=== PATIENT | male | born 1955 | race Caucasian/White ===

== ENCOUNTER 2017-04-17 19:56 | Inpatient (IN) | payer MEDICARE, OTHER ==
--- NOTE | 2017-04-17 20:31 | ED Physician Chart ---
ED Chief Complaint/HPI - Patient Information Date Seen:: 04/17/17 Time Seen:: 20:27 Chief Complaint:: geripsych eval History of Present Illness:: pt sent from [place] for geripsych eval. has had diifficult to manage behavior lately. pt denies pain or fever or recent illness. has hx of psychotic break a few times but denies physical ailments[facility]pt [facility] dr almaraz and dr perry Allergies:: Allergies Allergy/AdvReac Type Severity Reaction Status Date / Time lidocaine Allergy Verified 04/17/17 20:05 Penicillins [PCN] Allergy Verified 04/17/17 20:05 procaine [From Novocain] Allergy Verified 04/17/17 20:05 Vitals:: Vital Signs - 8 hr 04/17/17 20:00 Temp 97.5 F HR 100 RR 18 BP 156/92 O2 Sat % 97 Historian:: Patient ED Review of Systems - Review of Systems General/Constitutional: No fever, No chills, No weight loss, No weakness, No diaphoresis, No edema, No loss of appetite Skin: No skin lesions, No rash, No bruising Head: No headache, No light-headedness Eyes: No loss of vision, No pain, No diplopia ENT: No earache, No nasal drainage, No sore throat, No tinnitus Neck: No neck pain, No swelling, No thyromegaly, No stiffness, No mass noted Cardio Vascular: No chest pain, No palpitations, No PND, No orthopnea, No edema Pulmonary: No SOB, No cough, No sputum, No wheezing GI: No nausea, No vomiting, No diarrhea, No pain, No melena, No hematochezia, No constipation, No hematemesis G/U: No dysuria, No frequency, No hematuria Musculoskeletal: No bone or joint pain, No back pain, No muscle pain Endocrine: No polyuria, No polydipsia Psychiatric: Prior psych history, No depression, No anxiety, No suicidal ideation, Other (difficult behavior) Hematopoietic: No bruising, No lymphadenopathy Allergic/Immuno: No urticaria, No angioedema Neurological: No syncope, No focal symptoms, No weakness, No paresthesia, No headache, No seizure, No dizziness, No confusion, No vertigo ED Past Medical History - Past Medical History Past Medical History: HTN, PUD/GERD, ESRD Psychiatricy History: Schizophrenia Family Medical History - Family Member Mother History Unknown: Yes ED Physical Exam - Physical Examination General/Constitutional: Awake, Well-developed, well-nourished, Alert, No distress, GCS 15, Non-toxic appearing, Ambulatory Other Gen/Cons comments:: currently calm/cooperative Head: Atraumatic Eyes: Lids, conjuctiva normal, PERRL, EOMI Skin: Nl inspection, No rash, No skin lesions, No ecchymosis, Well hydrated, No lymphadenopathy ENMT: External ears, nose nl, Nasal exam nl, Lips, teeth, gums nl Neck: Nontender, Full ROM w/o pain, No JVD, No nuchal rigidity, No bruit, No mass, No stridor Respiratory: Nl effort/Exclusion, Clear to Auscultation, No Wheeze/Rhonchi/Rales Cardio Vascular: RRR, No murmur, gallop, rubs, NL S1 S2 GI: No tenderness/rebounding/guarding, No organomegaly, No hernia, Normal BS's, Nondistended, No mass/bruits, No McBurney tenderness : No CVA tenderness Extremities: No tenderness or effusion, Full ROM, normal strength in all extremities, No edema, Normal digits & nails Neuro/Psych: Alert/oriented, DTR's symmetric, Normal sensory exam, Normal motor strength, Judgement/insight normal, Mood normal, Normal gait, No focal deficits Misc: normal gait, Normal back, No paraspinal tenderness ED Labs/Radiology/EKG Results - Lab Results Results: Laboratory Tests 04/17/17 04/17/17 20:28 20:28 WBC 8.4 RBC 3.92 L Hgb 11.6 L Hct 34.2 L MCV 87.1 MCH 29.6 MCHC Differential 34.0 RDW 11.4 L Plt Count 298 MPV 7.2 Neutrophils % 79.3 Lymphocytes % 12.0 L Monocytes % 7.1 Eosinophils % 1.3 Basophils % 0.3 Sodium 134 L Potassium 3.8 Chloride 104 Carbon Dioxide 21.7 Anion Gap 12.1 BUN 56 H Creatinine 4.7 H* Est GFR ( Amer) 16.3 Est GFR (Non-Af Amer) 13.4 BUN/Creatinine Ratio 11.9 Glucose 144 H Calcium 9.1 Total Bilirubin 0.3 AST 11 L ALT 9 Alkaline Phosphatase 64 Total Protein 6.4 Albumin 3.8 L Globulin 2.6 Albumin/Globulin Ratio 1.5 - Radiology Results Results: cxr- nad - EKG Interpretations EKG Time:: 20:35 Rate & Rhythm: nsr 78 [place]: 29 Intervals: pr156 Comments:: ok ED Septic Shock - . Is Septic Shock (SBP<90, OR Lactate>4 mmol\L) present?: No - <6hrs of presentation: Vital Signs: Vital Signs - 8 hr 04/17/17 20:00 Temp 97.5 F HR 100 RR 18 BP 156/92 O2 Sat % 97 ED Reassessment (Disposition) - Reassessment Reassessment:: pt quiet and cooperative through ed stay. Reassessment Condition:: Unchanged - Diagnosis Diagnosis:: 1 aggressive / difficult to manage behavior 2 medically clear for geripsych admission - Patient Disposition Admitted to:: [facility] Condition at Disposition:: Unchanged
[2017-04-17 20:39] LABS: % BASOPHILS 0.3 % (0.0-2.0); % EOSINOPHILS 1.3 % (0.0-5.0); % MONOCYTES 7.1 % (2.0-10.0); % NEUTROPHILS 79.3 % (40.0-80.0); HEMATOCRIT 34.2 % (39.0-49.0); HEMOGLOBIN 11.6 gm/dL (13.2-17.3); MEAN CELL VOLUME 87.1 fl (80-99); MEAN CORPUSCULAR HEMOGLOBIN 29.6 pg (26.0-30.0); MEAN PLATELET VOLUME 7.2 fl; NEUTROPHILE ABSOLUTE 6.7 Th/cmm (1.8-8.0); PLATELET COUNT 298 Th/cmm (150-400); RED BLOOD COUNT 3.92 Mil/cmm (4.30-5.70); RED CELL DISTRIBUTION WIDTH 11.4 % (11.5-20.0); WHITE BLOOD COUNT 8.4 Th/cmm (4.8-10.8)
[2017-04-17 21:08] LABS: POTASSIUM SERUM 3.8 mEq/L (3.5-5.1)
[2017-04-17 21:09] LABS: ANION GAP 12.1 (7.0-16.0); CARBON DIOXIDE 21.7 mEq/L (21.0-31.0)
[2017-04-17 21:10] LABS: BUN/CREATININE RATIO 11.9; CREATININE - SERUM 4.7 mg/dL (0.7-1.3)
[2017-04-17 21:11] LABS: ALB/GLOB RATIO 1.5 (1.0-1.8); BILIRUBIN,TOTAL 0.3 mg/dL (0.3-1.0); CALCIUM SERUM 9.1 mg/dL (8.6-10.3)
[2017-04-17 22:40] VITALS: BP 130/76
[2017-04-17] MEDS ORDERED: Magnesium Hydroxide (MOM) 30 mL UDC PO PRN (22:40)
--- NOTE | 2017-04-18 08:29 | Diagnostic Imaging Report ---
CHEST X-RAY: AP view INDICATION: Pneumonia COMPARISON: None FINDINGS: Mild chronic lung changes are seen with slight increased left basal density. There is no focal consolidation or pleural effusions The heart is normal in size. Degenerative changes of the spine are noted. There is a 8 mm chronic density probably a bone island within the right proximal humerus. IMPRESSION: Mild chronic lung changes are slight increased left basal density probably due to subsegmental atelectasis versus scarring. Underlying focal infiltrate be considered less likely. Clinical correlation is recommended. No focal consolidation identified.
[2017-04-18 08:58] LABS: URINE BILIRUBIN NEGATIVE (NEGATIVE); URINE BLOOD SMALL (NEGATIVE); URINE GLUCOSE (UA) NEGATIVE (NEGATIVE); URINE KETONE NEGATIVE (NEGATIVE); URINE PROTEIN 100 mg/dL (NEGATIVE); URINE UROBILINOGEN 0.2 E.U./dL (0.2 - 1.0)
[2017-04-18 08:59] LABS: URINE COLOR YELLOW
[2017-04-18 09:00] LABS: URINE BACTERIA NONE SEEN /hpf (NONE SEEN); URINE EPITHELIAL CELLS OCCASIONAL /lpf (FEW); URINE RBC 0-2 /hpf (0-5); URINE WBC 0-2 /hpf (0-5)
[2017-04-18] MEDS ORDERED: Non-Formulary Item 1 EA (Cranberry Conc/C/Bacill Coag [Cranberry Tablet] 1 EACH) PO SCH (09:00)
[2017-04-18] MEDS: Multivitamin w/ Minerals Tab PO SCH ×2 (10:29→11:01)
[2017-04-18] MEDS: Lactobacillus Rhamnosus 10 Billion CFU Capsule PO SCH ×2 (10:29→11:01)
[2017-04-18] MEDS: Ferrous Sulfate 325 MG TAB PO SCH (10:29)
--- NOTE | 2017-04-18 10:35 | Internal Medicine Prog Note ---
Internal Medicine Subjective - Subjective Service Date: 04/18/17 ([id number] [facility] dictated ) Internal Medicine Objective - Results Result Diagrams: 04/17/17 20:04/17/17 20: Recent Labs: Laboratory Last Values WBC 8.4 Th/cmm (4.8-10.8) 04/17/17 20: RBC 3.92 Mil/cmm (4.30-5.70) L 04/17/17 20: Hgb 11.6 gm/dL (13.2-17.3) L 04/17/17 20: Hct 34.2 % (39.0-49.0) L 04/17/17: MCV 87.1 fl (80-99) 04/17/17: MCH 29.6 pg (26.0-30.0) 04/17/17: MCHC Differential 34.0 pg (28.0-36.0) 04/17/17: RDW 11.4 % (11.5-20.0) L 04/17/17: Plt Count 298 Th/cmm (150-400) 04/17/17 20: MPV 7.2 fl 04/17/17 20: Neutrophils % 79.3 % (40.0-80.0) 04/17/17: Lymphocytes % 12.0 % (20.0-50.0) L 04/17/17: Monocytes % 7.1 % (2.0-10.0) 04/17/17: Eosinophils % 1.3 % (0.0-5.0) 04/17/17: Basophils % 0.3 % (0.0-2.0) 04/17/17 20: Sodium 134 mEq/L (136-145) L 04/17/17 20: Potassium 3.8 mEq/L (3.5-5.1) 04/17/17: Chloride 104 mEq/L (98-107) 04/17/17 20: Carbon Dioxide 21.7 mEq/L (21.0-31.0) 04/17/17 20: Anion Gap 12.1 (7.0-16.0) 04/17/17 20: BUN 56 mg/dL (7-25) H 04/17/17 20:28 Creatinine 4.7 mg/dL (0.7-1.3) H* 04/17/17 20:28 Est GFR ( Amer) 16.3 ml/min (>90) 04/17/17 20:28 Est GFR (Non-Af Amer) 13.4 ml/min 04/17/17 20:28 BUN/Creatinine Ratio 11.9 04/17/17 20:28 Glucose 144 mg/dL (70-105) H 04/17/17 20:28 Calcium 9.1 mg/dL (8.6-10.3) 04/17/17 20: Total Bilirubin 0.3 mg/dL (0.3-1.0) 04/17/17 20: AST 11 U/L (13-39) L 04/17/17 20:28 ALT 9 U/L (7-52) 04/17/17 20: Alkaline Phosphatase 64 U/L (34-104) 04/17/17 20: Total Protein 6.4 gm/dL (6.0-8.3) 04/17/17 20: Albumin 3.8 gm/dL (4.2-5.5) L 04/17/17 20: Globulin 2.6 gm/dL 04/17/17 20: Albumin/Globulin Ratio 1.5 (1.0-1.8) 04/17/17 20: TSH 0.80 uIU/ml (0.34-5.60) 04/17/17 20:28 Urine Source RANDOM 04/17/17 20:05 Urine Color YELLOW 04/17/17 20:05 Urine Clarity HAZY (CLEAR) 04/17/17 20:05 Urine pH 6.0 (4.6 - 8.0) 04/17/17 20:05 Ur Specific [place] <= 1.005 (1.005-1.030) 04/17/17 20:05 Urine Protein 100 mg/dL (NEGATIVE) H 04/17/17 20:05 Urine Glucose (UA) NEGATIVE mg/dL (NEGATIVE) 04/17/17 20:05 Urine Ketones NEGATIVE mg/dL (NEGATIVE) 04/17/17 20:05 Urine Blood SMALL (NEGATIVE) H 04/17/17 20:05 Urine Nitrate NEGATIVE (NEGATIVE) 04/17/17 20:05 Urine Bilirubin NEGATIVE (NEGATIVE) 04/17/17 20:05 Urine Urobilinogen 0.2 E.U./dL (0.2 - 1.0) 04/17/17 20:05 Ur Leukocyte Esterase NEGATIVE (NEGATIVE) 04/17/17 20:05 Urine RBC 0-2 /hpf (0-5) H 04/17/17 20:05 Urine WBC 0-2 /hpf (0-5) 04/17/17 20:05 Ur Epithelial Cells OCCASIONAL /lpf (FEW) 04/17/17 20:05 Urine Bacteria NONE SEEN /hpf (NONE SEEN) 04/17/17 20:05 - Physical Exam Vitals and I&O: Vital Signs Temp 97.9 F 04/18/17 06:50 Pulse 80 04/18/17 10:28 Resp 19 04/18/17 06:50 BP 161/67 04/18/17 10:28 Pulse Ox 97 04/18/17 06:50 Intake & Output 04/17/17 04/18/17 04/18/17 18:59 06:59 18:59 Weight (lbs) 160 lb Other: # Voids 3 # Bowel Movements 0 Active Medications: Current Medications Acetaminophen (Tylenol) 650 mg PO Q4HR PRN PRN Reason: Pain or Fever >101 Stop: 06/16/17 22:39 Amlodipine Besylate (Norvasc) 10 mg PO DAILY COUNTS INCLUDE 234 BEDS AT THE [facility] Stop: 06/17/17 08:59 Last Admin: 04/18/17 10:28 Dose: 10 mg Divalproex Sodium (Depakote Sprinkle) 125 mg PO Q12HR COUNTS INCLUDE 234 BEDS AT THE [facility] PRN Reason: Protocol Stop: 06/17/17 20:59 Docusate Sodium (Colace) 100 mg PO BID COUNTS INCLUDE 234 BEDS AT THE [facility] Stop: 06/17/17 08:59 Last Admin: 04/18/17 10:29 Dose: 100 mg Ferrous Sulfate (Iron) 325 mg PO DAILY COUNTS INCLUDE 234 BEDS AT THE [facility] Stop: 06/17/17 08:59 Last Admin: 04/18/17 10:29 Dose: 325 mg Finasteride (Proscar) 5 mg PO DAILY COUNTS INCLUDE 234 BEDS AT THE [facility] PRN Reason: Protocol Stop: 06/17/17 08:59 Last Admin: 04/18/17 10:26 Dose: 5 mg Haloperidol (Haldol) 2 mg PO BID COUNTS INCLUDE 234 BEDS AT THE [facility] PRN Reason: Protocol Stop: 06/17/17 16:59 Lactobacillus Rhamnosus (Culturelle) 1 each PO DAILY [facility] Stop: 06/17/17 08:59 Last Admin: 04/18/17 10:29 Dose: 1 each Lorazepam (Ativan) 1 mg PO Q6H PRN; Protocol PRN Reason: Anxiety/Agitation Stop: 06/16/17 22:25 Magnesium Hydroxide (Milk Of Magnesia) 30 ml PO DAILY PRN PRN Reason: Constipation Stop: 06/16/17 22:39 Miscellaneous (Cranberry Conc/C/Bacill Coag [Cranberry Tablet]) 1 each PO DAILY [facility] Stop: 06/17/17 08:59 Tamsulosin HCl (Flomax) 0.4 mg PO DAILY [facility] Stop: 06/17/17 08:59 Last Admin: 04/18/17 10:29 Dose: 0.4 mg Zolpidem Tartrate (Ambien) 5 mg PO HS PRN PRN Reason: Insomnia Stop: 06/16/17 22:25 Internal Medicine Assmt/Plan - Assessment Assessment: HTN CKD ANEMIA PSYCHOSIS PARANOID SCHIZOPHRENIA GERD BPH
--- NOTE | 2017-04-18 11:12 | History & Physical ---
ADMIT DATE: 04/18/2017 CHIEF COMPLAINT: Aggressive behavior. HISTORY OF PRESENT ILLNESS: This is a 61-year-old male who is a resident of [facility] who was brought here to [facility] for aggressive behavior towards staff. PAST MEDICAL HISTORY: Spondylosis, CKD, hypertension, GERD, BPH, anemia, paranoid schizophrenia. PSYCHIATRIC HISTORY: Schizophrenia. SOCIAL HISTORY: The [facility] is a [facility] resident, requiring 24-hour nursing care. PAST SURGICAL HISTORY: Unknown. FAMILY HISTORY: Noncontributory. REVIEW OF SYSTEMS: GENERAL: Denies fevers, chills. CARDIOVASCULAR: Denies chest pain. RESPIRATORY: Denies shortness of breath. GASTROINTESTINAL: Denies nausea, vomiting, abdominal pain. GENITOURINARY: Denies dysuria. All other systems are reviewed by me and are negative. PHYSICAL EXAMINATION: GENERAL: The patient is well developed, well nourished, no acute distress. VITAL SIGNS: Temperature 97.9, heart rate 80, blood pressure 161/67, respirations 19, O2 97%. HEAD: Normocephalic, atraumatic. NECK: Supple. No mass. LUNGS: Clear bilaterally. HEART: rhythm. ABDOMEN: Soft, nontender. LABORATORY DATA: WBC 8.4, H and H 11.6 and 34.2, platelet of 298. Sodium 134, potassium 3.8, chloride 104, BUN 56, creatinine 4.7. DIAGNOSTICS: The patient had a chest x-ray done and the impression is no focal consolidation. ASSESSMENT: 1. Psychosis. 2. Schizophrenia. 3. Hypertension. 4. Gastroesophageal reflux disease. 5. Benign prostatic hypertrophy. 6. Anemia. 7. Paranoid schizophrenia. 8. Chronic kidney disease. PLAN: We will encourage the patient for IV fluids. We will monitor the patient's BUN and creatinine for tomorrow morning. The patient to continue same medications from the jail. We will continue to monitor this patient. JOB# [id number]
--- NOTE | 2017-04-19 01:33 | Psychosocial Evaluation ---
DATE OF SERVICE: 04/17/2017 IDENTIFYING DATA: The patient is a 61-year-old male admitted here on a voluntary basis in view of his acute agitation. CHIEF COMPLAINT: "I should not be here. I am already better that I should be out." HISTORY OF PRESENT ILLNESS: This is the first psychiatric hospitalization to the [facility] for this patient who is reported to have been out of control. The patient is reported to have been on Risperdal up to 12 mg as per the information obtained by the family; that has not worked. The patient is reported to have been on Haldol. He has been tried on Haldol, it has caused drooling. The patient also was on Zyprexa 2.5 mg to 10 mg and nothing has worked. The patient has stage 4 kidney disease, and the patient is reported to have been conserved. Patient, at the time of the evaluation, has been very irritable, angry and has been testing the limit, stating that he should not be in here, he should be out. The patient's daughter Kaley was the one that has given the information. We have been looking for the [employer] papers at this time. PAST PSYCHIATRIC HISTORY: Please refer the above. The patient is being followed up by Dr. Dorsey on outpatient basis. MEDICAL HISTORY AND PHYSICAL EXAMINATION: Requested to be done by Dr. Sanchez. SUBSTANCE ABUSE HISTORY: None. PHYSICAL OR SEXUAL ABUSE HISTORY: None. Details about the prior psychiatric treatments are not available at this time. SOCIAL HISTORY: The patient is a resident of the nursing home facility. MENTAL STATUS EXAMINATION: The patient is a 61 year old, looking his stated age, superficially cooperative. Eye contact is fair. Mood is irritable. Affect is constricted. Insight and judgment at this time are noted to be very much impaired. Impulse control is poor. Coping skills are also noted to be poor. The patient is testing the limits. The patient is stating that there is no reason for him to be in here and he needs to be discharged. The patient has no insight into his illness. Since the patient has been reported to have been doing okay with the haloperidol and Zyprexa combination, we will try to start on a low dose of these medications and see how the patient responds and if the patient is willing, we will go with the Haldol Decanoate. [facility]# [id number]
[2017-04-19] MEDS: Ferrous Sulfate 325 MG TAB PO SCH (08:36)
[2017-04-19] MEDS: Lactobacillus Rhamnosus 10 Billion CFU Capsule PO SCH (08:37)
[2017-04-19] MEDS: Multivitamin w/ Minerals Tab PO SCH (08:37)
--- NOTE | 2017-04-19 11:30 | Internal Medicine Prog Note ---
Internal Medicine Subjective - Subjective Service Date: 04/19/17 Patient is:: awake, verbal Per staff patient has:: no adverse event Internal Medicine Objective - Results Result Diagrams: 04/17/17 20:04/17/17 20: Recent Labs: Laboratory Last Values WBC 8.4 Th/cmm (4.8-10.8) 04/17/17 20: RBC 3.92 Mil/cmm (4.30-5.70) L 04/17/17 20: Hgb 11.6 gm/dL (13.2-17.3) L 04/17/17 20: Hct 34.2 % (39.0-49.0) L 04/17/17 20: MCV 87.1 fl (80-99) 04/17/17 20: MCH 29.6 pg (26.0-30.0) 04/17/17 20: MCHC Differential 34.0 pg (28.0-36.0) 04/17/17: RDW 11.4 % (11.5-20.0) L 04/17/17 20: Plt Count 298 Th/cmm (150-400) 04/17/17 20: MPV 7.2 fl 04/17/17 20: Neutrophils % 79.3 % (40.0-80.0) 04/17/17: Lymphocytes % 12.0 % (20.0-50.0) L 04/17/17: Monocytes % 7.1 % (2.0-10.0) 04/17/17: Eosinophils % 1.3 % (0.0-5.0) 04/17/17 20: Basophils % 0.3 % (0.0-2.0) 04/17/17 20: Sodium 134 mEq/L (136-145) L 04/17/17 20: Potassium 3.8 mEq/L (3.5-5.1) 04/17/17 20: Chloride 104 mEq/L (98-107) 04/17/17 20: Carbon Dioxide 21.7 mEq/L (21.0-31.0) 04/17/17 20: Anion Gap 12.1 (7.0-16.0) 04/17/17 20:28 BUN 56 mg/dL (7-25) H 04/17/17 20:28 Creatinine 4.7 mg/dL (0.7-1.3) H* 04/17/17 20:28 Est GFR ( Amer) 16.3 ml/min (>90) 04/17/17 20: Est GFR (Non-Af Amer) 13.4 ml/min 04/17/17 20: BUN/Creatinine Ratio 11.9 04/17/17 20: Glucose 144 mg/dL (70-105) H 04/17/17 20:28 Calcium 9.1 mg/dL (8.6-10.3) 04/17/17 20: Total Bilirubin 0.3 mg/dL (0.3-1.0) 04/17/17 20: AST 11 U/L (13-39) L 04/17/17 20: ALT 9 U/L (7-52) 04/17/17 20: Alkaline Phosphatase 64 U/L (34-104) 04/17/17 20:28 Total Protein 6.4 gm/dL (6.0-8.3) 04/17/17 20: Albumin 3.8 gm/dL (4.2-5.5) L 04/17/17 20: Globulin 2.6 gm/dL 04/17/17 20: Albumin/Globulin Ratio 1.5 (1.0-1.8) 04/17/17 20: TSH 0.80 uIU/ml (0.34-5.60) 04/17/17 20:28 Urine Source RANDOM 04/17/17 20:05 Urine Color YELLOW 04/17/17 20:05 Urine Clarity HAZY (CLEAR) 04/17/17 20:05 Urine pH 6.0 (4.6 - 8.0) 04/17/17 20:05 Ur Specific [place] <= 1.005 (1.005-1.030) 04/17/17 20:05 Urine Protein 100 mg/dL (NEGATIVE) H 04/17/17 20:05 Urine Glucose (UA) NEGATIVE mg/dL (NEGATIVE) 04/17/17 20:05 Urine Ketones NEGATIVE mg/dL (NEGATIVE) 04/17/17 20:05 Urine Blood SMALL (NEGATIVE) H 04/17/17 20:05 Urine Nitrate NEGATIVE (NEGATIVE) 04/17/17 20:05 Urine Bilirubin NEGATIVE (NEGATIVE) 04/17/17 20:05 Urine Urobilinogen 0.2 E.U./dL (0.2 - 1.0) 04/17/17 20:05 Ur Leukocyte Esterase NEGATIVE (NEGATIVE) 04/17/17 20:05 Urine RBC 0-2 /hpf (0-5) H 04/17/17 20:05 Urine WBC 0-2 /hpf (0-5) 04/17/17 20:05 Ur Epithelial Cells OCCASIONAL /lpf (FEW) 04/17/17 20:05 Urine Bacteria NONE SEEN /hpf (NONE SEEN) 04/17/17 20:05 - Physical Exam Vitals and I&O: Vital Signs Temp 97.9 F 04/18/17 06:50 Pulse 80 04/18/17 06:50 Resp 19 04/18/17 06:50 BP 161/67 04/18/17 06:50 Pulse Ox 97 04/18/17 06:50 Intake & Output 04/18/17 04/19/17 04/19/17 18:59 06:59 18:59 Intake Total 2400 120 Balance 2400 120 Intake: Oral 2400 120 Other: # Voids 4 3 # Bowel Movements 0 Active Medications: Current Medications Acetaminophen (Tylenol) 650 mg PO Q4HR PRN PRN Reason: Pain or Fever >101 Stop: 06/16/17 22:39 Amlodipine Besylate (Norvasc) 10 mg PO DAILY [facility] Stop: 06/17/17 08:59 Last Admin: 04/19/17 08:36 Dose: Not Given Divalproex Sodium (Depakote Sprinkle) 125 mg PO Q12HR [facility] PRN Reason: Protocol Stop: 06/17/17 20:59 Docusate Sodium (Colace) 100 mg PO BID [facility] Stop: 06/17/17 08:59 Last Admin: 04/19/17 08:36 Dose: Not Given Ferrous Sulfate (Iron) 325 mg PO DAILY [facility] Stop: 06/17/17 08:59 Last Admin: 04/19/17 08:36 Dose: Not Given Finasteride (Proscar) 5 mg PO DAILY [facility] PRN Reason: Protocol Stop: 06/17/17 08:59 Last Admin: 04/19/17 08:36 Dose: Not Given Haloperidol (Haldol) 2 mg PO BID [facility] PRN Reason: Protocol Stop: 06/17/17 16:59 Lactobacillus Rhamnosus (Culturelle) 1 each PO DAILY [facility] Stop: 06/17/17 08:59 Last Admin: 04/19/17 08:37 Dose: Not Given Lorazepam (Ativan) 1 mg PO Q6H PRN; Protocol PRN Reason: Anxiety/Agitation Stop: 06/16/17 22:25 Magnesium Hydroxide (Milk Of Magnesia) 30 ml PO DAILY PRN PRN Reason: Constipation Stop: 06/16/17 22:39 Tamsulosin HCl (Flomax) 0.4 mg PO DAILY [facility] Stop: 06/17/17 08:59 Last Admin: 04/19/17 08:37 Dose: Not Given Zolpidem Tartrate (Ambien) 5 mg PO HS PRN PRN Reason: Insomnia Stop: 06/16/17 22:25 General: alert HEENT: NC/AT, PERRLA Neck: Supple Lungs: CTAB Cardiovascular: RRR, Normal S1, Normal S2, without murmur Abdomen: soft, non-tender, non-distended Extremities: excoriation Neurological: no change Internal Medicine Assmt/Plan - Assessment Assessment: HTN CKD ANEMIA PSYCHOSIS PARANOID SCHIZOPHRENIA GERD BPH - Plan Plan: monitor bp continue current medications fall precautions psych f/u
--- NOTE | 2017-04-20 02:32 | Progress Notes ---
DATE: 04/19/2017 SUBJECTIVE: Staff was spoken to. The patient is interviewed. Mood is noted to be irritable. Affect is constricted. The patient is not making any sense. The patient has been very aggressive and verbally abusive towards the staff members. Insight and judgment are very much impaired. Impulse control is noted to be poor. The patient is very paranoid. The patient has been placed on the Haldol and has not been willing to comply. The patient is reported to have responded well to Haldol Decanoate possibly once we get the [id number] papers, we will be going in the direction. ASSESSMENT: The patient's behavior is likely danger to self and others and patient is grossly psychotic. PLAN: To continue the patient with supportive therapy. I encouraged the patient to verbalize the concerns rather than to act out. JOB# [id number]
[2017-04-20] MEDS: Lactobacillus Rhamnosus 10 Billion CFU Capsule PO SCH (08:02)
[2017-04-20] MEDS: Multivitamin w/ Minerals Tab PO SCH (08:02)
[2017-04-20] MEDS: Ferrous Sulfate 325 MG TAB PO SCH (08:02)
--- NOTE | 2017-04-20 12:00 | Internal Medicine Prog Note ---
Internal Medicine Subjective - Subjective Service Date: 04/20/17 Patient is:: awake, verbal Per staff patient has:: no adverse event Internal Medicine Objective - Results Result Diagrams: 04/17/17 20:04/17/17 20: Recent Labs: Laboratory Last Values WBC 8.4 Th/cmm (4.8-10.8) 04/17/17 20: RBC 3.92 Mil/cmm (4.30-5.70) L 04/17/17 20: Hgb 11.6 gm/dL (13.2-17.3) L 04/17/17 20: Hct 34.2 % (39.0-49.0) L 04/17/17 20: MCV 87.1 fl (80-99) 04/17/17 20: MCH 29.6 pg (26.0-30.0) 04/17/17 20: MCHC Differential 34.0 pg (28.0-36.0) 04/17/17: RDW 11.4 % (11.5-20.0) L 04/17/17 20: Plt Count 298 Th/cmm (150-400) 04/17/17 20: MPV 7.2 fl 04/17/17 20: Neutrophils % 79.3 % (40.0-80.0) 04/17/17: Lymphocytes % 12.0 % (20.0-50.0) L 04/17/17: Monocytes % 7.1 % (2.0-10.0) 04/17/17: Eosinophils % 1.3 % (0.0-5.0) 04/17/17 20: Basophils % 0.3 % (0.0-2.0) 04/17/17 20: Sodium 134 mEq/L (136-145) L 04/17/17 20: Potassium 3.8 mEq/L (3.5-5.1) 04/17/17 20: Chloride 104 mEq/L (98-107) 04/17/17 20: Carbon Dioxide 21.7 mEq/L (21.0-31.0) 04/17/17 20: Anion Gap 12.1 (7.0-16.0) 04/17/17 20:28 BUN 56 mg/dL (7-25) H 04/17/17 20:28 Creatinine 4.7 mg/dL (0.7-1.3) H* 04/17/17 20:28 Est GFR ( Amer) 16.3 ml/min (>90) 04/17/17 20: Est GFR (Non-Af Amer) 13.4 ml/min 04/17/17 20: BUN/Creatinine Ratio 11.9 04/17/17 20: Glucose 144 mg/dL (70-105) H 04/17/17 20:28 Calcium 9.1 mg/dL (8.6-10.3) 04/17/17 20: Total Bilirubin 0.3 mg/dL (0.3-1.0) 04/17/17 20: AST 11 U/L (13-39) L 04/17/17 20: ALT 9 U/L (7-52) 04/17/17 20: Alkaline Phosphatase 64 U/L (34-104) 04/17/17 20:28 Total Protein 6.4 gm/dL (6.0-8.3) 04/17/17 20: Albumin 3.8 gm/dL (4.2-5.5) L 04/17/17 20: Globulin 2.6 gm/dL 04/17/17 20: Albumin/Globulin Ratio 1.5 (1.0-1.8) 04/17/17 20: TSH 0.80 uIU/ml (0.34-5.60) 04/17/17 20:28 Urine Source RANDOM 04/17/17 20:05 Urine Color YELLOW 04/17/17 20:05 Urine Clarity HAZY (CLEAR) 04/17/17 20:05 Urine pH 6.0 (4.6 - 8.0) 04/17/17 20:05 Ur Specific [place] <= 1.005 (1.005-1.030) 04/17/17 20:05 Urine Protein 100 mg/dL (NEGATIVE) H 04/17/17 20:05 Urine Glucose (UA) NEGATIVE mg/dL (NEGATIVE) 04/17/17 20:05 Urine Ketones NEGATIVE mg/dL (NEGATIVE) 04/17/17 20:05 Urine Blood SMALL (NEGATIVE) H 04/17/17 20:05 Urine Nitrate NEGATIVE (NEGATIVE) 04/17/17 20:05 Urine Bilirubin NEGATIVE (NEGATIVE) 04/17/17 20:05 Urine Urobilinogen 0.2 E.U./dL (0.2 - 1.0) 04/17/17 20:05 Ur Leukocyte Esterase NEGATIVE (NEGATIVE) 04/17/17 20:05 Urine RBC 0-2 /hpf (0-5) H 04/17/17 20:05 Urine WBC 0-2 /hpf (0-5) 04/17/17 20:05 Ur Epithelial Cells OCCASIONAL /lpf (FEW) 04/17/17 20:05 Urine Bacteria NONE SEEN /hpf (NONE SEEN) 04/17/17 20:05 RPR NONREACTIVE (NONREACTIVE) 04/17/17 20:28 - Physical Exam Vitals and I&O: Vital Signs Temp 97.9 F 04/18/17 06:50 Pulse 80 04/18/17 06:50 Resp 19 04/18/17 06:50 BP 161/67 04/18/17 06:50 Pulse Ox 97 04/18/17 06:50 Intake & Output 04/19/17 04/20/17 04/20/17 18:59 06:59 18:59 Intake Total 2400 120 Balance 2400 120 Intake: Oral 2400 120 Other: # Voids 4 3 # Bowel Movements 1 Active Medications: Current Medications Acetaminophen (Tylenol) 650 mg PO Q4HR PRN PRN Reason: Pain or Fever >101 Stop: 06/16/17 22:39 Amlodipine Besylate (Norvasc) 10 mg PO DAILY [facility] Stop: 06/17/17 08:59 Last Admin: 04/20/17 08:02 Dose: Not Given Divalproex Sodium (Depakote Sprinkle) 125 mg PO Q12HR [facility] PRN Reason: Protocol Stop: 06/17/17 20:59 Last Admin: 04/20/17 08:02 Dose: Not Given Docusate Sodium (Colace) 100 mg PO BID [facility] Stop: 06/17/17 08:59 Last Admin: 04/20/17 08:02 Dose: Not Given Ferrous Sulfate (Iron) 325 mg PO DAILY [facility] Stop: 06/17/17 08:59 Last Admin: 04/20/17 08:02 Dose: Not Given Finasteride (Proscar) 5 mg PO DAILY [facility] PRN Reason: Protocol Stop: 06/17/17 08:59 Last Admin: 04/20/17 08:02 Dose: Not Given Haloperidol (Haldol) 2 mg PO BID [facility] PRN Reason: Protocol Stop: 06/17/17 16:59 Last Admin: 04/20/17 08:01 Dose: Not Given Lactobacillus Rhamnosus (Culturelle) 1 each PO DAILY [facility] Stop: 06/17/17 08:59 Last Admin: 04/20/17 08:02 Dose: Not Given Lorazepam (Ativan) 1 mg PO Q6H PRN; Protocol PRN Reason: Anxiety/Agitation Stop: 06/16/17 22:25 Magnesium Hydroxide (Milk Of Magnesia) 30 ml PO DAILY PRN PRN Reason: Constipation Stop: 06/16/17 22:39 Tamsulosin HCl (Flomax) 0.4 mg PO DAILY [facility] Stop: 06/17/17 08:59 Last Admin: 04/20/17 08:02 Dose: Not Given Zolpidem Tartrate (Ambien) 5 mg PO HS PRN PRN Reason: Insomnia Stop: 06/16/17 22:25 General: alert HEENT: NC/AT, PERRLA Neck: Supple Lungs: CTAB Cardiovascular: RRR, Normal S1, Normal S2, without murmur Abdomen: soft, non-tender, non-distended Extremities: excoriation Neurological: no change Internal Medicine Assmt/Plan - Assessment Assessment: HTN CKD ANEMIA PSYCHOSIS PARANOID SCHIZOPHRENIA GERD BPH - Plan Plan: monitor bp continue current medications fall precautions psych f/u
--- NOTE | 2017-04-21 01:45 | Progress Notes ---
DATE: 04/20/2017 PSYCHIATRIC PROGRESS NOTE Staff was spoken to. The patient is interviewed. Mood is noted to be irritable. Affect is constricted. The patient's insight and judgment are noted to be very much impaired. The patient is screaming and yelling and is stating that there is no reason for him to be on the medication. The patient's coping skills are noted to be very poor. The patient is very paranoid and has been testing the limits on the unit. ASSESSMENT: The patient is still grossly psychotic. PLAN: To continue the patient with supportive therapy. I encouraged the patient to verbalize the concerns rather than to act out. JOB# [id number]
--- NOTE | 2017-04-21 15:14 | Internal Medicine Prog Note ---
Internal Medicine Subjective - Subjective Service Date: 04/21/17 Patient is:: awake, verbal Per staff patient has:: no adverse event Internal Medicine Objective - Results Result Diagrams: 04/17/17 20:04/17/17 20: Recent Labs: Laboratory Last Values WBC 8.4 Th/cmm (4.8-10.8) 04/17/17 20: RBC 3.92 Mil/cmm (4.30-5.70) L 04/17/17 20: Hgb 11.6 gm/dL (13.2-17.3) L 04/17/17 20: Hct 34.2 % (39.0-49.0) L 04/17/17 20: MCV 87.1 fl (80-99) 04/17/17 20: MCH 29.6 pg (26.0-30.0) 04/17/17 20: MCHC Differential 34.0 pg (28.0-36.0) 04/17/17: RDW 11.4 % (11.5-20.0) L 04/17/17 20: Plt Count 298 Th/cmm (150-400) 04/17/17 20: MPV 7.2 fl 04/17/17 20: Neutrophils % 79.3 % (40.0-80.0) 04/17/17 20: Lymphocytes % 12.0 % (20.0-50.0) L 04/17/17 20: Monocytes % 7.1 % (2.0-10.0) 04/17/17: Eosinophils % 1.3 % (0.0-5.0) 04/17/17 20: Basophils % 0.3 % (0.0-2.0) 04/17/17 20: Sodium 134 mEq/L (136-145) L 04/17/17 20: Potassium 3.8 mEq/L (3.5-5.1) 04/17/17 20: Chloride 104 mEq/L (98-107) 04/17/17 20: Carbon Dioxide 21.7 mEq/L (21.0-31.0) 04/17/17 20: Anion Gap 12.1 (7.0-16.0) 04/17/17 20:28 BUN 56 mg/dL (7-25) H 04/17/17 20:28 Creatinine 4.7 mg/dL (0.7-1.3) H* 04/17/17 20:28 Est GFR ( Amer) 16.3 ml/min (>90) 04/17/17 20: Est GFR (Non-Af Amer) 13.4 ml/min 04/17/17 20: BUN/Creatinine Ratio 11.9 04/17/17 20: Glucose 144 mg/dL (70-105) H 04/17/17 20:28 Calcium 9.1 mg/dL (8.6-10.3) 04/17/17 20: Total Bilirubin 0.3 mg/dL (0.3-1.0) 04/17/17 20: AST 11 U/L (13-39) L 04/17/17 20: ALT 9 U/L (7-52) 04/17/17 20: Alkaline Phosphatase 64 U/L (34-104) 04/17/17 20:28 Total Protein 6.4 gm/dL (6.0-8.3) 04/17/17 20: Albumin 3.8 gm/dL (4.2-5.5) L 04/17/17 20: Globulin 2.6 gm/dL 04/17/17 20: Albumin/Globulin Ratio 1.5 (1.0-1.8) 04/17/17 20: TSH 0.80 uIU/ml (0.34-5.60) 04/17/17 20:28 Urine Source RANDOM 04/17/17 20:05 Urine Color YELLOW 04/17/17 20:05 Urine Clarity HAZY (CLEAR) 04/17/17 20:05 Urine pH 6.0 (4.6 - 8.0) 04/17/17 20:05 Ur Specific [place] <= 1.005 (1.005-1.030) 04/17/17 20:05 Urine Protein 100 mg/dL (NEGATIVE) H 04/17/17 20:05 Urine Glucose (UA) NEGATIVE mg/dL (NEGATIVE) 04/17/17 20:05 Urine Ketones NEGATIVE mg/dL (NEGATIVE) 04/17/17 20:05 Urine Blood SMALL (NEGATIVE) H 04/17/17 20:05 Urine Nitrate NEGATIVE (NEGATIVE) 04/17/17 20:05 Urine Bilirubin NEGATIVE (NEGATIVE) 04/17/17 20:05 Urine Urobilinogen 0.2 E.U./dL (0.2 - 1.0) 04/17/17 20:05 Ur Leukocyte Esterase NEGATIVE (NEGATIVE) 04/17/17 20:05 Urine RBC 0-2 /hpf (0-5) H 04/17/17 20:05 Urine WBC 0-2 /hpf (0-5) 04/17/17 20:05 Ur Epithelial Cells OCCASIONAL /lpf (FEW) 04/17/17 20:05 Urine Bacteria NONE SEEN /hpf (NONE SEEN) 04/17/17 20:05 RPR NONREACTIVE (NONREACTIVE) 04/17/17 20:28 - Physical Exam Vitals and I&O: Vital Signs Temp 97.9 F 04/18/17 06:50 Pulse 80 04/18/17 06:50 Resp 19 04/18/17 06:50 BP 161/67 04/18/17 06:50 Pulse Ox 97 04/18/17 06:50 Intake & Output 04/20/17 04/21/17 04/21/17 18:59 06:59 18:59 Intake Total 1200 120 Balance 1200 120 Intake: Oral 1200 120 Other: # Voids 4 3 # Bowel Movements 1 Active Medications: Current Medications Acetaminophen (Tylenol) 650 mg PO Q4HR PRN PRN Reason: Pain or Fever >101 Stop: 06/16/17 22:39 Amlodipine Besylate (Norvasc) 10 mg PO DAILY [facility] Stop: 06/17/17 08:59 Last Admin: 04/20/17 08:02 Dose: Not Given Divalproex Sodium (Depakote Sprinkle) 125 mg PO Q12HR [facility] PRN Reason: Protocol Stop: 06/17/17 20:59 Last Admin: 04/20/17 21:39 Dose: Not Given Docusate Sodium (Colace) 100 mg PO BID [facility] Stop: 06/17/17 08:59 Last Admin: 04/20/17 18:14 Dose: Not Given Ferrous Sulfate (Iron) 325 mg PO DAILY [facility] Stop: 06/17/17 08:59 Last Admin: 04/20/17 08:02 Dose: Not Given Finasteride (Proscar) 5 mg PO DAILY [facility] PRN Reason: Protocol Stop: 06/17/17 08:59 Last Admin: 04/20/17 08:02 Dose: Not Given Haloperidol (Haldol) 2 mg PO BID [facility] PRN Reason: Protocol Stop: 06/17/17 16:59 Last Admin: 04/20/17 17:12 Dose: Not Given Lactobacillus Rhamnosus (Culturelle) 1 each PO DAILY [facility] Stop: 06/17/17 08:59 Last Admin: 04/20/17 08:02 Dose: Not Given Lorazepam (Ativan) 1 mg PO Q6H PRN; Protocol PRN Reason: Anxiety/Agitation Stop: 06/16/17 22:25 Magnesium Hydroxide (Milk Of Magnesia) 30 ml PO DAILY PRN PRN Reason: Constipation Stop: 06/16/17 22:39 Tamsulosin HCl (Flomax) 0.4 mg PO DAILY [facility] Stop: 06/17/17 08:59 Last Admin: 04/20/17 08:02 Dose: Not Given Zolpidem Tartrate (Ambien) 5 mg PO HS PRN PRN Reason: Insomnia Stop: 06/16/17 22:25 General: alert HEENT: NC/AT, PERRLA Neck: Supple Lungs: CTAB Cardiovascular: RRR, Normal S1, Normal S2, without murmur Abdomen: soft, non-tender, non-distended Extremities: excoriation Neurological: no change Internal Medicine Assmt/Plan - Assessment Assessment: HTN CKD ANEMIA PSYCHOSIS PARANOID SCHIZOPHRENIA GERD BPH - Plan Plan: monitor bp continue current medications fall precautions psych f/u
[2017-04-21] MEDS: Lactobacillus Rhamnosus 10 Billion CFU Capsule PO SCH (17:38)
[2017-04-21] MEDS: Ferrous Sulfate 325 MG TAB PO SCH (17:38)
[2017-04-21] MEDS: Multivitamin w/ Minerals Tab PO SCH (17:38)
[2017-04-22] MEDS: Ferrous Sulfate 325 MG TAB PO SCH (08:19)
[2017-04-22] MEDS: Multivitamin w/ Minerals Tab PO SCH (08:19)
[2017-04-22] MEDS: Lactobacillus Rhamnosus 10 Billion CFU Capsule PO SCH (08:19)
--- NOTE | 2017-04-22 15:01 | Internal Medicine Prog Note ---
Internal Medicine Subjective - Subjective Service Date: 04/22/17 Patient is:: awake, verbal Per staff patient has:: no adverse event Internal Medicine Objective - Results Result Diagrams: 04/17/17 20:04/17/17 20: Recent Labs: Laboratory Last Values WBC 8.4 Th/cmm (4.8-10.8) 04/17/17 20: RBC 3.92 Mil/cmm (4.30-5.70) L 04/17/17 20: Hgb 11.6 gm/dL (13.2-17.3) L 04/17/17 20: Hct 34.2 % (39.0-49.0) L 04/17/17 20: MCV 87.1 fl (80-99) 04/17/17 20: MCH 29.6 pg (26.0-30.0) 04/17/17 20: MCHC Differential 34.0 pg (28.0-36.0) 04/17/17: RDW 11.4 % (11.5-20.0) L 04/17/17 20: Plt Count 298 Th/cmm (150-400) 04/17/17 20: MPV 7.2 fl 04/17/17 20: Neutrophils % 79.3 % (40.0-80.0) 04/17/17: Lymphocytes % 12.0 % (20.0-50.0) L 04/17/17: Monocytes % 7.1 % (2.0-10.0) 04/17/17: Eosinophils % 1.3 % (0.0-5.0) 04/17/17 20: Basophils % 0.3 % (0.0-2.0) 04/17/17 20: Sodium 134 mEq/L (136-145) L 04/17/17 20: Potassium 3.8 mEq/L (3.5-5.1) 04/17/17 20: Chloride 104 mEq/L (98-107) 04/17/17 20: Carbon Dioxide 21.7 mEq/L (21.0-31.0) 04/17/17 20: Anion Gap 12.1 (7.0-16.0) 04/17/17 20:28 BUN 56 mg/dL (7-25) H 04/17/17 20:28 Creatinine 4.7 mg/dL (0.7-1.3) H* 04/17/17 20:28 Est GFR ( Amer) 16.3 ml/min (>90) 04/17/17 20: Est GFR (Non-Af Amer) 13.4 ml/min 04/17/17 20: BUN/Creatinine Ratio 11.9 04/17/17 20: Glucose 144 mg/dL (70-105) H 04/17/17 20:28 Calcium 9.1 mg/dL (8.6-10.3) 04/17/17 20: Total Bilirubin 0.3 mg/dL (0.3-1.0) 04/17/17 20: AST 11 U/L (13-39) L 04/17/17 20: ALT 9 U/L (7-52) 04/17/17 20: Alkaline Phosphatase 64 U/L (34-104) 04/17/17 20:28 Total Protein 6.4 gm/dL (6.0-8.3) 04/17/17 20: Albumin 3.8 gm/dL (4.2-5.5) L 04/17/17 20: Globulin 2.6 gm/dL 04/17/17 20: Albumin/Globulin Ratio 1.5 (1.0-1.8) 04/17/17 20: TSH 0.80 uIU/ml (0.34-5.60) 04/17/17 20:28 Urine Source RANDOM 04/17/17 20:05 Urine Color YELLOW 04/17/17 20:05 Urine Clarity HAZY (CLEAR) 04/17/17 20:05 Urine pH 6.0 (4.6 - 8.0) 04/17/17 20:05 Ur Specific [place] <= 1.005 (1.005-1.030) 04/17/17 20:05 Urine Protein 100 mg/dL (NEGATIVE) H 04/17/17 20:05 Urine Glucose (UA) NEGATIVE mg/dL (NEGATIVE) 04/17/17 20:05 Urine Ketones NEGATIVE mg/dL (NEGATIVE) 04/17/17 20:05 Urine Blood SMALL (NEGATIVE) H 04/17/17 20:05 Urine Nitrate NEGATIVE (NEGATIVE) 04/17/17 20:05 Urine Bilirubin NEGATIVE (NEGATIVE) 04/17/17 20:05 Urine Urobilinogen 0.2 E.U./dL (0.2 - 1.0) 04/17/17 20:05 Ur Leukocyte Esterase NEGATIVE (NEGATIVE) 04/17/17 20:05 Urine RBC 0-2 /hpf (0-5) H 04/17/17 20:05 Urine WBC 0-2 /hpf (0-5) 04/17/17 20:05 Ur Epithelial Cells OCCASIONAL /lpf (FEW) 04/17/17 20:05 Urine Bacteria NONE SEEN /hpf (NONE SEEN) 04/17/17 20:05 RPR NONREACTIVE (NONREACTIVE) 04/17/17 20:28 - Physical Exam Vitals and I&O: Vital Signs Temp 97.9 F 04/18/17 06:50 Pulse 80 04/18/17 06:50 Resp 19 04/18/17 06:50 BP 161/67 04/18/17 06:50 Pulse Ox 97 04/18/17 06:50 Intake & Output 04/21/17 04/22/17 04/22/17 18:59 06:59 18:59 Intake Total 900 480 Balance 900 480 Intake: Oral 900 480 Other: # Voids 3 1 # Bowel Movements 0 Active Medications: Current Medications Acetaminophen (Tylenol) 650 mg PO Q4HR PRN PRN Reason: Pain or Fever >101 Stop: 06/16/17 22:39 Amlodipine Besylate (Norvasc) 10 mg PO DAILY [facility] Stop: 06/17/17 08:59 Last Admin: 04/22/17 08:18 Dose: Not Given Divalproex Sodium (Depakote Sprinkle) 125 mg PO Q12HR [facility] PRN Reason: Protocol Stop: 06/17/17 20:59 Last Admin: 04/22/17 08:18 Dose: Not Given Docusate Sodium (Colace) 100 mg PO BID [facility] Stop: 06/17/17 08:59 Last Admin: 04/22/17 08:18 Dose: Not Given Ferrous Sulfate (Iron) 325 mg PO DAILY [facility] Stop: 06/17/17 08:59 Last Admin: 04/22/17 08:19 Dose: Not Given Finasteride (Proscar) 5 mg PO DAILY [facility] PRN Reason: Protocol Stop: 06/17/17 08:59 Last Admin: 04/22/17 08:19 Dose: Not Given Haloperidol (Haldol) 2 mg PO BID [facility] PRN Reason: Protocol Stop: 06/17/17 16:59 Last Admin: 04/22/17 08:18 Dose: Not Given Lactobacillus Rhamnosus (Culturelle) 1 each PO DAILY [facility] Stop: 06/17/17 08:59 Last Admin: 04/22/17 08:19 Dose: Not Given Lorazepam (Ativan) 1 mg PO Q6H PRN; Protocol PRN Reason: Anxiety/Agitation Stop: 06/16/17 22:25 Magnesium Hydroxide (Milk Of Magnesia) 30 ml PO DAILY PRN PRN Reason: Constipation Stop: 06/16/17 22:39 Tamsulosin HCl (Flomax) 0.4 mg PO DAILY [facility] Stop: 06/17/17 08:59 Last Admin: 04/22/17 08:19 Dose: Not Given Zolpidem Tartrate (Ambien) 5 mg PO HS PRN PRN Reason: Insomnia Stop: 06/16/17 22:25 General: alert HEENT: NC/AT, PERRLA Neck: Supple Lungs: CTAB Cardiovascular: RRR, Normal S1, Normal S2, without murmur Abdomen: soft, non-tender, non-distended Extremities: excoriation Neurological: no change Internal Medicine Assmt/Plan - Assessment Assessment: HTN CKD ANEMIA PSYCHOSIS PARANOID SCHIZOPHRENIA GERD BPH - Plan Plan: monitor bp continue current medications fall precautions psych f/u
--- NOTE | 2017-04-22 21:24 | Progress Notes ---
DATE: 04/21/2017 SUBJECTIVE: Staff was spoken to. The patient is interviewed. Mood is noted to be irritable. Affect is constricted. Continues to be very paranoid and aggressive. The patient has no insight. The patient is reported to have been on the conservatorship, but we have been waiting for the paperwork, so far no paperwork is obtained, possibly the patient is going to be released and the patient is going to be medicated against his will for his psychotic symptoms. JOB# [id number]
[2017-04-23] MEDS: Lactobacillus Rhamnosus 10 Billion CFU Capsule PO SCH (08:09)
[2017-04-23] MEDS: Ferrous Sulfate 325 MG TAB PO SCH (08:09)
[2017-04-23] MEDS: Multivitamin w/ Minerals Tab PO SCH (08:09)
--- NOTE | 2017-04-23 10:38 | Progress Notes ---
DATE: 04/22/2017 SUBJECTIVE: Staff was spoken to. The patient is interviewed. Mood is noted to be irritable. Affect is constricted. The patient is isolative and withdrawn. The patient has so far been compliant with medication, but has been reluctant to comply with the treatment. The patient is stating that she does not need any medication. The patient has been answering the questions with questions. ASSESSMENT: The patient is still psychotic. PLAN: To continue the patient with supportive therapy and to assist with the case assistant with regards getting the conservatorship papers so that we can medicate this patient. So far, the patient's daughter has not been able to provide these conservatorship papers. JOB# [id number]
--- NOTE | 2017-04-23 13:46 | Internal Medicine Prog Note ---
Internal Medicine Subjective - Subjective Service Date: 04/23/17 Patient is:: awake, verbal Per staff patient has:: no adverse event Internal Medicine Objective - Results Result Diagrams: 04/17/17 20:04/17/17 20: Recent Labs: Laboratory Last Values WBC 8.4 Th/cmm (4.8-10.8) 04/17/17 20: RBC 3.92 Mil/cmm (4.30-5.70) L 04/17/17 20: Hgb 11.6 gm/dL (13.2-17.3) L 04/17/17 20: Hct 34.2 % (39.0-49.0) L 04/17/17 20: MCV 87.1 fl (80-99) 04/17/17 20: MCH 29.6 pg (26.0-30.0) 04/17/17 20: MCHC Differential 34.0 pg (28.0-36.0) 04/17/17: RDW 11.4 % (11.5-20.0) L 04/17/17 20: Plt Count 298 Th/cmm (150-400) 04/17/17 20: MPV 7.2 fl 04/17/17 20: Neutrophils % 79.3 % (40.0-80.0) 04/17/17: Lymphocytes % 12.0 % (20.0-50.0) L 04/17/17: Monocytes % 7.1 % (2.0-10.0) 04/17/17: Eosinophils % 1.3 % (0.0-5.0) 04/17/17 20: Basophils % 0.3 % (0.0-2.0) 04/17/17 20: Sodium 134 mEq/L (136-145) L 04/17/17 20: Potassium 3.8 mEq/L (3.5-5.1) 04/17/17 20: Chloride 104 mEq/L (98-107) 04/17/17 20: Carbon Dioxide 21.7 mEq/L (21.0-31.0) 04/17/17 20: Anion Gap 12.1 (7.0-16.0) 04/17/17 20:28 BUN 56 mg/dL (7-25) H 04/17/17 20:28 Creatinine 4.7 mg/dL (0.7-1.3) H* 04/17/17 20:28 Est GFR ( Amer) 16.3 ml/min (>90) 04/17/17 20: Est GFR (Non-Af Amer) 13.4 ml/min 04/17/17 20: BUN/Creatinine Ratio 11.9 04/17/17 20: Glucose 144 mg/dL (70-105) H 04/17/17 20:28 Calcium 9.1 mg/dL (8.6-10.3) 04/17/17 20: Total Bilirubin 0.3 mg/dL (0.3-1.0) 04/17/17 20: AST 11 U/L (13-39) L 04/17/17 20: ALT 9 U/L (7-52) 04/17/17 20: Alkaline Phosphatase 64 U/L (34-104) 04/17/17 20:28 Total Protein 6.4 gm/dL (6.0-8.3) 04/17/17 20: Albumin 3.8 gm/dL (4.2-5.5) L 04/17/17 20: Globulin 2.6 gm/dL 04/17/17 20: Albumin/Globulin Ratio 1.5 (1.0-1.8) 04/17/17 20: TSH 0.80 uIU/ml (0.34-5.60) 04/17/17 20:28 Urine Source RANDOM 04/17/17 20:05 Urine Color YELLOW 04/17/17 20:05 Urine Clarity HAZY (CLEAR) 04/17/17 20:05 Urine pH 6.0 (4.6 - 8.0) 04/17/17 20:05 Ur Specific [place] <= 1.005 (1.005-1.030) 04/17/17 20:05 Urine Protein 100 mg/dL (NEGATIVE) H 04/17/17 20:05 Urine Glucose (UA) NEGATIVE mg/dL (NEGATIVE) 04/17/17 20:05 Urine Ketones NEGATIVE mg/dL (NEGATIVE) 04/17/17 20:05 Urine Blood SMALL (NEGATIVE) H 04/17/17 20:05 Urine Nitrate NEGATIVE (NEGATIVE) 04/17/17 20:05 Urine Bilirubin NEGATIVE (NEGATIVE) 04/17/17 20:05 Urine Urobilinogen 0.2 E.U./dL (0.2 - 1.0) 04/17/17 20:05 Ur Leukocyte Esterase NEGATIVE (NEGATIVE) 04/17/17 20:05 Urine RBC 0-2 /hpf (0-5) H 04/17/17 20:05 Urine WBC 0-2 /hpf (0-5) 04/17/17 20:05 Ur Epithelial Cells OCCASIONAL /lpf (FEW) 04/17/17 20:05 Urine Bacteria NONE SEEN /hpf (NONE SEEN) 04/17/17 20:05 RPR NONREACTIVE (NONREACTIVE) 04/17/17 20:28 - Physical Exam Vitals and I&O: Vital Signs Temp 97.9 F 04/18/17 06:50 Pulse 80 04/18/17 06:50 Resp 19 04/18/17 06:50 BP 161/67 04/18/17 06:50 Pulse Ox 97 04/18/17 06:50 Intake & Output 04/22/17 04/23/17 04/23/17 18:59 06:59 18:59 Intake Total 1000 360 Balance 1000 360 Intake: Oral 1000 360 Other: # Voids 4 1 # Bowel Movements 1 0 Active Medications: Current Medications Acetaminophen (Tylenol) 650 mg PO Q4HR PRN PRN Reason: Pain or Fever >101 Stop: 06/16/17 22:39 Amlodipine Besylate (Norvasc) 10 mg PO DAILY [facility] Stop: 06/17/17 08:59 Last Admin: 04/23/17 08:09 Dose: Not Given Divalproex Sodium (Depakote Sprinkle) 125 mg PO Q12HR [facility] PRN Reason: Protocol Stop: 06/17/17 20:59 Last Admin: 04/23/17 08:09 Dose: Not Given Docusate Sodium (Colace) 100 mg PO BID [facility] Stop: 06/17/17 08:59 Last Admin: 04/23/17 08:09 Dose: Not Given Ferrous Sulfate (Iron) 325 mg PO DAILY [facility] Stop: 06/17/17 08:59 Last Admin: 04/23/17 08:09 Dose: Not Given Finasteride (Proscar) 5 mg PO DAILY [facility] PRN Reason: Protocol Stop: 06/17/17 08:59 Last Admin: 04/23/17 08:09 Dose: Not Given Haloperidol (Haldol) 2 mg PO BID [facility] PRN Reason: Protocol Stop: 06/17/17 16:59 Last Admin: 04/23/17 08:09 Dose: Not Given Lactobacillus Rhamnosus (Culturelle) 1 each PO DAILY [facility] Stop: 06/17/17 08:59 Last Admin: 04/23/17 08:09 Dose: Not Given Lorazepam (Ativan) 1 mg PO Q6H PRN; Protocol PRN Reason: Anxiety/Agitation Stop: 06/16/17 22:25 Magnesium Hydroxide (Milk Of Magnesia) 30 ml PO DAILY PRN PRN Reason: Constipation Stop: 06/16/17 22:39 Tamsulosin HCl (Flomax) 0.4 mg PO DAILY [facility] Stop: 06/17/17 08:59 Last Admin: 04/23/17 08:09 Dose: Not Given Zolpidem Tartrate (Ambien) 5 mg PO HS PRN PRN Reason: Insomnia Stop: 06/16/17 22:25 General: alert HEENT: NC/AT, PERRLA Neck: Supple Lungs: CTAB Cardiovascular: RRR, Normal S1, Normal S2, without murmur Abdomen: soft, non-tender, non-distended Extremities: excoriation Neurological: no change Internal Medicine Assmt/Plan - Assessment Assessment: HTN CKD ANEMIA PSYCHOSIS PARANOID SCHIZOPHRENIA GERD BPH - Plan Plan: monitor bp continue current medications fall precautions psych f/u
--- NOTE | 2017-04-24 06:14 | Progress Notes ---
DATE: 04/23/2017 SUBJECTIVE: Staff was spoken to. The patient is interviewed. Mood is noted to be anxious. Affect is appropriate. He is not suicidal or homicidal. Insight and judgment at this time are noted to be improving. Impulse control seems to be a little bit problem. The patient has been consistently denying the need to take any medications. We have been trying to get in touch with the family and the facility to get a conservatorship papers, but so far we have not been able to get the medications so that we can medicate him, ____ in case if it is needed. JOB# [id number]
[2017-04-24] MEDS: Multivitamin w/ Minerals Tab PO SCH (08:03)
[2017-04-24] MEDS: Ferrous Sulfate 325 MG TAB PO SCH (08:03)
[2017-04-24] MEDS: Lactobacillus Rhamnosus 10 Billion CFU Capsule PO SCH (08:03)
--- NOTE | 2017-04-24 11:59 | Internal Medicine Prog Note ---
Internal Medicine Subjective - Subjective Service Date: 04/24/17 (patient has been non compliant taking medications. ) Patient is:: awake, verbal Per staff patient has:: noncompliant, refusing care, other (medications) Internal Medicine Objective - Results Result Diagrams: 04/17/17 20:28 04/17/17 20: Recent Labs: Laboratory Last Values WBC 8.4 Th/cmm (4.8-10.8) 04/17/17 20: RBC 3.92 Mil/cmm (4.30-5.70) L 04/17/17 20: Hgb 11.6 gm/dL (13.2-17.3) L 04/17/17 20: Hct 34.2 % (39.0-49.0) L 04/17/17: MCV 87.1 fl (80-99) 04/17/17 20: MCH 29.6 pg (26.0-30.0) 04/17/17: MCHC Differential 34.0 pg (28.0-36.0) 04/17/17 20: RDW 11.4 % (11.5-20.0) L 04/17/17 20: Plt Count 298 Th/cmm (150-400) 04/17/17 20: MPV 7.2 fl 04/17/17 20: Neutrophils % 79.3 % (40.0-80.0) 04/17/17 20: Lymphocytes % 12.0 % (20.0-50.0) L 04/17/17: Monocytes % 7.1 % (2.0-10.0) 04/17/17 20: Eosinophils % 1.3 % (0.0-5.0) 04/17/17 20: Basophils % 0.3 % (0.0-2.0) 04/17/17 20: Sodium 134 mEq/L (136-145) L 04/17/17 20: Potassium 3.8 mEq/L (3.5-5.1) 04/17/17 20: Chloride 104 mEq/L (98-107) 04/17/17 20: Carbon Dioxide 21.7 mEq/L (21.0-31.0) 04/17/17 20: Anion Gap 12.1 (7.0-16.0) 04/17/17 20:28 BUN 56 mg/dL (7-25) H 04/17/17 20: Creatinine 4.7 mg/dL (0.7-1.3) H* 04/17/17 20:28 Est GFR ( Amer) 16.3 ml/min (>90) 04/17/17 20: Est GFR (Non-Af Amer) 13.4 ml/min 04/17/17 20: BUN/Creatinine Ratio 11.9 04/17/17 20: Glucose 144 mg/dL (70-105) H 04/17/17 20: Calcium 9.1 mg/dL (8.6-10.3) 04/17/17: Total Bilirubin 0.3 mg/dL (0.3-1.0) 04/17/17 20: AST 11 U/L (13-39) L 04/17/17 20: ALT 9 U/L (7-52) 04/17/17 20: Alkaline Phosphatase 64 U/L (34-104) 04/17/17 20:28 Total Protein 6.4 gm/dL (6.0-8.3) 04/17/17 20: Albumin 3.8 gm/dL (4.2-5.5) L 04/17/17: Globulin 2.6 gm/dL 04/17/17 20: Albumin/Globulin Ratio 1.5 (1.0-1.8) 04/17/17: TSH 0.80 uIU/ml (0.34-5.60) 04/17/17 20: Urine Source RANDOM 04/17/17 20:05 Urine Color YELLOW 04/17/17 20:05 Urine Clarity HAZY (CLEAR) 04/17/17 20: Urine pH 6.0 (4.6 - 8.0) 04/17/17 20: Ur Specific [place] <= 1.005 (1.005-1.030) 04/17/17 20:05 Urine Protein 100 mg/dL (NEGATIVE) H 04/17/17 20:05 Urine Glucose (UA) NEGATIVE mg/dL (NEGATIVE) 04/17/17 20: Urine Ketones NEGATIVE mg/dL (NEGATIVE) 04/17/17 20:05 Urine Blood SMALL (NEGATIVE) H 04/17/17 20:05 Urine Nitrate NEGATIVE (NEGATIVE) 04/17/17 20:05 Urine Bilirubin NEGATIVE (NEGATIVE) 04/17/17 20:05 Urine Urobilinogen 0.2 E.U./dL (0.2 - 1.0) 04/17/17 20:05 Ur Leukocyte Esterase NEGATIVE (NEGATIVE) 04/17/17 20:05 Urine RBC 0-2 /hpf (0-5) H 04/17/17 20:05 Urine WBC 0-2 /hpf (0-5) 04/17/17 20:05 Ur Epithelial Cells OCCASIONAL /lpf (FEW) 04/17/17 20:05 Urine Bacteria NONE SEEN /hpf (NONE SEEN) 04/17/17 20:05 RPR NONREACTIVE (NONREACTIVE) 04/17/17 20:28 - Physical Exam Vitals and I&O: Vital Signs Temp 0 F 04/24/17 06:33 Pulse 80 04/18/17 06:50 Resp 18 04/23/17 20:00 BP 161/67 04/18/17 06:50 Pulse Ox 97 04/18/17 06:50 Intake & Output 04/23/17 04/24/17 04/24/17 18:59 06:59 18:59 Intake Total 2400 240 Balance 2400 240 Weight (lbs) 160 lb Intake: Oral 2400 240 Other: # Voids 4 4 # Bowel Movements 0 0 Active Medications: Current Medications Acetaminophen (Tylenol) 650 mg PO Q4HR PRN PRN Reason: Pain or Fever >101 Stop: 06/16/17 22:39 Amlodipine Besylate (Norvasc) 10 mg PO DAILY [facility] Stop: 06/17/17 08:59 Last Admin: 04/24/17 08:03 Dose: Not Given Divalproex Sodium (Depakote Sprinkle) 125 mg PO Q12HR [facility] PRN Reason: Protocol Stop: 06/17/17 20:59 Last Admin: 04/24/17 08:03 Dose: Not Given Docusate Sodium (Colace) 100 mg PO BID [facility] Stop: 06/17/17 08:59 Last Admin: 04/24/17 08:03 Dose: Not Given Ferrous Sulfate (Iron) 325 mg PO DAILY [facility] Stop: 06/17/17 08:59 Last Admin: 04/24/17 08:03 Dose: Not Given Finasteride (Proscar) 5 mg PO DAILY [facility] PRN Reason: Protocol Stop: 06/17/17 08:59 Last Admin: 04/24/17 08:03 Dose: Not Given Haloperidol (Haldol) 2 mg PO BID [facility] PRN Reason: Protocol Stop: 06/17/17 16:59 Last Admin: 04/24/17 08:03 Dose: Not Given Lactobacillus Rhamnosus (Culturelle) 1 each PO DAILY [facility] Stop: 06/17/17 08:59 Last Admin: 04/24/17 08:03 Dose: Not Given Lorazepam (Ativan) 1 mg PO Q6H PRN; Protocol PRN Reason: Anxiety/Agitation Stop: 06/16/17 22:25 Magnesium Hydroxide (Milk Of Magnesia) 30 ml PO DAILY PRN PRN Reason: Constipation Stop: 06/16/17 22:39 Tamsulosin HCl (Flomax) 0.4 mg PO DAILY [facility] Stop: 06/17/17 08:59 Last Admin: 04/24/17 08:04 Dose: Not Given Zolpidem Tartrate (Ambien) 5 mg PO HS PRN PRN Reason: Insomnia Stop: 06/16/17 22:25 General: alert HEENT: NC/AT, PERRLA Neck: Supple Lungs: CTAB Cardiovascular: RRR, Normal S1, Normal S2, without murmur Abdomen: soft, non-tender, non-distended Extremities: excoriation Neurological: no change Internal Medicine Assmt/Plan - Assessment Assessment: HTN CKD ANEMIA PSYCHOSIS PARANOID SCHIZOPHRENIA GERD BPH - Plan Plan: renal us encourage fluids repeat cbc/cmp in am monitor bp continue current medications fall precautions psych f/u
--- NOTE | 2017-04-25 05:50 | Progress Notes ---
DATE: 04/24/2017 PSYCHIATRIC PROGRESS NOTE Staff was spoken to. The patient is interviewed. Mood is noted to be irritable. Affect is constricted. Continues to be very paranoid. The patient has been having difficult time to cope with the stress. No side effects to the medications are noted. The patient has been having difficult time to cope with the stress. The patient has been isolative and withdrawn. The patient is not able to contact for safety. The patient's family is very much worried that the patient has been neglecting even his medical needs because of his acute psychosis. ASSESSMENT: The patient is still impulsive. PLAN: To continue the patient with the supportive therapy. I encouraged the patient to verbalize the concerns rather than to act out. [facility]# [id number]
[2017-04-25] MEDS ORDERED: Haloperidol Lactate 5 mg/mL 1mL Vial IM PRN (07:43)
[2017-04-25] MEDS: Ferrous Sulfate 325 MG TAB PO SCH (09:31)
[2017-04-25] MEDS: Multivitamin w/ Minerals Tab PO SCH (09:31)
[2017-04-25] MEDS: Lactobacillus Rhamnosus 10 Billion CFU Capsule PO SCH (09:31)
--- NOTE | 2017-04-25 13:09 | Internal Medicine Prog Note ---
Internal Medicine Subjective - Subjective Service Date: 04/25/17 Patient is:: awake, verbal Per staff patient has:: noncompliant, refusing care, other (medications) Internal Medicine Objective - Results Result Diagrams: 04/17/17 20:04/17/17 20: Recent Labs: Laboratory Last Values WBC 8.4 Th/cmm (4.8-10.8) 04/17/17 20: RBC 3.92 Mil/cmm (4.30-5.70) L 04/17/17: Hgb 11.6 gm/dL (13.2-17.3) L 04/17/17: Hct 34.2 % (39.0-49.0) L 04/17/17: MCV 87.1 fl (80-99) 04/17/17: MCH 29.6 pg (26.0-30.0) 04/17/17: MCHC Differential 34.0 pg (28.0-36.0) 04/17/17: RDW 11.4 % (11.5-20.0) L 04/17/17: Plt Count 298 Th/cmm (150-400) 04/17/17 20: MPV 7.2 fl 04/17/17: Neutrophils % 79.3 % (40.0-80.0) 04/17/17: Lymphocytes % 12.0 % (20.0-50.0) L 04/17/17: Monocytes % 7.1 % (2.0-10.0) 04/17/17: Eosinophils % 1.3 % (0.0-5.0) 04/17/17: Basophils % 0.3 % (0.0-2.0) 04/17/17 20: Sodium 134 mEq/L (136-145) L 04/17/17: Potassium 3.8 mEq/L (3.5-5.1) 04/17/17 20: Chloride 104 mEq/L (98-107) 04/17/17 20: Carbon Dioxide 21.7 mEq/L (21.0-31.0) 04/17/17: Anion Gap 12.1 (7.0-16.0) 04/17/17 20:28 BUN 56 mg/dL (7-25) H 04/17/17 20:28 Creatinine 4.7 mg/dL (0.7-1.3) H* 04/17/17 20:28 Est GFR ( Amer) 16.3 ml/min (>90) 04/17/17 20: Est GFR (Non-Af Amer) 13.4 ml/min 04/17/17 20: BUN/Creatinine Ratio 11.9 04/17/17 20: Glucose 144 mg/dL (70-105) H 04/17/17 20:28 Calcium 9.1 mg/dL (8.6-10.3) 04/17/17 20: Total Bilirubin 0.3 mg/dL (0.3-1.0) 04/17/17 20:28 AST 11 U/L (13-39) L 04/17/17 20: ALT 9 U/L (7-52) 04/17/17 20: Alkaline Phosphatase 64 U/L (34-104) 04/17/17 20:28 Total Protein 6.4 gm/dL (6.0-8.3) 04/17/17 20: Albumin 3.8 gm/dL (4.2-5.5) L 04/17/17 20: Globulin 2.6 gm/dL 04/17/17 20: Albumin/Globulin Ratio 1.5 (1.0-1.8) 04/17/17 20: TSH 0.80 uIU/ml (0.34-5.60) 04/17/17 20: Urine Source RANDOM 04/17/17 20:05 Urine Color YELLOW 04/17/17 20:05 Urine Clarity HAZY (CLEAR) 04/17/17 20:05 Urine pH 6.0 (4.6 - 8.0) 04/17/17 20:05 Ur Specific [place] <= 1.005 (1.005-1.030) 04/17/17 20:05 Urine Protein 100 mg/dL (NEGATIVE) H 04/17/17 20:05 Urine Glucose (UA) NEGATIVE mg/dL (NEGATIVE) 04/17/17 20:05 Urine Ketones NEGATIVE mg/dL (NEGATIVE) 04/17/17 20:05 Urine Blood SMALL (NEGATIVE) H 04/17/17 20:05 Urine Nitrate NEGATIVE (NEGATIVE) 04/17/17 20:05 Urine Bilirubin NEGATIVE (NEGATIVE) 04/17/17 20:05 Urine Urobilinogen 0.2 E.U./dL (0.2 - 1.0) 04/17/17 20:05 Ur Leukocyte Esterase NEGATIVE (NEGATIVE) 04/17/17 20:05 Urine RBC 0-2 /hpf (0-5) H 04/17/17 20:05 Urine WBC 0-2 /hpf (0-5) 04/17/17 20:05 Ur Epithelial Cells OCCASIONAL /lpf (FEW) 04/17/17 20:05 Urine Bacteria NONE SEEN /hpf (NONE SEEN) 04/17/17 20:05 RPR NONREACTIVE (NONREACTIVE) 04/17/17 20:28 - Physical Exam Vitals and I&O: Vital Signs Temp 0 F 04/24/17 19:44 Pulse 80 04/18/17 06:50 Resp 18 04/23/17 20:00 BP 161/67 04/18/17 06:50 Pulse Ox 97 04/18/17 06:50 Intake & Output 04/24/17 04/25/17 04/25/17 18:59 06:59 18:59 Intake Total 1010 Balance 1010 Weight (lbs) 164 lb 14.4 oz 164 lb 14.4 oz Intake: Oral 1010 Other: # Voids 3 # Bowel Movements 0 Active Medications: Current Medications Acetaminophen (Tylenol) 650 mg PO Q4HR PRN PRN Reason: Pain or Fever >101 Stop: 06/16/17 22:39 Amlodipine Besylate (Norvasc) 10 mg PO DAILY [facility] Stop: 06/17/17 08:59 Last Admin: 04/25/17 09:30 Dose: Not Given Divalproex Sodium (Depakote Sprinkle) 125 mg PO Q12HR [facility] PRN Reason: Protocol Stop: 06/17/17 20:59 Last Admin: 04/25/17 09:30 Dose: Not Given Docusate Sodium (Colace) 100 mg PO BID [facility] Stop: 06/17/17 08:59 Last Admin: 04/25/17 09:31 Dose: Not Given Ferrous Sulfate (Iron) 325 mg PO DAILY [facility] Stop: 06/17/17 08:59 Last Admin: 04/25/17 09:31 Dose: Not Given Finasteride (Proscar) 5 mg PO DAILY [facility] PRN Reason: Protocol Stop: 06/17/17 08:59 Last Admin: 04/25/17 09:31 Dose: Not Given Haloperidol (Haldol) 2 mg PO BID [facility] PRN Reason: Protocol Stop: 06/17/17 16:59 Last Admin: 04/25/17 09:31 Dose: Not Given Haloperidol Lactate (Haldol) 2 mg IM BID PRN PRN Reason: Agitation of pt refused po Stop: 06/24/17 07:42 Lactobacillus Rhamnosus (Culturelle) 1 each PO DAILY [facility] Stop: 06/17/17 08:59 Last Admin: 04/25/17 09:31 Dose: Not Given Lorazepam (Ativan) 1 mg PO Q6H PRN; Protocol PRN Reason: Anxiety/Agitation Stop: 06/16/17 22:25 Magnesium Hydroxide (Milk Of Magnesia) 30 ml PO DAILY PRN PRN Reason: Constipation Stop: 06/16/17 22:39 Tamsulosin HCl (Flomax) 0.4 mg PO DAILY [facility] Stop: 06/17/17 08:59 Last Admin: 04/25/17 09:31 Dose: Not Given Zolpidem Tartrate (Ambien) 5 mg PO HS PRN PRN Reason: Insomnia Stop: 06/16/17 22:25 General: alert HEENT: NC/AT, PERRLA Neck: Supple Lungs: CTAB Cardiovascular: RRR, Normal S1, Normal S2, without murmur Abdomen: soft, non-tender, non-distended Extremities: excoriation Neurological: no change Internal Medicine Assmt/Plan - Assessment Assessment: HTN CKD ANEMIA PSYCHOSIS PARANOID SCHIZOPHRENIA GERD BPH - Plan Plan: renal us encourage fluids repeat cbc/cmp in am monitor bp continue current medications fall precautions psych f/u Nutritional Asmnt/Malnutr-PDOC - Dietary Evaluation Malnutrition Findings (Please click <Entered> for more info): Nutritional Asmnt/Malnutrition Start: 04/24/17 16: 21 Text: Status: Complete Freq: Document 04/24/17 16:22 GSUN (Rec: 04/24/17 16:32 GSUN [id number]) Nutritional Asmnt/Malnutrition Patient General Information Nutritional Screening Diagnosis Diagnosis Reason for visit: psychosis Pertinent Medical Hx/Surgical Hx Spondylosis, CKD, HTN, GERD, BPH, anemia, paranoid schizophrenia Subjective Information 61 year old male from SNF. Pt was pleasant, however appeared suspicious and delusional during visit, unable to provide meaningful responses/ irrelevant. Pt stated good appetite, denied nutritional concerns at this time. Teeth intact. Avg PO intake 75-100% of meals since adm, meeting nturitional needs. No muscle fat wasting noted. Current Diet Order/ Nutrition Support Regular Pertinent Medications Colace, Iron, Haldol, Culturelle, MOM Pertinent Labs 04/17: BUN 56H, creatinine 4.7H , glucose 144H Nutritional Hx/Data Height 5 ft 9 in Height (Calculated Centimeters) 175.3 Current Weight (lbs) 164 lb 14.4 oz Weight (Calculated Kilograms) 74.8 Weight (Calculated Grams) 82232.4 [place] Body Weight 160 Recent Weight Change No Weight Status Approriate GI Symptoms Food Allergies No Skin Integrity/Comment: Jameson 17. Skin intact. Current %PO Good (75-100%) Estimated Nutritional Goals BEE in Kcals: Using Current wt Calories/Kcals/Kg CBW 164.9lb/75kg Kcals Calculated 1875-2250kcal (25-30kcal/kg) Protein: Using Current wt Protein Calculated 60g (0.8g/kg, CKD) Fluid: ml Per MD Nutritional Problem 1. Problem Problem Impaired nutrient utilization related to Etiology CKD aeb Signs/Symptoms: BUN 56H, creatinine 4.7H Intervention/Recommendation Comments 1. Recommend low sodium diet to aid in renal function (BUN 56H, neurology hospitalist 4.7H, potassium WNL, calcium WNL). Avg PO intake is adequate. 2. Monitor renal labs, obtain phosphorus lab. Expected Outcomes/Goals Expected Outcomes/Goals 1. PO intake continue to meet at least 75% of estimated nutritional needs.
--- NOTE | 2017-04-26 06:21 | Progress Notes ---
DATE: 04/25/2017 SUBJECTIVE: Staff was spoken to. The patient is interviewed. Mood is noted to be irritable. Affect is constricted. Insight and judgment at this time are noted to be still impaired. Impulse control seems to be poor. Coping skills are also noted to be poor. The patient has been having difficult time to cope with the stress. The patient is still impulsive and has not been able to contract for safety. The patient has been mentioned that he is on a conservatorship and is going to be given the shot, if he refuses to take the medications by mouth. He was able to take the medication orally on the haloperidol. The patient's coping skills are noted to be still poor. The patient is still responding to internal stimuli. PLAN: To continue the patient with the current medications and after 3-4 doses of the haloperidol, possibly patient is going to be given the Haldol Decanoate. JOB# [id number]
[2017-04-26] MEDS: Ferrous Sulfate 325 MG TAB PO SCH (10:18)
[2017-04-26] MEDS: Lactobacillus Rhamnosus 10 Billion CFU Capsule PO SCH (10:18)
[2017-04-26] MEDS: Multivitamin w/ Minerals Tab PO SCH (10:18)
--- NOTE | 2017-04-26 14:35 | Internal Medicine Prog Note ---
Internal Medicine Subjective - Subjective Service Date: 04/26/17 Patient is:: awake, verbal Per staff patient has:: noncompliant, refusing care, other (medications) Internal Medicine Objective - Results Result Diagrams: 04/17/17 20:04/17/17 20: Recent Labs: Laboratory Last Values WBC 8.4 Th/cmm (4.8-10.8) 04/17/17 20: RBC 3.92 Mil/cmm (4.30-5.70) L 04/17/17 20: Hgb 11.6 gm/dL (13.2-17.3) L 04/17/17 20: Hct 34.2 % (39.0-49.0) L 04/17/17: MCV 87.1 fl (80-99) 04/17/17: MCH 29.6 pg (26.0-30.0) 04/17/17: MCHC Differential 34.0 pg (28.0-36.0) 04/17/17: RDW 11.4 % (11.5-20.0) L 04/17/17 20: Plt Count 298 Th/cmm (150-400) 04/17/17 20: MPV 7.2 fl 04/17/17: Neutrophils % 79.3 % (40.0-80.0) 04/17/17: Lymphocytes % 12.0 % (20.0-50.0) L 04/17/17: Monocytes % 7.1 % (2.0-10.0) 04/17/17: Eosinophils % 1.3 % (0.0-5.0) 04/17/17: Basophils % 0.3 % (0.0-2.0) 04/17/17 20: Sodium 134 mEq/L (136-145) L 04/17/17 20: Potassium 3.8 mEq/L (3.5-5.1) 04/17/17 20: Chloride 104 mEq/L (98-107) 04/17/17 20: Carbon Dioxide 21.7 mEq/L (21.0-31.0) 04/17/17: Anion Gap 12.1 (7.0-16.0) 04/17/17 20:28 BUN 56 mg/dL (7-25) H 04/17/17 20:28 Creatinine 4.7 mg/dL (0.7-1.3) H* 04/17/17 20:28 Est GFR ( Amer) 16.3 ml/min (>90) 04/17/17 20: Est GFR (Non-Af Amer) 13.4 ml/min 04/17/17 20: BUN/Creatinine Ratio 11.9 04/17/17 20: Glucose 144 mg/dL (70-105) H 04/17/17 20:28 Calcium 9.1 mg/dL (8.6-10.3) 04/17/17 20: Total Bilirubin 0.3 mg/dL (0.3-1.0) 04/17/17 20:28 AST 11 U/L (13-39) L 04/17/17 20: ALT 9 U/L (7-52) 04/17/17 20: Alkaline Phosphatase 64 U/L (34-104) 04/17/17 20:28 Total Protein 6.4 gm/dL (6.0-8.3) 04/17/17 20: Albumin 3.8 gm/dL (4.2-5.5) L 04/17/17 20: Globulin 2.6 gm/dL 04/17/17 20: Albumin/Globulin Ratio 1.5 (1.0-1.8) 04/17/17 20: TSH 0.80 uIU/ml (0.34-5.60) 04/17/17 20: Urine Source RANDOM 04/17/17 20:05 Urine Color YELLOW 04/17/17 20:05 Urine Clarity HAZY (CLEAR) 04/17/17 20:05 Urine pH 6.0 (4.6 - 8.0) 04/17/17 20:05 Ur Specific [place] <= 1.005 (1.005-1.030) 04/17/17 20:05 Urine Protein 100 mg/dL (NEGATIVE) H 04/17/17 20:05 Urine Glucose (UA) NEGATIVE mg/dL (NEGATIVE) 04/17/17 20:05 Urine Ketones NEGATIVE mg/dL (NEGATIVE) 04/17/17 20:05 Urine Blood SMALL (NEGATIVE) H 04/17/17 20:05 Urine Nitrate NEGATIVE (NEGATIVE) 04/17/17 20:05 Urine Bilirubin NEGATIVE (NEGATIVE) 04/17/17 20:05 Urine Urobilinogen 0.2 E.U./dL (0.2 - 1.0) 04/17/17 20:05 Ur Leukocyte Esterase NEGATIVE (NEGATIVE) 04/17/17 20:05 Urine RBC 0-2 /hpf (0-5) H 04/17/17 20:05 Urine WBC 0-2 /hpf (0-5) 04/17/17 20:05 Ur Epithelial Cells OCCASIONAL /lpf (FEW) 04/17/17 20:05 Urine Bacteria NONE SEEN /hpf (NONE SEEN) 04/17/17 20:05 RPR NONREACTIVE (NONREACTIVE) 04/17/17 20:28 - Physical Exam Vitals and I&O: Vital Signs Temp 0 F 04/24/17 19:44 Pulse 80 04/18/17 06:50 Resp 18 04/23/17 20:00 BP 161/67 04/18/17 06:50 Pulse Ox 97 04/18/17 06:50 Intake & Output 04/25/17 04/26/17 04/26/17 18:59 06:59 18:59 Intake Total 1200 120 Output Total 1 Balance 1199 120 Intake: Oral 1200 120 Output: Stool 1 Other: # Voids 3 Active Medications: Current Medications Acetaminophen (Tylenol) 650 mg PO Q4HR PRN PRN Reason: Pain or Fever >101 Stop: 06/16/17 22:39 Amlodipine Besylate (Norvasc) 10 mg PO DAILY [facility] Stop: 06/17/17 08:59 Last Admin: 04/26/17 10:18 Dose: Not Given Divalproex Sodium (Depakote Sprinkle) 125 mg PO Q12HR [facility] PRN Reason: Protocol Stop: 06/17/17 20:59 Last Admin: 04/26/17 10:18 Dose: Not Given Docusate Sodium (Colace) 100 mg PO BID [facility] Stop: 06/17/17 08:59 Last Admin: 04/26/17 10:18 Dose: Not Given Ferrous Sulfate (Iron) 325 mg PO DAILY [facility] Stop: 06/17/17 08:59 Last Admin: 04/26/17 10:18 Dose: Not Given Finasteride (Proscar) 5 mg PO DAILY [facility] PRN Reason: Protocol Stop: 06/17/17 08:59 Last Admin: 04/26/17 10:18 Dose: Not Given Haloperidol (Haldol) 5 mg PO BID [facility] PRN Reason: Protocol Stop: 06/25/17 09:59 Last Admin: 04/26/17 10:17 Dose: 5 mg Haloperidol Lactate (Haldol) 2 mg IM BID PRN PRN Reason: Agitation of pt refused po Stop: 06/24/17 07:42 Last Admin: 04/25/17 13:00 Dose: 2 mg Lactobacillus Rhamnosus (Culturelle) 1 each PO DAILY [facility] Stop: 06/17/17 08:59 Last Admin: 04/26/17 10:18 Dose: Not Given Lorazepam (Ativan) 1 mg PO Q6H PRN; Protocol PRN Reason: Anxiety/Agitation Stop: 06/16/17 22:25 Magnesium Hydroxide (Milk Of Magnesia) 30 ml PO DAILY PRN PRN Reason: Constipation Stop: 06/16/17 22:39 Tamsulosin HCl (Flomax) 0.4 mg PO DAILY [facility] Stop: 06/17/17 08:59 Last Admin: 04/26/17 10:17 Dose: 0.4 mg Zolpidem Tartrate (Ambien) 5 mg PO HS PRN PRN Reason: Insomnia Stop: 06/16/17 22:25 General: alert HEENT: NC/AT, PERRLA Neck: Supple Lungs: CTAB Cardiovascular: RRR, Normal S1, Normal S2, without murmur Abdomen: soft, non-tender, non-distended Extremities: excoriation Neurological: no change Internal Medicine Assmt/Plan - Assessment Assessment: HTN CKD ANEMIA PSYCHOSIS PARANOID SCHIZOPHRENIA GERD BPH NONCOMPLIANT - Plan Plan: r encourage fluids monitor bp continue current medications fall precautions psych f/u Nutritional Asmnt/Malnutr-PDOC - Dietary Evaluation Malnutrition Findings (Please click <Entered> for more info): Nutritional Asmnt/Malnutrition Start: 04/24/17 16: 21 Text: Status: Complete Freq: Document 04/24/17 16:22 GSUN (Rec: 04/24/17 16:32 GSUN [id number]) Nutritional Asmnt/Malnutrition Patient General Information Nutritional Screening Diagnosis Diagnosis Reason for visit: psychosis Pertinent Medical Hx/Surgical Hx Spondylosis, CKD, HTN, GERD, BPH, anemia, paranoid schizophrenia Subjective Information 61 year old male from SNF. Pt was pleasant, however appeared suspicious and delusional during visit, unable to provide meaningful responses/ irrelevant. Pt stated good appetite, denied nutritional concerns at this time. Teeth intact. Avg PO intake 75-100% of meals since adm, meeting nturitional needs. No muscle fat wasting noted. Current Diet Order/ Nutrition Support Regular Pertinent Medications Colace, Iron, Haldol, Culturelle, MOM Pertinent Labs 04/17: BUN 56H, creatinine 4.7H , glucose 144H Nutritional Hx/Data Height 5 ft 9 in Height (Calculated Centimeters) 175.3 Current Weight (lbs) 164 lb 14.4 oz Weight (Calculated Kilograms) 74.8 Weight (Calculated Grams) 45815.4 [place] Body Weight 160 Recent Weight Change No Weight Status Approriate GI Symptoms Food Allergies No Skin Integrity/Comment: Jameson 17. Skin intact. Current %PO Good (75-100%) Estimated Nutritional Goals BEE in Kcals: Using Current wt Calories/Kcals/Kg CBW 164.9lb/75kg Kcals Calculated 1875-2250kcal (25-30kcal/kg) Protein: Using Current wt Protein Calculated 60g (0.8g/kg, CKD) Fluid: ml Per MD Nutritional Problem 1. Problem Problem Impaired nutrient utilization related to Etiology CKD aeb Signs/Symptoms: BUN 56H, creatinine 4.7H Intervention/Recommendation Comments 1. Recommend low sodium diet to aid in renal function (BUN 56H, real estate processor 4.7H, potassium WNL, calcium WNL). Avg PO intake is adequate. 2. Monitor renal labs, obtain phosphorus lab. Expected Outcomes/Goals Expected Outcomes/Goals 1. PO intake continue to meet at least 75% of estimated nutritional needs.
--- NOTE | 2017-04-26 23:21 | Progress Notes ---
DATE: 04/26/2017 SUBJECTIVE: Staff was spoken to. The patient is interviewed. Mood is noted to be irritable. Affect is constricted. Insight and judgment are noted to be still impaired. Coping skills are noted to be very poor. The patient has been reluctant to take the medication, but the patient has been stating that he is going to be taking the medication IM. The patient is complying with the medications. ASSESSMENT: The patient is still psychotic. PLAN: To continue the patient with the current medications and proceed with the Haldol Decanoate when the patient is able to tolerate a few doses of the Haldol by mouth. The patient is not ready to be discharged to a lower level of care because of his psychosis. [facility]# [id number]
[2017-04-27] MEDS: Multivitamin w/ Minerals Tab PO SCH (09:14)
[2017-04-27] MEDS: Lactobacillus Rhamnosus 10 Billion CFU Capsule PO SCH (09:14)
[2017-04-27] MEDS: Ferrous Sulfate 325 MG TAB PO SCH (09:14)
--- NOTE | 2017-04-27 13:11 | Internal Medicine Prog Note ---
Internal Medicine Subjective - Subjective Service Date: 04/27/17 Patient is:: awake, verbal Per staff patient has:: noncompliant, refusing care, other (medications) Internal Medicine Objective - Results Result Diagrams: 04/17/17 20:04/17/17 20: Recent Labs: Laboratory Last Values WBC 8.4 Th/cmm (4.8-10.8) 04/17/17 20: RBC 3.92 Mil/cmm (4.30-5.70) L 04/17/17 20: Hgb 11.6 gm/dL (13.2-17.3) L 04/17/17 20: Hct 34.2 % (39.0-49.0) L 04/17/17: MCV 87.1 fl (80-99) 04/17/17: MCH 29.6 pg (26.0-30.0) 04/17/17: MCHC Differential 34.0 pg (28.0-36.0) 04/17/17: RDW 11.4 % (11.5-20.0) L 04/17/17 20: Plt Count 298 Th/cmm (150-400) 04/17/17 20: MPV 7.2 fl 04/17/17: Neutrophils % 79.3 % (40.0-80.0) 04/17/17: Lymphocytes % 12.0 % (20.0-50.0) L 04/17/17: Monocytes % 7.1 % (2.0-10.0) 04/17/17: Eosinophils % 1.3 % (0.0-5.0) 04/17/17: Basophils % 0.3 % (0.0-2.0) 04/17/17 20: Sodium 134 mEq/L (136-145) L 04/17/17 20: Potassium 3.8 mEq/L (3.5-5.1) 04/17/17 20: Chloride 104 mEq/L (98-107) 04/17/17 20: Carbon Dioxide 21.7 mEq/L (21.0-31.0) 04/17/17: Anion Gap 12.1 (7.0-16.0) 04/17/17 20:28 BUN 56 mg/dL (7-25) H 04/17/17 20:28 Creatinine 4.7 mg/dL (0.7-1.3) H* 04/17/17 20:28 Est GFR ( Amer) 16.3 ml/min (>90) 04/17/17 20: Est GFR (Non-Af Amer) 13.4 ml/min 04/17/17 20: BUN/Creatinine Ratio 11.9 04/17/17 20: Glucose 144 mg/dL (70-105) H 04/17/17 20:28 Calcium 9.1 mg/dL (8.6-10.3) 04/17/17 20: Total Bilirubin 0.3 mg/dL (0.3-1.0) 04/17/17 20:28 AST 11 U/L (13-39) L 04/17/17 20: ALT 9 U/L (7-52) 04/17/17 20: Alkaline Phosphatase 64 U/L (34-104) 04/17/17 20:28 Total Protein 6.4 gm/dL (6.0-8.3) 04/17/17 20: Albumin 3.8 gm/dL (4.2-5.5) L 04/17/17 20: Globulin 2.6 gm/dL 04/17/17 20: Albumin/Globulin Ratio 1.5 (1.0-1.8) 04/17/17 20: TSH 0.80 uIU/ml (0.34-5.60) 04/17/17 20: Urine Source RANDOM 04/17/17 20:05 Urine Color YELLOW 04/17/17 20:05 Urine Clarity HAZY (CLEAR) 04/17/17 20:05 Urine pH 6.0 (4.6 - 8.0) 04/17/17 20:05 Ur Specific [place] <= 1.005 (1.005-1.030) 04/17/17 20:05 Urine Protein 100 mg/dL (NEGATIVE) H 04/17/17 20:05 Urine Glucose (UA) NEGATIVE mg/dL (NEGATIVE) 04/17/17 20:05 Urine Ketones NEGATIVE mg/dL (NEGATIVE) 04/17/17 20:05 Urine Blood SMALL (NEGATIVE) H 04/17/17 20:05 Urine Nitrate NEGATIVE (NEGATIVE) 04/17/17 20:05 Urine Bilirubin NEGATIVE (NEGATIVE) 04/17/17 20:05 Urine Urobilinogen 0.2 E.U./dL (0.2 - 1.0) 04/17/17 20:05 Ur Leukocyte Esterase NEGATIVE (NEGATIVE) 04/17/17 20:05 Urine RBC 0-2 /hpf (0-5) H 04/17/17 20:05 Urine WBC 0-2 /hpf (0-5) 04/17/17 20:05 Ur Epithelial Cells OCCASIONAL /lpf (FEW) 04/17/17 20:05 Urine Bacteria NONE SEEN /hpf (NONE SEEN) 04/17/17 20:05 RPR NONREACTIVE (NONREACTIVE) 04/17/17 20:28 - Physical Exam Vitals and I&O: Vital Signs Temp 0 F 04/24/17 19:44 Pulse 80 04/18/17 06:50 Resp 18 04/23/17 20:00 BP 161/67 04/18/17 06:50 Pulse Ox 97 04/18/17 06:50 Intake & Output 04/26/17 04/27/17 04/27/17 18:59 06:59 18:59 Intake Total 1200 120 Balance 1200 120 Intake: Oral 1200 120 Other: # Voids 3 # Bowel Movements 1 Active Medications: Current Medications Acetaminophen (Tylenol) 650 mg PO Q4HR PRN PRN Reason: Pain or Fever >101 Stop: 06/16/17 22:39 Amlodipine Besylate (Norvasc) 10 mg PO DAILY [facility] Stop: 06/17/17 08:59 Last Admin: 04/27/17 09:14 Dose: Not Given Divalproex Sodium (Depakote Sprinkle) 125 mg PO Q12HR [facility] PRN Reason: Protocol Stop: 06/17/17 20:59 Last Admin: 04/27/17 09:14 Dose: Not Given Docusate Sodium (Colace) 100 mg PO BID [facility] Stop: 06/17/17 08:59 Last Admin: 04/27/17 09:14 Dose: Not Given Ferrous Sulfate (Iron) 325 mg PO DAILY [facility] Stop: 06/17/17 08:59 Last Admin: 04/27/17 09:14 Dose: Not Given Finasteride (Proscar) 5 mg PO DAILY [facility] PRN Reason: Protocol Stop: 06/17/17 08:59 Last Admin: 04/27/17 09:14 Dose: Not Given Haloperidol (Haldol) 5 mg PO BID [facility] PRN Reason: Protocol Stop: 06/25/17 09:59 Last Admin: 04/27/17 09:13 Dose: 5 mg Haloperidol Lactate (Haldol) 2 mg IM BID PRN PRN Reason: Agitation of pt refused po Stop: 06/24/17 07:42 Last Admin: 04/25/17 13:00 Dose: 2 mg Lactobacillus Rhamnosus (Culturelle) 1 each PO DAILY [facility] Stop: 06/17/17 08:59 Last Admin: 04/27/17 09:14 Dose: Not Given Lorazepam (Ativan) 1 mg PO Q6H PRN; Protocol PRN Reason: Anxiety/Agitation Stop: 06/16/17 22:25 Magnesium Hydroxide (Milk Of Magnesia) 30 ml PO DAILY PRN PRN Reason: Constipation Stop: 06/16/17 22:39 Tamsulosin HCl (Flomax) 0.4 mg PO DAILY [facility] Stop: 06/17/17 08:59 Last Admin: 04/27/17 09:15 Dose: Not Given Zolpidem Tartrate (Ambien) 5 mg PO HS PRN PRN Reason: Insomnia Stop: 06/16/17 22:25 General: alert HEENT: NC/AT, PERRLA Neck: Supple Lungs: CTAB Cardiovascular: RRR, Normal S1, Normal S2, without murmur Abdomen: soft, non-tender, non-distended Extremities: excoriation Neurological: no change Internal Medicine Assmt/Plan - Assessment Assessment: HTN CKD ANEMIA PSYCHOSIS PARANOID SCHIZOPHRENIA GERD BPH NONCOMPLIANT - Plan Plan: r encourage fluids monitor bp continue current medications fall precautions psych f/u Nutritional Asmnt/Malnutr-PDOC - Dietary Evaluation Malnutrition Findings (Please click <Entered> for more info): Nutritional Asmnt/Malnutrition Start: 04/24/17 16: 21 Text: Status: Complete Freq: Document 04/24/17 16:22 GSUN (Rec: 04/24/17 16:32 GSUN [id number]) Nutritional Asmnt/Malnutrition Patient General Information Nutritional Screening Diagnosis Diagnosis Reason for visit: psychosis Pertinent Medical Hx/Surgical Hx Spondylosis, CKD, HTN, GERD, BPH, anemia, paranoid schizophrenia Subjective Information 61 year old male from SNF. Pt was pleasant, however appeared suspicious and delusional during visit, unable to provide meaningful responses/ irrelevant. Pt stated good appetite, denied nutritional concerns at this time. Teeth intact. Avg PO intake 75-100% of meals since adm, meeting nturitional needs. No muscle fat wasting noted. Current Diet Order/ Nutrition Support Regular Pertinent Medications Colace, Iron, Haldol, Culturelle, MOM Pertinent Labs 04/17: BUN 56H, creatinine 4.7H , glucose 144H Nutritional Hx/Data Height 5 ft 9 in Height (Calculated Centimeters) 175.3 Current Weight (lbs) 164 lb 14.4 oz Weight (Calculated Kilograms) 74.8 Weight (Calculated Grams) 70092.4 [place] Body Weight 160 Recent Weight Change No Weight Status Approriate GI Symptoms Food Allergies No Skin Integrity/Comment: Jameson Salazar. Skin intact. Current %PO Good (75-100%) Estimated Nutritional Goals BEE in Kcals: Using Current wt Calories/Kcals/Kg CBW 164.9lb/75kg Kcals Calculated 1875-2250kcal (25-30kcal/kg) Protein: Using Current wt Protein Calculated 60g (0.8g/kg, CKD) Fluid: ml Per MD Nutritional Problem 1. Problem Problem Impaired nutrient utilization related to Etiology CKD aeb Signs/Symptoms: BUN 56H, creatinine 4.7H Intervention/Recommendation Comments 1. Recommend low sodium diet to aid in renal function (BUN 56H, sports centre manager 4.7H, potassium WNL, calcium WNL). Avg PO intake is adequate. 2. Monitor renal labs, obtain phosphorus lab. Expected Outcomes/Goals Expected Outcomes/Goals 1. PO intake continue to meet at least 75% of estimated nutritional needs.
--- NOTE | 2017-04-28 06:28 | Progress Notes ---
DATE: 04/27/2017 SUBJECTIVE: Staff was spoken to. The patient is interviewed. Mood is noted to be irritable. Affect is constricted. Continues to be very paranoid and is responding to internal stimuli. The patient has been on Haldol and has been able to tolerate the medications. The patient is compliant with the Haldol when he is stating that he might be given an IM, but the patient is refusing to take his medical medications. ASSESSMENT: The patient is still psychotic. PLAN: To continue the patient with supportive therapy. Encouraged the patient to verbalize the concerns rather than to act out. JOB# [id number]
[2017-04-28] MEDS: Multivitamin w/ Minerals Tab PO SCH (08:27)
[2017-04-28] MEDS: Lactobacillus Rhamnosus 10 Billion CFU Capsule PO SCH (08:27)
[2017-04-28] MEDS: Ferrous Sulfate 325 MG TAB PO SCH (08:27)
--- NOTE | 2017-04-28 13:51 | Internal Medicine Prog Note ---
Internal Medicine Subjective - Subjective Patient seen and examined:: with staff, chart reviewed Patient is:: awake, verbal Per staff patient has:: noncompliant, refusing care, other (medications) Internal Medicine Objective - Results Result Diagrams: 04/17/17 20:04/17/17 20: Recent Labs: Laboratory Last Values WBC 8.4 Th/cmm (4.8-10.8) 04/17/17 20: RBC 3.92 Mil/cmm (4.30-5.70) L 04/17/17 20: Hgb 11.6 gm/dL (13.2-17.3) L 04/17/17 20: Hct 34.2 % (39.0-49.0) L 04/17/17: MCV 87.1 fl (80-99) 04/17/17 20: MCH 29.6 pg (26.0-30.0) 04/17/17: MCHC Differential 34.0 pg (28.0-36.0) 04/17/17: RDW 11.4 % (11.5-20.0) L 04/17/17 20: Plt Count 298 Th/cmm (150-400) 04/17/17 20: MPV 7.2 fl 04/17/17 20: Neutrophils % 79.3 % (40.0-80.0) 04/17/17 20: Lymphocytes % 12.0 % (20.0-50.0) L 04/17/17 20: Monocytes % 7.1 % (2.0-10.0) 04/17/17: Eosinophils % 1.3 % (0.0-5.0) 04/17/17: Basophils % 0.3 % (0.0-2.0) 04/17/17 20: Sodium 134 mEq/L (136-145) L 04/17/17 20: Potassium 3.8 mEq/L (3.5-5.1) 04/17/17 20: Chloride 104 mEq/L (98-107) 04/17/17 20: Carbon Dioxide 21.7 mEq/L (21.0-31.0) 04/17/17 20: Anion Gap 12.1 (7.0-16.0) 04/17/17 20:28 BUN 56 mg/dL (7-25) H 04/17/17 20:28 Creatinine 4.7 mg/dL (0.7-1.3) H* 04/17/17 20:28 Est GFR ( Amer) 16.3 ml/min (>90) 04/17/17 20: Est GFR (Non-Af Amer) 13.4 ml/min 04/17/17 20: BUN/Creatinine Ratio 11.9 04/17/17 20: Glucose 144 mg/dL (70-105) H 04/17/17 20:28 Calcium 9.1 mg/dL (8.6-10.3) 04/17/17 20: Total Bilirubin 0.3 mg/dL (0.3-1.0) 04/17/17 20: AST 11 U/L (13-39) L 04/17/17 20: ALT 9 U/L (7-52) 04/17/17 20: Alkaline Phosphatase 64 U/L (34-104) 04/17/17 20:28 Total Protein 6.4 gm/dL (6.0-8.3) 04/17/17 20: Albumin 3.8 gm/dL (4.2-5.5) L 04/17/17 20: Globulin 2.6 gm/dL 04/17/17 20: Albumin/Globulin Ratio 1.5 (1.0-1.8) 04/17/17 20: TSH 0.80 uIU/ml (0.34-5.60) 04/17/17 20: Urine Source RANDOM 04/17/17 20:05 Urine Color YELLOW 04/17/17 20:05 Urine Clarity HAZY (CLEAR) 04/17/17 20:05 Urine pH 6.0 (4.6 - 8.0) 04/17/17 20:05 Ur Specific [place] <= 1.005 (1.005-1.030) 04/17/17 20:05 Urine Protein 100 mg/dL (NEGATIVE) H 04/17/17 20:05 Urine Glucose (UA) NEGATIVE mg/dL (NEGATIVE) 04/17/17 20:05 Urine Ketones NEGATIVE mg/dL (NEGATIVE) 04/17/17 20:05 Urine Blood SMALL (NEGATIVE) H 04/17/17 20:05 Urine Nitrate NEGATIVE (NEGATIVE) 04/17/17 20:05 Urine Bilirubin NEGATIVE (NEGATIVE) 04/17/17 20:05 Urine Urobilinogen 0.2 E.U./dL (0.2 - 1.0) 04/17/17 20:05 Ur Leukocyte Esterase NEGATIVE (NEGATIVE) 04/17/17 20:05 Urine RBC 0-2 /hpf (0-5) H 04/17/17 20:05 Urine WBC 0-2 /hpf (0-5) 04/17/17 20:05 Ur Epithelial Cells OCCASIONAL /lpf (FEW) 04/17/17 20:05 Urine Bacteria NONE SEEN /hpf (NONE SEEN) 04/17/17 20:05 RPR NONREACTIVE (NONREACTIVE) 04/17/17 20:28 - Physical Exam Vitals and I&O: Vital Signs Temp 0 F 04/24/17 19:44 Pulse 80 04/18/17 06:50 Resp 18 04/27/17 20:00 BP 161/67 04/18/17 06:50 Pulse Ox 97 04/18/17 06:50 Intake & Output 04/27/17 04/28/17 04/28/17 18:59 06:59 18:59 Intake Total 1200 360 Output Total 3 Balance 1197 360 Intake: Oral 1200 360 Output: Urine 3 Other: # Voids 3 Active Medications: Current Medications Acetaminophen (Tylenol) 650 mg PO Q4HR PRN PRN Reason: Pain or Fever >101 Stop: 06/16/17 22:39 Amlodipine Besylate (Norvasc) 10 mg PO DAILY [facility] Stop: 06/17/17 08:59 Last Admin: 04/28/17 08:27 Dose: Not Given Divalproex Sodium (Depakote Sprinkle) 125 mg PO Q12HR [facility] PRN Reason: Protocol Stop: 06/17/17 20:59 Last Admin: 04/28/17 08:27 Dose: Not Given Docusate Sodium (Colace) 100 mg PO BID [facility] Stop: 06/17/17 08:59 Last Admin: 04/28/17 08:27 Dose: Not Given Ferrous Sulfate (Iron) 325 mg PO DAILY [facility] Stop: 06/17/17 08:59 Last Admin: 04/28/17 08:27 Dose: Not Given Finasteride (Proscar) 5 mg PO DAILY [facility] PRN Reason: Protocol Stop: 06/17/17 08:59 Last Admin: 04/28/17 08:27 Dose: Not Given Haloperidol (Haldol) 5 mg PO BID [facility] PRN Reason: Protocol Stop: 06/25/17 09:59 Last Admin: 04/28/17 09:24 Dose: 5 mg Haloperidol Decanoate (Haldol Dec) 50 mg IM QMONTH [facility] PRN Reason: Protocol Stop: 06/27/17 10:29 Haloperidol Lactate (Haldol) 2 mg IM BID PRN PRN Reason: Agitation of pt refused po Stop: 06/24/17 07:42 Last Admin: 04/25/17 13:00 Dose: 2 mg Lactobacillus Rhamnosus (Culturelle) 1 each PO DAILY [facility] Stop: 06/17/17 08:59 Last Admin: 04/28/17 08:27 Dose: Not Given Lorazepam (Ativan) 1 mg PO Q6H PRN; Protocol PRN Reason: Anxiety/Agitation Stop: 06/16/17 22:25 Magnesium Hydroxide (Milk Of Magnesia) 30 ml PO DAILY PRN PRN Reason: Constipation Stop: 06/16/17 22:39 Tamsulosin HCl (Flomax) 0.4 mg PO DAILY [facility] Stop: 06/17/17 08:59 Last Admin: 04/28/17 08:28 Dose: Not Given Zolpidem Tartrate (Ambien) 5 mg PO HS PRN PRN Reason: Insomnia Stop: 06/16/17 22:25 General: alert HEENT: NC/AT, PERRLA Neck: Supple Lungs: CTAB Cardiovascular: RRR, Normal S1, Normal S2, without murmur Abdomen: soft, non-tender, non-distended Extremities: excoriation Neurological: no change Internal Medicine Assmt/Plan - Assessment Assessment: HTN CKD ANEMIA PSYCHOSIS PARANOID SCHIZOPHRENIA GERD BPH NONCOMPLIANT - Plan Plan: cont on bp meds monitor reanl function but pt refused last lab attempt renal us also refused cpm dw rn Nutritional Asmnt/Malnutr-PDOC - Dietary Evaluation Malnutrition Findings (Please click <Entered> for more info): Nutritional Asmnt/Malnutrition Start: 04/24/17 16: 21 Text: Status: Complete Freq: Document 04/24/17 16:22 GSUN (Rec: 04/24/17 16:32 JUSTEN [id number]) Nutritional Asmnt/Malnutrition Patient General Information Nutritional Screening Diagnosis Diagnosis Reason for visit: psychosis Pertinent Medical Hx/Surgical Hx Spondylosis, CKD, HTN, GERD, BPH, anemia, paranoid schizophrenia Subjective Information 61 year old male from SNF. Pt was pleasant, however appeared suspicious and delusional during visit, unable to provide meaningful responses/ irrelevant. Pt stated good appetite, denied nutritional concerns at this time. Teeth intact. Avg PO intake 75-100% of meals since adm, meeting nturitional needs. No muscle fat wasting noted. Current Diet Order/ Nutrition Support Regular Pertinent Medications Colace, Iron, Haldol, Culturelle, MOM Pertinent Labs 04/17: BUN 56H, creatinine 4.7H , glucose 144H Nutritional Hx/Data Height 1.75 m Height (Calculated Centimeters) 175.3 Current Weight (lbs) 74.797 kg Weight (Calculated Kilograms) 74.8 Weight (Calculated Grams) 99253.4 [place] Body Weight 160 Recent Weight Change No Weight Status Approriate GI Symptoms Food Allergies No Skin Integrity/Comment: Jameson 17. Skin intact. Current %PO Good (75-100%) Estimated Nutritional Goals BEE in Kcals: Using Current wt Calories/Kcals/Kg CBW 164.9lb/75kg Kcals Calculated 1875-2250kcal (25-30kcal/kg) Protein: Using Current wt Protein Calculated 60g (0.8g/kg, CKD) Fluid: ml Per MD Nutritional Problem 1. Problem Problem Impaired nutrient utilization related to Etiology CKD aeb Signs/Symptoms: BUN 56H, creatinine 4.7H Intervention/Recommendation Comments 1. Recommend low sodium diet to aid in renal function (BUN 56H, nuclear plant technical advisor 4.7H, potassium WNL, calcium WNL). Avg PO intake is adequate. 2. Monitor renal labs, obtain phosphorus lab. Expected Outcomes/Goals Expected Outcomes/Goals 1. PO intake continue to meet at least 75% of estimated nutritional needs.
--- NOTE | 2017-04-28 23:57 | Progress Notes ---
DATE: 04/28/2017 PSYCHIATRIC PROGRESS NOTE Staff was spoken to. The patient is interviewed. Mood is noted to be irritable. Affect is constricted. The patient is still very angry and upset for being in here. The patient has been given Haldol p.r.n. orally and the patient has been able to tolerate the medications. No side effects to the medications are noted. In view of the patient's noncompliance with the medications and refusal to take the medications, it is decided to go with Haldol Decanoate 50 mg for this patient and the patient is going to be closely monitored. The patient is going to be encouraged to comply with the treatment rather than to act out. [facility]# [id number]
[2017-04-29] MEDS: Ferrous Sulfate 325 MG TAB PO SCH (08:58)
[2017-04-29] MEDS: Multivitamin w/ Minerals Tab PO SCH (08:59)
[2017-04-29] MEDS: Lactobacillus Rhamnosus 10 Billion CFU Capsule PO SCH (08:59)
--- NOTE | 2017-04-29 12:57 | Internal Medicine Prog Note ---
Internal Medicine Subjective - Subjective Patient seen and examined:: with staff, chart reviewed Patient is:: awake, verbal Per staff patient has:: noncompliant, refusing care, other (medications) Internal Medicine Objective - Results Result Diagrams: 04/17/17 20:04/17/17 20: Recent Labs: Laboratory Last Values WBC 8.4 Th/cmm (4.8-10.8) 04/17/17 20: RBC 3.92 Mil/cmm (4.30-5.70) L 04/17/17 20: Hgb 11.6 gm/dL (13.2-17.3) L 04/17/17 20: Hct 34.2 % (39.0-49.0) L 04/17/17: MCV 87.1 fl (80-99) 04/17/17 20: MCH 29.6 pg (26.0-30.0) 04/17/17: MCHC Differential 34.0 pg (28.0-36.0) 04/17/17: RDW 11.4 % (11.5-20.0) L 04/17/17 20: Plt Count 298 Th/cmm (150-400) 04/17/17 20: MPV 7.2 fl 04/17/17 20: Neutrophils % 79.3 % (40.0-80.0) 04/17/17 20: Lymphocytes % 12.0 % (20.0-50.0) L 04/17/17 20: Monocytes % 7.1 % (2.0-10.0) 04/17/17: Eosinophils % 1.3 % (0.0-5.0) 04/17/17: Basophils % 0.3 % (0.0-2.0) 04/17/17 20: Sodium 134 mEq/L (136-145) L 04/17/17 20: Potassium 3.8 mEq/L (3.5-5.1) 04/17/17 20: Chloride 104 mEq/L (98-107) 04/17/17 20: Carbon Dioxide 21.7 mEq/L (21.0-31.0) 04/17/17 20: Anion Gap 12.1 (7.0-16.0) 04/17/17 20:28 BUN 56 mg/dL (7-25) H 04/17/17 20:28 Creatinine 4.7 mg/dL (0.7-1.3) H* 04/17/17 20:28 Est GFR ( Amer) 16.3 ml/min (>90) 04/17/17 20: Est GFR (Non-Af Amer) 13.4 ml/min 04/17/17 20: BUN/Creatinine Ratio 11.9 04/17/17 20: Glucose 144 mg/dL (70-105) H 04/17/17 20:28 Calcium 9.1 mg/dL (8.6-10.3) 04/17/17 20: Total Bilirubin 0.3 mg/dL (0.3-1.0) 04/17/17 20: AST 11 U/L (13-39) L 04/17/17 20: ALT 9 U/L (7-52) 04/17/17 20: Alkaline Phosphatase 64 U/L (34-104) 04/17/17 20:28 Total Protein 6.4 gm/dL (6.0-8.3) 04/17/17 20: Albumin 3.8 gm/dL (4.2-5.5) L 04/17/17 20: Globulin 2.6 gm/dL 04/17/17 20: Albumin/Globulin Ratio 1.5 (1.0-1.8) 04/17/17 20: TSH 0.80 uIU/ml (0.34-5.60) 04/17/17 20: Urine Source RANDOM 04/17/17 20:05 Urine Color YELLOW 04/17/17 20:05 Urine Clarity HAZY (CLEAR) 04/17/17 20:05 Urine pH 6.0 (4.6 - 8.0) 04/17/17 20:05 Ur Specific [place] <= 1.005 (1.005-1.030) 04/17/17 20:05 Urine Protein 100 mg/dL (NEGATIVE) H 04/17/17 20:05 Urine Glucose (UA) NEGATIVE mg/dL (NEGATIVE) 04/17/17 20:05 Urine Ketones NEGATIVE mg/dL (NEGATIVE) 04/17/17 20:05 Urine Blood SMALL (NEGATIVE) H 04/17/17 20:05 Urine Nitrate NEGATIVE (NEGATIVE) 04/17/17 20:05 Urine Bilirubin NEGATIVE (NEGATIVE) 04/17/17 20:05 Urine Urobilinogen 0.2 E.U./dL (0.2 - 1.0) 04/17/17 20:05 Ur Leukocyte Esterase NEGATIVE (NEGATIVE) 04/17/17 20:05 Urine RBC 0-2 /hpf (0-5) H 04/17/17 20:05 Urine WBC 0-2 /hpf (0-5) 04/17/17 20:05 Ur Epithelial Cells OCCASIONAL /lpf (FEW) 04/17/17 20:05 Urine Bacteria NONE SEEN /hpf (NONE SEEN) 04/17/17 20:05 RPR NONREACTIVE (NONREACTIVE) 04/17/17 20:28 - Physical Exam Vitals and I&O: Vital Signs Temp 0 F 04/29/17 06:53 Pulse 80 04/18/17 06:50 Resp 18 04/27/17 20:00 BP 161/67 04/18/17 06:50 Pulse Ox 97 04/18/17 06:50 Intake & Output 04/28/17 04/29/17 04/29/17 18:59 06:59 18:59 Intake Total 2200 Balance 2200 Weight (lbs) 74.797 kg Intake: Oral 2200 Other: # Voids 5 4 # Bowel Movements 0 0 Active Medications: Current Medications Acetaminophen (Tylenol) 650 mg PO Q4HR PRN PRN Reason: Pain or Fever >101 Stop: 06/16/17 22:39 Amlodipine Besylate (Norvasc) 10 mg PO DAILY [facility] Stop: 06/17/17 08:59 Last Admin: 04/29/17 08:57 Dose: Not Given Divalproex Sodium (Depakote Sprinkle) 125 mg PO Q12HR [facility] PRN Reason: Protocol Stop: 06/17/17 20:59 Last Admin: 04/29/17 08:58 Dose: Not Given Docusate Sodium (Colace) 100 mg PO BID [facility] Stop: 06/17/17 08:59 Last Admin: 04/29/17 08:58 Dose: Not Given Ferrous Sulfate (Iron) 325 mg PO DAILY [facility] Stop: 06/17/17 08:59 Last Admin: 04/29/17 08:58 Dose: Not Given Finasteride (Proscar) 5 mg PO DAILY [facility] PRN Reason: Protocol Stop: 06/17/17 08:59 Last Admin: 04/29/17 08:58 Dose: Not Given Haloperidol (Haldol) 5 mg PO BID [facility] PRN Reason: Protocol Stop: 06/25/17 09:59 Last Admin: 04/29/17 08:58 Dose: 5 mg Haloperidol Decanoate (Haldol Dec) 50 mg IM QMONTH [facility] PRN Reason: Protocol Stop: 06/27/17 10:29 Haloperidol Lactate (Haldol) 2 mg IM BID PRN PRN Reason: Agitation of pt refused po Stop: 06/24/17 07:42 Last Admin: 04/25/17 13:00 Dose: 2 mg Lactobacillus Rhamnosus (Culturelle) 1 each PO DAILY [facility] Stop: 06/17/17 08:59 Last Admin: 04/29/17 08:59 Dose: Not Given Lorazepam (Ativan) 1 mg PO Q6H PRN; Protocol PRN Reason: Anxiety/Agitation Stop: 06/16/17 22:25 Magnesium Hydroxide (Milk Of Magnesia) 30 ml PO DAILY PRN PRN Reason: Constipation Stop: 06/16/17 22:39 Tamsulosin HCl (Flomax) 0.4 mg PO DAILY [facility] Stop: 06/17/17 08:59 Last Admin: 04/29/17 08:59 Dose: Not Given Zolpidem Tartrate (Ambien) 5 mg PO HS PRN PRN Reason: Insomnia Stop: 06/16/17 22:25 General: alert HEENT: NC/AT, PERRLA Neck: Supple Lungs: CTAB Cardiovascular: RRR, Normal S1, Normal S2, without murmur Abdomen: soft, non-tender, non-distended Extremities: excoriation Neurological: no change Internal Medicine Assmt/Plan - Assessment Assessment: HTN CKD ANEMIA PSYCHOSIS PARANOID SCHIZOPHRENIA GERD BPH NONCOMPLIANT - Plan Plan: cont on bp meds monitor reanl function but pt refused last lab attempt renal us also refused cpm dw rn Nutritional Asmnt/Malnutr-PDOC - Dietary Evaluation Malnutrition Findings (Please click <Entered> for more info): Nutritional Asmnt/Malnutrition Start: 04/24/17 16: 21 Text: Status: Complete Freq: Document 04/24/17 16:22 GSUN (Rec: 04/24/17 16:32 GSUN [id number]) Nutritional Asmnt/Malnutrition Patient General Information Nutritional Screening Diagnosis Diagnosis Reason for visit: psychosis Pertinent Medical Hx/Surgical Hx Spondylosis, CKD, HTN, GERD, BPH, anemia, paranoid schizophrenia Subjective Information 61 year old male from [facility]. Pt was pleasant, however appeared suspicious and delusional during visit, unable to provide meaningful responses/ irrelevant. Pt stated good appetite, denied nutritional concerns at this time. Teeth intact. Avg PO intake 75-100% of meals since adm, meeting nturitional needs. No muscle fat wasting noted. Current Diet Order/ Nutrition Support Regular Pertinent Medications Colace, Iron, Haldol, Culturelle, MOM Pertinent Labs 04/17: BUN 56H, creatinine 4.7H , glucose 144H Nutritional Hx/Data Height 1.75 m Height (Calculated Centimeters) 175.3 Current Weight (lbs) 74.797 kg Weight (Calculated Kilograms) 74.8 Weight (Calculated Grams) 20283.4 [place] Body Weight 160 Recent Weight Change No Weight Status Approriate GI Symptoms Food Allergies No Skin Integrity/Comment: Jameson Salazar. Skin intact. Current %PO Good (75-100%) Estimated Nutritional Goals BEE in Kcals: Using Current wt Calories/Kcals/Kg CBW 164.9lb/75kg Kcals Calculated 1875-2250kcal (25-30kcal/kg) Protein: Using Current wt Protein Calculated 60g (0.8g/kg, CKD) Fluid: ml Per MD Nutritional Problem 1. Problem Problem Impaired nutrient utilization related to Etiology CKD aeb Signs/Symptoms: BUN 56H, creatinine 4.7H Intervention/Recommendation Comments 1. Recommend low sodium diet to aid in renal function (BUN 56H, career consultant 4.7H, potassium WNL, calcium WNL). Avg PO intake is adequate. 2. Monitor renal labs, obtain phosphorus lab. Expected Outcomes/Goals Expected Outcomes/Goals 1. PO intake continue to meet at least 75% of estimated nutritional needs.
--- NOTE | 2017-04-30 02:03 | Progress Notes ---
DATE: 04/29/2017 SUBJECTIVE: Staff was spoken to. The patient is interviewed. Mood is noted to be irritable. Affect is constricted. Insight and judgment are noted to be impaired. Coping skills are noted to be poor still. The patient has been testing the limits. Paranoid delusions are noted. The patient has been able to tolerate the Haldol and hence Haldol Decanoate has been given. No side effects to the medications are noted at this time. ASSESSMENT: The patient is still psychotic. PLAN: To continue the patient with the current medications. I encouraged the patient to verbalize the concerns rather than to act out. JOB# [id number]
[2017-04-30] MEDS: Ferrous Sulfate 325 MG TAB PO SCH (08:56)
[2017-04-30] MEDS: Lactobacillus Rhamnosus 10 Billion CFU Capsule PO SCH (08:56)
[2017-04-30] MEDS: Multivitamin w/ Minerals Tab PO SCH (09:04)
--- NOTE | 2017-04-30 13:03 | Internal Medicine Prog Note ---
Internal Medicine Subjective - Subjective Patient seen and examined:: with staff, chart reviewed Patient is:: awake, verbal Per staff patient has:: noncompliant, refusing care, other (medications) Internal Medicine Objective - Results Result Diagrams: 04/17/17 20:04/17/17 20: Recent Labs: Laboratory Last Values WBC 8.4 Th/cmm (4.8-10.8) 04/17/17 20: RBC 3.92 Mil/cmm (4.30-5.70) L 04/17/17 20: Hgb 11.6 gm/dL (13.2-17.3) L 04/17/17 20: Hct 34.2 % (39.0-49.0) L 04/17/17: MCV 87.1 fl (80-99) 04/17/17 20: MCH 29.6 pg (26.0-30.0) 04/17/17: MCHC Differential 34.0 pg (28.0-36.0) 04/17/17: RDW 11.4 % (11.5-20.0) L 04/17/17 20: Plt Count 298 Th/cmm (150-400) 04/17/17 20: MPV 7.2 fl 04/17/17 20: Neutrophils % 79.3 % (40.0-80.0) 04/17/17 20: Lymphocytes % 12.0 % (20.0-50.0) L 04/17/17 20: Monocytes % 7.1 % (2.0-10.0) 04/17/17: Eosinophils % 1.3 % (0.0-5.0) 04/17/17: Basophils % 0.3 % (0.0-2.0) 04/17/17 20: Sodium 134 mEq/L (136-145) L 04/17/17 20: Potassium 3.8 mEq/L (3.5-5.1) 04/17/17 20: Chloride 104 mEq/L (98-107) 04/17/17 20: Carbon Dioxide 21.7 mEq/L (21.0-31.0) 04/17/17 20: Anion Gap 12.1 (7.0-16.0) 04/17/17 20:28 BUN 56 mg/dL (7-25) H 04/17/17 20:28 Creatinine 4.7 mg/dL (0.7-1.3) H* 04/17/17 20:28 Est GFR ( Amer) 16.3 ml/min (>90) 04/17/17 20: Est GFR (Non-Af Amer) 13.4 ml/min 04/17/17 20: BUN/Creatinine Ratio 11.9 04/17/17 20: Glucose 144 mg/dL (70-105) H 04/17/17 20:28 Calcium 9.1 mg/dL (8.6-10.3) 04/17/17 20: Total Bilirubin 0.3 mg/dL (0.3-1.0) 04/17/17 20: AST 11 U/L (13-39) L 04/17/17 20: ALT 9 U/L (7-52) 04/17/17 20: Alkaline Phosphatase 64 U/L (34-104) 04/17/17 20:28 Total Protein 6.4 gm/dL (6.0-8.3) 04/17/17 20: Albumin 3.8 gm/dL (4.2-5.5) L 04/17/17 20: Globulin 2.6 gm/dL 04/17/17 20: Albumin/Globulin Ratio 1.5 (1.0-1.8) 04/17/17 20: TSH 0.80 uIU/ml (0.34-5.60) 04/17/17 20: Urine Source RANDOM 04/17/17 20:05 Urine Color YELLOW 04/17/17 20:05 Urine Clarity HAZY (CLEAR) 04/17/17 20:05 Urine pH 6.0 (4.6 - 8.0) 04/17/17 20:05 Ur Specific [place] <= 1.005 (1.005-1.030) 04/17/17 20:05 Urine Protein 100 mg/dL (NEGATIVE) H 04/17/17 20:05 Urine Glucose (UA) NEGATIVE mg/dL (NEGATIVE) 04/17/17 20:05 Urine Ketones NEGATIVE mg/dL (NEGATIVE) 04/17/17 20:05 Urine Blood SMALL (NEGATIVE) H 04/17/17 20:05 Urine Nitrate NEGATIVE (NEGATIVE) 04/17/17 20:05 Urine Bilirubin NEGATIVE (NEGATIVE) 04/17/17 20:05 Urine Urobilinogen 0.2 E.U./dL (0.2 - 1.0) 04/17/17 20:05 Ur Leukocyte Esterase NEGATIVE (NEGATIVE) 04/17/17 20:05 Urine RBC 0-2 /hpf (0-5) H 04/17/17 20:05 Urine WBC 0-2 /hpf (0-5) 04/17/17 20:05 Ur Epithelial Cells OCCASIONAL /lpf (FEW) 04/17/17 20:05 Urine Bacteria NONE SEEN /hpf (NONE SEEN) 04/17/17 20:05 RPR NONREACTIVE (NONREACTIVE) 04/17/17 20:28 - Physical Exam Vitals and I&O: Vital Signs Temp 0 F 04/30/17 06:44 Pulse 101 04/30/17 09:54 Resp 18 04/27/17 20:00 BP 157/99 04/30/17 09:54 Pulse Ox 97 04/18/17 06:50 Intake & Output 04/29/17 04/30/17 04/30/17 18:59 06:59 18:59 Intake Total 2400 180 Balance 2400 180 Weight (lbs) 74.797 kg Intake: Oral 2400 180 Other: # Voids 4 4 # Bowel Movements 1 0 Active Medications: Current Medications Acetaminophen (Tylenol) 650 mg PO Q4HR PRN PRN Reason: Pain or Fever >101 Stop: 06/16/17 22:39 Amlodipine Besylate (Norvasc) 10 mg PO DAILY [facility] Stop: 06/17/17 08:59 Last Admin: 04/30/17 08:54 Dose: 10 mg Divalproex Sodium (Depakote Sprinkle) 125 mg PO Q12HR [facility] PRN Reason: Protocol Stop: 06/17/17 20:59 Last Admin: 04/30/17 09:38 Dose: 125 mg Docusate Sodium (Colace) 100 mg PO BID [facility] Stop: 06/17/17 08:59 Last Admin: 04/30/17 09:04 Dose: Not Given Ferrous Sulfate (Iron) 325 mg PO DAILY [facility] Stop: 06/17/17 08:59 Last Admin: 04/30/17 08:56 Dose: 325 mg Finasteride (Proscar) 5 mg PO DAILY [facility] PRN Reason: Protocol Stop: 06/17/17 08:59 Last Admin: 04/30/17 08:56 Dose: 5 mg Haloperidol (Haldol) 5 mg PO BID [facility] PRN Reason: Protocol Stop: 06/25/17 09:59 Last Admin: 04/30/17 08:56 Dose: 5 mg Haloperidol Decanoate (Haldol Dec) 50 mg IM QMONTH [facility] PRN Reason: Protocol Stop: 06/28/17 20:59 Last Admin: 04/29/17 21:29 Dose: Not Given Haloperidol Lactate (Haldol) 2 mg IM BID PRN PRN Reason: Agitation of pt refused po Stop: 06/24/17 07:42 Last Admin: 04/25/17 13:00 Dose: 2 mg Lactobacillus Rhamnosus (Culturelle) 1 each PO DAILY [facility] Stop: 06/17/17 08:59 Last Admin: 04/30/17 08:56 Dose: 1 each Lorazepam (Ativan) 1 mg PO Q6H PRN; Protocol PRN Reason: Anxiety/Agitation Stop: 06/16/17 22:25 Magnesium Hydroxide (Milk Of Magnesia) 30 ml PO DAILY PRN PRN Reason: Constipation Stop: 06/16/17 22:39 Tamsulosin HCl (Flomax) 0.4 mg PO DAILY [facility] Stop: 06/17/17 08:59 Last Admin: 04/30/17 08:56 Dose: 0.4 mg Zolpidem Tartrate (Ambien) 5 mg PO HS PRN PRN Reason: Insomnia Stop: 06/16/17 22:25 General: alert HEENT: NC/AT, PERRLA Neck: Supple Lungs: CTAB Cardiovascular: RRR, Normal S1, Normal S2, without murmur Abdomen: soft, non-tender, non-distended Extremities: excoriation Neurological: no change Internal Medicine Assmt/Plan - Assessment Assessment: HTN CKD ANEMIA PSYCHOSIS PARANOID SCHIZOPHRENIA GERD BPH NONCOMPLIANT - Plan Plan: cont on bp meds monitor reanl function but pt refused last lab attempt renal us also refused cpm dw rn Nutritional Asmnt/Malnutr-PDOC - Dietary Evaluation Malnutrition Findings (Please click <Entered> for more info): Nutritional Asmnt/Malnutrition Start: 04/24/17 16: 21 Text: Status: Complete Freq: Document 04/24/17 16:22 [email or web address] (Rec: 04/24/17 16:32 [email or web address] [id number]) Nutritional Asmnt/Malnutrition Patient General Information Nutritional Screening Diagnosis Diagnosis Reason for visit: psychosis Pertinent Medical Hx/Surgical Hx Spondylosis, CKD, HTN, GERD, BPH, anemia, paranoid schizophrenia Subjective Information 61 year old male from SNF. Pt was pleasant, however appeared suspicious and delusional during visit, unable to provide meaningful responses/ irrelevant. Pt stated good appetite, denied nutritional concerns at this time. Teeth intact. Avg PO intake 75-100% of meals since adm, meeting nturitional needs. No muscle fat wasting noted. Current Diet Order/ Nutrition Support Regular Pertinent Medications Colace, Iron, Haldol, Culturelle, MOM Pertinent Labs 04/17: BUN 56H, creatinine 4.7H , glucose 144H Nutritional Hx/Data Height 1.75 m Height (Calculated Centimeters) 175.3 Current Weight (lbs) 74.797 kg Weight (Calculated Kilograms) 74.8 Weight (Calculated Grams) 85828.4 [place] Body Weight 160 Recent Weight Change No Weight Status Approriate GI Symptoms Food Allergies No Skin Integrity/Comment: Jameson 17. Skin intact. Current %PO Good (75-100%) Estimated Nutritional Goals BEE in Kcals: Using Current wt Calories/Kcals/Kg CBW 164.9lb/75kg Kcals Calculated 1875-2250kcal (25-30kcal/kg) Protein: Using Current wt Protein Calculated 60g (0.8g/kg, CKD) Fluid: ml Per MD Nutritional Problem 1. Problem Problem Impaired nutrient utilization related to Etiology CKD aeb Signs/Symptoms: BUN 56H, creatinine 4.7H Intervention/Recommendation Comments 1. Recommend low sodium diet to aid in renal function (BUN 56H, assistant professor of psychology 4.7H, potassium WNL, calcium WNL). Avg PO intake is adequate. 2. Monitor renal labs, obtain phosphorus lab. Expected Outcomes/Goals Expected Outcomes/Goals 1. PO intake continue to meet at least 75% of estimated nutritional needs.
--- NOTE | 2017-04-30 21:54 | Progress Notes ---
DATE: 04/30/2017 SUBJECTIVE: Staff was spoken to. The patient is interviewed. Mood is noted to be irritable. Affect is constricted. Insight and judgment are noted to be still limited. Impulse control seems to be limited. The patient has been given 50 mg of Haldol Decanoate and patient has still been testing the limits. No side effects to the medications are noted at this time. ASSESSMENT: The patient is still very psychotic. PLAN: To continue the patient with the supportive therapy. I encouraged the patient to verbalize the concerns rather than to act out. JOB# [id number]
[2017-05-01] MEDS: Ferrous Sulfate 325 MG TAB PO SCH (08:34)
[2017-05-01] MEDS: Lactobacillus Rhamnosus 10 Billion CFU Capsule PO SCH (08:35)
[2017-05-01] MEDS: Multivitamin w/ Minerals Tab PO SCH (08:35)
--- NOTE | 2017-05-01 13:05 | Internal Medicine Prog Note ---
Internal Medicine Subjective - Subjective Service Date: 05/01/17 Patient is:: awake, verbal Per staff patient has:: noncompliant, refusing care, other (medications) Internal Medicine Objective - Results Result Diagrams: 04/17/17 20:04/17/17 20: Recent Labs: Laboratory Last Values WBC 8.4 Th/cmm (4.8-10.8) 04/17/17 20: RBC 3.92 Mil/cmm (4.30-5.70) L 04/17/17 20: Hgb 11.6 gm/dL (13.2-17.3) L 04/17/17 20: Hct 34.2 % (39.0-49.0) L 04/17/17: MCV 87.1 fl (80-99) 04/17/17: MCH 29.6 pg (26.0-30.0) 04/17/17: MCHC Differential 34.0 pg (28.0-36.0) 04/17/17: RDW 11.4 % (11.5-20.0) L 04/17/17 20: Plt Count 298 Th/cmm (150-400) 04/17/17 20: MPV 7.2 fl 04/17/17: Neutrophils % 79.3 % (40.0-80.0) 04/17/17: Lymphocytes % 12.0 % (20.0-50.0) L 04/17/17: Monocytes % 7.1 % (2.0-10.0) 04/17/17: Eosinophils % 1.3 % (0.0-5.0) 04/17/17: Basophils % 0.3 % (0.0-2.0) 04/17/17 20: Sodium 134 mEq/L (136-145) L 04/17/17 20: Potassium 3.8 mEq/L (3.5-5.1) 04/17/17 20: Chloride 104 mEq/L (98-107) 04/17/17 20: Carbon Dioxide 21.7 mEq/L (21.0-31.0) 04/17/17: Anion Gap 12.1 (7.0-16.0) 04/17/17 20:28 BUN 56 mg/dL (7-25) H 04/17/17 20:28 Creatinine 4.7 mg/dL (0.7-1.3) H* 04/17/17 20:28 Est GFR ( Amer) 16.3 ml/min (>90) 04/17/17 20: Est GFR (Non-Af Amer) 13.4 ml/min 04/17/17 20: BUN/Creatinine Ratio 11.9 04/17/17 20: Glucose 144 mg/dL (70-105) H 04/17/17 20:28 Calcium 9.1 mg/dL (8.6-10.3) 04/17/17 20: Total Bilirubin 0.3 mg/dL (0.3-1.0) 04/17/17 20:28 AST 11 U/L (13-39) L 04/17/17 20: ALT 9 U/L (7-52) 04/17/17 20: Alkaline Phosphatase 64 U/L (34-104) 04/17/17 20:28 Total Protein 6.4 gm/dL (6.0-8.3) 04/17/17 20: Albumin 3.8 gm/dL (4.2-5.5) L 04/17/17 20: Globulin 2.6 gm/dL 04/17/17 20: Albumin/Globulin Ratio 1.5 (1.0-1.8) 04/17/17 20: TSH 0.80 uIU/ml (0.34-5.60) 04/17/17 20: Urine Source RANDOM 04/17/17 20:05 Urine Color YELLOW 04/17/17 20:05 Urine Clarity HAZY (CLEAR) 04/17/17 20:05 Urine pH 6.0 (4.6 - 8.0) 04/17/17 20:05 Ur Specific [place] <= 1.005 (1.005-1.030) 04/17/17 20:05 Urine Protein 100 mg/dL (NEGATIVE) H 04/17/17 20:05 Urine Glucose (UA) NEGATIVE mg/dL (NEGATIVE) 04/17/17 20:05 Urine Ketones NEGATIVE mg/dL (NEGATIVE) 04/17/17 20:05 Urine Blood SMALL (NEGATIVE) H 04/17/17 20:05 Urine Nitrate NEGATIVE (NEGATIVE) 04/17/17 20:05 Urine Bilirubin NEGATIVE (NEGATIVE) 04/17/17 20:05 Urine Urobilinogen 0.2 E.U./dL (0.2 - 1.0) 04/17/17 20:05 Ur Leukocyte Esterase NEGATIVE (NEGATIVE) 04/17/17 20:05 Urine RBC 0-2 /hpf (0-5) H 04/17/17 20:05 Urine WBC 0-2 /hpf (0-5) 04/17/17 20:05 Ur Epithelial Cells OCCASIONAL /lpf (FEW) 04/17/17 20:05 Urine Bacteria NONE SEEN /hpf (NONE SEEN) 04/17/17 20:05 RPR NONREACTIVE (NONREACTIVE) 04/17/17 20:28 - Physical Exam Vitals and I&O: Vital Signs Temp 97.5 F 04/30/17 20:42 Pulse 93 05/01/17 08:39 Resp 19 04/30/17 20:42 BP 152/95 05/01/17 08:39 Pulse Ox 94 04/30/17 20:42 Intake & Output 04/30/17 05/01/17 05/01/17 18:59 06:59 18:59 Intake Total 950 420 Balance 950 420 Intake: Oral 950 420 Other: # Voids 3 2 # Bowel Movements 1 0 Active Medications: Current Medications Acetaminophen (Tylenol) 650 mg PO Q4HR PRN PRN Reason: Pain or Fever >101 Stop: 06/16/17 22:39 Amlodipine Besylate (Norvasc) 10 mg PO DAILY [facility] Stop: 06/17/17 08:59 Last Admin: 05/01/17 08:39 Dose: 10 mg Divalproex Sodium (Depakote Sprinkle) 125 mg PO Q12HR [facility] PRN Reason: Protocol Stop: 06/17/17 20:59 Last Admin: 05/01/17 08:33 Dose: 125 mg Docusate Sodium (Colace) 100 mg PO BID [facility] Stop: 06/17/17 08:59 Last Admin: 05/01/17 09:00 Dose: 100 mg Ferrous Sulfate (Iron) 325 mg PO DAILY [facility] Stop: 06/17/17 08:59 Last Admin: 05/01/17 08:34 Dose: 325 mg Finasteride (Proscar) 5 mg PO DAILY [facility] PRN Reason: Protocol Stop: 06/17/17 08:59 Last Admin: 05/01/17 08:34 Dose: 5 mg Haloperidol (Haldol) 5 mg PO BID [facility] PRN Reason: Protocol Stop: 06/25/17 09:59 Last Admin: 05/01/17 08:35 Dose: 5 mg Haloperidol Decanoate (Haldol Dec) 50 mg IM QMONTH [facility] PRN Reason: Protocol Stop: 06/28/17 20:59 Last Admin: 04/29/17 21:29 Dose: Not Given Haloperidol Lactate (Haldol) 2 mg IM BID PRN PRN Reason: Agitation of pt refused po Stop: 06/24/17 07:42 Last Admin: 04/25/17 13:00 Dose: 2 mg Lactobacillus Rhamnosus (Culturelle) 1 each PO DAILY [facility] Stop: 06/17/17 08:59 Last Admin: 05/01/17 08:35 Dose: 1 each Lorazepam (Ativan) 1 mg PO Q6H PRN; Protocol PRN Reason: Anxiety/Agitation Stop: 06/16/17 22:25 Magnesium Hydroxide (Milk Of Magnesia) 30 ml PO DAILY PRN PRN Reason: Constipation Stop: 06/16/17 22:39 Tamsulosin HCl (Flomax) 0.4 mg PO DAILY [facility] Stop: 06/17/17 08:59 Last Admin: 05/01/17 08:35 Dose: 0.4 mg Zolpidem Tartrate (Ambien) 5 mg PO HS PRN PRN Reason: Insomnia Stop: 06/16/17 22:25 General: alert HEENT: NC/AT, PERRLA Neck: Supple Lungs: CTAB Cardiovascular: RRR, Normal S1, Normal S2, without murmur Abdomen: soft, non-tender, non-distended Extremities: excoriation Neurological: no change Internal Medicine Assmt/Plan - Assessment Assessment: HTN CKD ANEMIA PSYCHOSIS PARANOID SCHIZOPHRENIA GERD BPH NONCOMPLIANT - Plan Plan: r encourage fluids monitor bp continue current medications fall precautions psych f/u Nutritional Asmnt/Malnutr-PDOC - Dietary Evaluation Malnutrition Findings (Please click <Entered> for more info): Nutritional Asmnt/Malnutrition Start: 04/24/17 16: 21 Text: Status: Complete Freq: Document 04/24/17 16:22 GSUN (Rec: 04/24/17 16:32 NANCY [id number]) Nutritional Asmnt/Malnutrition Patient General Information Nutritional Screening Diagnosis Diagnosis Reason for visit: psychosis Pertinent Medical Hx/Surgical Hx Spondylosis, CKD, HTN, GERD, BPH, anemia, paranoid schizophrenia Subjective Information 61 year old male from SNF. Pt was pleasant, however appeared suspicious and delusional during visit, unable to provide meaningful responses/ irrelevant. Pt stated good appetite, denied nutritional concerns at this time. Teeth intact. Avg PO intake 75-100% of meals since adm, meeting nturitional needs. No muscle fat wasting noted. Current Diet Order/ Nutrition Support Regular Pertinent Medications Colace, Iron, Haldol, Culturelle, MOM Pertinent Labs 04/17: BUN 56H, creatinine 4.7H , glucose 144H Nutritional Hx/Data Height 5 ft 9 in Height (Calculated Centimeters) 175.3 Current Weight (lbs) 164 lb 14.4 oz Weight (Calculated Kilograms) 74.8 Weight (Calculated Grams) 65067.4 [place] Body Weight 160 Recent Weight Change No Weight Status Approriate GI Symptoms Food Allergies No Skin Integrity/Comment: Jameson Salazar. Skin intact. Current %PO Good (75-100%) Estimated Nutritional Goals BEE in Kcals: Using Current wt Calories/Kcals/Kg CBW 164.9lb/75kg Kcals Calculated 1875-2250kcal (25-30kcal/kg) Protein: Using Current wt Protein Calculated 60g (0.8g/kg, CKD) Fluid: ml Per MD Nutritional Problem 1. Problem Problem Impaired nutrient utilization related to Etiology CKD aeb Signs/Symptoms: BUN 56H, creatinine 4.7H Intervention/Recommendation Comments 1. Recommend low sodium diet to aid in renal function (BUN 56H, community sports coordinator 4.7H, potassium WNL, calcium WNL). Avg PO intake is adequate. 2. Monitor renal labs, obtain phosphorus lab. Expected Outcomes/Goals Expected Outcomes/Goals 1. PO intake continue to meet at least 75% of estimated nutritional needs.
--- NOTE | 2017-05-02 04:19 | Progress Notes ---
DATE: 05/01/2017 PSYCHIATRIC PROGRESS NOTE SUBJECTIVE: Staff was spoken to. The patient is interviewed. Mood is noted to be anxious. The patient has been compliant with the medications. No need for the injections. The patient also has been given the Haldol Decanoate. The patient has paranoia, but denies any command hallucinations. No side effects to the medications are noted at this time. ASSESSMENT: The patient is still psychotic. PLAN: To continue the patient with the current medications. I encouraged the patient to verbalize the concerns rather than to act out. JOB# [id number]
[2017-05-02] MEDS: Ferrous Sulfate 325 MG TAB PO SCH (08:57)
[2017-05-02] MEDS: Lactobacillus Rhamnosus 10 Billion CFU Capsule PO SCH (08:58)
[2017-05-02] MEDS: Multivitamin w/ Minerals Tab PO SCH (08:58)
--- NOTE | 2017-05-02 13:50 | Internal Medicine Prog Note ---
Internal Medicine Subjective - Subjective Service Date: 05/02/17 Patient is:: awake, verbal Per staff patient has:: noncompliant, refusing care, other (medications) Internal Medicine Objective - Results Result Diagrams: 04/17/17 20:04/17/17 20: Recent Labs: Laboratory Last Values WBC 8.4 Th/cmm (4.8-10.8) 04/17/17 20: RBC 3.92 Mil/cmm (4.30-5.70) L 04/17/17 20: Hgb 11.6 gm/dL (13.2-17.3) L 04/17/17 20: Hct 34.2 % (39.0-49.0) L 04/17/17: MCV 87.1 fl (80-99) 04/17/17: MCH 29.6 pg (26.0-30.0) 04/17/17: MCHC Differential 34.0 pg (28.0-36.0) 04/17/17: RDW 11.4 % (11.5-20.0) L 04/17/17 20: Plt Count 298 Th/cmm (150-400) 04/17/17 20: MPV 7.2 fl 04/17/17: Neutrophils % 79.3 % (40.0-80.0) 04/17/17: Lymphocytes % 12.0 % (20.0-50.0) L 04/17/17: Monocytes % 7.1 % (2.0-10.0) 04/17/17: Eosinophils % 1.3 % (0.0-5.0) 04/17/17: Basophils % 0.3 % (0.0-2.0) 04/17/17 20: Sodium 134 mEq/L (136-145) L 04/17/17 20: Potassium 3.8 mEq/L (3.5-5.1) 04/17/17 20: Chloride 104 mEq/L (98-107) 04/17/17 20: Carbon Dioxide 21.7 mEq/L (21.0-31.0) 04/17/17: Anion Gap 12.1 (7.0-16.0) 04/17/17 20:28 BUN 56 mg/dL (7-25) H 04/17/17 20:28 Creatinine 4.7 mg/dL (0.7-1.3) H* 04/17/17 20:28 Est GFR ( Amer) 16.3 ml/min (>90) 04/17/17 20: Est GFR (Non-Af Amer) 13.4 ml/min 04/17/17 20: BUN/Creatinine Ratio 11.9 04/17/17 20: Glucose 144 mg/dL (70-105) H 04/17/17 20:28 Calcium 9.1 mg/dL (8.6-10.3) 04/17/17 20: Total Bilirubin 0.3 mg/dL (0.3-1.0) 04/17/17 20:28 AST 11 U/L (13-39) L 04/17/17 20: ALT 9 U/L (7-52) 04/17/17 20: Alkaline Phosphatase 64 U/L (34-104) 04/17/17 20:28 Total Protein 6.4 gm/dL (6.0-8.3) 04/17/17 20: Albumin 3.8 gm/dL (4.2-5.5) L 04/17/17 20: Globulin 2.6 gm/dL 04/17/17 20: Albumin/Globulin Ratio 1.5 (1.0-1.8) 04/17/17 20: TSH 0.80 uIU/ml (0.34-5.60) 04/17/17 20: Urine Source RANDOM 04/17/17 20:05 Urine Color YELLOW 04/17/17 20:05 Urine Clarity HAZY (CLEAR) 04/17/17 20:05 Urine pH 6.0 (4.6 - 8.0) 04/17/17 20:05 Ur Specific [place] <= 1.005 (1.005-1.030) 04/17/17 20:05 Urine Protein 100 mg/dL (NEGATIVE) H 04/17/17 20:05 Urine Glucose (UA) NEGATIVE mg/dL (NEGATIVE) 04/17/17 20:05 Urine Ketones NEGATIVE mg/dL (NEGATIVE) 04/17/17 20:05 Urine Blood SMALL (NEGATIVE) H 04/17/17 20:05 Urine Nitrate NEGATIVE (NEGATIVE) 04/17/17 20:05 Urine Bilirubin NEGATIVE (NEGATIVE) 04/17/17 20:05 Urine Urobilinogen 0.2 E.U./dL (0.2 - 1.0) 04/17/17 20:05 Ur Leukocyte Esterase NEGATIVE (NEGATIVE) 04/17/17 20:05 Urine RBC 0-2 /hpf (0-5) H 04/17/17 20:05 Urine WBC 0-2 /hpf (0-5) 04/17/17 20:05 Ur Epithelial Cells OCCASIONAL /lpf (FEW) 04/17/17 20:05 Urine Bacteria NONE SEEN /hpf (NONE SEEN) 04/17/17 20:05 RPR NONREACTIVE (NONREACTIVE) 04/17/17 20:28 - Physical Exam Vitals and I&O: Vital Signs Temp 0 F 05/02/17 06:51 Pulse 96 05/02/17 08:58 Resp 19 04/30/17 20:42 BP 147/100 05/02/17 08:58 Pulse Ox 94 04/30/17 20:42 Intake & Output 05/01/17 05/02/17 05/02/17 18:59 06:59 18:59 Intake Total 1000 240 Balance 1000 240 Weight (lbs) 164 lb 14.4 oz Intake: Oral 1000 240 Other: # Voids 4 3 # Bowel Movements 1 0 Active Medications: Current Medications Acetaminophen (Tylenol) 650 mg PO Q4HR PRN PRN Reason: Pain or Fever >101 Stop: 06/16/17 22:39 Amlodipine Besylate (Norvasc) 10 mg PO DAILY [facility] Stop: 06/17/17 08:59 Last Admin: 05/02/17 08:58 Dose: 10 mg Divalproex Sodium (Depakote Sprinkle) 125 mg PO Q12HR [facility] PRN Reason: Protocol Stop: 06/17/17 20:59 Last Admin: 05/02/17 09:26 Dose: Not Given Docusate Sodium (Colace) 100 mg PO BID [facility] Stop: 06/17/17 08:59 Last Admin: 05/02/17 08:58 Dose: 100 mg Ferrous Sulfate (Iron) 325 mg PO DAILY [facility] Stop: 06/17/17 08:59 Last Admin: 05/02/17 08:57 Dose: Not Given Finasteride (Proscar) 5 mg PO DAILY [facility] PRN Reason: Protocol Stop: 06/17/17 08:59 Last Admin: 05/02/17 08:58 Dose: 5 mg Haloperidol (Haldol) 5 mg PO BID [facility] PRN Reason: Protocol Stop: 06/25/17 09:59 Last Admin: 05/02/17 08:58 Dose: 5 mg Haloperidol Decanoate (Haldol Dec) 50 mg IM QMONTH [facility] PRN Reason: Protocol Stop: 06/28/17 20:59 Last Admin: 04/29/17 21:29 Dose: Not Given Haloperidol Lactate (Haldol) 2 mg IM BID PRN PRN Reason: Agitation of pt refused po Stop: 06/24/17 07:42 Last Admin: 04/25/17 13:00 Dose: 2 mg Lactobacillus Rhamnosus (Culturelle) 1 each PO DAILY [facility] Stop: 06/17/17 08:59 Last Admin: 05/02/17 08:58 Dose: 1 each Lorazepam (Ativan) 1 mg PO Q6H PRN; Protocol PRN Reason: Anxiety/Agitation Stop: 06/16/17 22:25 Magnesium Hydroxide (Milk Of Magnesia) 30 ml PO DAILY PRN PRN Reason: Constipation Stop: 06/16/17 22:39 Tamsulosin HCl (Flomax) 0.4 mg PO DAILY [facility] Stop: 06/17/17 08:59 Last Admin: 05/02/17 08:58 Dose: 0.4 mg Zolpidem Tartrate (Ambien) 5 mg PO HS PRN PRN Reason: Insomnia Stop: 06/16/17 22:25 General: alert HEENT: NC/AT, PERRLA Neck: Supple Lungs: CTAB Cardiovascular: RRR, Normal S1, Normal S2, without murmur Abdomen: soft, non-tender, non-distended Extremities: excoriation Neurological: no change Internal Medicine Assmt/Plan - Assessment Assessment: HTN CKD ANEMIA PSYCHOSIS PARANOID SCHIZOPHRENIA GERD BPH NONCOMPLIANT - Plan Plan: r encourage fluids monitor bp continue current medications fall precautions psych f/u Nutritional Asmnt/Malnutr-PDOC - Dietary Evaluation Malnutrition Findings (Please click <Entered> for more info): Nutritional Asmnt/Malnutrition Start: 04/24/17 16: 21 Text: Status: Complete Freq: Document 04/24/17 16:22 GSUN (Rec: 04/24/17 16:32 GSUN [id number]) Nutritional Asmnt/Malnutrition Patient General Information Nutritional Screening Diagnosis Diagnosis Reason for visit: psychosis Pertinent Medical Hx/Surgical Hx Spondylosis, CKD, HTN, GERD, BPH, anemia, paranoid schizophrenia Subjective Information 61 year old male from [facility]. Pt was pleasant, however appeared suspicious and delusional during visit, unable to provide meaningful responses/ irrelevant. Pt stated good appetite, denied nutritional concerns at this time. Teeth intact. Avg PO intake 75-100% of meals since adm, meeting nturitional needs. No muscle fat wasting noted. Current Diet Order/ Nutrition Support Regular Pertinent Medications Colace, Iron, Haldol, Culturelle, MOM Pertinent Labs 04/17: BUN 56H, creatinine 4.7H , glucose 144H Nutritional Hx/Data Height 5 ft 9 in Height (Calculated Centimeters) 175.3 Current Weight (lbs) 164 lb 14.4 oz Weight (Calculated Kilograms) 74.8 Weight (Calculated Grams) 13193.4 Ruso Body Weight 160 Recent Weight Change No Weight Status Approriate GI Symptoms Food Allergies No Skin Integrity/Comment: Jameson 17. Skin intact. Current %PO Good (75-100%) Estimated Nutritional Goals BEE in Kcals: Using Current wt Calories/Kcals/Kg CBW 164.9lb/75kg Kcals Calculated 1875-2250kcal (25-30kcal/kg) Protein: Using Current wt Protein Calculated 60g (0.8g/kg, CKD) Fluid: ml Per MD Nutritional Problem 1. Problem Problem Impaired nutrient utilization related to Etiology CKD aeb Signs/Symptoms: BUN 56H, creatinine 4.7H Intervention/Recommendation Comments 1. Recommend low sodium diet to aid in renal function (BUN 56H, spare parts clerk 4.7H, potassium WNL, calcium WNL). Avg PO intake is adequate. 2. Monitor renal labs, obtain phosphorus lab. Expected Outcomes/Goals Expected Outcomes/Goals 1. PO intake continue to meet at least 75% of estimated nutritional needs.
--- NOTE | 2017-05-03 04:06 | Progress Notes ---
DATE: 05/02/2017 PSYCHIATRIC PROGRESS NOTE SUBJECTIVE: Staff was spoken to. The patient is interviewed. Mood is noted to be anxious. Affect is constricted. The patient's insight and judgment at this time are noted to be still impaired. Impulse control seems to be improving; however, the patient is not willing to be compliant with the medications. The patient has been given a dose of Haldol Decanoate. No side effects to the medications are noted at this time. ASSESSMENT: The patient is still having difficult time to accept the medications, but has been able to continue with the supportive therapy, and if placement is available, possibly the patient is going to be discharged to ____. JOB# [id number]
== END 2017-05-02 16:40 | disposition home or self-care (01) | DRG 885 ==
LOC: ER 19:56 → GERO 21:30
DX: F29 Unspecified psychosis not due to a substance or known physiological condition (principal); I12.0 Hypertensive chronic kidney disease with stage 5 chronic kidney disease or end stage renal disease; N18.6 End stage renal disease; F20.0 Paranoid schizophrenia; K21.9 Gastro-esophageal reflux disease without esophagitis; N40.0 Benign prostatic hyperplasia without lower urinary tract symptoms; D64.9 Anemia, unspecified; Z88.0 Allergy status to penicillin; Z88.4 Allergy status to anesthetic agent; Z87.11 Personal history of peptic ulcer disease; Z91.19 Patient's noncompliance with other medical treatment and regimen
CPT/HCPCS: 36415-UA; 71010-TC; 80053-TC; 81001-TC; 81003-TC; 84443-TC; 85025-TC; 86592-TC; 93005; J1630; J1631; Z7610

== ENCOUNTER 2017-05-17 19:24 | Inpatient (IN) | payer MEDICARE, MEDICAID ==
--- NOTE | 2017-05-17 19:47 | ED Physician Chart ---
ED Chief Complaint/HPI - Patient Information Date Seen:: 05/17/17 Time Seen:: 19:45 Chief Complaint:: abnormal labs History of Present Illness:: Patient had laboratory tests drawn yesterday which returned with an elevated BUN. Patient's mentions he has urinary incontinence especially at night. Allergies:: Allergies Allergy/AdvReac Type Severity Reaction Status Date / Time lidocaine Allergy Verified 05/17/17 19:39 Penicillins [PCN] Allergy Verified 05/17/17 19:39 procaine [From Novocain] Allergy Verified 05/17/17 19:39 Vitals:: Vital Signs - 8 hr 05/17/17 19:30 Temp 97.9 F HR 87 RR 20 BP 156/97 O2 Sat % 95 Historian:: Patient, EMS Review:: Nurse's Note Reviewed ED Review of Systems - Review of Systems General/Constitutional: No fever, No chills Skin: Skin lesions Head: No headache Eyes: No loss of vision ENT: No earache Neck: No neck pain Cardio Vascular: No chest pain, No palpitations Pulmonary: No SOB GI: No nausea, No vomiting, No diarrhea G/U: No dysuria, Other (urinary incontinence) Musculoskeletal: No bone or joint pain Endocrine: No polyuria, No polydipsia Hematopoietic: No bruising Allergic/Immuno: No urticaria Neurological: No syncope ED Past Medical History - Past Medical History Past Medical History: Other (history of urinary tract infection; leukopenia; spondylosis; chronic renal disease) Family History: None Social History: Non Smoker, No Alcohol Surgical History: other (patient cannot remember his previous surgeries) Psychiatricy History: Other (previously diagnosed as having schizophrenia which the patient denies.) Medication: Reviewed Family Medical History - Family Member Mother History Unknown: Yes Ethnicity: Unknown Living Status: Unknown Hx Family Cancer: (unknown) Hx Family Coronary Artery Disease: No Hx Family Congestive Heart Failure: No Hx Family Hypertension: Yes Hx Family Stroke: No (unknown) Hx Family Diabetes: No Hx Family Seizures: No Hx Family Dementia: No Hx Family AIDS: (unknown) Hx Family HIV: No Hx Family COPD: No Hx Family Hepatitis: No Hx Family Psychiatric Problems: (unknown) Hx Family Tuberculosis: No ED Physical Exam - Physical Examination General/Constitutional: Well-developed, well-nourished, Alert, No distress Head: Atraumatic Eyes: Lids, conjuctiva normal, PERRL Other Skin comments:: 3 cm left forehead sebaceous cyst ENMT: External ears, nose nl, Nasal exam nl, Lips, teeth, gums nl, Oropharynx nl , Tonsils nl Neck: No nuchal rigidity Respiratory: Nl effort/Exclusion Other Respiratory comments:: Mildly harsh breath sounds; otherwise chest is clear Cardio Vascular: RRR, No murmur, gallop, rubs, NL S1 S2 GI: No tenderness/rebounding/guarding, No organomegaly, No hernia, Normal BS's, Nondistended, No mass/bruits : No CVA tenderness Extremities: No tenderness or effusion, Normal digits & nails Neuro/Psych: Alert/oriented, No focal deficits Misc: Normal back ED Labs/Radiology/EKG Results - EKG Interpretations Rate & Rhythm: NSR with a rate of 78 [place]: normal Intervals: normal ED Septic Shock - <6hrs of presentation: Vital Signs: Vital Signs - 8 hr 05/17/17 19:30 Temp 97.9 F HR 87 RR 20 BP 156/97 O2 Sat % 95 ED Reassessment (Disposition) - Reassessment Reassessment Condition:: Unchanged - Diagnosis Diagnosis:: renal insufficiency; anemia - Patient Disposition Admitted to:: Med/Surg Spoke to:: Ankit Sanchez Admitting Medical Physician:: Ankit Sanchez Condition at Disposition:: Stable
[2017-05-17 19:55] LABS: % BASOPHILS 0.5 % (0.0-2.0); % EOSINOPHILS 4.3 % (0.0-5.0); % LYMPHOCYTES 20.5 % (20.0-50.0); % MONOCYTES 6.4 % (2.0-10.0); % NEUTROPHILS 68.3 % (40.0-80.0); HEMATOCRIT 33.7 % (41.0-60); HEMOGLOBIN 11.9 gm/dL (12-16); MEAN CELL VOLUME 86.5 fl (80-99); MEAN CORPUSCULAR HEMOGLOBIN 30.5 pg (26.0-30.0); MEAN CORPUSCULAR HGB CONC 35.3 pg (28.0-36.0); NEUTROPHILE ABSOLUTE 5.8 Th/cmm (1.8-8.0); PLATELET COUNT 312 Th/cmm (150-400); RED CELL DISTRIBUTION WIDTH 11.6 % (11.5-20.0); WHITE BLOOD COUNT 8.6 Th/cmm (4.8-10.8)
[2017-05-17 20:00] LABS: URINE BILIRUBIN NEGATIVE (NEGATIVE); URINE BLOOD SMALL (NEGATIVE); URINE GLUCOSE (UA) NEGATIVE (NEGATIVE); URINE KETONE NEGATIVE (NEGATIVE); URINE PROTEIN 30 mg/dL (NEGATIVE); URINE UROBILINOGEN 0.2 E.U./dL (0.2 - 1.0)
[2017-05-17 20:06] LABS: URINE COLOR STRAW
[2017-05-17 20:07] LABS: URINE BACTERIA NONE SEEN /hpf (NONE SEEN); URINE EPITHELIAL CELLS RARE /lpf (FEW); URINE RBC 0-2 /hpf (0-5); URINE WBC 0-2 /hpf (0-5)
[2017-05-17 20:11] LABS: ALB/GLOB RATIO 1.4 (1.0-1.8); ANION GAP 14.9 (7.0-16.0); BILIRUBIN,TOTAL 0.3 mg/dL (0.3-1.0); BUN/CREATININE RATIO 12.8; CALCIUM SERUM 8.8 mg/dL (8.6-10.3); CARBON DIOXIDE 20.8 mEq/L (21.0-31.0); POTASSIUM SERUM 3.7 mEq/L (3.5-5.1)
[2017-05-17 20:28] LABS: CREATININE - SERUM 4.7 mg/dL (0.7-1.3)
[2017-05-17] MEDS ORDERED: Magnesium Hydroxide (MOM) 30 mL UDC PO PRN (21:14)
[2017-05-17] MEDS ORDERED: Albuterol Nebulizer 2.5mg/3mL HHN PRN (21:17)
[2017-05-17] MEDS: D5-0.9%NS 1,000 ML IV SCH (23:01)
[2017-05-17 23:18] VITALS: BP 139/88
[2017-05-18 05:25] LABS: % BASOPHILS 0.6 % (0.0-2.0); % EOSINOPHILS 5.8 % (0.0-5.0); % LYMPHOCYTES 22.9 % (20.0-50.0); % MONOCYTES 8.8 % (2.0-10.0); % NEUTROPHILS 61.9 % (40.0-80.0); HEMATOCRIT 33.3 % (41.0-60); HEMOGLOBIN 11.5 gm/dL (12-16); MEAN CELL VOLUME 87.8 fl (80-99); MEAN CORPUSCULAR HEMOGLOBIN 30.3 pg (26.0-30.0); MEAN CORPUSCULAR HGB CONC 34.5 pg (28.0-36.0); MEAN PLATELET VOLUME 7.4 fl; NEUTROPHILE ABSOLUTE 3.4 Th/cmm (1.8-8.0); PLATELET COUNT 279 Th/cmm (150-400); RED BLOOD COUNT 3.79 Mil/cmm (4.30-5.70); RED CELL DISTRIBUTION WIDTH 11.8 % (11.5-20.0)
[2017-05-18 05:31] LABS: WHITE BLOOD COUNT 5.5 Th/cmm (4.8-10.8)
[2017-05-18 05:56] LABS: ANION GAP 12.3 (7.0-16.0); BUN/CREATININE RATIO 12.1; CALCIUM SERUM 8.6 mg/dL (8.6-10.3); CARBON DIOXIDE 22.7 mEq/L (21.0-31.0)
[2017-05-18 06:20] LABS: CREATININE - SERUM 4.7 mg/dL (0.7-1.3)
[2017-05-18 06:30] LABS: TSH 1.35 uIU/ml (0.34-5.60)
[2017-05-18] MEDS: Multivitamin w/ Minerals Tab PO SCH (09:30)
[2017-05-18] MEDS: Ferrous Sulfate 325 MG TAB PO SCH ×2 (09:30→09:38)
[2017-05-18] MEDS ORDERED: VTE Chemical Prophylaxis Screen/Admission MC PRN (10:30)
--- NOTE | 2017-05-18 13:29 | Internal Medicine Prog Note ---
Internal Medicine Subjective - Subjective Service Date: 05/18/17 ([facility] dictated [id number]) Internal Medicine Objective - Results Result Diagrams: 05/18/17 05:02 05/18/17 05:02 Recent Labs: Laboratory Last Values WBC 5.5 Th/cmm (4.8-10.8) D 05/18/17 05:02 RBC 3.79 Mil/cmm (4.30-5.70) L 05/18/17 05:02 Hgb 11.5 gm/dL (12-16) L 05/18/17 05:02 Hct 33.3 % (41.0-60) L 05/18/17 05:02 MCV 87.8 fl (80-99) 05/18/17 05:02 MCH 30.3 pg (26.0-30.0) H 05/18/17 05:02 MCHC Differential 34.5 pg (28.0-36.0) 05/18/17 05:02 RDW 11.8 % (11.5-20.0) 05/18/17 05:02 Plt Count 279 Th/cmm (150-400) 05/18/17 05:02 MPV 7.4 fl 05/18/17 05:02 Neutrophils % 61.9 % (40.0-80.0) 05/18/17 05:02 Lymphocytes % 22.9 % (20.0-50.0) 05/18/17 05:02 Monocytes % 8.8 % (2.0-10.0) 05/18/17 05:02 Eosinophils % 5.8 % (0.0-5.0) H 05/18/17 05:02 Basophils % 0.6 % (0.0-2.0) 05/18/17 05:02 Sodium 140 mEq/L (136-145) 05/18/17 05:02 Potassium 4.0 mEq/L (3.5-5.1) 05/18/17 05:02 Chloride 109 mEq/L (98-107) H 05/18/17 05:02 Carbon Dioxide 22.7 mEq/L (21.0-31.0) 05/18/17 05:02 Anion Gap 12.3 (7.0-16.0) 05/18/17 05:02 BUN 57 mg/dL (7-25) H 05/18/17 05:02 Creatinine 4.7 mg/dL (0.7-1.3) H* 05/18/17 05:02 Est GFR ( Amer) 16.3 ml/min (>90) 05/18/17 05:02 Est GFR (Non-Af Amer) 13.4 ml/min 05/18/17 05:02 BUN/Creatinine Ratio 12.1 05/18/17 05:02 Glucose 106 mg/dL (70-105) H 05/18/17 05:02 Hemoglobin A1c % 5.6 % (4.0-6.0) 05/18/17 05:02 Calcium 8.6 mg/dL (8.6-10.3) 05/18/17 05:02 Total Bilirubin 0.3 mg/dL (0.3-1.0) 05/17/17 19:48 AST 11 U/L (13-39) L 05/17/17 19:48 ALT 7 U/L (7-52) 05/17/17 19:48 Alkaline Phosphatase 71 U/L (34-104) 05/17/17 19:48 Ammonia 40 umol/L (16-53) 05/18/17 05:02 Total Protein 6.8 gm/dL (6.0-8.3) 05/17/17 19:48 Albumin 4.0 gm/dL (4.2-5.5) L 05/17/17 19:48 Globulin 2.8 gm/dL 05/17/17 19:48 Albumin/Globulin Ratio 1.4 (1.0-1.8) 05/17/17 19:48 TSH 1.35 uIU/ml (0.34-5.60) 05/18/17 05:02 Urine Source RANDOM 05/17/17 19:30 Urine Color STRAW 05/17/17 19:30 Urine Clarity CLEAR (CLEAR) 05/17/17 19:30 Urine pH 6.0 (4.6 - 8.0) 05/17/17 19:30 Ur Specific [place] <= 1.005 (1.005-1.030) 05/17/17 19:30 Urine Protein 30 mg/dL (NEGATIVE) H 05/17/17 19:30 Urine Glucose (UA) NEGATIVE mg/dL (NEGATIVE) 05/17/17 19:30 Urine Ketones NEGATIVE mg/dL (NEGATIVE) 05/17/17 19:30 Urine Blood SMALL (NEGATIVE) H 05/17/17 19:30 Urine Nitrate NEGATIVE (NEGATIVE) 05/17/17 19:30 Urine Bilirubin NEGATIVE (NEGATIVE) 05/17/17 19:30 Urine Urobilinogen 0.2 E.U./dL (0.2 - 1.0) 05/17/17 19:30 Ur Leukocyte Esterase NEGATIVE (NEGATIVE) 05/17/17 19:30 Urine RBC 0-2 /hpf (0-5) H 05/17/17 19:30 Urine WBC 0-2 /hpf (0-5) 05/17/17 19:30 Ur Epithelial Cells RARE /lpf (FEW) 05/17/17 19:30 Urine Bacteria NONE SEEN /hpf (NONE SEEN) 05/17/17 19:30 - Physical Exam Vitals and I&O: Vital Signs Temp 98.1 F 05/18/17 12:00 Pulse 72 05/18/17 12:00 Resp 16 05/18/17 12:00 BP 169/96 05/18/17 12:00 Pulse Ox 99 05/18/17 12:00 Intake & Output 05/17/17 05/18/17 05/18/17 18:59 06:59 18:59 Weight (lbs) 151 lb 12.8 oz Active Medications: Current Medications Acetaminophen (Tylenol) 650 mg PO Q4H PRN PRN Reason: Pain Or Fever above 101 Stop: 07/16/17 21:16 Albuterol Sulfate (Albuterol 2.5mg/3ml Neb Ud) 2.5 mg HHN Q2HRT PRN PRN Reason: Shortness of Breath or Wheeze Stop: 07/16/17 21:16 Amlodipine Besylate (Norvasc) 10 mg PO DAILY [facility] Stop: 07/17/17 08:59 Last Admin: 05/18/17 09:38 Dose: Not Given Divalproex Sodium (Depakote Sprinkle) 125 mg PO Q12HR [facility] PRN Reason: Protocol Stop: 07/17/17 08:59 Last Admin: 05/18/17 09:32 Dose: Not Given Docusate Sodium (Colace) 100 mg PO BID [facility] Stop: 07/17/17 08:59 Last Admin: 05/18/17 09:30 Dose: 100 mg Ferrous Sulfate (Iron) 325 mg PO DAILY [facility] Stop: 07/17/17 08:59 Last Admin: 05/18/17 09:38 Dose: Not Given Finasteride (Proscar) 5 mg PO DAILY [facility] PRN Reason: Protocol Stop: 07/17/17 08:59 Last Admin: 05/18/17 09:29 Dose: 5 mg Haloperidol (Haldol) 5 mg PO BID [facility] PRN Reason: Protocol Stop: 07/17/17 08:59 Haloperidol Decanoate (Haldol Dec) 50 mg IM QMONTH [facility] PRN Reason: Protocol Stop: 07/16/17 21:14 Heparin Sodium (Porcine) (Heparin) 5,000 units SUBQ Q12HR [facility] Stop: 07/17/17 20:59 Dextrose/Sodium Chloride (D5-0.9%Ns) 1,000 mls @ 100 mls/hr IV .Q10H [facility] Stop: 07/16/17 21:29 Last Admin: 05/17/17 23:01 Dose: 100 mls/hr Magnesium Hydroxide (Milk Of Magnesia) 30 ml PO DAILY PRN PRN Reason: Constipation Stop: 07/16/17 21:13 Miscellaneous (Vte Chemical Prophylaxis Screen/ Admission) 1 ea [facility] PRN PRN PRN Reason: PROTOCOL Stop: 07/17/17 10:29 Ondansetron HCl (Zofran) 4 mg IV Q8H PRN PRN Reason: Nausea / Vomiting Stop: 07/16/17 21:16 Tamsulosin HCl (Flomax) 0.4 mg PO DAILY [facility] Stop: 07/17/17 08:59 Last Admin: 05/18/17 09:38 Dose: Not Given Internal Medicine Assmt/Plan - Assessment Assessment: SEVERE DEHYDRATION ACUTE RENAL FAILURE HYPONATREMIA
[2017-05-18] MEDS: D5-0.9%NS 1,000 ML IV SCH (16:32)
--- NOTE | 2017-05-18 19:11 | History & Physical ---
ADMIT DATE: 05/18/[address] Ankit Sanchez. CHIEF COMPLAINT: Abnormal labs. HISTORY OF PRESENT ILLNESS: This is a 61-year-old male who is a resident of [facility] who is brought here to [facility] due to elevated BUN. The patient also has been having episodes of urinary incontinence during the nighttime per the patient. The patient denies any fevers, any chills. Upon examination, the patient is awake, alert, refuses to have renal ultrasound done, explained to the patient the importance of having renal ultrasound. The patient still refused. PAST MEDICAL HISTORY: UTI, leukopenia, spondylolysis, and chronic renal disease. SOCIAL HISTORY: The patient is a snf resident, requiring 24-hour nursing care. SURGICAL HISTORY: Unknown. MEDICATIONS: Please see medication reconciliation sheet. REVIEW OF SYSTEMS: GENERAL: Denies any fevers or any chills. CARDIOVASCULAR: Denies chest pain. RESPIRATORY: Denies any shortness of breath. GASTROINTESTINAL: Denies nausea, vomiting, or abdominal pain. GENITOURINARY: Complains of bed wetting during at night. MUSCULOSKELETAL: Denies any bone or joint pain. All other systems are reviewed by me and are negative. PHYSICAL EXAMINATION: GENERAL: The patient is well developed, well nourished, no acute distress. VITAL SIGNS: Temperature 98.1, heart rate 72, blood pressure 169/86, respirations 16, and O2 of 99%. HEENT: Head is normocephalic and atraumatic. NECK: Supple. No mass. LUNGS: Clear bilaterally. HEART: Regular rate and rhythm. ABDOMEN: Soft and nontender. LABORATORY DATA: WBC 5.5, H and H 11.5 and , and platelet of 279,000. Sodium 140, potassium 4.0, chloride 109, BUN 57, and creatinine 4.7. ASSESSMENT: 1. Severe dehydration and acute renal failure. 2. . PLAN: The patient to be admitted to the med/surg unit. I will do 24-hour urine creatinine clearance. I will have renal consult. Keep the patient on renal diet. IV fluids for hydration. We will continue to monitor this patient. JOB# [id number]
[2017-05-19 02:35] LABS: HEIGHT 70.8 inches; SURFACE AREA 2.06
[2017-05-19] MEDS: D5-0.9%NS 1,000 ML IV SCH ×3 (02:51→20:47)
[2017-05-19 05:44] LABS: % BASOPHILS 0.7 % (0.0-2.0); % EOSINOPHILS 4.6 % (0.0-5.0); % LYMPHOCYTES 25.6 % (20.0-50.0); % MONOCYTES 7.7 % (2.0-10.0); % NEUTROPHILS 61.4 % (40.0-80.0); HEMOGLOBIN 11.4 gm/dL (12-16); MEAN CELL VOLUME 87.1 fl (80-99); MEAN CORPUSCULAR HEMOGLOBIN 30.2 pg (26.0-30.0); MEAN CORPUSCULAR HGB CONC 34.6 pg (28.0-36.0); MEAN PLATELET VOLUME 7.4 fl; NEUTROPHILE ABSOLUTE 4.1 Th/cmm (1.8-8.0); PLATELET COUNT 287 Th/cmm (150-400); RED BLOOD COUNT 3.79 Mil/cmm (4.30-5.70); RED CELL DISTRIBUTION WIDTH 12.1 % (11.5-20.0); WHITE BLOOD COUNT 6.6 Th/cmm (4.8-10.8)
[2017-05-19 06:09] LABS: ANION GAP 10.6 (7.0-16.0); BUN/CREATININE RATIO 10.7; CALCIUM SERUM 8.5 mg/dL (8.6-10.3); CARBON DIOXIDE 23.6 mEq/L (21.0-31.0); POTASSIUM SERUM 4.2 mEq/L (3.5-5.1)
[2017-05-19 06:17] LABS: CREATININE - SERUM 4.4 mg/dL (0.7-1.3)
[2017-05-19] MEDS: Ferrous Sulfate 325 MG TAB PO SCH (08:51)
[2017-05-19] MEDS: Multivitamin w/ Minerals Tab PO SCH (09:00)
--- NOTE | 2017-05-19 12:17 | Internal Medicine Prog Note ---
Internal Medicine Subjective - Subjective Service Date: 05/19/17 Patient seen and examined:: with staff Patient is:: awake, agitated, confused Per staff patient has:: agitated, tolerating meds Internal Medicine Objective - Results Result Diagrams: 05/19/17 05:16 05/19/17 05:16 Recent Labs: Laboratory Last Values WBC 6.6 Th/cmm (4.8-10.8) 05/19/17 05:16 RBC 3.79 Mil/cmm (4.30-5.70) L 05/19/17 05:16 Hgb 11.4 gm/dL (12-16) L 05/19/17 05:16 Hct 33.0 % (41.0-60) L 05/19/17 05:16 MCV 87.1 fl (80-99) 05/19/17 05:16 MCH 30.2 pg (26.0-30.0) H 05/19/17 05:16 MCHC Differential 34.6 pg (28.0-36.0) 05/19/17 05:16 RDW 12.1 % (11.5-20.0) 05/19/17 05:16 Plt Count 287 Th/cmm (150-400) 05/19/17 05:16 MPV 7.4 fl 05/19/17 05:16 Neutrophils % 61.4 % (40.0-80.0) 05/19/17 05:16 Lymphocytes % 25.6 % (20.0-50.0) 05/19/17 05:16 Monocytes % 7.7 % (2.0-10.0) 05/19/17 05:16 Eosinophils % 4.6 % (0.0-5.0) 05/19/17 05:16 Basophils % 0.7 % (0.0-2.0) 05/19/17 05:16 Sodium 141 mEq/L (136-145) 05/19/17 05:16 Potassium 4.2 mEq/L (3.5-5.1) 05/19/17 05:16 Chloride 111 mEq/L (98-107) H 05/19/17 05:16 Carbon Dioxide 23.6 mEq/L (21.0-31.0) 05/19/17 05:16 Anion Gap 10.6 (7.0-16.0) 05/19/17 05:16 BUN 47 mg/dL (7-25) H 05/19/17 05:16 Creatinine 4.4 mg/dL (0.7-1.3) H* 05/19/17 05:16 Est GFR ( Amer) 17.6 ml/min (>90) 05/19/17 05:16 Est GFR (Non-Af Amer) 14.5 ml/min 05/19/17 05:16 BUN/Creatinine Ratio 10.7 05/19/17 05:16 Glucose 107 mg/dL (70-105) H 05/19/17 05:16 Hemoglobin A1c % 5.6 % (4.0-6.0) 05/18/17 05:02 Calcium 8.5 mg/dL (8.6-10.3) L 05/19/17 05:16 Total Bilirubin 0.3 mg/dL (0.3-1.0) 05/17/17 19:48 AST 11 U/L (13-39) L 05/17/17 19:48 ALT 7 U/L (7-52) 05/17/17 19:48 Alkaline Phosphatase 71 U/L (34-104) 05/17/17 19:48 Ammonia 40 umol/L (16-53) 05/18/17 05:02 Total Protein 6.8 gm/dL (6.0-8.3) 05/17/17 19:48 Albumin 4.0 gm/dL (4.2-5.5) L 05/17/17 19:48 Globulin 2.8 gm/dL 05/17/17 19:48 Albumin/Globulin Ratio 1.4 (1.0-1.8) 05/17/17 19:48 Prostate Specific Ag 5.5 ng/mL (0.0-4.0) H 05/18/17 05:02 Vitamin B12 760 pg/mL (211-946) 05/18/17 05:02 Folic Acid 16.0 ng/mL (>3.0) 05/18/17 05:02 TSH 1.35 uIU/ml (0.34-5.60) 05/18/17 05:02 Urine Source RANDOM 05/17/17 19:30 Urine Color STRAW 05/17/17 19:30 Urine Clarity CLEAR (CLEAR) 05/17/17 19:30 Urine pH 6.0 (4.6 - 8.0) 05/17/17 19:30 Ur Specific [place] <= 1.005 (1.005-1.030) 05/17/17 19:30 Urine Protein 30 mg/dL (NEGATIVE) H 05/17/17 19:30 Urine Glucose (UA) NEGATIVE mg/dL (NEGATIVE) 05/17/17 19:30 Urine Ketones NEGATIVE mg/dL (NEGATIVE) 05/17/17 19:30 Urine Blood SMALL (NEGATIVE) H 05/17/17 19:30 Urine Nitrate NEGATIVE (NEGATIVE) 05/17/17 19:30 Urine Bilirubin NEGATIVE (NEGATIVE) 05/17/17 19:30 Urine Urobilinogen 0.2 E.U./dL (0.2 - 1.0) 05/17/17 19:30 Ur Leukocyte Esterase NEGATIVE (NEGATIVE) 05/17/17 19:30 Urine RBC 0-2 /hpf (0-5) H 05/17/17 19:30 Urine WBC 0-2 /hpf (0-5) 05/17/17 19:30 Ur Epithelial Cells RARE /lpf (FEW) 05/17/17 19:30 Urine Bacteria NONE SEEN /hpf (NONE SEEN) 05/17/17 19:30 U Random Total Protein 69.0 mg/dL 05/17/17 23:00 Urine Collection Time 24 hours 05/17/17 23:00 Urine Total Volume 4000 ml 05/17/17 23:00 Urine Creatinine 40.0 mg/dL 05/17/17 23:00 Ur Creatinine 24 Hour 1600 mg/24hr (14-26) H 05/17/17 23:00 Creat Clearance 24 Hr 20 ml/min (97.00-137.00) L 05/17/17 23:00 U Tot Protein 24h, Calc 2760.0 mg/24 hr (0-165) H 05/17/17 23:00 Body Surface Area 2.06 05/17/17 23:00 - Physical Exam Vitals and I&O: Vital Signs Temp 98.2 F 05/19/17 08:00 Pulse 64 05/19/17 08:00 Resp 18 05/19/17 08:00 BP 150/91 05/19/17 08:00 Pulse Ox 96 05/19/17 08:00 Intake & Output 05/18/17 05/19/17 05/19/17 18:59 06:59 18:59 Intake Total 1000 1000 Balance 1000 1000 Weight (lbs) 161 lb Intake: Intake, IV Amount 1000 1000 D5-0.9%Ns 1,000 ml @ 100 1000 1000 mls/hr IV .Q10H [facility] Rx#: [id number] Other: # Voids 3 Active Medications: Current Medications Acetaminophen (Tylenol) 650 mg PO Q4H PRN PRN Reason: Pain Or Fever above 101 Stop: 07/16/17 21:16 Albuterol Sulfate (Albuterol 2.5mg/3ml Neb Ud) 2.5 mg HHN Q2HRT PRN PRN Reason: Shortness of Breath or Wheeze Stop: 07/16/17 21:16 Amlodipine Besylate (Norvasc) 10 mg PO DAILY [facility] Stop: 07/17/17 08:59 Last Admin: 05/19/17 09:01 Dose: Not Given Divalproex Sodium (Depakote Sprinkle) 125 mg PO Q12HR [facility] PRN Reason: Protocol Stop: 07/17/17 08:59 Last Admin: 05/19/17 08:50 Dose: Not Given Docusate Sodium (Colace) 100 mg PO BID [facility] Stop: 07/17/17 08:59 Last Admin: 05/19/17 08:55 Dose: Not Given Ferrous Sulfate (Iron) 325 mg PO DAILY [facility] Stop: 07/17/17 08:59 Last Admin: 05/19/17 08:51 Dose: Not Given Finasteride (Proscar) 5 mg PO DAILY [facility] PRN Reason: Protocol Stop: 07/17/17 08:59 Last Admin: 05/19/17 08:52 Dose: Not Given Haloperidol (Haldol) 5 mg PO BID [facility] PRN Reason: Protocol Stop: 07/17/17 20:44 Last Admin: 05/19/17 08:53 Dose: Not Given Haloperidol Decanoate (Haldol Dec) 50 mg IM QMONTH [facility] Stop: 07/28/17 08:59 Heparin Sodium (Porcine) (Heparin) 5,000 units SUBQ Q12HR [facility] Stop: 07/17/17 20:59 Last Admin: 05/19/17 08:54 Dose: Not Given Dextrose/Sodium Chloride (D5-0.9%Ns) 1,000 mls @ 100 mls/hr IV .Q10H [facility] Stop: 07/16/17 21:29 Last Admin: 05/19/17 02:51 Dose: 100 mls/hr Magnesium Hydroxide (Milk Of Magnesia) 30 ml PO DAILY PRN PRN Reason: Constipation Stop: 07/16/17 21:13 Miscellaneous (Vte Chemical Prophylaxis Screen/ Admission) 1 ea [facility] PRN PRN PRN Reason: PROTOCOL Stop: 07/17/17 10:29 Ondansetron HCl (Zofran) 4 mg IV Q8H PRN PRN Reason: Nausea / Vomiting Stop: 07/16/17 21:16 Tamsulosin HCl (Flomax) 0.4 mg PO DAILY [facility] Stop: 07/17/17 08:59 Last Admin: 05/19/17 08:54 Dose: Not Given General: weak, alert HEENT: NC/AT, PERRLA Neck: Supple Lungs: CTAB Cardiovascular: RRR, without murmur Abdomen: soft, non-tender, non-distended, positive bowel sound Extremities: excoriation Neurological: alert Internal Medicine Assmt/Plan - Assessment Assessment: SEVERE DEHYDRATION ACUTE RENAL FAILURE HYPONATREMIA - Plan Plan: ivf for hydration nephro f/u am labs monitor bun/crea continue current plan of care Nutritional Asmnt/Malnutr-PDOC - Dietary Evaluation Malnutrition Findings (Please click <Entered> for more info): Nutritional Asmnt/Malnutrition Start: 05/19/17 11: 21 Text: Status: Complete Freq: Document 05/19/17 11:21 RUBEN (Rec: 05/19/17 11:27 RUBEN MIRZA- [email or web address]) Nutritional Asmnt/Malnutrition Patient General Information Nutritional Screening High Risk Screening Diagnosis severe dehydration, acute renal failure Pertinent Medical Hx/Surgical Hx UTI, spondyloysis, chronic renal disease Subjective Information PT sitting up in bed stating that he goes off and on renal diets. Pt was able to recall high K foods, high phosphorus foods and provided by with hand out on both. Current Diet Order/ Nutrition Support Renal diet Patient / S.O Can Pertinent Medications colace, Fe, heparin, MOM, zofran Pertinent Labs 05/19: Na 141, K 4.2, Cl 111, CO2 23.6, BUN 47, Cr 4.4, Ca 8 .5, glucose 107 Nutritional Hx/Data Height 5 ft 9 in Height (Calculated Centimeters) 175.3 Current Weight (lbs) 161 lb Weight (Calculated Kilograms) 73.0 Weight (Calculated Grams) 82142.4 Recent Weight Change No Weight Status Approriate GI Symptoms GI Symptoms None Food Allergies No Cultural/Ethnic/P[employer]al Belief Pt denies Usual diet at home Pt states on and off renal diet Skin Integrity/Comment: sharon score 21; intact Current %PO Good (75-100%) Estimated Nutritional Goals BEE in Kcals: Using Current wt Calories/Kcals/Kg 30-35kcals/kg Kcals Calculated 2190-2555kcals/day Protein: Using Current wt Protein g/kg/kg or as renal labs permit Protein Calculated 79g/day Fluid: ml 2190-2555ml/day (1ml/kcal) Nutritional Problem 1. Problem Problem Altered nutrition related lab values related to Etiology renal dysfunction as evidenced by Signs/Symptoms: BUN 47, Cr 4.4, Ca 8.5. Intervention/Recommendation Comments Recommend continuing Renal Diet Expected Outcomes/Goals Expected Outcomes/Goals PO intake >75% of meals
--- NOTE | 2017-05-19 16:14 | Consultation ---
DATE OF CONSULTATION: 05/19/2017 REQUESTING PHYSICIAN: Dr. Sanchez. REASON FOR CONSULTATION: History of psychosis. HISTORY OF PRESENT ILLNESS: This patient is a 61-year-old male resident of a correction facility, admitted here for urinary tract infection and elevated BUN and urinary incontinence. The patient is currently on the medical unit and the psychiatric consultation is called to address the issue of the psychosis and agitated behavior: The patient is known to me from the previous hospitalization, the patient was admitted to the [facility] in April of this year and patient has been diagnosed to have schizophrenia and has been on several different medications. The patient has been provided 12 mg of Risperdal that has not worked and the patient is reported to have been on Haldol. The patient had been tried on Haldol that caused drooling. The patient was also on Zyprexa. The patient has stage 4 kidney disease and patient at the time of the evaluation has been on Haldol Decanoate and Haldol on a p.r.n. basis. The patient is interviewed. Staff was spoken to. The patient at this time is denying any auditory hallucinations. No delusions are noted. The patient is cooperative. PAST PSYCHIATRIC HISTORY: Please refer to the above. SOCIAL HISTORY: The patient is a resident of the correction facility. SEXUAL ABUSE HISTORY: None. LEGAL PROBLEMS: None at this time. STRENGTHS AND ASSETS: The patient is motivated. MENTAL EXAMINATION: The patient is a 61-year-old, looking his stated age, superficially cooperative. Eye contact is fair. Mood is noted to be anxious and irritable. The patient has paranoid delusions. The patient is mumbling to self, coping skills are noted to be fair at this time. The patient has paranoid delusions, but denies any command hallucinations. The patient has been on Haldol on Zyprexa combination. He has been doing, but still has been responding to internal stimuli. DIAGNOSES AT THE TIME OF EVALUATION: Schizophrenia, chronic paranoid type. PLAN: To continue the patient with supportive therapy. I encouraged the patient to verbalize the concerns. The patient is going to be continued to be closely monitored and patient is also on the valproic acid 125 mg twice a day, Haldol 5 mg twice a day and patient would be continued on the medications. Thank you, Dr. Sanchez for allowing me to participate in the care of the patient. JOB# [id number]
[2017-05-20 05:45] LABS: % BASOPHILS 0.6 % (0.0-2.0); % EOSINOPHILS 5.4 % (0.0-5.0); % LYMPHOCYTES 25.3 % (20.0-50.0); % MONOCYTES 8.6 % (2.0-10.0); % NEUTROPHILS 60.1 % (40.0-80.0); HEMOGLOBIN 11.2 gm/dL (12-16); MEAN CELL VOLUME 88.2 fl (80-99); MEAN CORPUSCULAR HEMOGLOBIN 29.9 pg (26.0-30.0); MEAN PLATELET VOLUME 7.1 fl; NEUTROPHILE ABSOLUTE 4.1 Th/cmm (1.8-8.0); PLATELET COUNT 264 Th/cmm (150-400); RED BLOOD COUNT 3.74 Mil/cmm (4.30-5.70); WHITE BLOOD COUNT 6.8 Th/cmm (4.8-10.8)
[2017-05-20 06:07] LABS: ANION GAP 9.4 (7.0-16.0); BUN/CREATININE RATIO 10.7; CALCIUM SERUM 8.5 mg/dL (8.6-10.3); CARBON DIOXIDE 21.8 mEq/L (21.0-31.0); POTASSIUM SERUM 4.2 mEq/L (3.5-5.1)
[2017-05-20 06:14] LABS: CREATININE - SERUM 4.2 mg/dL (0.7-1.3)
[2017-05-20] MEDS: Multivitamin w/ Minerals Tab PO SCH (08:20)
[2017-05-20] MEDS: Ferrous Sulfate 325 MG TAB PO SCH (08:20)
--- NOTE | 2017-05-20 14:27 | Internal Medicine Prog Note ---
Internal Medicine Subjective - Subjective Service Date: 05/20/17 Patient is:: awake, agitated, confused Per staff patient has:: agitated, tolerating meds Internal Medicine Objective - Results Result Diagrams: 05/20/17 05:37 05/20/17 05:37 Recent Labs: Laboratory Last Values WBC 6.8 Th/cmm (4.8-10.8) 05/20/17 05:37 RBC 3.74 Mil/cmm (4.30-5.70) L 05/20/17 05:37 Hgb 11.2 gm/dL (12-16) L 05/20/17 05:37 Hct 33.0 % (41.0-60) L 05/20/17 05:37 MCV 88.2 fl (80-99) 05/20/17 05:37 MCH 29.9 pg (26.0-30.0) 05/20/17 05:37 MCHC Differential 34.0 pg (28.0-36.0) 05/20/17 05:37 RDW 12.0 % (11.5-20.0) 05/20/17 05:37 Plt Count 264 Th/cmm (150-400) 05/20/17 05:37 MPV 7.1 fl 05/20/17 05:37 Neutrophils % 60.1 % (40.0-80.0) 05/20/17 05:37 Lymphocytes % 25.3 % (20.0-50.0) 05/20/17 05:37 Monocytes % 8.6 % (2.0-10.0) 05/20/17 05:37 Eosinophils % 5.4 % (0.0-5.0) H 05/20/17 05:37 Basophils % 0.6 % (0.0-2.0) 05/20/17 05:37 Sodium 137 mEq/L (136-145) 05/20/17 05:37 Potassium 4.2 mEq/L (3.5-5.1) 05/20/17 05:37 Chloride 110 mEq/L (98-107) H 05/20/17 05:37 Carbon Dioxide 21.8 mEq/L (21.0-31.0) 05/20/17 05:37 Anion Gap 9.4 (7.0-16.0) 05/20/17 05:37 BUN 45 mg/dL (7-25) H 05/20/17 05:37 Creatinine 4.2 mg/dL (0.7-1.3) H* 05/20/17 05:37 Est GFR ( Amer) 18.5 ml/min (>90) 05/20/17 05:37 Est GFR (Non-Af Amer) 15.3 ml/min 05/20/17 05:37 BUN/Creatinine Ratio 10.7 05/20/17 05:37 Glucose 104 mg/dL (70-105) 05/20/17 05:37 Hemoglobin A1c % 5.6 % (4.0-6.0) 05/18/17 05:02 Calcium 8.5 mg/dL (8.6-10.3) L 05/20/17 05:37 Total Bilirubin 0.3 mg/dL (0.3-1.0) 05/17/17 19:48 AST 11 U/L (13-39) L 05/17/17 19:48 ALT 7 U/L (7-52) 05/17/17 19:48 Alkaline Phosphatase 71 U/L (34-104) 05/17/17 19:48 Ammonia 40 umol/L (16-53) 05/18/17 05:02 Total Protein 6.8 gm/dL (6.0-8.3) 05/17/17 19:48 Albumin 4.0 gm/dL (4.2-5.5) L 05/17/17 19:48 Globulin 2.8 gm/dL 05/17/17 19:48 Albumin/Globulin Ratio 1.4 (1.0-1.8) 05/17/17 19:48 Prostate Specific Ag 5.5 ng/mL (0.0-4.0) H 05/18/17 05:02 Vitamin B12 760 pg/mL (211-946) 05/18/17 05:02 Folic Acid 16.0 ng/mL (>3.0) 05/18/17 05:02 TSH 1.35 uIU/ml (0.34-5.60) 05/18/17 05:02 Urine Source RANDOM 05/17/17 19:30 Urine Color STRAW 05/17/17 19:30 Urine Clarity CLEAR (CLEAR) 05/17/17 19:30 Urine pH 6.0 (4.6 - 8.0) 05/17/17 19:30 Ur Specific [place] <= 1.005 (1.005-1.030) 05/17/17 19:30 Urine Protein 30 mg/dL (NEGATIVE) H 05/17/17 19:30 Urine Glucose (UA) NEGATIVE mg/dL (NEGATIVE) 05/17/17 19:30 Urine Ketones NEGATIVE mg/dL (NEGATIVE) 05/17/17 19:30 Urine Blood SMALL (NEGATIVE) H 05/17/17 19:30 Urine Nitrate NEGATIVE (NEGATIVE) 05/17/17 19:30 Urine Bilirubin NEGATIVE (NEGATIVE) 05/17/17 19:30 Urine Urobilinogen 0.2 E.U./dL (0.2 - 1.0) 05/17/17 19:30 Ur Leukocyte Esterase NEGATIVE (NEGATIVE) 05/17/17 19:30 Urine RBC 0-2 /hpf (0-5) H 05/17/17 19:30 Urine WBC 0-2 /hpf (0-5) 05/17/17 19:30 Ur Epithelial Cells RARE /lpf (FEW) 05/17/17 19:30 Urine Bacteria NONE SEEN /hpf (NONE SEEN) 05/17/17 19:30 U Random Total Protein 69.0 mg/dL 05/17/17 23:00 Urine Collection Time 24 hours 05/17/17 23:00 Urine Total Volume 4000 ml 05/17/17 23:00 Urine Creatinine 40.0 mg/dL 05/17/17 23:00 Ur Creatinine 24 Hour 1600 mg/24hr (14-26) H 05/17/17 23:00 Creat Clearance 24 Hr 20 ml/min (97.00-137.00) L 05/17/17 23:00 U Tot Protein 24h, Calc 2760.0 mg/24 hr (0-165) H 05/17/17 23:00 Body Surface Area 2.06 05/17/17 23:00 - Physical Exam Vitals and I&O: Vital Signs Temp 98.1 F 05/20/17 11:57 Pulse 63 05/20/17 11:57 Resp 19 05/20/17 11:57 BP 141/82 05/20/17 11:57 Pulse Ox 98 05/20/17 11:57 Intake & Output 05/19/17 05/20/17 05/20/17 18:59 06:59 18:59 Intake Total 1800 578.333 Balance 1800 578.333 Weight (lbs) 161 lb 164 lb 6.4 oz Intake: Intake, IV Amount 1000 578.333 D5-0.9%Ns 1,000 ml @ 100 1000 578.333 mls/hr IV .Q10H [facility] Rx#: [id number] Oral 800 Other: # Voids 4 2 Active Medications: Current Medications Acetaminophen (Tylenol) 650 mg PO Q4H PRN PRN Reason: Pain Or Fever above 101 Stop: 07/16/17 21:16 Albuterol Sulfate (Albuterol 2.5mg/3ml Neb Ud) 2.5 mg HHN Q2HRT PRN PRN Reason: Shortness of Breath or Wheeze Stop: 07/16/17 21:16 Amlodipine Besylate (Norvasc) 10 mg PO DAILY [facility] Stop: 07/17/17 08:59 Last Admin: 05/20/17 08:20 Dose: Not Given Divalproex Sodium (Depakote Sprinkle) 125 mg PO Q12HR [facility] PRN Reason: Protocol Stop: 07/17/17 08:59 Last Admin: 05/20/17 08:20 Dose: Not Given Docusate Sodium (Colace) 100 mg PO BID [facility] Stop: 07/17/17 08:59 Last Admin: 05/20/17 08:20 Dose: Not Given Ferrous Sulfate (Iron) 325 mg PO DAILY [facility] Stop: 07/17/17 08:59 Last Admin: 05/20/17 08:20 Dose: Not Given Finasteride (Proscar) 5 mg PO DAILY [facility] PRN Reason: Protocol Stop: 07/17/17 08:59 Last Admin: 05/20/17 08:20 Dose: Not Given Haloperidol (Haldol) 5 mg PO BID [facility] PRN Reason: Protocol Stop: 07/17/17 20:44 Last Admin: 05/20/17 08:20 Dose: Not Given Haloperidol Decanoate (Haldol Dec) 50 mg IM QMONTH [facility] Stop: 07/28/17 08:59 Heparin Sodium (Porcine) (Heparin) 5,000 units SUBQ Q12HR [facility] Stop: 07/17/17 20:59 Last Admin: 05/20/17 08:20 Dose: Not Given Dextrose/Sodium Chloride (D5-0.9%Ns) 1,000 mls @ 100 mls/hr IV .Q10H [facility] Stop: 07/16/17 21:29 Last Admin: 05/19/17 20:47 Dose: 100 mls/hr Magnesium Hydroxide (Milk Of Magnesia) 30 ml PO DAILY PRN PRN Reason: Constipation Stop: 07/16/17 21:13 Miscellaneous (Vte Chemical Prophylaxis Screen/ Admission) 1 ea [facility] PRN PRN PRN Reason: PROTOCOL Stop: 07/17/17 10:29 Ondansetron HCl (Zofran) 4 mg IV Q8H PRN PRN Reason: Nausea / Vomiting Stop: 07/16/17 21:16 Tamsulosin HCl (Flomax) 0.4 mg PO DAILY [facility] Stop: 07/17/17 08:59 Last Admin: 05/20/17 08:20 Dose: Not Given General: weak, alert HEENT: NC/AT, PERRLA Neck: Supple Lungs: CTAB Cardiovascular: RRR, without murmur Abdomen: soft, non-tender, non-distended, positive bowel sound Extremities: excoriation Neurological: alert Internal Medicine Assmt/Plan - Assessment Assessment: SEVERE DEHYDRATION ACUTE RENAL FAILURE HYPONATREMIA - Plan Plan: ivf for hydration nephro f/u am labs monitor bun/crea continue current plan of care Nutritional Asmnt/Malnutr-PDOC - Dietary Evaluation Malnutrition Findings (Please click <Entered> for more info): Nutritional Asmnt/Malnutrition Start: 05/19/17 11: 21 Text: Status: Complete Freq: Document 05/19/17 11:21 RUBEN (Rec: 05/19/17 11:27 RUBEN MIRZA- [email or web address]) Nutritional Asmnt/Malnutrition Patient General Information Nutritional Screening High Risk Screening Diagnosis severe dehydration, acute renal failure Pertinent Medical Hx/Surgical Hx UTI, spondyloysis, chronic renal disease Subjective Information PT sitting up in bed stating that he goes off and on renal diets. Pt was able to recall high K foods, high phosphorus foods and provided by with hand out on both. Current Diet Order/ Nutrition Support Renal diet Patient / S.O Can Pertinent Medications colace, Fe, heparin, MOM, zofran Pertinent Labs 05/19: Na 141, K 4.2, Cl 111, CO2 23.6, BUN 47, Cr 4.4, Ca 8 .5, glucose 107 Nutritional Hx/Data Height 5 ft 9 in Height (Calculated Centimeters) 175.3 Current Weight (lbs) 161 lb Weight (Calculated Kilograms) 73.0 Weight (Calculated Grams) 18124.4 Recent Weight Change No Weight Status Approriate GI Symptoms GI Symptoms None Food Allergies No Cultural/Ethnic/Gnosticism Belief Pt denies Usual diet at home Pt states on and off renal diet Skin Integrity/Comment: sharon score 21; intact Current %PO Good (75-100%) Estimated Nutritional Goals BEE in Kcals: Using Current wt Calories/Kcals/Kg 30-35kcals/kg Kcals Calculated 2190-2555kcals/day Protein: Using Current wt Protein g/kg/kg or as renal labs permit Protein Calculated 79g/day Fluid: ml 2190-2555ml/day (1ml/kcal) Nutritional Problem 1. Problem Problem Altered nutrition related lab values related to Etiology renal dysfunction as evidenced by Signs/Symptoms: BUN 47, Cr 4.4, Ca 8.5. Intervention/Recommendation Comments Recommend continuing Renal Diet Expected Outcomes/Goals Expected Outcomes/Goals PO intake >75% of meals
[2017-05-20] MEDS: D5-0.9%NS 1,000 ML IV SCH (16:38)
[2017-05-21] MEDS: D5-0.9%NS 1,000 ML IV SCH ×2 (04:39→18:27)
[2017-05-21 06:19] LABS: % BASOPHILS 0.6 % (0.0-2.0); % EOSINOPHILS 6.1 % (0.0-5.0); % LYMPHOCYTES 27.5 % (20.0-50.0); % MONOCYTES 8.5 % (2.0-10.0); % NEUTROPHILS 57.3 % (40.0-80.0); HEMATOCRIT 34.7 % (41.0-60); HEMOGLOBIN 11.7 gm/dL (12-16); MEAN CELL VOLUME 89.1 fl (80-99); MEAN CORPUSCULAR HEMOGLOBIN 30.1 pg (26.0-30.0); MEAN CORPUSCULAR HGB CONC 33.8 pg (28.0-36.0); MEAN PLATELET VOLUME 7.8 fl; NEUTROPHILE ABSOLUTE 4.4 Th/cmm (1.8-8.0); PLATELET COUNT 294 Th/cmm (150-400); WHITE BLOOD COUNT 7.6 Th/cmm (4.8-10.8)
[2017-05-21 06:44] LABS: ANION GAP 11.7 (7.0-16.0); BUN/CREATININE RATIO 10.5; CALCIUM SERUM 8.7 mg/dL (8.6-10.3); CARBON DIOXIDE 23.5 mEq/L (21.0-31.0); CREATININE - SERUM 4.2 mg/dL (0.7-1.3); POTASSIUM SERUM 4.2 mEq/L (3.5-5.1)
[2017-05-21] MEDS: Ferrous Sulfate 325 MG TAB PO SCH (10:38)
[2017-05-21] MEDS: Multivitamin w/ Minerals Tab PO SCH (10:39)
--- NOTE | 2017-05-21 13:44 | Internal Medicine Prog Note ---
Internal Medicine Subjective - Subjective Service Date: 05/21/17 (left a message for patient's public guardian Jackson for update. ) Patient is:: awake, agitated, confused Per staff patient has:: agitated, tolerating meds Internal Medicine Objective - Results Result Diagrams: 05/21/17 05:15 05/21/17 05:15 Recent Labs: Laboratory Last Values WBC 7.6 Th/cmm (4.8-10.8) 05/21/17 05:15 RBC 3.90 Mil/cmm (4.30-5.70) L 05/21/17 05:15 Hgb 11.7 gm/dL (12-16) L 05/21/17 05:15 Hct 34.7 % (41.0-60) L 05/21/17 05:15 MCV 89.1 fl (80-99) 05/21/17 05:15 MCH 30.1 pg (26.0-30.0) H 05/21/17 05:15 MCHC Differential 33.8 pg (28.0-36.0) 05/21/17 05:15 RDW 12.0 % (11.5-20.0) 05/21/17 05:15 Plt Count 294 Th/cmm (150-400) 05/21/17 05:15 MPV 7.8 fl 05/21/17 05:15 Neutrophils % 57.3 % (40.0-80.0) 05/21/17 05:15 Lymphocytes % 27.5 % (20.0-50.0) 05/21/17 05:15 Monocytes % 8.5 % (2.0-10.0) 05/21/17 05:15 Eosinophils % 6.1 % (0.0-5.0) H 05/21/17 05:15 Basophils % 0.6 % (0.0-2.0) 05/21/17 05:15 Sodium 138 mEq/L (136-145) 05/21/17 05:15 Potassium 4.2 mEq/L (3.5-5.1) 05/21/17 05:15 Chloride 107 mEq/L (98-107) 05/21/17 05:15 Carbon Dioxide 23.5 mEq/L (21.0-31.0) 05/21/17 05:15 Anion Gap 11.7 (7.0-16.0) 05/21/17 05:15 BUN 44 mg/dL (7-25) H 05/21/17 05:15 Creatinine 4.2 mg/dL (0.7-1.3) H* 05/21/17 05:15 Est GFR ( Amer) 18.5 ml/min (>90) 05/21/17 05:15 Est GFR (Non-Af Amer) 15.3 ml/min 05/21/17 05:15 BUN/Creatinine Ratio 10.5 05/21/17 05:15 Glucose 101 mg/dL (70-105) 05/21/17 05:15 Hemoglobin A1c % 5.6 % (4.0-6.0) 05/18/17 05:02 Calcium 8.7 mg/dL (8.6-10.3) 05/21/17 05:15 Total Bilirubin 0.3 mg/dL (0.3-1.0) 05/17/17 19:48 AST 11 U/L (13-39) L 05/17/17 19:48 ALT 7 U/L (7-52) 05/17/17 19:48 Alkaline Phosphatase 71 U/L (34-104) 05/17/17 19:48 Ammonia 40 umol/L (16-53) 05/18/17 05:02 Total Protein 6.8 gm/dL (6.0-8.3) 05/17/17 19:48 Albumin 4.0 gm/dL (4.2-5.5) L 05/17/17 19:48 Globulin 2.8 gm/dL 05/17/17 19:48 Albumin/Globulin Ratio 1.4 (1.0-1.8) 05/17/17 19:48 Prostate Specific Ag 5.5 ng/mL (0.0-4.0) H 05/18/17 05:02 Vitamin B12 760 pg/mL (211-946) 05/18/17 05:02 Folic Acid 16.0 ng/mL (>3.0) 05/18/17 05:02 TSH 1.35 uIU/ml (0.34-5.60) 05/18/17 05:02 Urine Source RANDOM 05/17/17 19:30 Urine Color STRAW 05/17/17 19:30 Urine Clarity CLEAR (CLEAR) 05/17/17 19:30 Urine pH 6.0 (4.6 - 8.0) 05/17/17 19:30 Ur Specific [place] <= 1.005 (1.005-1.030) 05/17/17 19:30 Urine Protein 30 mg/dL (NEGATIVE) H 05/17/17 19:30 Urine Glucose (UA) NEGATIVE mg/dL (NEGATIVE) 05/17/17 19:30 Urine Ketones NEGATIVE mg/dL (NEGATIVE) 05/17/17 19:30 Urine Blood SMALL (NEGATIVE) H 05/17/17 19:30 Urine Nitrate NEGATIVE (NEGATIVE) 05/17/17 19:30 Urine Bilirubin NEGATIVE (NEGATIVE) 05/17/17 19:30 Urine Urobilinogen 0.2 E.U./dL (0.2 - 1.0) 05/17/17 19:30 Ur Leukocyte Esterase NEGATIVE (NEGATIVE) 05/17/17 19:30 Urine RBC 0-2 /hpf (0-5) H 05/17/17 19:30 Urine WBC 0-2 /hpf (0-5) 05/17/17 19:30 Ur Epithelial Cells RARE /lpf (FEW) 05/17/17 19:30 Urine Bacteria NONE SEEN /hpf (NONE SEEN) 05/17/17 19:30 U Random Total Protein 69.0 mg/dL 05/17/17 23:00 Urine Collection Time 24 hours 05/17/17 23:00 Urine Total Volume 4000 ml 05/17/17 23:00 Urine Creatinine 40.0 mg/dL 05/17/17 23:00 Ur Creatinine 24 Hour 1600 mg/24hr (14-26) H 05/17/17 23:00 Creat Clearance 24 Hr 20 ml/min (97.00-137.00) L 05/17/17 23:00 U Tot Protein 24h, Calc 2760.0 mg/24 hr (0-165) H 05/17/17 23:00 Body Surface Area 2.06 05/17/17 23:00 - Physical Exam Vitals and I&O: Vital Signs Temp 98.8 F 05/21/17 12:00 Pulse 62 05/21/17 12:00 Resp 16 05/21/17 12:00 BP 144/95 05/21/17 12:00 Pulse Ox 96 05/21/17 12:00 Intake & Output 05/20/17 05/21/17 05/21/17 18:59 06:59 18:59 Intake Total 1000 1000 Balance 1000 1000 Weight (lbs) 164 lb 6.4 oz 195 lb 3 oz Intake: Intake, IV Amount 1000 D5-0.9%Ns 1,000 ml @ 100 1000 mls/hr IV .Q10H [facility] Rx#: [id number] Oral 1000 Other: # Voids 3 Stool Characteristics Soft Active Medications: Current Medications Acetaminophen (Tylenol) 650 mg PO Q4H PRN PRN Reason: Pain Or Fever above 101 Stop: 07/16/17 21:16 Albuterol Sulfate (Albuterol 2.5mg/3ml Neb Ud) 2.5 mg HHN Q2HRT PRN PRN Reason: Shortness of Breath or Wheeze Stop: 07/16/17 21:16 Amlodipine Besylate (Norvasc) 10 mg PO DAILY [facility] Stop: 07/17/17 08:59 Last Admin: 05/21/17 10:37 Dose: Not Given Divalproex Sodium (Depakote Sprinkle) 125 mg PO Q12HR [facility] PRN Reason: Protocol Stop: 07/17/17 08:59 Last Admin: 05/21/17 10:38 Dose: Not Given Docusate Sodium (Colace) 100 mg PO BID [facility] Stop: 07/17/17 08:59 Last Admin: 05/21/17 10:38 Dose: Not Given Ferrous Sulfate (Iron) 325 mg PO DAILY [facility] Stop: 07/17/17 08:59 Last Admin: 05/21/17 10:38 Dose: Not Given Finasteride (Proscar) 5 mg PO DAILY [facility] PRN Reason: Protocol Stop: 07/17/17 08:59 Last Admin: 05/21/17 10:38 Dose: Not Given Haloperidol (Haldol) 5 mg PO BID [facility] PRN Reason: Protocol Stop: 07/17/17 20:44 Last Admin: 05/21/17 10:38 Dose: Not Given Haloperidol Decanoate (Haldol Dec) 50 mg IM QMONTH [facility] Stop: 07/28/17 08:59 Heparin Sodium (Porcine) (Heparin) 5,000 units SUBQ Q12HR [facility] Stop: 07/17/17 20:59 Last Admin: 05/21/17 10:38 Dose: Not Given Dextrose/Sodium Chloride (D5-0.9%Ns) 1,000 mls @ 100 mls/hr IV .Q10H [facility] Stop: 07/16/17 21:29 Last Admin: 05/21/17 04:39 Dose: 100 mls/hr Magnesium Hydroxide (Milk Of Magnesia) 30 ml PO DAILY PRN PRN Reason: Constipation Stop: 07/16/17 21:13 Last Admin: 05/20/17 20:31 Dose: 30 ml Miscellaneous (Vte Chemical Prophylaxis Screen/ Admission) 1 ea [facility] PRN PRN PRN Reason: PROTOCOL Stop: 07/17/17 10:29 Miscellaneous (Clinical Monitoring) 1 ea MC DAILY PRN PRN Reason: RENAL Stop: 07/20/17 09:29 Ondansetron HCl (Zofran) 4 mg IV Q8H PRN PRN Reason: Nausea / Vomiting Stop: 07/16/17 21:16 Tamsulosin HCl (Flomax) 0.4 mg PO DAILY [facility] Stop: 07/17/17 08:59 Last Admin: 05/21/17 10:39 Dose: Not Given General: weak, alert HEENT: NC/AT, PERRLA Neck: Supple Lungs: CTAB Cardiovascular: RRR, without murmur Abdomen: soft, non-tender, non-distended, positive bowel sound Extremities: excoriation Neurological: alert Internal Medicine Assmt/Plan - Assessment Assessment: SEVERE DEHYDRATION ACUTE RENAL FAILURE HYPONATREMIA NONCOMPLIANT - Plan Plan: ivf for hydration am labs monitor bun/crea continue current plan of care Nutritional Asmnt/Malnutr-PDOC - Dietary Evaluation Malnutrition Findings (Please click <Entered> for more info): Nutritional Asmnt/Malnutrition Start: 05/19/17 11: 21 Text: Status: Complete Freq: Document 05/19/17 11:21 RUBEN (Rec: 05/19/17 11:27 RUBEN ALLEN [email or web address]) Nutritional Asmnt/Malnutrition Patient General Information Nutritional Screening High Risk Screening Diagnosis severe dehydration, acute renal failure Pertinent Medical Hx/Surgical Hx UTI, spondyloysis, chronic renal disease Subjective Information PT sitting up in bed stating that he goes off and on renal diets. Pt was able to recall high K foods, high phosphorus foods and provided by with hand out on both. Current Diet Order/ Nutrition Support Renal diet Patient / S.O Can Pertinent Medications colace, Fe, heparin, MOM, zofran Pertinent Labs 05/19: Na 141, K 4.2, Cl 111, CO2 23.6, BUN 47, Cr 4.4, Ca 8 .5, glucose 107 Nutritional Hx/Data Height 5 ft 9 in Height (Calculated Centimeters) 175.3 Current Weight (lbs) 161 lb Weight (Calculated Kilograms) 73.0 Weight (Calculated Grams) 80915.4 Recent Weight Change No Weight Status Approriate GI Symptoms GI Symptoms None Food Allergies No Cultural/Ethnic/Catholic Belief Pt denies Usual diet at home Pt states on and off renal diet Skin Integrity/Comment: sharon score 21; intact Current %PO Good (75-100%) Estimated Nutritional Goals BEE in Kcals: Using Current wt Calories/Kcals/Kg 30-35kcals/kg Kcals Calculated 2190-2555kcals/day Protein: Using Current wt Protein g/kg/kg or as renal labs permit Protein Calculated 79g/day Fluid: ml 2190-2555ml/day (1ml/kcal) Nutritional Problem 1. Problem Problem Altered nutrition related lab values related to Etiology renal dysfunction as evidenced by Signs/Symptoms: BUN 47, Cr 4.4, Ca 8.5. Intervention/Recommendation Comments Recommend continuing Renal Diet Expected Outcomes/Goals Expected Outcomes/Goals PO intake >75% of meals
[2017-05-22 05:21] LABS: % BASOPHILS 0.2 % (0.0-2.0); % EOSINOPHILS 5.1 % (0.0-5.0); % LYMPHOCYTES 27.8 % (20.0-50.0); % MONOCYTES 8.5 % (2.0-10.0); % NEUTROPHILS 58.4 % (40.0-80.0); HEMATOCRIT 34.7 % (41.0-60); MEAN CELL VOLUME 87.3 fl (80-99); MEAN CORPUSCULAR HEMOGLOBIN 30.2 pg (26.0-30.0); MEAN CORPUSCULAR HGB CONC 34.6 pg (28.0-36.0); MEAN PLATELET VOLUME 7.6 fl; NEUTROPHILE ABSOLUTE 4.9 Th/cmm (1.8-8.0); PLATELET COUNT 283 Th/cmm (150-400); RED BLOOD COUNT 3.97 Mil/cmm (4.30-5.70); RED CELL DISTRIBUTION WIDTH 11.8 % (11.5-20.0); WHITE BLOOD COUNT 8.3 Th/cmm (4.8-10.8)
[2017-05-22 05:37] LABS: ANION GAP 11.2 (7.0-16.0); CALCIUM SERUM 8.6 mg/dL (8.6-10.3); CARBON DIOXIDE 21.9 mEq/L (21.0-31.0); POTASSIUM SERUM 4.1 mEq/L (3.5-5.1)
[2017-05-22 05:41] LABS: CREATININE - SERUM 4.2 mg/dL (0.7-1.3)
[2017-05-22] MEDS: D5-0.9%NS 1,000 ML IV SCH ×2 (09:05→23:14)
[2017-05-22] MEDS: Multivitamin w/ Minerals Tab PO SCH (09:23)
[2017-05-22] MEDS: Ferrous Sulfate 325 MG TAB PO SCH (09:23)
--- NOTE | 2017-05-22 12:18 | Internal Medicine Prog Note ---
Internal Medicine Subjective - Subjective Service Date: 05/22/17 Patient is:: awake, agitated, confused Per staff patient has:: agitated, tolerating meds Internal Medicine Objective - Results Result Diagrams: 05/22/17 04:54 05/22/17 04:54 Recent Labs: Laboratory Last Values WBC 8.3 Th/cmm (4.8-10.8) 05/22/17 04:54 RBC 3.97 Mil/cmm (4.30-5.70) L 05/22/17 04:54 Hgb 12.0 gm/dL (12-16) 05/22/17 04:54 Hct 34.7 % (41.0-60) L 05/22/17 04:54 MCV 87.3 fl (80-99) 05/22/17 04:54 MCH 30.2 pg (26.0-30.0) H 05/22/17 04:54 MCHC Differential 34.6 pg (28.0-36.0) 05/22/17 04:54 RDW 11.8 % (11.5-20.0) 05/22/17 04:54 Plt Count 283 Th/cmm (150-400) 05/22/17 04:54 MPV 7.6 fl 05/22/17 04:54 Neutrophils % 58.4 % (40.0-80.0) 05/22/17 04:54 Lymphocytes % 27.8 % (20.0-50.0) 05/22/17 04:54 Monocytes % 8.5 % (2.0-10.0) 05/22/17 04:54 Eosinophils % 5.1 % (0.0-5.0) H 05/22/17 04:54 Basophils % 0.2 % (0.0-2.0) 05/22/17 04:54 Sodium 137 mEq/L (136-145) 05/22/17 04:54 Potassium 4.1 mEq/L (3.5-5.1) 05/22/17 04:54 Chloride 108 mEq/L (98-107) H 05/22/17 04:54 Carbon Dioxide 21.9 mEq/L (21.0-31.0) 05/22/17 04:54 Anion Gap 11.2 (7.0-16.0) 05/22/17 04:54 BUN 46 mg/dL (7-25) H 05/22/17 04:54 Creatinine 4.2 mg/dL (0.7-1.3) H* 05/22/17 04:54 Est GFR ( Amer) 18.5 ml/min (>90) 05/22/17 04:54 Est GFR (Non-Af Amer) 15.3 ml/min 05/22/17 04:54 BUN/Creatinine Ratio 11.0 05/22/17 04:54 Glucose 124 mg/dL (70-105) H 05/22/17 04:54 Hemoglobin A1c % 5.6 % (4.0-6.0) 05/18/17 05:02 Calcium 8.6 mg/dL (8.6-10.3) 05/22/17 04:54 Total Bilirubin 0.3 mg/dL (0.3-1.0) 05/17/17 19:48 AST 11 U/L (13-39) L 05/17/17 19:48 ALT 7 U/L (7-52) 05/17/17 19:48 Alkaline Phosphatase 71 U/L (34-104) 05/17/17 19:48 Ammonia 40 umol/L (16-53) 05/18/17 05:02 Total Protein 6.8 gm/dL (6.0-8.3) 05/17/17 19:48 Albumin 4.0 gm/dL (4.2-5.5) L 05/17/17 19:48 Globulin 2.8 gm/dL 05/17/17 19:48 Albumin/Globulin Ratio 1.4 (1.0-1.8) 05/17/17 19:48 Prostate Specific Ag 5.5 ng/mL (0.0-4.0) H 05/18/17 05:02 Vitamin B12 760 pg/mL (211-946) 05/18/17 05:02 Folic Acid 16.0 ng/mL (>3.0) 05/18/17 05:02 TSH 1.35 uIU/ml (0.34-5.60) 05/18/17 05:02 Urine Source RANDOM 05/17/17 19:30 Urine Color STRAW 05/17/17 19:30 Urine Clarity CLEAR (CLEAR) 05/17/17 19:30 Urine pH 6.0 (4.6 - 8.0) 05/17/17 19:30 Ur Specific Mcwilliams <= 1.005 (1.005-1.030) 05/17/17 19:30 Urine Protein 30 mg/dL (NEGATIVE) H 05/17/17 19:30 Urine Glucose (UA) NEGATIVE mg/dL (NEGATIVE) 05/17/17 19:30 Urine Ketones NEGATIVE mg/dL (NEGATIVE) 05/17/17 19:30 Urine Blood SMALL (NEGATIVE) H 05/17/17 19:30 Urine Nitrate NEGATIVE (NEGATIVE) 05/17/17 19:30 Urine Bilirubin NEGATIVE (NEGATIVE) 05/17/17 19:30 Urine Urobilinogen 0.2 E.U./dL (0.2 - 1.0) 05/17/17 19:30 Ur Leukocyte Esterase NEGATIVE (NEGATIVE) 05/17/17 19:30 Urine RBC 0-2 /hpf (0-5) H 05/17/17 19:30 Urine WBC 0-2 /hpf (0-5) 05/17/17 19:30 Ur Epithelial Cells RARE /lpf (FEW) 05/17/17 19:30 Urine Bacteria NONE SEEN /hpf (NONE SEEN) 05/17/17 19:30 U Random Total Protein 69.0 mg/dL 05/17/17 23:00 Urine Collection Time 24 hours 05/17/17 23:00 Urine Total Volume 4000 ml 05/17/17 23:00 Urine Creatinine 40.0 mg/dL 05/17/17 23:00 Ur Creatinine 24 Hour 1600 mg/24hr (14-26) H 05/17/17 23:00 Creat Clearance 24 Hr 20 ml/min (97.00-137.00) L 05/17/17 23:00 U Tot Protein 24h, Calc 2760.0 mg/24 hr (0-165) H 05/17/17 23:00 Body Surface Area 2.06 05/17/17 23:00 - Physical Exam Vitals and I&O: Vital Signs Temp 98.0 F 05/22/17 08:00 Pulse 58 05/22/17 09:22 Resp 19 05/22/17 08:00 BP 141/89 05/22/17 09:22 Pulse Ox 98 05/22/17 08:00 Intake & Output 05/21/17 05/22/17 05/22/17 18:59 06:59 18:59 Intake Total 1000 1000 Balance 1000 1000 Weight (lbs) 162 lb 9 oz Intake: Intake, IV Amount 1000 1000 D5-0.9%Ns 1,000 ml @ 100 1000 1000 mls/hr IV .Q10H [facility] Rx#: [id number] Other: # Voids 2 Stool Characteristics Soft Soft Active Medications: Current Medications Acetaminophen (Tylenol) 650 mg PO Q4H PRN PRN Reason: Pain Or Fever above 101 Stop: 07/16/17 21:16 Albuterol Sulfate (Albuterol 2.5mg/3ml Neb Ud) 2.5 mg HHN Q2HRT PRN PRN Reason: Shortness of Breath or Wheeze Stop: 07/16/17 21:16 Amlodipine Besylate (Norvasc) 10 mg PO DAILY [facility] Stop: 07/17/17 08:59 Last Admin: 05/22/17 09:22 Dose: Not Given Divalproex Sodium (Depakote Sprinkle) 125 mg PO Q12HR [facility] PRN Reason: Protocol Stop: 07/17/17 08:59 Last Admin: 05/22/17 09:23 Dose: Not Given Docusate Sodium (Colace) 100 mg PO BID [facility] Stop: 07/17/17 08:59 Last Admin: 05/22/17 09:23 Dose: Not Given Ferrous Sulfate (Iron) 325 mg PO DAILY [facility] Stop: 07/17/17 08:59 Last Admin: 05/22/17 09:23 Dose: Not Given Finasteride (Proscar) 5 mg PO DAILY [facility] PRN Reason: Protocol Stop: 07/17/17 08:59 Last Admin: 05/22/17 09:23 Dose: Not Given Haloperidol (Haldol) 5 mg PO BID [facility] PRN Reason: Protocol Stop: 07/17/17 20:44 Last Admin: 05/22/17 09:23 Dose: Not Given Haloperidol Decanoate (Haldol Dec) 50 mg IM QMONTH [facility] Stop: 07/28/17 08:59 Heparin Sodium (Porcine) (Heparin) 5,000 units SUBQ Q12HR [facility] Stop: 07/17/17 20:59 Last Admin: 05/22/17 09:23 Dose: Not Given Dextrose/Sodium Chloride (D5-0.9%Ns) 1,000 mls @ 100 mls/hr IV .Q10H [facility] Stop: 07/16/17 21:29 Last Admin: 05/22/17 09:05 Dose: 100 mls/hr Magnesium Hydroxide (Milk Of Magnesia) 30 ml PO DAILY PRN PRN Reason: Constipation Stop: 07/16/17 21:13 Last Admin: 05/20/17 20:31 Dose: 30 ml Miscellaneous (Vte Chemical Prophylaxis Screen/ Admission) 1 ea [facility] PRN PRN PRN Reason: PROTOCOL Stop: 07/17/17 10:29 Miscellaneous (Clinical Monitoring) 1 ea [facility] DAILY PRN PRN Reason: RENAL Stop: 07/20/17 09:29 Ondansetron HCl (Zofran) 4 mg IV Q8H PRN PRN Reason: Nausea / Vomiting Stop: 07/16/17 21:16 Tamsulosin HCl (Flomax) 0.4 mg PO DAILY [facility] Stop: 07/17/17 08:59 Last Admin: 05/22/17 09:23 Dose: Not Given General: weak, alert HEENT: NC/AT, PERRLA Neck: Supple Lungs: CTAB Cardiovascular: RRR, without murmur Abdomen: soft, non-tender, non-distended, positive bowel sound Extremities: excoriation Neurological: alert Internal Medicine Assmt/Plan - Assessment Assessment: SEVERE DEHYDRATION ACUTE RENAL FAILURE HYPONATREMIA NONCOMPLIANT - Plan Plan: ivf for hydration psych f/u , may need to go to [facility] am labs monitor bun/crea continue current plan of care Nutritional Asmnt/Malnutr-PDOC - Dietary Evaluation Malnutrition Findings (Please click <Entered> for more info): Nutritional Asmnt/Malnutrition Start: 05/19/17 11: 21 Text: Status: Complete Freq: Document 05/19/17 11:21 RUBEN (Rec: 05/19/17 11:27 RUBEN MIRZA- [email or web address]) Nutritional Asmnt/Malnutrition Patient General Information Nutritional Screening High Risk Screening Diagnosis severe dehydration, acute renal failure Pertinent Medical Hx/Surgical Hx UTI, spondyloysis, chronic renal disease Subjective Information PT sitting up in bed stating that he goes off and on renal diets. Pt was able to recall high K foods, high phosphorus foods and provided by with hand out on both. Current Diet Order/ Nutrition Support Renal diet Patient / S.O Can Pertinent Medications colace, Fe, heparin, MOM, zofran Pertinent Labs 05/19: Na 141, K 4.2, Cl 111, CO2 23.6, BUN 47, Cr 4.4, Ca 8 .5, glucose 107 Nutritional Hx/Data Height 5 ft 9 in Height (Calculated Centimeters) 175.3 Current Weight (lbs) 161 lb Weight (Calculated Kilograms) 73.0 Weight (Calculated Grams) 48868.4 Recent Weight Change No Weight Status Approriate GI Symptoms GI Symptoms None Food Allergies No Cultural/Ethnic/Mu-Ism Belief Pt denies Usual diet at home Pt states on and off renal diet Skin Integrity/Comment: sharon score 21; intact Current %PO Good (75-100%) Estimated Nutritional Goals BEE in Kcals: Using Current wt Calories/Kcals/Kg 30-35kcals/kg Kcals Calculated 2190-2555kcals/day Protein: Using Current wt Protein g/kg/kg or as renal labs permit Protein Calculated 79g/day Fluid: ml 2190-2555ml/day (1ml/kcal) Nutritional Problem 1. Problem Problem Altered nutrition related lab values related to Etiology renal dysfunction as evidenced by Signs/Symptoms: BUN 47, Cr 4.4, Ca 8.5. Intervention/Recommendation Comments Recommend continuing Renal Diet Expected Outcomes/Goals Expected Outcomes/Goals PO intake >75% of meals
[2017-05-23] MEDS: D5-0.9%NS 1,000 ML IV SCH (10:11)
[2017-05-23] MEDS: Multivitamin w/ Minerals Tab PO SCH (10:18)
[2017-05-23] MEDS: Ferrous Sulfate 325 MG TAB PO SCH (10:18)
--- NOTE | 2017-05-23 14:59 | Discharge Summary ---
DATE OF DISCHARGE: 05/23/2017 CHIEF COMPLAINT: Abnormal labs. FINAL DIAGNOSES: Acute on chronic renal failure, anemia, benign prostatic hypertrophy, schizoaffective disorder, hypertension, noncompliance. HISTORY: This is a 61-year-old male from a nursing facility, apparently with a worsening BUN and creatinine. The patient is not compliant with medications. The patient was incontinent. The patient was admitted for further management. PHYSICAL EXAMINATION: VITAL SIGNS: Blood pressure 147/93, respirations 19, pulse 62, temperature is 97.3. GENERAL: Elderly male who appears his stated age, appears stable. NECK: Supple. No mass. LUNGS: Equal breath sounds with few rhonchi. HEART: Regular rate and rhythm without appreciable murmurs. ABDOMEN: Soft, globular, positive bowel sounds. EXTREMITIES: Positive excoriations. LABORATORY DATA: WBC 8.3, hemoglobin 12, platelets 283. BUN 46, creatinine 4.2. The rest are within normal range. HOSPITAL COURSE: The patient was admitted to medical floor, continued on IV hydration. Renal ultrasound was ordered ____. The patient refused. The patient continues psychotropic medications. The patient was referred to Dr. Guerra for renal, but the patient refused to be seen and evaluated. Dr. Dorsey was following for psychiatry. The patient's ____ was called ____ messages were left, but he never responded. I also did talk to the patient's daughter Kaley Stanley and left a message with regard to the patient's overall condition. CONDITION ON DISCHARGE: Fair. OVERALL PROGNOSIS: Poor. DISCHARGE INSTRUCTIONS: The patient to continue current regimen, adjust allergies psychotropic medications. The patient was not able to get any medical care at this time. JOB# [id number]
[2017-05-23 18:09] LABS: % BASOPHILS 0.7 % (0.0-2.0); % EOSINOPHILS 5.4 % (0.0-5.0); % LYMPHOCYTES 25.9 % (20.0-50.0); % MONOCYTES 8.6 % (2.0-10.0); % NEUTROPHILS 59.4 % (40.0-80.0); HEMATOCRIT 33.5 % (41.0-60); HEMOGLOBIN 11.5 gm/dL (12-16); MEAN CELL VOLUME 87.9 fl (80-99); MEAN CORPUSCULAR HEMOGLOBIN 30.1 pg (26.0-30.0); MEAN CORPUSCULAR HGB CONC 34.2 pg (28.0-36.0); MEAN PLATELET VOLUME 7.6 fl; PLATELET COUNT 290 Th/cmm (150-400); RED BLOOD COUNT 3.81 Mil/cmm (4.30-5.70); RED CELL DISTRIBUTION WIDTH 11.8 % (11.5-20.0); WHITE BLOOD COUNT 8.5 Th/cmm (4.8-10.8)
[2017-05-23 18:24] LABS: ANION GAP 11.3 (7.0-16.0); BUN/CREATININE RATIO 10.2; CALCIUM SERUM 8.6 mg/dL (8.6-10.3); CARBON DIOXIDE 21.5 mEq/L (21.0-31.0); POTASSIUM SERUM 3.8 mEq/L (3.5-5.1)
[2017-05-23 18:47] LABS: CREATININE - SERUM 4.4 mg/dL (0.7-1.3)
== END 2017-05-23 18:54 | disposition home or self-care (01) | DRG 683 ==
LOC: ER 19:24 → MSI 21:15
PROVIDERS: ADMIT Internal Medicine; ATTEND Internal Medicine
DX: N17.9 Acute kidney failure, unspecified (principal); E87.1 Hypo-osmolality and hyponatremia; I12.9 Hypertensive chronic kidney disease with stage 1 through stage 4 chronic kidney disease, or unspecified chronic kidney disease; N39.0 Urinary tract infection, site not specified; E86.0 Dehydration; R32 Unspecified urinary incontinence; M47.9 Spondylosis, unspecified; D64.9 Anemia, unspecified; N18.4 Chronic kidney disease, stage 4 (severe); N40.0 Benign prostatic hyperplasia without lower urinary tract symptoms; F25.9 Schizoaffective disorder, unspecified; Z88.8 Allergy status to other drugs, medicaments and biological substances; Z88.0 Allergy status to penicillin; Z91.14 Patient's other noncompliance with medication regimen; Z82.49 Family history of ischemic heart disease and other diseases of the circulatory system
CPT/HCPCS: 36415-UA; 80048-TC; 80053-TC; 81001-TC; 81050-TC; 82140-TC; 82570-TC; 82575-TC; 82607-90; 82746-90; 83036-90; 84153-90; 84156-TC; 84443-TC; 85025-TC; 93005; 94760; J1631; J1644; J7042; Z7610

== ENCOUNTER 2017-09-19 18:09 | Inpatient (IN) | payer MEDICARE, MEDICAID, OTHER ==
--- NOTE | 2017-09-19 18:18 | ED Physician Chart ---
ED Chief Complaint/HPI - Patient Information Date Seen:: 09/19/17 Time Seen:: 18:05 Chief Complaint:: AMS History of Present Illness:: pt presents with AMS, ALOC with abnormal labs; no report of trauma, H/As, S/T, neck pain, C/P, SOB, Abd. Pain, A/N/V/D/C, fever, chills, or urinary s/s Allergies:: Allergies Allergy/AdvReac Type Severity Reaction Status Date / Time lidocaine Allergy Verified 05/17/17 19:39 Penicillins [PCN] Allergy Verified 05/17/17 19:39 procaine [From Novocain] Allergy Verified 05/17/17 19:39 Historian:: Patient, EMS Review:: Nurse's Note Reviewed, Old Chart Reviewed, EMS run form Reviewed ED Review of Systems - Review of Systems General/Constitutional: No fever, No chills, No weight loss, No weakness, No diaphoresis, No edema, No loss of appetite Skin: No skin lesions, No rash, No bruising Head: No headache, No light-headedness Eyes: No loss of vision, No pain, No diplopia ENT: No earache, No nasal drainage, No sore throat, No tinnitus Neck: No neck pain, No swelling, No thyromegaly, No stiffness, No mass noted Cardio Vascular: No chest pain, No palpitations, No PND, No orthopnea, No edema Pulmonary: No SOB, No cough, No sputum, No wheezing GI: No nausea, No vomiting, No diarrhea, No pain, No melena, No hematochezia, No constipation, No hematemesis G/U: No dysuria, No frequency, No hematuria, No nacturia Musculoskeletal: No bone or joint pain, No back pain, No muscle pain Endocrine: No polyuria, No polydipsia Psychiatric: Prior psych history, No depression, Anxiety, No suicidal ideation, No homicidal ideation, Auditory hallucination, No visual hallucination Hematopoietic: No bruising, No lymphadenopathy Allergic/Immuno: No urticaria, No angioedema Neurological: No syncope, No focal symptoms, No weakness, No paresthesia, No headache, No seizure, No dizziness, Confusion, No vertigo ED Past Medical History - Past Medical History Obtainable: Yes Past Medical History: HTN, Dyslipidemia, ESRD, Dementia Family History: Diabetes Melitus, HTN Social History: Non Smoker, No Alcohol, No Drug Use, Single, Care Facility Surgical History: None Psychiatricy History: Schizophrenia, Bipolar, Dementia Medication: Reviewed Family Medical History - Family Member Mother History Unknown: Yes Ethnicity: Unknown Living Status: Unknown Hx Family Cancer: (unknown) Hx Family Coronary Artery Disease: No Hx Family Congestive Heart Failure: No Hx Family Hypertension: Yes Hx Family Stroke: No (unknown) Hx Family Diabetes: No Hx Family Seizures: No Hx Family Dementia: No Hx Family AIDS: (unknown) Hx Family HIV: No Hx Family COPD: No Hx Family Hepatitis: No Hx Family Psychiatric Problems: (unknown) Hx Family Tuberculosis: No ED Physical Exam - Physical Examination General/Constitutional: Awake, Well-developed, well-nourished, Alert, No distress, GCS 15, Non-toxic appearing, Ambulatory Head: Atraumatic Eyes: Lids, conjuctiva normal, PERRL, EOMI Skin: Nl inspection, No rash, No skin lesions, No ecchymosis, Well hydrated, No lymphadenopathy ENMT: External ears, nose nl, TM canals nl, Nasal exam nl, Lips, teeth, gums nl , Oropharynx nl, Tonsils nl Neck: Nontender, Full ROM w/o pain, No JVD, No nuchal rigidity, No bruit, No mass, No stridor Respiratory: Nl effort/Exclusion, Clear to Auscultation, No Wheeze/Rhonchi/Rales Cardio Vascular: RRR, No murmur, gallop, rubs, NL S1 S2, Carotid/Femoral/Distal pulses equal bilaterally GI: No tenderness/rebounding/guarding, No organomegaly, No hernia, Normal BS's, Nondistended, No mass/bruits, No McBurney tenderness : No CVA tenderness Extremities: No tenderness or effusion, Full ROM, normal strength in all extremities, No edema, Normal digits & nails Neuro/Psych: Alert/oriented, DTR's symmetric, Normal sensory exam, Normal motor strength, Judgement/insight normal, Mood normal, Normal gait, No focal deficits Misc: Normal back, No paraspinal tenderness ED Labs/Radiology/EKG Results - Lab Results Comments:: BUN: 69; Cr: 5.8; H/H: +, Anemia; Na+: 135 - EKG Interpretations EKG Time:: 18:26 Rate & Rhythm: 98; NSR Comments:: non-specific st-t changes ED Septic Shock - . Is Septic Shock (SBP<90, OR Lactate>4 mmol\L) present?: No ED Reassessment (Disposition) - Reassessment Reassessment Condition:: Improved - Diagnosis Diagnosis:: Hyponatremia; Anemia; ESRD; Agitation - Aftercare/Follow up Instructions Aftercare/Follow-Up Instructions:: Counseled pt regarding lab results/diagnosis & need follow up, Counseled pt & family regarding lab results/diagnosis & need follow up - Patient Disposition Discharge/Transfer:: Acute Care w/in this hosp Accepting Physician:: Dr. Sanchez Time Called:: 1949 Time Responded:: 19:50 Admitted to:: Telemetry Spoke to:: Dr. Sanchez Admitting Medical Physician:: Dr. Sanchez Condition at Disposition:: Stable, Improved
[2017-09-19] MEDS ORDERED: Haloperidol Lactate 5 mg/mL 1mL Vial ONE (18:29)
[2017-09-19] MEDS ORDERED: Haloperidol Lactate 5 mg/mL 1mL Vial IM STA (18:31)
[2017-09-19 18:50] LABS: % BASOPHILS 0.8 % (0.0-2.0); % EOSINOPHILS 2.9 % (0.0-5.0); % LYMPHOCYTES 15.1 % (20.0-50.0); % MONOCYTES 7.4 % (2.0-10.0); % NEUTROPHILS 73.8 % (40.0-80.0); BASOPHILE ABSOLUTE 0.1 Th/cumm (0-0.2); EOSINOPHILE ABSOLUTE 0.3 Th/cmm (0.1-0.4); HEMOGLOBIN 10.8 gm/dL (12-16); LYMPHOCYTE ABSOLUTE 1.4 Th/cmm (1.5-3.0); MEAN CELL VOLUME 87.4 fl (80-99); MEAN CORPUSCULAR HEMOGLOBIN 29.5 pg (26.0-30.0); MEAN CORPUSCULAR HGB CONC 33.7 pg (28.0-36.0); MONOCYTE ABSOLUTE 0.7 Th/cmm (0.3-1.0); NEUTROPHILE ABSOLUTE 6.7 Th/cmm (1.8-8.0); RED BLOOD COUNT 3.67 Mil/cmm (4.30-5.70); RED CELL DISTRIBUTION WIDTH 12.6 % (11.5-20.0); WHITE BLOOD COUNT 9.2 Th/cmm (4.8-10.8)
[2017-09-19 19:01] LABS: PLATELET COUNT 406 Th/cmm (150-400)
[2017-09-19 19:03] LABS: INR 0.95 (0.5-1.4); PROTHROMBIN TIME (TEST) 9.9 SECONDS (9.5-11.5)
[2017-09-19 19:08] LABS: ALB/GLOB RATIO 1.1 (1.0-1.8); ALBUMIN 3.9 gm/dL (4.2-5.5); ANION GAP 16.9 (7.0-16.0); BILIRUBIN,TOTAL 0.2 mg/dL (0.3-1.0); CALCIUM SERUM 9.2 mg/dL (8.6-10.3); CARBON DIOXIDE 18.1 mEq/L (21.0-31.0); GFR AFRICAN-AMERICAN 12.8 ml/min (>90); GFR NON AFRICAN-AMERICAN 10.5 ml/min; TOTAL PROTEIN,SERUM 7.4 gm/dL (6.0-8.3)
[2017-09-19 19:13] LABS: CREATININE - SERUM 5.8 mg/dL (0.7-1.3)
[2017-09-19] MEDS ORDERED: Magnesium Hydroxide (MOM) 30 mL UDC PO PRN (20:01)
[2017-09-19] MEDS ORDERED: guaiFENesin 200 MG/10 ML UDC PO PRN (20:05)
[2017-09-19] MEDS: D5-0.45NS 1,000 ML IV SCH (23:04)
[2017-09-20 04:13] VITALS: BP 151/90
[2017-09-20 05:16] LABS: % BASOPHILS 0.9 % (0.0-2.0); % EOSINOPHILS 3.2 % (0.0-5.0); % LYMPHOCYTES 18.9 % (20.0-50.0); % MONOCYTES 8.1 % (2.0-10.0); % NEUTROPHILS 68.9 % (40.0-80.0); BASOPHILE ABSOLUTE 0.1 Th/cumm (0-0.2); EOSINOPHILE ABSOLUTE 0.2 Th/cmm (0.1-0.4); HEMOGLOBIN 10.1 gm/dL (12-16); LYMPHOCYTE ABSOLUTE 1.5 Th/cmm (1.5-3.0); MEAN CELL VOLUME 87.6 fl (80-99); MEAN CORPUSCULAR HEMOGLOBIN 29.4 pg (26.0-30.0); MEAN CORPUSCULAR HGB CONC 33.5 pg (28.0-36.0); MEAN PLATELET VOLUME 7.2 fl; MONOCYTE ABSOLUTE 0.6 Th/cmm (0.3-1.0); NEUTROPHILE ABSOLUTE 5.4 Th/cmm (1.8-8.0); PLATELET COUNT 360 Th/cmm (150-400); RED BLOOD COUNT 3.43 Mil/cmm (4.30-5.70); RED CELL DISTRIBUTION WIDTH 12.4 % (11.5-20.0); WHITE BLOOD COUNT 7.8 Th/cmm (4.8-10.8)
[2017-09-20 05:42] LABS: ANION GAP 14.4 (7.0-16.0); CALCIUM SERUM 9.1 mg/dL (8.6-10.3); CARBON DIOXIDE 18.4 mEq/L (21.0-31.0); GFR AFRICAN-AMERICAN 12.3 ml/min (>90); GFR NON AFRICAN-AMERICAN 10.1 ml/min; POTASSIUM SERUM 3.8 mEq/L (3.5-5.1)
[2017-09-20] MEDS: Albuterol Nebulizer 2.5mg/3mL HHN SCH ×4 (07:21→19:30)
[2017-09-20] MEDS: Ipratropium Neb 0.5 mg/2.5 mL UD IH SCH ×4 (07:21→19:30)
[2017-09-20] MEDS: Multivitamin w/ Minerals Tab PO SCH (08:19)
[2017-09-20] MEDS: Pantoprazole 40 mg EC Tab PO SCH ×2 (08:24→17:30)
[2017-09-20] MEDS: Ferrous Sulfate 325 MG TAB PO SCH (08:25)
--- NOTE | 2017-09-20 08:41 | Diagnostic Imaging Report ---
Renal ultrasound HISTORY: Renal failure. COMPARISON: None Technique: Sonography of the kidneys and urinary bladder was performed in multiple planes. FINDINGS: Exam is limited due to patient's medical condition. The right kidney measures 12.5 x 5.7 cm. Multiple right renal cysts are seen. There is probable superimposed moderate to severe hydronephrosis with renal cortical thinning. The left kidney measures 12.0 x 5 cm. Multiple left renal cysts are seen with probable superimposed moderate to severe left hydronephrosis. The urinary bladder is distended. Post void residual bladder volume were not able to be obtained. The debris is seen within the urinary bladder. IMPRESSION: Limited exam. Moderate to severe bilateral hydronephrosis is suspected with likely bilateral renal cortical thinning. Please correlate with patient's clinical history and old exams. Consider further clarification with CT examination. Superimposed renal cysts Distended urinary bladder containing debris. No patient refused to void. Clinical correlation recommended.
[2017-09-20] MEDS ORDERED: Non-Formulary Item 1 EA (Cranberry Fruit Concentrate [Cranberry] 450 MG) PO SCH (09:00)
[2017-09-20] MEDS ORDERED: [UNRECOGNIZED DRUG - OTHER] PO SCH (09:00)
[2017-09-20] MEDS ORDERED: LACTOBACILLUS ACIDOPHILUS PO SCH (09:00)
[2017-09-20] MEDS ORDERED: Influenza Vaccine 0.5 mL Syr IM ONE (10:00)
[2017-09-20] MEDS ORDERED: Pneumococcal Vaccine 0.5 mL Vial IM ONE (10:00)
[2017-09-20] MEDS: D5-0.45NS 1,000 ML IV SCH ×2 (12:15→22:18)
--- NOTE | 2017-09-20 12:33 | Internal Medicine Prog Note ---
Internal Medicine Subjective - Subjective Service Date: 09/20/17 ([facility] dictated [id number]) Internal Medicine Objective - Results Result Diagrams: 09/20/17 05:00 09/20/17 05:00 Recent Labs: Laboratory Last Values WBC 7.8 Th/cmm (4.8-10.8) 09/20/17 05:00 RBC 3.43 Mil/cmm (4.30-5.70) L 09/20/17 05:00 Hgb 10.1 gm/dL (12-16) L 09/20/17 05:00 Hct 30.0 % (41.0-60) L 09/20/17 05:00 MCV 87.6 fl (80-99) 09/20/17 05:00 MCH 29.4 pg (26.0-30.0) 09/20/17 05:00 MCHC Differential 33.5 pg (28.0-36.0) 09/20/17 05:00 RDW 12.4 % (11.5-20.0) 09/20/17 05:00 Plt Count 360 Th/cmm (150-400) 09/20/17 05:00 MPV 7.2 fl 09/20/17 05:00 Neutrophils % 68.9 % (40.0-80.0) 09/20/17 05:00 Lymphocytes % 18.9 % (20.0-50.0) L 09/20/17 05:00 Monocytes % 8.1 % (2.0-10.0) 09/20/17 05:00 Eosinophils % 3.2 % (0.0-5.0) 09/20/17 05:00 Basophils % 0.9 % (0.0-2.0) 09/20/17 05:00 PT 9.9 SECONDS (9.5-11.5) 09/19/17 18:40 INR 0.95 (0.5-1.4) 09/19/17 18:40 Sodium 138 mEq/L (136-145) 09/20/17 05:00 Potassium 3.8 mEq/L (3.5-5.1) 09/20/17 05:00 Chloride 109 mEq/L (98-107) H 09/20/17 05:00 Carbon Dioxide 18.4 mEq/L (21.0-31.0) L 09/20/17 05:00 Anion Gap 14.4 (7.0-16.0) 09/20/17 05:00 BUN 65 mg/dL (7-25) H 09/20/17 05:00 Creatinine 6.0 mg/dL (0.7-1.3) H* 09/20/17 05:00 Est GFR ( Amer) 12.3 ml/min (>90) 09/20/17 05:00 Est GFR (Non-Af Amer) 10.1 ml/min 09/20/17 05:00 BUN/Creatinine Ratio 10.8 09/20/17 05:00 Glucose 95 mg/dL (70-105) 09/20/17 05:00 Calcium 9.1 mg/dL (8.6-10.3) 09/20/17 05:00 Total Bilirubin 0.2 mg/dL (0.3-1.0) L 09/19/17 18:40 AST 10 U/L (13-39) L 09/19/17 18:40 ALT 6 U/L (7-52) L 09/19/17 18:40 Alkaline Phosphatase 68 U/L (34-104) 09/19/17 18:40 Ammonia 46 umol/L (16-53) 09/20/17 05:00 Creatine Kinase 93 U/L (30-223) 09/19/17 18:40 Troponin I 0.01 ng/mL (0.01-0.05) 09/19/17 18:40 B-Natriuretic Peptide 91.3 pg/mL (5.0-100.0) 09/19/17 18:40 Total Protein 7.4 gm/dL (6.0-8.3) 09/19/17 18:40 Albumin 3.9 gm/dL (4.2-5.5) L 09/19/17 18:40 Globulin 3.5 gm/dL 09/19/17 18:40 Albumin/Globulin Ratio 1.1 (1.0-1.8) 09/19/17 18:40 Triglycerides 94 mg/dL (<150) 09/19/17 18:40 Cholesterol 163 mg/dL (<200) 09/19/17 18:40 LDL Cholesterol Direct 101 mg/dL (75-193) 09/19/17 18:40 HDL Cholesterol 58 mg/dL (23-92) 09/19/17 18:40 TSH 1.56 uIU/ml (0.34-5.60) 09/20/17 05:00 - Physical Exam Vitals and I&O: Vital Signs Temp 96.1 F 09/20/17 08:00 Pulse 87 09/20/17 10:35 Resp 18 09/20/17 10:35 BP 180/110 09/20/17 09:57 Pulse Ox 97 09/20/17 10:35 Intake & Output 09/19/17 09/20/17 09/20/17 18:59 06:59 18:59 Intake Total 25 1200 Balance 25 1200 Weight (lbs) 166 lb 166 lb Intake: Intake, IV Amount 1000 D5-0.45NS 1,000 ml @ 80 1000 mls/hr IV .[id number] [facility] Rx #:[id number] Oral 25 200 Tube Feeding 0 Other: # Voids 3 2 # Bowel Movements 0 Stool Characteristics Soft Soft Active Medications: Current Medications Acetaminophen (Tylenol) 650 mg PO Q4H PRN PRN Reason: Pain Or Fever above 101 Stop: 11/18/17 20:04 Albuterol Sulfate (Albuterol 2.5mg/3ml Neb Ud) 2.5 mg HHN QIDRT [facility] Stop: 11/19/17 06:59 Last Admin: 09/20/17 10:34 Dose: Not Given Amlodipine Besylate (Norvasc) 10 mg PO DAILY [facility] Stop: 11/19/17 08:59 Last Admin: 09/20/17 08:19 Dose: 10 mg Divalproex Sodium (Depakote Sprinkle) 125 mg PO Q12HR [facility] PRN Reason: Protocol Stop: 11/18/17 20:59 Last Admin: 09/20/17 08:26 Dose: Not Given Docusate Sodium (Colace) 100 mg PO BID [facility] Stop: 11/19/17 08:59 Last Admin: 09/20/17 08:20 Dose: 100 mg Ferrous Sulfate (Iron) 325 mg PO DAILY [facility] Stop: 11/19/17 08:59 Last Admin: 09/20/17 08:25 Dose: Not Given Finasteride (Proscar) 5 mg PO DAILY [facility] PRN Reason: Protocol Stop: 11/19/17 08:59 Last Admin: 09/20/17 08:20 Dose: 5 mg Guaifenesin (Robitussin) 200 mg PO Q4HR PRN PRN Reason: Cough or Congestion Stop: 11/18/17 20:04 Haloperidol (Haldol) 5 mg PO BID [facility] PRN Reason: Protocol Stop: 11/19/17 08:59 Last Admin: 09/20/17 08:25 Dose: Not Given Haloperidol Decanoate (Haldol Dec) 50 mg IM QMONTH [facility] PRN Reason: Protocol Stop: 11/18/17 20:14 Hydralazine HCl (Apresoline) 10 mg PO TID [facility] Stop: 11/19/17 09:14 Last Admin: 09/20/17 09:57 Dose: Not Given Dextrose/Sodium Chloride (D5-0.45ns) 1,000 mls @ 80 mls/hr IV .[id number] [facility] Stop: 11/18/17 20:14 Last Admin: 09/20/17 12:15 Dose: 80 mls/hr Ipratropium Drummond (Atrovent Neb 0.5mg/2.5ml) 0.5 mg IH QIDRT [facility] Stop: 11/19/17 06:59 Last Admin: 09/20/17 10:34 Dose: Not Given Magnesium Hydroxide (Milk Of Magnesia) 30 ml PO DAILY PRN PRN Reason: Constipation Stop: 11/18/17 20:00 Ondansetron HCl (Zofran) 4 mg IV Q8H PRN PRN Reason: Nausea / Vomiting Stop: 11/18/17 20:04 Pantoprazole Sodium (Protonix) 40 mg PO BID [facility] Stop: 11/19/17 08:59 Last Admin: 09/20/17 08:24 Dose: Not Given Tamsulosin HCl (Flomax) 0.4 mg PO DAILY [facility] Stop: 11/19/17 08:59 Last Admin: 09/20/17 08:19 Dose: 0.4 mg
--- NOTE | 2017-09-20 14:56 | History & Physical ---
ADMIT DATE: 09/19/2017 CHIEF COMPLAINT: Elevated BUN and creatinine, low urine output. HISTORY OF PRESENT ILLNESS: This is a 61-year-old male who is a resident of [facility] who [facility]. The patient was reported to have a low urine output as well as an elevated BUN and creatinine. For this reason, the patient is now admitted to the telemetry unit for further evaluation. PAST MEDICAL HISTORY: Hypertension, dyslipidemia, ESRD, dementia. SOCIAL HISTORY: The [facility] is a [facility] resident, requiring 24-hour nursing care. SURGICAL HISTORY: None. MEDICATIONS: Please see medication reconciliation. REVIEW OF SYSTEMS: GENERAL: Denies any fevers and chills. CARDIOVASCULAR: Denies chest pain. RESPIRATORY: Denies shortness of breath. GASTROINTESTINAL: Denies nausea, vomiting, abdominal pain. GENITOURINARY: No dysuria. All other systems are reviewed and are negative. PHYSICAL EXAMINATION: GENERAL: The patient is well developed, well nourished, no acute distress. VITAL SIGNS: Temperature 96.1, heart rate 83, blood pressure of 186/62, respirations 19, O2 97%. HEENT: Head; normocephalic, atraumatic. NECK: Supple. No mass. LUNGS: Clear bilaterally. HEART: Regular rate and rhythm. ABDOMEN: Soft, nontender. DIAGNOSTICS DATA: The patient had a renal ultrasound and the impression is limited examination, moderate to severe bilateral hydronephrosis suspected, likely bilateral renal cortical thinning, superimposed renal cyst, distended urinary bladder containing debris. LABORATORY DATA: WBC 7.8, H and H 10.1 and 30.0, platelet of 360. Sodium 138, potassium 3.8, chloride 109, BUN 65, creatinine 6.0, albumin at 3.9. ASSESSMENT: Acute dehydration, chronic kidney disease, anemia, hyponatremia, mild protein calorie malnutrition, hypertension, dyslipidemia, dementia. PLAN: The patient to be admitted to the telemetry unit. We will have associate pastor see the patient. For now, we will keep the patient on aggressive IV fluids for hydration. We will monitor the patient's BUN and creatinine. We will continue to monitor this patient. JOB# [id number]
[2017-09-20 18:57] LABS: EOSINOPHIL SMEAR SOURCE URINE; EOSINOPHILS SMEAR COUNT NONE SEEN (NONE SEEN)
--- NOTE | 2017-09-20 21:23 | Consultation ---
DATE OF CONSULTATION: 09/20/2017 ATTENDING: Ankit Sanchez D.O. PLANT GUARD: Baldemar Hanson M.D. REASON FOR CONSULTATION: Worsening kidney function, electrolyte imbalance, and fluid management. HISTORY OF PRESENT ILLNESS: This is a 61-year-old male with past medical history of chronic kidney disease, who was brought in because of abnormal labs. A few hours prior to admission, the patient had labs drawn, which revealed a BUN/creatinine of 71/6.29. He was then brought to the Emergency Room. Repeat labs showed a BUN/creatinine of 69/5.8. Renal ultrasound showed severe bilateral hydronephrosis, renal cyst, and distended bladder. He had no episodes of nausea and vomiting as well as diarrhea. He was admitted for further evaluation and management. PAST MEDICAL HISTORY: 1. Chronic kidney disease. 2. Spondylolysis. 3. Essential hypertension. 4. Anemia of chronic disease. 5. BPH. 6. GERD. 7. Paranoid schizophrenia. CURRENT MEDICATIONS: He is currently on acetaminophen, albuterol, amlodipine, divalproex sprinkle, docusate sodium, ferrous sulfate, finasteride, Robitussin, Haldol, hydrochlorothiazide, magnesium hydroxide, ondansetron, pantoprazole, tamsulosin. ALLERGIES: Lidocaine, procaine, and penicillin. SOCIAL HISTORY: No history of alcohol or tobacco use. FAMILY HISTORY: Noncontributory to present illness. REVIEW OF SYSTEMS: CONSTITUTIONAL: The patient has some weakness. Appetite had diminished. He is noncompliant. No fever or chills. HEENT: No mention of headaches, no dizziness. CARDIORESPIRATORY: He has a history of hypertension. At this point, no chest pain, palpitations, diaphoresis, cough, no shortness of breath. GASTROINTESTINAL: No nausea and vomiting, abdominal pain or cramping, hematemesis, melena, hematochezia, no diarrhea. ENDOCRINE: No history of diabetes, thyroid abnormalities, no dyslipidemia. MUSCULOSKELETAL: Multiple joint arthralgias. GENITOURINARY: History of chronic kidney disease. HEMATOLOGIC: He has ___ chronic kidney disease. NEUROPSYCHIATRIC: He has history of paranoid schizophrenia. PHYSICAL EXAMINATION: GENERAL: The patient is awake, uncooperative, ambulating. VITAL SIGNS: His blood pressure 164/92, pulse is 90, he is afebrile. SKIN: Good turgor, warm, no rash, no jaundice appreciated. HEENT: Head: Normocephalic, atraumatic. Eyes: Extraocular muscles intact, but does not cooperate with the examination of his pupils, anicteric sclerae, pale conjunctivae. Nose: Midline nasal septum. Mouth: Moist mucosa, adequate dentition. NECK: Supple, no adenopathy, no thyromegaly and no bruits. Trachea palpated in the midline. CHEST AND CVS: S1, S2. No rub, murmur, or gallop appreciated. Point of maximal impulse. Fifth intercostal space, left midclavicular line. No abdominal or femoral bruits appreciated. LUNGS: Equal expansion. No use of accessory muscles. No supraclavicular retractions. Decreased breath sounds, clear to auscultation without any wheeze. ABDOMEN: Flat, soft, positive for bowel sounds. No bruits either diastolic or systolic. Bladder mildly distended on palpation, no tenderness. GENITOURINARY: Normal appearing male genitalia. RECTAL: Deferred. MUSCULOSKELETAL: No effusions present in his joints with adequate range of motion. EXTREMITIES: No evidence of edema, cyanosis, or clubbing with palpable femoral, popliteal, and dorsalis pedis pulses. NEUROLOGIC: The patient is arousable, responds to enquiries, but not so cooperative and so I was not able to pursue further my neuro exam. LABORATORY DATA: Did reveal white count 7.8, hemoglobin 10.1, hematocrit is 30, platelets is 360, polys ___. Sodium is 138, potassium 3.8, chloride 109, bicarbonate 18, BUN 65, creatinine is 6, calcium 9.1. BNP is 91.3, albumin 3.9. IMPRESSION: 1. Acute kidney injury on chronic kidney disease. MDRD GFR 10 mL per minute, stage 5. 2. Chronic kidney disease, it is likely secondary to hypertensive nephrosclerosis with longstanding history of hypertension. However, the patient also has benign prostatic hypertrophy and is on Proscar as well as tamsulosin suggestive of some kind of chronic obstructive uropathy. The possibility also of autosomal dominant polycystic kidney disease/acquired cystic disease is a consideration, but less likely based on ultrasound of multiple bilateral cysts. However, kidney size at this point is mainly due to hydronephrosis and would not expected larger kidney sizes if patient does have prolong cystic disease. 3. Acute kidney injury is more likely again due to acute obstructive uropathy. 4. Benign prostatic hypertrophy. 5. Bilateral hydronephrosis/distended bladder secondary to outlet obstruction. 6. Paranoid schizophrenia. 7. Spondylosis. 8. Essential hypertension. 9. Anemia of chronic kidney disease. 10. Gastroesophageal reflux disease. 11. Paranoid schizophrenia. PLAN: 1. The patient continued to refuse placement of a Woodall catheter because he stated that he goes to the bathroom and have adequate urine output. This was confirmed by the nurse, but I am not sure about accurate output. 2. I's and O's. 3. He continued to refuse some of his medications including his blood pressure medications, so we will put him on Catapres patch. 4. I would repeat a CT scan of the abdomen/pelvis to follow up hydronephrosis and distended bladder because the patient has stated that he has been going to the bathroom. 5. Electrolytes and PSA. 6. Psych consult. 7. We will eventually require Urology consult. Thank you, Dr. Sanchez, for this consult. I will follow the patient closely with you. JOB# [id number]
[2017-09-21 07:09] LABS: IRON LC 67 ug/dL (38-169); TIBC (LC) 232 ug/dL (250-450); UIBC 165 ug/dL (111-343)
[2017-09-21] MEDS: Ipratropium Neb 0.5 mg/2.5 mL UD IH SCH ×4 (07:25→18:42)
[2017-09-21] MEDS: Albuterol Nebulizer 2.5mg/3mL HHN SCH ×4 (07:25→18:42)
[2017-09-21] MEDS: Ferrous Sulfate 325 MG TAB PO SCH (09:17)
[2017-09-21] MEDS: Multivitamin w/ Minerals Tab PO SCH (09:18)
[2017-09-21] MEDS: Pantoprazole 40 mg EC Tab PO SCH ×2 (09:18→19:18)
[2017-09-21] MEDS: D5-0.45NS 1,000 ML IV SCH (11:19)
--- NOTE | 2017-09-21 11:51 | Internal Medicine Prog Note ---
Internal Medicine Subjective - Subjective Service Date: 09/21/17 Patient seen and examined:: with staff Patient is:: awake Per staff patient has:: no adverse event, refusing care, refusing labs Internal Medicine Objective - Results Result Diagrams: 09/20/17 05:00 09/20/17 05:00 Recent Labs: Laboratory Last Values WBC 7.8 Th/cmm (4.8-10.8) 09/20/17 05:00 RBC 3.43 Mil/cmm (4.30-5.70) L 09/20/17 05:00 Hgb 10.1 gm/dL (12-16) L 09/20/17 05:00 Hct 30.0 % (41.0-60) L 09/20/17 05:00 MCV 87.6 fl (80-99) 09/20/17 05:00 MCH 29.4 pg (26.0-30.0) 09/20/17 05:00 MCHC Differential 33.5 pg (28.0-36.0) 09/20/17 05:00 RDW 12.4 % (11.5-20.0) 09/20/17 05:00 Plt Count 360 Th/cmm (150-400) 09/20/17 05:00 MPV 7.2 fl 09/20/17 05:00 Neutrophils % 68.9 % (40.0-80.0) 09/20/17 05:00 Lymphocytes % 18.9 % (20.0-50.0) L 09/20/17 05:00 Monocytes % 8.1 % (2.0-10.0) 09/20/17 05:00 Eosinophils % 3.2 % (0.0-5.0) 09/20/17 05:00 Basophils % 0.9 % (0.0-2.0) 09/20/17 05:00 Eos Smear Source URINE 09/20/17 17:13 Eos Smear Total Cells NONE SEEN (NONE SEEN) 09/20/17 17:13 PT 9.9 SECONDS (9.5-11.5) 09/19/17 18:40 INR 0.95 (0.5-1.4) 09/19/17 18:40 Sodium 138 mEq/L (136-145) 09/20/17 05:00 Potassium 3.8 mEq/L (3.5-5.1) 09/20/17 05:00 Chloride 109 mEq/L (98-107) H 09/20/17 05:00 Carbon Dioxide 18.4 mEq/L (21.0-31.0) L 09/20/17 05:00 Anion Gap 14.4 (7.0-16.0) 09/20/17 05:00 BUN 65 mg/dL (7-25) H 09/20/17 05:00 Creatinine 6.0 mg/dL (0.7-1.3) H* 09/20/17 05:00 Est GFR ( Amer) 12.3 ml/min (>90) 09/20/17 05:00 Est GFR (Non-Af Amer) 10.1 ml/min 09/20/17 05:00 BUN/Creatinine Ratio 10.8 09/20/17 05:00 Glucose 95 mg/dL (70-105) 09/20/17 05:00 Calcium 9.1 mg/dL (8.6-10.3) 09/20/17 05:00 Iron 67 ug/dL (38-169) 09/20/17 05:00 TIBC 232 ug/dL (250-450) L 09/20/17 05:00 Iron Saturation 29 % (15-55) 09/20/17 05:00 Unsaturated IBC 165 ug/dL (111-343) 09/20/17 05:00 Total Bilirubin 0.2 mg/dL (0.3-1.0) L 09/19/17 18:40 AST 10 U/L (13-39) L 09/19/17 18:40 ALT 6 U/L (7-52) L 09/19/17 18:40 Alkaline Phosphatase 68 U/L (34-104) 09/19/17 18:40 Ammonia 46 umol/L (16-53) 09/20/17 05:00 Creatine Kinase 93 U/L (30-223) 09/19/17 18:40 Troponin I 0.01 ng/mL (0.01-0.05) 09/19/17 18:40 B-Natriuretic Peptide 91.3 pg/mL (5.0-100.0) 09/19/17 18:40 Total Protein 7.4 gm/dL (6.0-8.3) 09/19/17 18:40 Albumin 3.9 gm/dL (4.2-5.5) L 09/19/17 18:40 Globulin 3.5 gm/dL 09/19/17 18:40 Albumin/Globulin Ratio 1.1 (1.0-1.8) 09/19/17 18:40 Triglycerides 94 mg/dL (<150) 09/19/17 18:40 Cholesterol 163 mg/dL (<200) 09/19/17 18:40 LDL Cholesterol Direct 101 mg/dL (75-193) 09/19/17 18:40 HDL Cholesterol 58 mg/dL (23-92) 09/19/17 18:40 TSH 1.56 uIU/ml (0.34-5.60) 09/20/17 05:00 Ur Random Sodium 37 mmol/L 09/20/17 17:13 Urine Creatinine 32.0 mg/dl (39.0-259.0) L 09/20/17 17:13 - Physical Exam Vitals and I&O: Vital Signs Temp 98.1 F 09/21/17 04:00 Pulse 66 09/21/17 09:17 Resp 18 09/21/17 07:26 BP 135/74 09/21/17 09:17 Pulse Ox 97 09/21/17 07:26 Intake & Output 09/20/17 09/21/17 09/21/17 18:59 06:59 18:59 Intake Total 1800 1300 200 Output Total 1200 Balance 600 1300 200 Weight (lbs) 166 lb 167 lb 4.8 oz 167 lb 4.8 oz Intake: Intake, IV Amount 1000 1000 D5-0.45NS 1,000 ml @ 80 1000 1000 mls/hr IV .[id number] [facility] [place] Rx #:[id number] Oral 800 300 200 Output: Urine 1200 Other: # Voids 2 2 # Bowel Movements 1 0 Stool Characteristics Soft Active Medications: Current Medications Acetaminophen (Tylenol) 650 mg PO Q4H PRN PRN Reason: Pain Or Fever above 101 Stop: 11/18/17 20:04 Last Admin: 09/20/17 22:17 Dose: 650 mg Albuterol Sulfate (Albuterol 2.5mg/3ml Neb Ud) 2.5 mg HHN QIDRT [facility] Stop: 11/19/17 06:59 Last Admin: 09/21/17 07:25 Dose: Not Given Amlodipine Besylate (Norvasc) 10 mg PO DAILY [facility] Stop: 11/19/17 08:59 Last Admin: 09/21/17 09:16 Dose: Not Given Clonidine HCl (Pbujsrxk-Iza-0) 1 patch TD [facility] Stop: 11/24/17 14:21 Divalproex Sodium (Depakote Sprinkle) 125 mg PO Q12HR [facility] PRN Reason: Protocol Stop: 11/18/17 20:59 Last Admin: 09/21/17 09:16 Dose: Not Given Docusate Sodium (Colace) 100 mg PO BID [facility] Stop: 11/19/17 08:59 Last Admin: 09/21/17 09:17 Dose: Not Given Ferrous Sulfate (Iron) 325 mg PO DAILY [facility] Stop: 11/19/17 08:59 Last Admin: 09/21/17 09:17 Dose: Not Given Finasteride (Proscar) 5 mg PO DAILY [facility] PRN Reason: Protocol Stop: 11/19/17 08:59 Last Admin: 09/21/17 09:17 Dose: Not Given Guaifenesin (Robitussin) 200 mg PO Q4HR PRN PRN Reason: Cough or Congestion Stop: 11/18/17 20:04 Haloperidol (Haldol) 5 mg PO BID [facility] PRN Reason: Protocol Stop: 11/19/17 08:59 Last Admin: 09/21/17 09:17 Dose: Not Given Haloperidol Decanoate (Haldol Dec) 50 mg IM QMONTH [facility] PRN Reason: Protocol Stop: 11/18/17 20:14 Hydralazine HCl (Apresoline) 20 mg PO TID [facility] Stop: 11/19/17 15:23 Last Admin: 09/21/17 09:17 Dose: Not Given Dextrose/Sodium Chloride (D5-0.45ns) 1,000 mls @ 80 mls/hr IV .[id number] [facility] Stop: 11/18/17 20:14 Last Admin: 09/21/17 11:19 Dose: 80 mls/hr Ipratropium [place] (Atrovent Neb 0.5mg/2.5ml) 0.5 mg IH QIDRT [facility] [place] Stop: 11/19/17 06:59 Last Admin: 09/21/17 07:25 Dose: Not Given Isosorbide Dinitrate (Isordil) 10 mg PO TID [facility] Stop: 11/19/17 20:59 Last Admin: 09/21/17 09:17 Dose: Not Given Magnesium Hydroxide (Milk Of Magnesia) 30 ml PO DAILY PRN PRN Reason: Constipation Stop: 11/18/17 20:00 Ondansetron HCl (Zofran) 4 mg IV Q8H PRN PRN Reason: Nausea / Vomiting Stop: 11/18/17 20:04 Pantoprazole Sodium (Protonix) 40 mg PO BID [facility] Stop: 11/19/17 08:59 Last Admin: 09/21/17 09:18 Dose: Not Given Tamsulosin HCl (Flomax) 0.4 mg PO DAILY [facility] [place] Stop: 11/19/17 08:59 Last Admin: 09/21/17 09:18 Dose: Not Given General: alert HEENT: NC/AT, PERRLA Neck: Supple Lungs: CTAB Cardiovascular: RRR, Normal S1, Normal S2, without murmur Abdomen: soft, non-tender, non-distended, positive bowel sound Neurological: alert Internal Medicine Assmt/Plan - Assessment Assessment: acute dehydration chronic kidney disease anemia hyponatremia mild protein calorie malnutrition non-compliant htn dyslipidemia dementia - Plan Plan: monitor bun/crea once medically stable will transfer to [facility] for hydration nephro follow up continue current plan of care
--- NOTE | 2017-09-21 14:16 | General Progress Note ---
Subjective - Review of Systems Service Date: 09/21/17 Subjective: alert, ambulating, refusing meds, remains uncooperative Objective - Results Result Diagrams: 09/20/17 05:00 09/20/17 05:00 Recent Labs: Laboratory Last Values WBC 7.8 Th/cmm (4.8-10.8) 09/20/17 05:00 RBC 3.43 Mil/cmm (4.30-5.70) L 09/20/17 05:00 Hgb 10.1 gm/dL (12-16) L 09/20/17 05:00 Hct 30.0 % (41.0-60) L 09/20/17 05:00 MCV 87.6 fl (80-99) 09/20/17 05:00 MCH 29.4 pg (26.0-30.0) 09/20/17 05:00 MCHC Differential 33.5 pg (28.0-36.0) 09/20/17 05:00 RDW 12.4 % (11.5-20.0) 09/20/17 05:00 Plt Count 360 Th/cmm (150-400) 09/20/17 05:00 MPV 7.2 fl 09/20/17 05:00 Neutrophils % 68.9 % (40.0-80.0) 09/20/17 05:00 Lymphocytes % 18.9 % (20.0-50.0) L 09/20/17 05:00 Monocytes % 8.1 % (2.0-10.0) 09/20/17 05:00 Eosinophils % 3.2 % (0.0-5.0) 09/20/17 05:00 Basophils % 0.9 % (0.0-2.0) 09/20/17 05:00 Eos Smear Source URINE 09/20/17 17:13 Eos Smear Total Cells NONE SEEN (NONE SEEN) 09/20/17 17:13 PT 9.9 SECONDS (9.5-11.5) 09/19/17 18:40 INR 0.95 (0.5-1.4) 09/19/17 18:40 Sodium 138 mEq/L (136-145) 09/20/17 05:00 Potassium 3.8 mEq/L (3.5-5.1) 09/20/17 05:00 Chloride 109 mEq/L (98-107) H 09/20/17 05:00 Carbon Dioxide 18.4 mEq/L (21.0-31.0) L 09/20/17 05:00 Anion Gap 14.4 (7.0-16.0) 09/20/17 05:00 BUN 65 mg/dL (7-25) H 09/20/17 05:00 Creatinine 6.0 mg/dL (0.7-1.3) H* 09/20/17 05:00 Est GFR ( Amer) 12.3 ml/min (>90) 09/20/17 05:00 Est GFR (Non-Af Amer) 10.1 ml/min 09/20/17 05:00 BUN/Creatinine Ratio 10.8 09/20/17 05:00 Glucose 95 mg/dL (70-105) 09/20/17 05:00 Calcium 9.1 mg/dL (8.6-10.3) 09/20/17 05:00 Iron 67 ug/dL (38-169) 09/20/17 05:00 TIBC 232 ug/dL (250-450) L 09/20/17 05:00 Iron Saturation 29 % (15-55) 09/20/17 05:00 Unsaturated IBC 165 ug/dL (111-343) 09/20/17 05:00 Total Bilirubin 0.2 mg/dL (0.3-1.0) L 09/19/17 18:40 AST 10 U/L (13-39) L 09/19/17 18:40 ALT 6 U/L (7-52) L 09/19/17 18:40 Alkaline Phosphatase 68 U/L (34-104) 09/19/17 18:40 Ammonia 46 umol/L (16-53) 09/20/17 05:00 Creatine Kinase 93 U/L (30-223) 09/19/17 18:40 Troponin I 0.01 ng/mL (0.01-0.05) 09/19/17 18:40 B-Natriuretic Peptide 91.3 pg/mL (5.0-100.0) 09/19/17 18:40 Total Protein 7.4 gm/dL (6.0-8.3) 09/19/17 18:40 Albumin 3.9 gm/dL (4.2-5.5) L 09/19/17 18:40 Globulin 3.5 gm/dL 09/19/17 18:40 Albumin/Globulin Ratio 1.1 (1.0-1.8) 09/19/17 18:40 Triglycerides 94 mg/dL (<150) 09/19/17 18:40 Cholesterol 163 mg/dL (<200) 09/19/17 18:40 LDL Cholesterol Direct 101 mg/dL (75-193) 09/19/17 18:40 HDL Cholesterol 58 mg/dL (23-92) 09/19/17 18:40 TSH 1.56 uIU/ml (0.34-5.60) 09/20/17 05:00 Ur Random Sodium 37 mmol/L 09/20/17 17:13 Urine Creatinine 32.0 mg/dl (39.0-259.0) L 09/20/17 17:13 - Physical Exam Vitals and I&O: Vital Signs Temp 98.1 F 09/21/17 04:00 Pulse 86 09/21/17 14:02 Resp 18 09/21/17 12:35 BP 126/71 09/21/17 14:02 Pulse Ox 97 09/21/17 12:35 Intake & Output 09/20/17 09/21/17 09/21/17 18:59 06:59 18:59 Intake Total 1800 1300 200 Output Total 1200 Balance 600 1300 200 Weight (lbs) 75.296 kg 75.886 kg 75.886 kg Intake: Intake, IV Amount 1000 1000 D5-0.45NS 1,000 ml @ 80 1000 1000 mls/hr IV .[id number] [facility] Rx #:[id number] Oral 800 300 200 Output: Urine 1200 Other: # Voids 2 2 # Bowel Movements 1 0 Stool Characteristics Soft Active Medications: Current Medications Acetaminophen (Tylenol) 650 mg PO Q4H PRN PRN Reason: Pain Or Fever above 101 Stop: 11/18/17 20:04 Last Admin: 09/20/17 22:17 Dose: 650 mg Albuterol Sulfate (Albuterol 2.5mg/3ml Neb Ud) 2.5 mg HHN QIDRT [facility] Stop: 11/19/17 06:59 Last Admin: 09/21/17 12:35 Dose: Not Given Amlodipine Besylate (Norvasc) 10 mg PO DAILY [facility] Stop: 11/19/17 08:59 Last Admin: 09/21/17 09:16 Dose: Not Given Clonidine HCl (Wnpedevb-Oay-9) 1 patch TD Tu [facility] Stop: 11/24/17 14:21 Divalproex Sodium (Depakote Sprinkle) 125 mg PO Q12HR [facility] PRN Reason: Protocol Stop: 11/18/17 20:59 Last Admin: 09/21/17 09:16 Dose: Not Given Docusate Sodium (Colace) 100 mg PO BID [facility] Stop: 11/19/17 08:59 Last Admin: 09/21/17 09:17 Dose: Not Given Ferrous Sulfate (Iron) 325 mg PO DAILY [facility] Stop: 11/19/17 08:59 Last Admin: 09/21/17 09:17 Dose: Not Given Finasteride (Proscar) 5 mg PO DAILY [facility] PRN Reason: Protocol Stop: 11/19/17 08:59 Last Admin: 09/21/17 09:17 Dose: Not Given Guaifenesin (Robitussin) 200 mg PO Q4HR PRN PRN Reason: Cough or Congestion Stop: 11/18/17 20:04 Haloperidol Decanoate (Haldol Dec) 50 mg IM QMONTH [facility] PRN Reason: Protocol Stop: 11/18/17 20:14 Hydralazine HCl (Apresoline) 20 mg PO TID [facility] Stop: 11/19/17 15:23 Last Admin: 09/21/17 14:01 Dose: Not Given Dextrose/Sodium Chloride (D5-0.45ns) 1,000 mls @ 80 mls/hr IV .[id number] [facility] Stop: 11/18/17 20:14 Last Admin: 09/21/17 11:19 Dose: 80 mls/hr Ipratropium [place] (Atrovent Neb 0.5mg/2.5ml) 0.5 mg IH QIDRT [facility] Stop: 11/19/17 06:59 Last Admin: 09/21/17 12:35 Dose: Not Given Isosorbide Dinitrate (Isordil) 10 mg PO TID [facility] Stop: 11/19/17 20:59 Last Admin: 09/21/17 14:02 Dose: Not Given Magnesium Hydroxide (Milk Of Magnesia) 30 ml PO DAILY PRN PRN Reason: Constipation Stop: 11/18/17 20:00 Ondansetron HCl (Zofran) 4 mg IV Q8H PRN PRN Reason: Nausea / Vomiting Stop: 11/18/17 20:04 Pantoprazole Sodium (Protonix) 40 mg PO BID [facility] Stop: 11/19/17 08:59 Last Admin: 09/21/17 09:18 Dose: Not Given Risperidone (Risperdal) 1 mg PO BID [facility] PRN Reason: Protocol Stop: 11/20/17 16:59 Tamsulosin HCl (Flomax) 0.4 mg PO DAILY [facility] Stop: 11/19/17 08:59 Last Admin: 09/21/17 09:18 Dose: Not Given General: Alert, No acute distress HEENT: Atraumatic Neck: Supple, +2 carotid pulse wo bruit Cardiovascular: Regular rate, Normal S1, Normal S2 Lungs: Clear to auscultation Abdomen: Bowel sounds, Soft Extremities: no Edema Neurological: Sensation intact Skin: no Rash Psych/Mental Status: Other (psychotic) Assessment/Plan - Assessment Assessment: KARLEE on CKD BPH B/L Hydronephrosis/Disrended bladder Paranoid Schizo Ess Htn Anemia of CKD - Plan Plan: Lab - Result Diagrams 09/20/17 05:00 09/20/17 05:00 Current Medications Acetaminophen (Tylenol) 650 mg PO Q4H PRN PRN Reason: Pain Or Fever above 101 Stop: 11/18/17 20:04 Last Admin: 09/20/17 22:17 Dose: 650 mg Albuterol Sulfate (Albuterol 2.5mg/3ml Neb Ud) 2.5 mg HHN QIDRT [facility] Stop: 11/19/17 06:59 Last Admin: 09/21/17 12:35 Dose: Not Given Amlodipine Besylate (Norvasc) 10 mg PO DAILY [facility] Stop: 11/19/17 08:59 Last Admin: 09/21/17 09:16 Dose: Not Given Clonidine HCl (Bskdfcis-Wwc-0) 1 patch TD [facility] Stop: 11/24/17 14:21 Divalproex Sodium (Depakote Sprinkle) 125 mg PO Q12HR [facility] PRN Reason: Protocol Stop: 11/18/17 20:59 Last Admin: 09/21/17 09:16 Dose: Not Given Docusate Sodium (Colace) 100 mg PO BID [facility] Stop: 11/19/17 08:59 Last Admin: 09/21/17 09:17 Dose: Not Given Ferrous Sulfate (Iron) 325 mg PO DAILY [facility] Stop: 11/19/17 08:59 Last Admin: 09/21/17 09:17 Dose: Not Given Finasteride (Proscar) 5 mg PO DAILY [facility] PRN Reason: Protocol Stop: 11/19/17 08:59 Last Admin: 09/21/17 09:17 Dose: Not Given Guaifenesin (Robitussin) 200 mg PO Q4HR PRN PRN Reason: Cough or Congestion Stop: 11/18/17 20:04 Haloperidol Decanoate (Haldol Dec) 50 mg IM QMONTH [facility] PRN Reason: Protocol Stop: 11/18/17 20:14 Hydralazine HCl (Apresoline) 20 mg PO TID [facility] Stop: 11/19/17 15:23 Last Admin: 09/21/17 14:01 Dose: Not Given Dextrose/Sodium Chloride (D5-0.45ns) 1,000 mls @ 80 mls/hr IV .[id number] [facility] Stop: 11/18/17 20:14 Last Admin: 09/21/17 11:19 Dose: 80 mls/hr Ipratropium [place] (Atrovent Neb 0.5mg/2.5ml) 0.5 mg IH QIDRT [facility] Stop: 11/19/17 06:59 Last Admin: 09/21/17 12:35 Dose: Not Given Isosorbide Dinitrate (Isordil) 10 mg PO TID [facility] Stop: 11/19/17 20:59 Last Admin: 09/21/17 14:02 Dose: Not Given Magnesium Hydroxide (Milk Of Magnesia) 30 ml PO DAILY PRN PRN Reason: Constipation Stop: 11/18/17 20:00 Ondansetron HCl (Zofran) 4 mg IV Q8H PRN PRN Reason: Nausea / Vomiting Stop: 11/18/17 20:04 Pantoprazole Sodium (Protonix) 40 mg PO BID [facility] Stop: 11/19/17 08:59 Last Admin: 09/21/17 09:18 Dose: Not Given Risperidone (Risperdal) 1 mg PO BID [facility] PRN Reason: Protocol Stop: 11/20/17 16:59 Tamsulosin HCl (Flomax) 0.4 mg PO DAILY [facility] Stop: 11/19/17 08:59 Last Admin: 09/21/17 09:18 Dose: Not Given Pt. continued to refused meds, CT abd/pelvis, labs refused Woodall cath stated that he is urinating
[2017-09-21] MEDS ORDERED: Albuterol Nebulizer 2.5mg/3mL HHN PRN (19:15)
[2017-09-21 19:54] LABS: CREATININEURINE 25.3 mg/dl
[2017-09-22] MEDS: D5-0.45NS 1,000 ML IV SCH (01:52)
[2017-09-22 07:08] LABS: FOLIC ACID 11.8 ng/mL (>3.0)
[2017-09-22] MEDS: Ipratropium Neb 0.5 mg/2.5 mL UD IH SCH ×3 (07:38→21:17)
--- NOTE | 2017-09-22 08:41 | Consultation ---
DATE OF CONSULTATION: 09/21/2017 PSYCHIATRIC CONSULTATION CHIEF COMPLAINT: "I am not talking to you." HISTORY OF PRESENT ILLNESS: The patient is a 61-year-old male with chronic history of schizophrenia, known to myself from prior treatment. He is at different hospital and also at his group home facility, admitted to current medical floor, has been refusing care, refusing medications. The patient is supposed to be on Haldol, but he said he will only take risperidone, which has worked in the past for him. The patient admits to hearing voices. PAST PSYCHIATRIC HISTORY: Multiple hospitalizations, chronic history of mental illness. PAST MEDICAL HISTORY: As per H and P. PSYCHOSOCIAL HISTORY: The patient resides at a group home facility requires complete care. MENTAL STATUS EXAMINATION: The patient is guarded and irritable. He is oriented to person, knew he is in the hospital and knew his age. The patient appears to be suspicious and the patient was having auditory hallucinations. ASSESSMENT: Schizophrenia, paranoid type, acute exacerbation. PLAN: We will discontinue Haldol use, risperidone 1 mg p.o. b.i.d., increase dose as tolerated. The patient is to be on a dose as high of 6 mg or 8 mg total a day. Consider geropsychiatric hospitalization. Encourage the patient to comply with treatment. JOB# [id number]
[2017-09-22 09:02] LABS: URINE MICROSCOPIC INDICATED? YES; URINE SOURCE CLEAN C
[2017-09-22 09:07] LABS: URINE BILIRUBIN NEGATIVE (NEGATIVE); URINE BLOOD SMALL (NEGATIVE); URINE GLUCOSE (UA) NEGATIVE (NEGATIVE); URINE KETONE NEGATIVE (NEGATIVE); URINE LEUKOCYTE ESTERASE LARGE (NEGATIVE); URINE NITRATE NEGATIVE (NEGATIVE); URINE PROTEIN 100 mg/dL (NEGATIVE); URINE UROBILINOGEN 0.2 E.U./dL (0.2 - 1.0)
[2017-09-22] MEDS: Ferrous Sulfate 325 MG TAB PO SCH (09:08)
[2017-09-22] MEDS: Multivitamin w/ Minerals Tab PO SCH (09:08)
[2017-09-22] MEDS: Pantoprazole 40 mg EC Tab PO SCH ×2 (09:08→16:09)
[2017-09-22 09:31] LABS: URINE CLARITY HAZY (CLEAR); URINE COLOR STRAW
[2017-09-22 09:35] LABS: URINE BACTERIA 1+ /hpf (NONE SEEN); URINE EPITHELIAL CELLS OCCASIONAL /lpf (FEW); URINE WBC 50-100 /hpf (0-5)
--- NOTE | 2017-09-22 13:19 | General Progress Note ---
Subjective - Review of Systems Service Date: 09/22/17 Subjective: alert, ambulating, refusing some meds, remains uncooperative Objective - Results Result Diagrams: 09/20/17 05:00 09/20/17 05:00 Recent Labs: Laboratory Last Values WBC 7.8 Th/cmm (4.8-10.8) 09/20/17 05:00 RBC 3.43 Mil/cmm (4.30-5.70) L 09/20/17 05:00 Hgb 10.1 gm/dL (12-16) L 09/20/17 05:00 Hct 30.0 % (41.0-60) L 09/20/17 05:00 MCV 87.6 fl (80-99) 09/20/17 05:00 MCH 29.4 pg (26.0-30.0) 09/20/17 05:00 MCHC Differential 33.5 pg (28.0-36.0) 09/20/17 05:00 RDW 12.4 % (11.5-20.0) 09/20/17 05:00 Plt Count 360 Th/cmm (150-400) 09/20/17 05:00 MPV 7.2 fl 09/20/17 05:00 Neutrophils % 68.9 % (40.0-80.0) 09/20/17 05:00 Lymphocytes % 18.9 % (20.0-50.0) L 09/20/17 05:00 Monocytes % 8.1 % (2.0-10.0) 09/20/17 05:00 Eosinophils % 3.2 % (0.0-5.0) 09/20/17 05:00 Basophils % 0.9 % (0.0-2.0) 09/20/17 05:00 Eos Smear Source URINE 09/20/17 17:13 Eos Smear Total Cells NONE SEEN (NONE SEEN) 09/20/17 17:13 PT 9.9 SECONDS (9.5-11.5) 09/19/17 18:40 INR 0.95 (0.5-1.4) 09/19/17 18:40 Sodium 138 mEq/L (136-145) 09/20/17 05:00 Potassium 3.8 mEq/L (3.5-5.1) 09/20/17 05:00 Chloride 109 mEq/L (98-107) H 09/20/17 05:00 Carbon Dioxide 18.4 mEq/L (21.0-31.0) L 09/20/17 05:00 Anion Gap 14.4 (7.0-16.0) 09/20/17 05:00 BUN 65 mg/dL (7-25) H 09/20/17 05:00 Creatinine 6.0 mg/dL (0.7-1.3) H* 09/20/17 05:00 Est GFR ( Amer) 12.3 ml/min (>90) 09/20/17 05:00 Est GFR (Non-Af Amer) 10.1 ml/min 09/20/17 05:00 BUN/Creatinine Ratio 10.8 09/20/17 05:00 Glucose 95 mg/dL (70-105) 09/20/17 05:00 Calcium 9.1 mg/dL (8.6-10.3) 09/20/17 05:00 Iron 67 ug/dL (38-169) 09/20/17 05:00 TIBC 232 ug/dL (250-450) L 09/20/17 05:00 Iron Saturation 29 % (15-55) 09/20/17 05:00 Unsaturated IBC 165 ug/dL (111-343) 09/20/17 05:00 Ferritin 77 ng/mL (30-400) 09/20/17 05:00 Total Bilirubin 0.2 mg/dL (0.3-1.0) L 09/19/17 18:40 AST 10 U/L (13-39) L 09/19/17 18:40 ALT 6 U/L (7-52) L 09/19/17 18:40 Alkaline Phosphatase 68 U/L (34-104) 09/19/17 18:40 Ammonia 46 umol/L (16-53) 09/20/17 05:00 Creatine Kinase 93 U/L (30-223) 09/19/17 18:40 Troponin I 0.01 ng/mL (0.01-0.05) 09/19/17 18:40 B-Natriuretic Peptide 91.3 pg/mL (5.0-100.0) 09/19/17 18:40 Total Protein 7.4 gm/dL (6.0-8.3) 09/19/17 18:40 Albumin 3.9 gm/dL (4.2-5.5) L 09/19/17 18:40 Globulin 3.5 gm/dL 09/19/17 18:40 Albumin/Globulin Ratio 1.1 (1.0-1.8) 09/19/17 18:40 Triglycerides 94 mg/dL (<150) 09/19/17 18:40 Cholesterol 163 mg/dL (<200) 09/19/17 18:40 LDL Cholesterol Direct 101 mg/dL (75-193) 09/19/17 18:40 HDL Cholesterol 58 mg/dL (23-92) 09/19/17 18:40 Vitamin B12 688 pg/mL (232-1245) 09/20/17 05:00 Folic Acid 11.8 ng/mL (>3.0) 09/20/17 05:00 TSH 1.56 uIU/ml (0.34-5.60) 09/20/17 05:00 Urine Source CLEAN C 09/22/17 08:28 Urine Color STRAW 09/22/17 08:28 Urine Clarity HAZY (CLEAR) 09/22/17 08:28 Urine pH 6.0 (4.6 - 8.0) 09/22/17 08:28 Ur Specific [place] 1.015 (1.005-1.030) 09/22/17 08:28 Urine Protein 100 mg/dL (NEGATIVE) H 09/22/17 08:28 Urine Glucose (UA) NEGATIVE mg/dL (NEGATIVE) 09/22/17 08:28 Urine Ketones NEGATIVE mg/dL (NEGATIVE) 09/22/17 08:28 Urine Blood SMALL (NEGATIVE) H 09/22/17 08:28 Urine Nitrate NEGATIVE (NEGATIVE) 09/22/17 08:28 Urine Bilirubin NEGATIVE (NEGATIVE) 09/22/17 08:28 Urine Urobilinogen 0.2 E.U./dL (0.2 - 1.0) 09/22/17 08:28 Ur Leukocyte Esterase LARGE (NEGATIVE) H 09/22/17 08:28 Urine RBC 2-5 /hpf (0-5) H 09/22/17 08:28 Urine WBC 50-100 /hpf (0-5) H 09/22/17 08:28 Ur Epithelial Cells OCCASIONAL /lpf (FEW) 09/22/17 08:28 Urine Bacteria 1+ /hpf (NONE SEEN) H 09/22/17 08:28 Ur Random Sodium 37 mmol/L 09/20/17 17:13 Urine Creatinine 25.3 mg/dl 09/20/17 17:13 Urine Microalbumin 408 09/20/17 17:13 Microalb/Creat Ratio 1613 09/20/17 17:13 - Physical Exam Vitals and I&O: Vital Signs Temp 98.0 F 09/22/17 11:00 Pulse 79 09/22/17 11:00 Resp 18 09/22/17 11:00 BP 133/77 09/22/17 11:00 Pulse Ox 97 09/22/17 11:00 Intake & Output 09/21/17 09/22/17 09/22/17 18:59 06:59 18:59 Intake Total 600 1340 Output Total 800 Balance -200 1340 Weight (lbs) 75.886 kg 76.022 kg Intake: Intake, IV Amount 1000 D5-0.45NS 1,000 ml @ 80 1000 mls/hr IV .[id number] [facility] Rx #:[id number] Oral 600 340 Output: Urine 800 Other: # Voids 3 # Bowel Movements 1 0 Active Medications: Current Medications Acetaminophen (Tylenol) 650 mg PO Q4H PRN PRN Reason: Pain Or Fever above 101 Stop: 11/18/17 20:04 Last Admin: 09/20/17 22:17 Dose: 650 mg Albuterol Sulfate (Albuterol 2.5mg/3ml Neb Ud) 2.5 mg HHN QIDRT PRN PRN Reason: Shortness of Breath or Wheeze Stop: 11/19/17 06:59 Amlodipine Besylate (Norvasc) 10 mg PO DAILY [facility] Stop: 11/19/17 08:59 Last Admin: 09/22/17 09:05 Dose: Not Given Clonidine HCl (Fkmuuznf-Iuz-2) 1 patch TD QSAT [facility] Stop: 11/21/17 13:29 Divalproex Sodium (Depakote Sprinkle) 125 mg PO Q12HR [facility] PRN Reason: Protocol Stop: 11/18/17 20:59 Last Admin: 09/22/17 09:07 Dose: Not Given Docusate Sodium (Colace) 100 mg PO BID [facility] Stop: 11/19/17 08:59 Last Admin: 09/22/17 09:08 Dose: Not Given Ferrous Sulfate (Iron) 325 mg PO DAILY [facility] Stop: 11/19/17 08:59 Last Admin: 09/22/17 09:08 Dose: Not Given Finasteride (Proscar) 5 mg PO DAILY [facility] PRN Reason: Protocol Stop: 11/19/17 08:59 Last Admin: 09/22/17 09:08 Dose: Not Given Guaifenesin (Robitussin) 200 mg PO Q4HR PRN PRN Reason: Cough or Congestion Stop: 11/18/17 20:04 Haloperidol Decanoate (Haldol Dec) 50 mg IM QMONTH [facility] PRN Reason: Protocol Stop: 11/18/17 20:14 Hydralazine HCl (Apresoline) 20 mg PO TID [facility] Stop: 11/19/17 15:23 Last Admin: 09/22/17 09:03 Dose: 20 mg Dextrose/Sodium Chloride (D5-0.45ns) 1,000 mls @ 80 mls/hr IV .[id number] [facility] Stop: 11/18/17 20:14 Last Admin: 09/22/17 01:52 Dose: 80 mls/hr Ipratropium [place] (Atrovent Neb 0.5mg/2.5ml) 0.5 mg IH QIDRT [facility] Stop: 11/19/17 06:59 Last Admin: 09/22/17 10:44 Dose: Not Given Isosorbide Dinitrate (Isordil) 10 mg PO TID [facility] Stop: 11/19/17 20:59 Last Admin: 09/22/17 09:04 Dose: 10 mg Magnesium Hydroxide (Milk Of Magnesia) 30 ml PO DAILY PRN PRN Reason: Constipation Stop: 11/18/17 20:00 Ondansetron HCl (Zofran) 4 mg IV Q8H PRN PRN Reason: Nausea / Vomiting Stop: 11/18/17 20:04 Pantoprazole Sodium (Protonix) 40 mg PO BID [facility] Stop: 11/19/17 08:59 Last Admin: 09/22/17 09:08 Dose: Not Given Risperidone (Risperdal) 1 mg PO BID [facility] PRN Reason: Protocol Stop: 11/20/17 16:59 Tamsulosin HCl (Flomax) 0.4 mg PO DAILY [facility] Stop: 11/19/17 08:59 Last Admin: 09/22/17 09:08 Dose: Not Given General: Alert, No acute distress HEENT: Atraumatic Neck: Supple, +2 carotid pulse wo bruit Cardiovascular: Regular rate, Normal S1, Normal S2 Lungs: Clear to auscultation Abdomen: Bowel sounds, Soft Extremities: no Edema Neurological: Sensation intact Skin: no Rash Psych/Mental Status: Other (psychotic) Assessment/Plan - Assessment Assessment: KARLEE on CKD BPH B/L Hydronephrosis/Disrended bladder Paranoid Schizo Ess Htn Anemia of CKD - Plan Plan: Lab - Result Diagrams 09/20/17 05:00 09/20/17 05:00 Current Medications Acetaminophen (Tylenol) 650 mg PO Q4H PRN PRN Reason: Pain Or Fever above 101 Stop: 11/18/17 20:04 Last Admin: 09/20/17 22:17 Dose: 650 mg Albuterol Sulfate (Albuterol 2.5mg/3ml Neb Ud) 2.5 mg HHN QIDRT [facility] Stop: 11/19/17 06:59 Last Admin: 09/21/17 12:35 Dose: Not Given Amlodipine Besylate (Norvasc) 10 mg PO DAILY [facility] Stop: 11/19/17 08:59 Last Admin: 09/21/17 09:16 Dose: Not Given Clonidine HCl (Loozqqsg-Xwk-4) 1 patch TD [facility] Stop: 11/24/17 14:21 Divalproex Sodium (Depakote Sprinkle) 125 mg PO Q12HR [facility] PRN Reason: Protocol Stop: 11/18/17 20:59 Last Admin: 09/21/17 09:16 Dose: Not Given Docusate Sodium (Colace) 100 mg PO BID [facility] Stop: 11/19/17 08:59 Last Admin: 09/21/17 09:17 Dose: Not Given Ferrous Sulfate (Iron) 325 mg PO DAILY [facility] Stop: 11/19/17 08:59 Last Admin: 09/21/17 09:17 Dose: Not Given Finasteride (Proscar) 5 mg PO DAILY [facility] PRN Reason: Protocol Stop: 11/19/17 08:59 Last Admin: 09/21/17 09:17 Dose: Not Given Guaifenesin (Robitussin) 200 mg PO Q4HR PRN PRN Reason: Cough or Congestion Stop: 11/18/17 20:04 Haloperidol Decanoate (Haldol Dec) 50 mg IM QMONTH [facility] PRN Reason: Protocol Stop: 11/18/17 20:14 Hydralazine HCl (Apresoline) 20 mg PO TID [facility] Stop: 11/19/17 15:23 Last Admin: 09/21/17 14:01 Dose: Not Given Dextrose/Sodium Chloride (D5-0.45ns) 1,000 mls @ 80 mls/hr IV .[id number] [facility] Stop: 11/18/17 20:14 Last Admin: 09/21/17 11:19 Dose: 80 mls/hr Ipratropium [place] (Atrovent Neb 0.5mg/2.5ml) 0.5 mg IH QIDRT [facility] Stop: 11/19/17 06:59 Last Admin: 09/21/17 12:35 Dose: Not Given Isosorbide Dinitrate (Isordil) 10 mg PO TID [facility] Stop: 11/19/17 20:59 Last Admin: 09/21/17 14:02 Dose: Not Given Magnesium Hydroxide (Milk Of Magnesia) 30 ml PO DAILY PRN PRN Reason: Constipation Stop: 11/18/17 20:00 Ondansetron HCl (Zofran) 4 mg IV Q8H PRN PRN Reason: Nausea / Vomiting Stop: 11/18/17 20:04 Pantoprazole Sodium (Protonix) 40 mg PO BID [facility] Stop: 11/19/17 08:59 Last Admin: 09/21/17 09:18 Dose: Not Given Risperidone (Risperdal) 1 mg PO BID [facility] PRN Reason: Protocol Stop: 11/20/17 16:59 Tamsulosin HCl (Flomax) 0.4 mg PO DAILY [facility] Stop: 11/19/17 08:59 Last Admin: 09/21/17 09:18 Dose: Not Given Pt. continued to refuse some meds, catapres patch wkly refused [place] cath stated that he is urinating
[2017-09-22] MEDS ORDERED: cloNIDine 0.1 mg/24 hr Tdm TD SCH (13:30)
--- NOTE | 2017-09-22 14:09 | Internal Medicine Prog Note ---
Internal Medicine Subjective - Subjective Service Date: 09/22/17 Patient seen and examined:: with staff Patient is:: awake Per staff patient has:: no adverse event, refusing care, refusing labs Internal Medicine Objective - Results Result Diagrams: 09/20/17 05:00 09/20/17 05:00 Recent Labs: Laboratory Last Values WBC 7.8 Th/cmm (4.8-10.8) 09/20/17 05:00 RBC 3.43 Mil/cmm (4.30-5.70) L 09/20/17 05:00 Hgb 10.1 gm/dL (12-16) L 09/20/17 05:00 Hct 30.0 % (41.0-60) L 09/20/17 05:00 MCV 87.6 fl (80-99) 09/20/17 05:00 MCH 29.4 pg (26.0-30.0) 09/20/17 05:00 MCHC Differential 33.5 pg (28.0-36.0) 09/20/17 05:00 RDW 12.4 % (11.5-20.0) 09/20/17 05:00 Plt Count 360 Th/cmm (150-400) 09/20/17 05:00 MPV 7.2 fl 09/20/17 05:00 Neutrophils % 68.9 % (40.0-80.0) 09/20/17 05:00 Lymphocytes % 18.9 % (20.0-50.0) L 09/20/17 05:00 Monocytes % 8.1 % (2.0-10.0) 09/20/17 05:00 Eosinophils % 3.2 % (0.0-5.0) 09/20/17 05:00 Basophils % 0.9 % (0.0-2.0) 09/20/17 05:00 Eos Smear Source URINE 09/20/17 17:13 Eos Smear Total Cells NONE SEEN (NONE SEEN) 09/20/17 17:13 PT 9.9 SECONDS (9.5-11.5) 09/19/17 18:40 INR 0.95 (0.5-1.4) 09/19/17 18:40 Sodium 138 mEq/L (136-145) 09/20/17 05:00 Potassium 3.8 mEq/L (3.5-5.1) 09/20/17 05:00 Chloride 109 mEq/L (98-107) H 09/20/17 05:00 Carbon Dioxide 18.4 mEq/L (21.0-31.0) L 09/20/17 05:00 Anion Gap 14.4 (7.0-16.0) 09/20/17 05:00 BUN 65 mg/dL (7-25) H 09/20/17 05:00 Creatinine 6.0 mg/dL (0.7-1.3) H* 09/20/17 05:00 Est GFR ( Amer) 12.3 ml/min (>90) 09/20/17 05:00 Est GFR (Non-Af Amer) 10.1 ml/min 09/20/17 05:00 BUN/Creatinine Ratio 10.8 09/20/17 05:00 Glucose 95 mg/dL (70-105) 09/20/17 05:00 Calcium 9.1 mg/dL (8.6-10.3) 09/20/17 05:00 Iron 67 ug/dL (38-169) 09/20/17 05:00 TIBC 232 ug/dL (250-450) L 09/20/17 05:00 Iron Saturation 29 % (15-55) 09/20/17 05:00 Unsaturated IBC 165 ug/dL (111-343) 09/20/17 05:00 Ferritin 77 ng/mL (30-400) 09/20/17 05:00 Total Bilirubin 0.2 mg/dL (0.3-1.0) L 09/19/17 18:40 AST 10 U/L (13-39) L 09/19/17 18:40 ALT 6 U/L (7-52) L 09/19/17 18:40 Alkaline Phosphatase 68 U/L (34-104) 09/19/17 18:40 Ammonia 46 umol/L (16-53) 09/20/17 05:00 Creatine Kinase 93 U/L (30-223) 09/19/17 18:40 Troponin I 0.01 ng/mL (0.01-0.05) 09/19/17 18:40 B-Natriuretic Peptide 91.3 pg/mL (5.0-100.0) 09/19/17 18:40 Total Protein 7.4 gm/dL (6.0-8.3) 09/19/17 18:40 Albumin 3.9 gm/dL (4.2-5.5) L 09/19/17 18:40 Globulin 3.5 gm/dL 09/19/17 18:40 Albumin/Globulin Ratio 1.1 (1.0-1.8) 09/19/17 18:40 Triglycerides 94 mg/dL (<150) 09/19/17 18:40 Cholesterol 163 mg/dL (<200) 09/19/17 18:40 LDL Cholesterol Direct 101 mg/dL (75-193) 09/19/17 18:40 HDL Cholesterol 58 mg/dL (23-92) 09/19/17 18:40 Vitamin B12 688 pg/mL (232-1245) 09/20/17 05:00 Folic Acid 11.8 ng/mL (>3.0) 09/20/17 05:00 TSH 1.56 uIU/ml (0.34-5.60) 09/20/17 05:00 Urine Source CLEAN C 09/22/17 08:28 Urine Color STRAW 09/22/17 08:28 Urine Clarity HAZY (CLEAR) 09/22/17 08:28 Urine pH 6.0 (4.6 - 8.0) 09/22/17 08:28 Ur Specific [place] 1.015 (1.005-1.030) 09/22/17 08:28 Urine Protein 100 mg/dL (NEGATIVE) H 09/22/17 08:28 Urine Glucose (UA) NEGATIVE mg/dL (NEGATIVE) 09/22/17 08:28 Urine Ketones NEGATIVE mg/dL (NEGATIVE) 09/22/17 08:28 Urine Blood SMALL (NEGATIVE) H 09/22/17 08:28 Urine Nitrate NEGATIVE (NEGATIVE) 09/22/17 08:28 Urine Bilirubin NEGATIVE (NEGATIVE) 09/22/17 08:28 Urine Urobilinogen 0.2 E.U./dL (0.2 - 1.0) 09/22/17 08:28 Ur Leukocyte Esterase LARGE (NEGATIVE) H 09/22/17 08:28 Urine RBC 2-5 /hpf (0-5) H 09/22/17 08:28 Urine WBC 50-100 /hpf (0-5) H 09/22/17 08:28 Ur Epithelial Cells OCCASIONAL /lpf (FEW) 09/22/17 08:28 Urine Bacteria 1+ /hpf (NONE SEEN) H 09/22/17 08:28 Ur Random Sodium 37 mmol/L 09/20/17 17:13 Urine Creatinine 25.3 mg/dl 09/20/17 17:13 Urine Microalbumin 408 09/20/17 17:13 Microalb/Creat Ratio 1613 09/20/17 17:13 - Physical Exam Vitals and I&O: Vital Signs Temp 98.0 F 09/22/17 11:00 Pulse 79 09/22/17 11:00 Resp 18 09/22/17 11:00 BP 133/77 09/22/17 11:00 Pulse Ox 97 09/22/17 11:00 Intake & Output 09/21/17 09/22/17 09/22/17 18:59 06:59 18:59 Intake Total 600 1340 Output Total 800 Balance -200 1340 Weight (lbs) 167 lb 4.8 oz 167 lb 9.6 oz Intake: Intake, IV Amount 1000 D5-0.45NS 1,000 ml @ 80 1000 mls/hr IV .[id number] [facility] Rx #:[id number] Oral 600 340 Output: Urine 800 Other: # Voids 3 # Bowel Movements 1 0 Active Medications: Current Medications Acetaminophen (Tylenol) 650 mg PO Q4H PRN PRN Reason: Pain Or Fever above 101 Stop: 11/18/17 20:04 Last Admin: 09/20/17 22:17 Dose: 650 mg Amlodipine Besylate (Norvasc) 10 mg PO DAILY [facility] Stop: 11/19/17 08:59 Last Admin: 09/22/17 09:05 Dose: Not Given Clonidine HCl ([id number]-Ouk-5) 1 patch TD QSAT [facility] Stop: 11/21/17 13:29 Divalproex Sodium (Depakote Sprinkle) 125 mg PO Q12HR [facility] PRN Reason: Protocol Stop: 11/18/17 20:59 Last Admin: 09/22/17 09:07 Dose: Not Given Docusate Sodium (Colace) 100 mg PO BID [facility] Stop: 11/19/17 08:59 Last Admin: 09/22/17 09:08 Dose: Not Given Ferrous Sulfate (Iron) 325 mg PO DAILY [facility] Stop: 11/19/17 08:59 Last Admin: 09/22/17 09:08 Dose: Not Given Finasteride (Proscar) 5 mg PO DAILY [facility] PRN Reason: Protocol Stop: 11/19/17 08:59 Last Admin: 09/22/17 09:08 Dose: Not Given Guaifenesin (Robitussin) 200 mg PO Q4HR PRN PRN Reason: Cough or Congestion Stop: 11/18/17 20:04 Haloperidol Decanoate (Haldol Dec) 50 mg IM QMONTH [facility] PRN Reason: Protocol Stop: 11/18/17 20:14 Hydralazine HCl (Apresoline) 20 mg PO TID [facility] Stop: 11/19/17 15:23 Last Admin: 09/22/17 09:03 Dose: 20 mg Dextrose/Sodium Chloride (D5-0.45ns) 1,000 mls @ 80 mls/hr IV .[id number] [facility] Stop: 11/18/17 20:14 Last Admin: 09/22/17 01:52 Dose: 80 mls/hr Ipratropium [place] (Atrovent Neb 0.5mg/2.5ml) 0.5 mg IH QIDRT [facility] Stop: 11/19/17 06:59 Last Admin: 09/22/17 10:44 Dose: Not Given Isosorbide Dinitrate (Isordil) 10 mg PO TID [facility] Stop: 11/19/17 20:59 Last Admin: 09/22/17 09:04 Dose: 10 mg Magnesium Hydroxide (Milk Of Magnesia) 30 ml PO DAILY PRN PRN Reason: Constipation Stop: 11/18/17 20:00 Ondansetron HCl (Zofran) 4 mg IV Q8H PRN PRN Reason: Nausea / Vomiting Stop: 11/18/17 20:04 Pantoprazole Sodium (Protonix) 40 mg PO BID [facility] Stop: 11/19/17 08:59 Last Admin: 09/22/17 09:08 Dose: Not Given Risperidone (Risperdal) 1 mg PO BID [facility] PRN Reason: Protocol Stop: 11/20/17 16:59 Tamsulosin HCl (Flomax) 0.4 mg PO DAILY [facility] Stop: 11/19/17 08:59 Last Admin: 09/22/17 09:08 Dose: Not Given General: alert HEENT: NC/AT, PERRLA Neck: Supple Lungs: CTAB Cardiovascular: RRR, Normal S1, Normal S2, without murmur Abdomen: soft, non-tender, non-distended, positive bowel sound Neurological: alert Internal Medicine Assmt/Plan - Assessment Assessment: acute dehydration chronic kidney disease anemia hyponatremia mild protein calorie malnutrition non-compliant htn dyslipidemia dementia - Plan Plan: monitor bun/crea ivf for hydration nephro follow up continue current plan of care
--- NOTE | 2017-09-23 00:57 | Progress Notes ---
DATE: 09/22/2017 SUBJECTIVE: The patient was seen, discussed with staff. Still forgetful, paranoid, irritable at times, still suspicious; however, he is a little bit more compliant with his medications. His insight is still poor. ASSESSMENT: Schizophrenia, paranoid type. PLAN: Continue risperidone. Continue supportive measure. Consider inpatient hospitalization and we will increase risperidone gradually. JOB# [id number]
[2017-09-23] MEDS: Ipratropium Neb 0.5 mg/2.5 mL UD IH SCH ×2 (07:38→12:24)
[2017-09-23] MEDS: Ferrous Sulfate 325 MG TAB PO SCH (09:46)
[2017-09-23] MEDS: Multivitamin w/ Minerals Tab PO SCH (09:47)
[2017-09-23] MEDS: Pantoprazole 40 mg EC Tab PO SCH (09:47)
--- NOTE | 2017-09-23 13:46 | Internal Medicine Prog Note ---
Internal Medicine Subjective - Subjective Service Date: 09/23/17 (refusing labs this morning and ivf) Patient is:: awake Per staff patient has:: no adverse event, refusing care, refusing labs Internal Medicine Objective - Results Result Diagrams: 09/20/17 05:00 09/20/17 05:00 Recent Labs: Laboratory Last Values WBC 7.8 Th/cmm (4.8-10.8) 09/20/17 05:00 RBC 3.43 Mil/cmm (4.30-5.70) L 09/20/17 05:00 Hgb 10.1 gm/dL (12-16) L 09/20/17 05:00 Hct 30.0 % (41.0-60) L 09/20/17 05:00 MCV 87.6 fl (80-99) 09/20/17 05:00 MCH 29.4 pg (26.0-30.0) 09/20/17 05:00 MCHC Differential 33.5 pg (28.0-36.0) 09/20/17 05:00 RDW 12.4 % (11.5-20.0) 09/20/17 05:00 Plt Count 360 Th/cmm (150-400) 09/20/17 05:00 MPV 7.2 fl 09/20/17 05:00 Neutrophils % 68.9 % (40.0-80.0) 09/20/17 05:00 Lymphocytes % 18.9 % (20.0-50.0) L 09/20/17 05:00 Monocytes % 8.1 % (2.0-10.0) 09/20/17 05:00 Eosinophils % 3.2 % (0.0-5.0) 09/20/17 05:00 Basophils % 0.9 % (0.0-2.0) 09/20/17 05:00 Eos Smear Source URINE 09/20/17 17:13 Eos Smear Total Cells NONE SEEN (NONE SEEN) 09/20/17 17:13 PT 9.9 SECONDS (9.5-11.5) 09/19/17 18:40 INR 0.95 (0.5-1.4) 09/19/17 18:40 Sodium 138 mEq/L (136-145) 09/20/17 05:00 Potassium 3.8 mEq/L (3.5-5.1) 09/20/17 05:00 Chloride 109 mEq/L (98-107) H 09/20/17 05:00 Carbon Dioxide 18.4 mEq/L (21.0-31.0) L 09/20/17 05:00 Anion Gap 14.4 (7.0-16.0) 09/20/17 05:00 BUN 65 mg/dL (7-25) H 09/20/17 05:00 Creatinine 6.0 mg/dL (0.7-1.3) H* 09/20/17 05:00 Est GFR ( Amer) 12.3 ml/min (>90) 09/20/17 05:00 Est GFR (Non-Af Amer) 10.1 ml/min 09/20/17 05:00 BUN/Creatinine Ratio 10.8 09/20/17 05:00 Glucose 95 mg/dL (70-105) 09/20/17 05:00 Calcium 9.1 mg/dL (8.6-10.3) 09/20/17 05:00 Iron 67 ug/dL (38-169) 09/20/17 05:00 TIBC 232 ug/dL (250-450) L 09/20/17 05:00 Iron Saturation 29 % (15-55) 09/20/17 05:00 Unsaturated IBC 165 ug/dL (111-343) 09/20/17 05:00 Ferritin 77 ng/mL (30-400) 09/20/17 05:00 Total Bilirubin 0.2 mg/dL (0.3-1.0) L 09/19/17 18:40 AST 10 U/L (13-39) L 09/19/17 18:40 ALT 6 U/L (7-52) L 09/19/17 18:40 Alkaline Phosphatase 68 U/L (34-104) 09/19/17 18:40 Ammonia 46 umol/L (16-53) 09/20/17 05:00 Creatine Kinase 93 U/L (30-223) 09/19/17 18:40 Troponin I 0.01 ng/mL (0.01-0.05) 09/19/17 18:40 B-Natriuretic Peptide 91.3 pg/mL (5.0-100.0) 09/19/17 18:40 Total Protein 7.4 gm/dL (6.0-8.3) 09/19/17 18:40 Albumin 3.9 gm/dL (4.2-5.5) L 09/19/17 18:40 Globulin 3.5 gm/dL 09/19/17 18:40 Albumin/Globulin Ratio 1.1 (1.0-1.8) 09/19/17 18:40 Triglycerides 94 mg/dL (<150) 09/19/17 18:40 Cholesterol 163 mg/dL (<200) 09/19/17 18:40 LDL Cholesterol Direct 101 mg/dL (75-193) 09/19/17 18:40 HDL Cholesterol 58 mg/dL (23-92) 09/19/17 18:40 Vitamin B12 688 pg/mL (232-1245) 09/20/17 05:00 Folic Acid 11.8 ng/mL (>3.0) 09/20/17 05:00 TSH 1.56 uIU/ml (0.34-5.60) 09/20/17 05:00 Urine Source CLEAN C 09/22/17 08:28 Urine Color STRAW 09/22/17 08:28 Urine Clarity HAZY (CLEAR) 09/22/17 08:28 Urine pH 6.0 (4.6 - 8.0) 09/22/17 08:28 Ur Specific [place] 1.015 (1.005-1.030) 09/22/17 08:28 Urine Protein 100 mg/dL (NEGATIVE) H 09/22/17 08:28 Urine Glucose (UA) NEGATIVE mg/dL (NEGATIVE) 09/22/17 08:28 Urine Ketones NEGATIVE mg/dL (NEGATIVE) 09/22/17 08:28 Urine Blood SMALL (NEGATIVE) H 09/22/17 08:28 Urine Nitrate NEGATIVE (NEGATIVE) 09/22/17 08:28 Urine Bilirubin NEGATIVE (NEGATIVE) 09/22/17 08:28 Urine Urobilinogen 0.2 E.U./dL (0.2 - 1.0) 09/22/17 08:28 Ur Leukocyte Esterase LARGE (NEGATIVE) H 09/22/17 08:28 Urine RBC 2-5 /hpf (0-5) H 09/22/17 08:28 Urine WBC 50-100 /hpf (0-5) H 09/22/17 08:28 Ur Epithelial Cells OCCASIONAL /lpf (FEW) 09/22/17 08:28 Urine Bacteria 1+ /hpf (NONE SEEN) H 09/22/17 08:28 Ur Random Sodium 37 mmol/L 09/20/17 17:13 Urine Creatinine 25.3 mg/dl 09/20/17 17:13 Urine Microalbumin 408 09/20/17 17:13 Microalb/Creat Ratio 1613 09/20/17 17:13 - Physical Exam Vitals and I&O: Vital Signs Temp 97.5 F 09/23/17 04:00 Pulse 66 09/23/17 09:47 Resp 18 09/23/17 12:00 BP 158/98 09/23/17 09:47 Pulse Ox 98 09/23/17 08:00 Intake & Output 09/22/17 09/23/17 09/23/17 18:59 06:59 18:59 Intake Total 800 Balance 800 Weight (lbs) 167 lb 9.6 oz Intake: Oral 800 Other: # Voids 3 # Bowel Movements 0 Active Medications: Current Medications Acetaminophen (Tylenol) 650 mg PO Q4H PRN PRN Reason: Pain Or Fever above 101 Stop: 11/18/17 20:04 Last Admin: 09/20/17 22:17 Dose: 650 mg Amlodipine Besylate (Norvasc) 10 mg PO DAILY [facility] Stop: 11/19/17 08:59 Last Admin: 09/23/17 09:46 Dose: Not Given Clonidine HCl ([id number]-5) 1 patch TD QSAT [facility] Stop: 11/21/17 13:29 Last Admin: 09/22/17 16:08 Dose: Not Given Divalproex Sodium (Depakote Sprinkle) 125 mg PO Q12HR [facility] PRN Reason: Protocol Stop: 11/18/17 20:59 Last Admin: 09/23/17 09:46 Dose: Not Given Docusate Sodium (Colace) 100 mg PO BID [facility] Stop: 11/19/17 08:59 Last Admin: 09/23/17 09:46 Dose: Not Given Ferrous Sulfate (Iron) 325 mg PO DAILY [facility] Stop: 11/19/17 08:59 Last Admin: 09/23/17 09:46 Dose: Not Given Finasteride (Proscar) 5 mg PO DAILY [facility] PRN Reason: Protocol Stop: 11/19/17 08:59 Last Admin: 09/23/17 10:15 Dose: Not Given Guaifenesin (Robitussin) 200 mg PO Q4HR PRN PRN Reason: Cough or Congestion Stop: 11/18/17 20:04 Haloperidol Decanoate (Haldol Dec) 50 mg IM QMONTH [facility] PRN Reason: Protocol Stop: 11/18/17 20:14 Hydralazine HCl (Apresoline) 20 mg PO TID [facility] Stop: 11/19/17 15:23 Last Admin: 09/23/17 09:46 Dose: Not Given Dextrose/Sodium Chloride (D5-0.45ns) 1,000 mls @ 80 mls/hr IV .[id number] [facility] Stop: 11/18/17 20:14 Last Admin: 09/22/17 01:52 Dose: 80 mls/hr Ipratropium [place] (Atrovent Neb 0.5mg/2.5ml) 0.5 mg IH QIDRT [facility] Stop: 11/19/17 06:59 Last Admin: 09/23/17 12:24 Dose: Not Given Isosorbide Dinitrate (Isordil) 10 mg PO TID [facility] Stop: 11/19/17 20:59 Last Admin: 09/23/17 09:47 Dose: Not Given Magnesium Hydroxide (Milk Of Magnesia) 30 ml PO DAILY PRN PRN Reason: Constipation Stop: 11/18/17 20:00 Ondansetron HCl (Zofran) 4 mg IV Q8H PRN PRN Reason: Nausea / Vomiting Stop: 11/18/17 20:04 Pantoprazole Sodium (Protonix) 40 mg PO BID [facility] Stop: 11/19/17 08:59 Last Admin: 09/23/17 09:47 Dose: Not Given Risperidone (Risperdal) 1 mg PO BID [facility] PRN Reason: Protocol Stop: 11/20/17 16:59 Tamsulosin HCl (Flomax) 0.4 mg PO DAILY [facility] Stop: 11/19/17 08:59 Last Admin: 09/23/17 09:47 Dose: Not Given General: alert HEENT: NC/AT, PERRLA Neck: Supple Lungs: CTAB Cardiovascular: RRR, Normal S1, Normal S2, without murmur Abdomen: soft, non-tender, non-distended, positive bowel sound Neurological: alert Internal Medicine Assmt/Plan - Assessment Assessment: acute dehydration chronic kidney disease anemia hyponatremia mild protein calorie malnutrition non-compliant htn dyslipidemia dementia - Plan Plan: monitor bun/crea ivf for hydration nephro follow up continue current plan of care
--- NOTE | 2017-09-23 15:21 | General Progress Note ---
Subjective - Review of Systems Service Date: 09/23/17 Subjective: alert, ambulating, refusing some meds, remains uncooperative Objective - Results Result Diagrams: 09/20/17 05:00 09/20/17 05:00 Recent Labs: Laboratory Last Values WBC 7.8 Th/cmm (4.8-10.8) 09/20/17 05:00 RBC 3.43 Mil/cmm (4.30-5.70) L 09/20/17 05:00 Hgb 10.1 gm/dL (12-16) L 09/20/17 05:00 Hct 30.0 % (41.0-60) L 09/20/17 05:00 MCV 87.6 fl (80-99) 09/20/17 05:00 MCH 29.4 pg (26.0-30.0) 09/20/17 05:00 MCHC Differential 33.5 pg (28.0-36.0) 09/20/17 05:00 RDW 12.4 % (11.5-20.0) 09/20/17 05:00 Plt Count 360 Th/cmm (150-400) 09/20/17 05:00 MPV 7.2 fl 09/20/17 05:00 Neutrophils % 68.9 % (40.0-80.0) 09/20/17 05:00 Lymphocytes % 18.9 % (20.0-50.0) L 09/20/17 05:00 Monocytes % 8.1 % (2.0-10.0) 09/20/17 05:00 Eosinophils % 3.2 % (0.0-5.0) 09/20/17 05:00 Basophils % 0.9 % (0.0-2.0) 09/20/17 05:00 Eos Smear Source URINE 09/20/17 17:13 Eos Smear Total Cells NONE SEEN (NONE SEEN) 09/20/17 17:13 PT 9.9 SECONDS (9.5-11.5) 09/19/17 18:40 INR 0.95 (0.5-1.4) 09/19/17 18:40 Sodium 138 mEq/L (136-145) 09/20/17 05:00 Potassium 3.8 mEq/L (3.5-5.1) 09/20/17 05:00 Chloride 109 mEq/L (98-107) H 09/20/17 05:00 Carbon Dioxide 18.4 mEq/L (21.0-31.0) L 09/20/17 05:00 Anion Gap 14.4 (7.0-16.0) 09/20/17 05:00 BUN 65 mg/dL (7-25) H 09/20/17 05:00 Creatinine 6.0 mg/dL (0.7-1.3) H* 09/20/17 05:00 Est GFR ( Amer) 12.3 ml/min (>90) 09/20/17 05:00 Est GFR (Non-Af Amer) 10.1 ml/min 09/20/17 05:00 BUN/Creatinine Ratio 10.8 09/20/17 05:00 Glucose 95 mg/dL (70-105) 09/20/17 05:00 Calcium 9.1 mg/dL (8.6-10.3) 09/20/17 05:00 Iron 67 ug/dL (38-169) 09/20/17 05:00 TIBC 232 ug/dL (250-450) L 09/20/17 05:00 Iron Saturation 29 % (15-55) 09/20/17 05:00 Unsaturated IBC 165 ug/dL (111-343) 09/20/17 05:00 Ferritin 77 ng/mL (30-400) 09/20/17 05:00 Total Bilirubin 0.2 mg/dL (0.3-1.0) L 09/19/17 18:40 AST 10 U/L (13-39) L 09/19/17 18:40 ALT 6 U/L (7-52) L 09/19/17 18:40 Alkaline Phosphatase 68 U/L (34-104) 09/19/17 18:40 Ammonia 46 umol/L (16-53) 09/20/17 05:00 Creatine Kinase 93 U/L (30-223) 09/19/17 18:40 Troponin I 0.01 ng/mL (0.01-0.05) 09/19/17 18:40 B-Natriuretic Peptide 91.3 pg/mL (5.0-100.0) 09/19/17 18:40 Total Protein 7.4 gm/dL (6.0-8.3) 09/19/17 18:40 Albumin 3.9 gm/dL (4.2-5.5) L 09/19/17 18:40 Globulin 3.5 gm/dL 09/19/17 18:40 Albumin/Globulin Ratio 1.1 (1.0-1.8) 09/19/17 18:40 Triglycerides 94 mg/dL (<150) 09/19/17 18:40 Cholesterol 163 mg/dL (<200) 09/19/17 18:40 LDL Cholesterol Direct 101 mg/dL (75-193) 09/19/17 18:40 HDL Cholesterol 58 mg/dL (23-92) 09/19/17 18:40 Vitamin B12 688 pg/mL (232-1245) 09/20/17 05:00 Folic Acid 11.8 ng/mL (>3.0) 09/20/17 05:00 TSH 1.56 uIU/ml (0.34-5.60) 09/20/17 05:00 Urine Source CLEAN C 09/22/17 08:28 Urine Color STRAW 09/22/17 08:28 Urine Clarity HAZY (CLEAR) 09/22/17 08:28 Urine pH 6.0 (4.6 - 8.0) 09/22/17 08:28 Ur Specific [place] 1.015 (1.005-1.030) 09/22/17 08:28 Urine Protein 100 mg/dL (NEGATIVE) H 09/22/17 08:28 Urine Glucose (UA) NEGATIVE mg/dL (NEGATIVE) 09/22/17 08:28 Urine Ketones NEGATIVE mg/dL (NEGATIVE) 09/22/17 08:28 Urine Blood SMALL (NEGATIVE) H 09/22/17 08:28 Urine Nitrate NEGATIVE (NEGATIVE) 09/22/17 08:28 Urine Bilirubin NEGATIVE (NEGATIVE) 09/22/17 08:28 Urine Urobilinogen 0.2 E.U./dL (0.2 - 1.0) 09/22/17 08:28 Ur Leukocyte Esterase LARGE (NEGATIVE) H 09/22/17 08:28 Urine RBC 2-5 /hpf (0-5) H 09/22/17 08:28 Urine WBC 50-100 /hpf (0-5) H 09/22/17 08:28 Ur Epithelial Cells OCCASIONAL /lpf (FEW) 09/22/17 08:28 Urine Bacteria 1+ /hpf (NONE SEEN) H 09/22/17 08:28 Ur Random Sodium 37 mmol/L 09/20/17 17:13 Urine Creatinine 25.3 mg/dl 09/20/17 17:13 Urine Microalbumin 408 09/20/17 17:13 Microalb/Creat Ratio 1613 09/20/17 17:13 - Physical Exam Vitals and I&O: Vital Signs Temp 97.5 F 09/23/17 04:00 Pulse 66 09/23/17 09:47 Resp 18 09/23/17 12:00 BP 158/98 09/23/17 09:47 Pulse Ox 98 09/23/17 08:00 Intake & Output 09/22/17 09/23/17 09/23/17 18:59 06:59 18:59 Intake Total 800 Balance 800 Weight (lbs) 76.022 kg Intake: Oral 800 Other: # Voids 3 # Bowel Movements 0 Active Medications: Current Medications Acetaminophen (Tylenol) 650 mg PO Q4H PRN PRN Reason: Pain Or Fever above 101 Stop: 11/18/17 20:04 Last Admin: 09/20/17 22:17 Dose: 650 mg Amlodipine Besylate (Norvasc) 10 mg PO DAILY [facility] Stop: 11/19/17 08:59 Last Admin: 09/23/17 09:46 Dose: Not Given Clonidine HCl (Ugoehcmz-Mfm-9) 1 patch TD QSAT [facility] Stop: 11/21/17 13:29 Last Admin: 09/22/17 16:08 Dose: Not Given Divalproex Sodium (Depakote Sprinkle) 125 mg PO Q12HR [facility] PRN Reason: Protocol Stop: 11/18/17 20:59 Last Admin: 09/23/17 09:46 Dose: Not Given Docusate Sodium (Colace) 100 mg PO BID [facility] Stop: 11/19/17 08:59 Last Admin: 09/23/17 09:46 Dose: Not Given Ferrous Sulfate (Iron) 325 mg PO DAILY [facility] Stop: 11/19/17 08:59 Last Admin: 09/23/17 09:46 Dose: Not Given Finasteride (Proscar) 5 mg PO DAILY [facility] PRN Reason: Protocol Stop: 11/19/17 08:59 Last Admin: 09/23/17 10:15 Dose: Not Given Guaifenesin (Robitussin) 200 mg PO Q4HR PRN PRN Reason: Cough or Congestion Stop: 11/18/17 20:04 Haloperidol Decanoate (Haldol Dec) 50 mg IM QMONTH [facility] PRN Reason: Protocol Stop: 11/18/17 20:14 Hydralazine HCl (Apresoline) 20 mg PO TID [facility] Stop: 11/19/17 15:23 Last Admin: 09/23/17 09:46 Dose: Not Given Dextrose/Sodium Chloride (D5-0.45ns) 1,000 mls @ 80 mls/hr IV .[id number] [facility] Stop: 11/18/17 20:14 Last Admin: 09/22/17 01:52 Dose: 80 mls/hr Ipratropium [place] (Atrovent Neb 0.5mg/2.5ml) 0.5 mg IH QIDRT [facility] Stop: 11/19/17 06:59 Last Admin: 09/23/17 12:24 Dose: Not Given Isosorbide Dinitrate (Isordil) 10 mg PO TID [facility] Stop: 11/19/17 20:59 Last Admin: 09/23/17 09:47 Dose: Not Given Magnesium Hydroxide (Milk Of Magnesia) 30 ml PO DAILY PRN PRN Reason: Constipation Stop: 11/18/17 20:00 Ondansetron HCl (Zofran) 4 mg IV Q8H PRN PRN Reason: Nausea / Vomiting Stop: 11/18/17 20:04 Pantoprazole Sodium (Protonix) 40 mg PO BID [facility] Stop: 11/19/17 08:59 Last Admin: 09/23/17 09:47 Dose: Not Given Risperidone (Risperdal) 1 mg PO BID [facility] PRN Reason: Protocol Stop: 11/20/17 16:59 Tamsulosin HCl (Flomax) 0.4 mg PO DAILY [facility] Stop: 11/19/17 08:59 Last Admin: 09/23/17 09:47 Dose: Not Given General: Alert, No acute distress HEENT: Atraumatic Neck: Supple, +2 carotid pulse wo bruit Cardiovascular: Regular rate, Normal S1, Normal S2 Lungs: Clear to auscultation Abdomen: Bowel sounds, Soft Extremities: no Edema Neurological: Sensation intact Skin: no Rash Psych/Mental Status: Other (psychotic) Assessment/Plan - Assessment Assessment: KARLEE on CKD BPH B/L Hydronephrosis/Disrended bladder Paranoid Schizo Ess Htn Anemia of CKD - Plan Plan: Lab - Result Diagrams 09/20/17 05:00 09/20/17 05:00 Current Medications Acetaminophen (Tylenol) 650 mg PO Q4H PRN PRN Reason: Pain Or Fever above 101 Stop: 11/18/17 20:04 Last Admin: 09/20/17 22:17 Dose: 650 mg Albuterol Sulfate (Albuterol 2.5mg/3ml Neb Ud) 2.5 mg HHN QIDRT [facility] Stop: 11/19/17 06:59 Last Admin: 09/21/17 12:35 Dose: Not Given Amlodipine Besylate (Norvasc) 10 mg PO DAILY [facility] Stop: 11/19/17 08:59 Last Admin: 09/21/17 09:16 Dose: Not Given Clonidine HCl (Qftaescy-Lmj-5) 1 patch TD [facility] Stop: 11/24/17 14:21 Divalproex Sodium (Depakote Sprinkle) 125 mg PO Q12HR [facility] PRN Reason: Protocol Stop: 11/18/17 20:59 Last Admin: 09/21/17 09:16 Dose: Not Given Docusate Sodium (Colace) 100 mg PO BID [facility] Stop: 11/19/17 08:59 Last Admin: 09/21/17 09:17 Dose: Not Given Ferrous Sulfate (Iron) 325 mg PO DAILY [facility] Stop: 11/19/17 08:59 Last Admin: 09/21/17 09:17 Dose: Not Given Finasteride (Proscar) 5 mg PO DAILY [facility] PRN Reason: Protocol Stop: 11/19/17 08:59 Last Admin: 09/21/17 09:17 Dose: Not Given Guaifenesin (Robitussin) 200 mg PO Q4HR PRN PRN Reason: Cough or Congestion Stop: 11/18/17 20:04 Haloperidol Decanoate (Haldol Dec) 50 mg IM QMONTH [facility] PRN Reason: Protocol Stop: 11/18/17 20:14 Hydralazine HCl (Apresoline) 20 mg PO TID [facility] Stop: 11/19/17 15:23 Last Admin: 09/21/17 14:01 Dose: Not Given Dextrose/Sodium Chloride (D5-0.45ns) 1,000 mls @ 80 mls/hr IV .[id number] [facility] Stop: 11/18/17 20:14 Last Admin: 09/21/17 11:19 Dose: 80 mls/hr Ipratropium [place] (Atrovent Neb 0.5mg/2.5ml) 0.5 mg IH QIDRT [facility] Stop: 11/19/17 06:59 Last Admin: 09/21/17 12:35 Dose: Not Given Isosorbide Dinitrate (Isordil) 10 mg PO TID [facility] Stop: 11/19/17 20:59 Last Admin: 09/21/17 14:02 Dose: Not Given Magnesium Hydroxide (Milk Of Magnesia) 30 ml PO DAILY PRN PRN Reason: Constipation Stop: 11/18/17 20:00 Ondansetron HCl (Zofran) 4 mg IV Q8H PRN PRN Reason: Nausea / Vomiting Stop: 11/18/17 20:04 Pantoprazole Sodium (Protonix) 40 mg PO BID [facility] Stop: 11/19/17 08:59 Last Admin: 09/21/17 09:18 Dose: Not Given Risperidone (Risperdal) 1 mg PO BID [facility] PRN Reason: Protocol Stop: 11/20/17 16:59 Tamsulosin HCl (Flomax) 0.4 mg PO DAILY [facility] Stop: 11/19/17 08:59 Last Admin: 09/21/17 09:18 Dose: Not Given Pt. continued to refuse some meds, catapres patch wkly refused [place] cath stated that he is urinating possible transfer to [facility]
--- NOTE | 2017-11-23 00:14 | Discharge Summary ---
DATE OF DISCHARGE: 09/23/[address] Ankit Sanchez. HISTORY OF PRESENT ILLNESS: This is a 62-year-old male, who is a resident of [facility], who was admitted due to low urine output as well as elevated BUN and creatinine. PHYSICAL EXAMINATION: GENERAL: The patient is well developed, well nourished, no acute distress. VITAL SIGNS: Stable. HEENT: Head normocephalic, atraumatic. NECK: Supple. No mass. LUNGS: Clear bilaterally. ABDOMEN: Soft, nontender. HOSPITAL COURSE: During the hospital stay, the patient was admitted to the telemetry unit. The patient had Nephrology on the case. The patient was kept on aggressive IV fluids for hydration. We are monitoring the patient's BUN and creatinine daily. The patient also had a consultation with psychiatrist as well as Nephrology on the case. Nephrology's plan of care for this patient was to do a bilateral renal ultrasound and the impression was hydronephrosis, renal cyst and distended bladder. Unfortunately, the patient refused to placement of [place] catheter because he stated that he goes to the bathroom and has adequate urine output. The patient refuses medications during the hospital stay as well. The patient was kept on IV fluids for hydration. The patient was seen by psychiatrist and the patient was medically cleared. The patient has been noncompliant during the acute stay. For this reason, it was then decided for patient to be transferred to the Geropsych unit. CONDITION UPON DISCHARGE: Fair. DISPOSITION: Geropsych unit. JOB# [id number]
== END 2017-09-23 16:30 | DRG 682 ==
LOC: ER 18:09 → TELE 20:00
PROVIDERS: ADMIT Internal Medicine; ATTEND Internal Medicine
DX: I12.0 Hypertensive chronic kidney disease with stage 5 chronic kidney disease or end stage renal disease (principal); N18.6 End stage renal disease; N17.9 Acute kidney failure, unspecified; F03.90 Unspecified dementia, unspecified severity, without behavioral disturbance, psychotic disturbance, mood disturbance, and anxiety; E44.1 Mild protein-calorie malnutrition; E87.1 Hypo-osmolality and hyponatremia; F20.0 Paranoid schizophrenia; N13.30 Unspecified hydronephrosis; E86.0 Dehydration; D64.9 Anemia, unspecified; E78.5 Hyperlipidemia, unspecified; N40.0 Benign prostatic hyperplasia without lower urinary tract symptoms; N28.1 Cyst of kidney, acquired; D63.1 Anemia in chronic kidney disease; M47.9 Spondylosis, unspecified; F31.9 Bipolar disorder, unspecified; K21.9 Gastro-esophageal reflux disease without esophagitis; N32.89 Other specified disorders of bladder; Z68.24 Body mass index [BMI] 24.0-24.9, adult; Z88.0 Allergy status to penicillin; Z88.8 Allergy status to other drugs, medicaments and biological substances; Z83.3 Family history of diabetes mellitus; Z82.49 Family history of ischemic heart disease and other diseases of the circulatory system; Z91.19 Patient's noncompliance with other medical treatment and regimen
CPT/HCPCS: 36415-UA; 76770-TC; 80048-TC; 80053-TC; 80061-TC; 81001-TC; 81015-TC; 82043-90; 82140-TC; 82550-TC; 82570-TC; 82607-90; 82728-90; 82746-90; 83540-90; 83550-90; 83880-TC; 84300-TC; 84443-TC; 84484-TC; 85025-TC; 85610-TC; 87086-90; 90779; 93005; 94760; J1200; J1630; J1631; J2060; J7613; Z7610

== ENCOUNTER 2017-09-23 16:46 | Inpatient (IN) | payer MEDICARE, MEDICAID ==
[2017-09-23] MEDS ORDERED: Maalox 30 mL Cup PO PRN (17:03)
[2017-09-23] MEDS ORDERED: Magnesium Hydroxide (MOM) 30 mL UDC PO PRN ×2 (17:03→17:06)
[2017-09-23] MEDS ORDERED: guaiFENesin 200 MG/10 ML UDC PO PRN (17:06)
[2017-09-23] MEDS ORDERED: cloNIDine 0.1 mg/24 hr Tdm TD SCH (17:15)
[2017-09-23 18:28] VITALS: BP 151/91
--- NOTE | 2017-09-23 20:25 | Progress Notes ---
DATE: 09/23/2017 SUBJECTIVE: The patient was seen, chart reviewed, discussed with staff. Still irritable, guarded, still have some paranoia and grandiosity, but he is taking his medications more consistently. The patient's sleep is fair. Insight still limited. ASSESSMENT: Schizophrenia, paranoid type. PLAN: Continue medication management. Continue risperidone. Continue to monitor closely. JOB# [id number]
[2017-09-24] MEDS: Pantoprazole 40 mg EC Tab PO SCH ×2 (08:53→17:29)
[2017-09-24] MEDS: Ferrous Sulfate 325 MG TAB PO SCH (08:53)
[2017-09-24] MEDS: Multivitamin w/ Minerals Tab PO SCH (08:54)
[2017-09-24] MEDS ORDERED: Multivitamin Tab PO SCH (09:00)
--- NOTE | 2017-09-24 11:56 | Internal Medicine Prog Note ---
Internal Medicine Subjective - Subjective Service Date: 09/24/17 Patient seen and examined:: with staff Patient is:: awake, verbal, talking Per staff patient has:: tolerating meds Internal Medicine Objective - Physical Exam Vitals and I&O: Vital Signs Temp 98.2 F 09/23/17 18:35 Pulse 78 09/23/17 18:35 Resp 18 09/23/17 18:35 BP 151/91 09/23/17 18:35 Pulse Ox 97 09/23/17 18:35 Active Medications: Current Medications Acetaminophen (Tylenol) 650 mg PO Q4H PRN PRN Reason: Pain Or Fever above 101 Stop: 11/22/17 17:05 Al Hydrox/Mg Hydrox/Simethicone (Maalox) 30 ml PO Q4HR PRN PRN Reason: GI DISTRESS Stop: 11/22/17 17:02 Amlodipine Besylate (Norvasc) 10 mg PO DAILY [facility] Stop: 11/23/17 08:59 Last Admin: 09/24/17 08:59 Dose: Not Given Clonidine HCl (Yxrrdvza-Ylm-0) 1 patch TD QSAT [facility] Stop: 11/22/17 17:14 Divalproex Sodium (Depakote Sprinkle) 125 mg PO Q12HR [facility] PRN Reason: Protocol Stop: 11/22/17 20:59 Last Admin: 09/24/17 08:54 Dose: Not Given Docusate Sodium (Colace) 100 mg PO BID [facility] Stop: 11/23/17 08:59 Last Admin: 09/24/17 08:53 Dose: Not Given Ferrous Sulfate (Iron) 325 mg PO DAILY [facility] Stop: 11/23/17 08:59 Last Admin: 09/24/17 08:53 Dose: Not Given Finasteride (Proscar) 5 mg PO DAILY [facility] PRN Reason: Protocol Stop: 11/23/17 08:59 Last Admin: 09/24/17 08:53 Dose: Not Given Guaifenesin (Robitussin) 200 mg PO Q4HR PRN PRN Reason: Cough or Congestion Stop: 11/22/17 17:05 Haloperidol (Haldol) 5 mg PO BID [facility] PRN Reason: Protocol Stop: 11/23/17 08:59 Last Admin: 09/24/17 08:54 Dose: Not Given Haloperidol Decanoate (Haldol Dec) 50 mg IM QMONTH [facility] PRN Reason: Protocol Stop: 11/22/17 17:14 Hydralazine HCl (Apresoline) 20 mg PO TID [facility] Stop: 11/22/17 20:59 Last Admin: 09/24/17 08:59 Dose: Not Given Ipratropium [place] (Atrovent Neb 0.5mg/2.5ml) 0.5 mg HHN QIDRT [facility] Stop: 11/22/17 18:59 Isosorbide Dinitrate (Isordil) 10 mg PO TID [facility] Stop: 11/22/17 20:59 Last Admin: 09/24/17 09:00 Dose: Not Given Lorazepam (Ativan) 0.5 mg PO Q4HR PRN; Protocol PRN Reason: Anxiety Stop: 10/23/17 17:02 Magnesium Hydroxide (Milk Of Magnesia) 30 ml PO HS PRN PRN Reason: Constipation Magnesium Hydroxide (Milk Of Magnesia) 30 ml PO DAILY PRN PRN Reason: Constipation Stop: 11/22/17 17:05 Pantoprazole Sodium (Protonix) 40 mg PO BID [facility] Stop: 11/23/17 08:59 Last Admin: 09/24/17 08:53 Dose: Not Given Risperidone (Risperdal) 1 mg PO BID [facility] PRN Reason: Protocol Stop: 11/23/17 08:59 Last Admin: 09/24/17 08:53 Dose: Not Given Tamsulosin HCl (Flomax) 0.4 mg PO DAILY [facility] Stop: 11/23/17 08:59 Last Admin: 09/24/17 08:53 Dose: Not Given Zolpidem Tartrate (Ambien) 5 mg PO HSMR1 PRN PRN Reason: Insomnia Stop: 11/22/17 17:02 General: alert HEENT: NC/AT, PERRLA Neck: Supple Lungs: CTAB Cardiovascular: RRR, Normal S1, Normal S2, without murmur Neurological: alert Internal Medicine Assmt/Plan - Assessment Assessment: chronic kidney disease anemia hyponatremia mild protein calorie malnutrition non-compliant htn dyslipidemia dementia - Plan Plan: encourage fluids monitor BP continue current orders
--- NOTE | 2017-09-24 23:20 | Consultation ---
DATE OF CONSULTATION: 09/24/2017 REQUESTING PHYSICIAN: Erlinda Dorsey MD. TYPE OF CONSULTATION: Psychology. HISTORY OF PRESENT ILLNESS: The following is by review of the medical record as well as by the patient's self report. 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 According to record review, the patient is a 61-year-old male who has a history of chronic paranoid schizophrenia. The patient was first admitted to the medical floor and during that admission, the patient was seen by Dr. Dorsey for medication management and psychiatric evaluation. At that time, the patient was refusing all medications and refusing care. However, at the time of this clinical interview, the patient states that he is taking his medications. Staff corroborates this. The patient admits to still having auditory hallucinations. He denied any suicidal ideation, plan, or intention. The patient states he wants to discharge and return to his senior living facility. PAST PSYCHIATRIC HISTORY: The patient has multiple previous hospitalizations. The patient has a history of schizophrenia, paranoid type. The patient is under the care of a psychiatrist at his facility. PAST MEDICAL HISTORY: Please see history and physical. SUBSTANCE ABUSE HISTORY: The patient denied any history. PSYCHOSOCIAL HISTORY: The patient resides at a senior living facility. The patient did not answer questions about occupational history, educational history, or jehovah's witness affiliation as well as any information about family members or first degree biological relatives. CURRENT MEDICATIONS: Please see medication reconciliation. ALLERGIES: No known allergies. MENTAL STATUS EXAMINATION: The patient appears to be his stated age. The patient's attitude is superficially cooperative. Eye contact is poor. Mood is mildly irritable. Affect is blunted. The patient is guarded and somewhat suspicious. Sensorium is oriented to person and place, but not date or time. He knows he is in the hospital, but is unable to name this facility. The patient admits to auditory hallucinations, denies visual hallucinations. He denies any suicidal or homicidal ideation. The patient's behavior has been intermittently reluctant to stay compliant with his care and treatment plan. Impulse control is poor. Concentration is poor. The patient was unable to perform serial 3 subtractions. The patient did not perform the memory evaluation. Immediate and short term memory appeared to be impaired. Long-term memory needs further evaluation. The patient did not participate in any other clinical questions with respect to proverbs. Insight is poor. Judgment is compromised. DIAGNOSTIC IMPRESSION: AXIS I: History of schizophrenia, paranoid type, in acute exacerbation. AXIS II: Deferred. AXIS III: Please see history and physical. PLAN: The patient was transferred from the medical floor and admitted here on the geropsychiatric unit. The patient has been followed by Dr. Dorsey for the management of the patient's psychotropic medications. The patient's Haldol is being discontinued and the patient is now being compliant with Risperdal 1 mg p.o. b.i.d. We will continue to provide Motivational enhancement and positive reinforcement for the patient to stay compliant with all aspects of his care and treatment. We will provide reality orientation, reality integration, and also provide coping strategies for chronic severe mental illness. We will continue to monitor the patient closely. Thank you, Dr. Dorsey, for this consult and the opportunity to participate with you in this patient's care. [facility]# [id number] [facility]ITAL[facility]ayath[facility]
--- NOTE | 2017-09-25 02:07 | Psychosocial Evaluation ---
DATE OF SERVICE: 09/24/2017 CHIEF COMPLAINT: "I am fine." HISTORY OF PRESENT ILLNESS: The patient is a 61-year-old male with chronic history of schizophrenia. He was on medical floor, now transferred to geropsychiatric unit because of increased paranoid, talking to himself, refusing medications, refusing care off and on. The patient has been restless at times, becomes irritable. The patient did not make any rationale for changes and not taking his medication. Initially, he was on Haldol, said he wanted to be on risperidone, which he has taken in the past and now his complies is an issue. PAST PSYCHIATRIC HISTORY: Prior hospitalizations, history of chronic mental illness. PAST MEDICAL HISTORY: Refer to [facility]. Patient with chronic kidney problems and BPH. PSYCHOSOCIAL HISTORY: The patient resides in a retirement facility, requires complete care. MENTAL STATUS EXAMINATION: The patient is slightly disheveled, makes fair eye contact. Speech is monotonous. He is oriented to person being in the hospital and approximate time, but not to exact date. The patient is guarded, paranoid, suspicious, appears to be responding to internal stimuli, appears to be hallucinating, talking to himself. PATIENT'S STRENGTHS: The patient is passively accepting treatments. PATIENT'S WEAKNESSES: Lack of compliance and poor insight. ASSESSMENT: Schizophrenia, paranoid type. MEDICAL: As medical history, stressors severe. PLAN: We will admit the patient for hospitalization. We will start individual and group therapy to assess psychopharmacological intervention. ESTIMATED LENGTH OF STAY: 7 days. CRITERIA FOR DISCHARGE: Improved condition. No psychosis, safe disposition, and outpatient treatment plan. [facility]# [id number]
[2017-09-25] MEDS: Ferrous Sulfate 325 MG TAB PO SCH (09:19)
[2017-09-25] MEDS: Multivitamin w/ Minerals Tab PO SCH (09:20)
[2017-09-25] MEDS: Pantoprazole 40 mg EC Tab PO SCH ×2 (09:20→17:00)
--- NOTE | 2017-09-25 13:57 | Internal Medicine Prog Note ---
Internal Medicine Subjective - Subjective Service Date: 09/25/17 Patient is:: awake, verbal, talking Per staff patient has:: tolerating meds Internal Medicine Objective - Physical Exam Vitals and I&O: Vital Signs Temp 98.2 F 09/23/17 18:35 Pulse 78 09/23/17 18:35 Resp 18 09/23/17 18:35 BP 151/91 09/23/17 18:35 Pulse Ox 97 09/23/17 18:35 Active Medications: Current Medications Acetaminophen (Tylenol) 650 mg PO Q4H PRN PRN Reason: Pain Or Fever above 101 Stop: 11/22/17 17:05 Al Hydrox/Mg Hydrox/Simethicone (Maalox) 30 ml PO Q4HR PRN PRN Reason: GI DISTRESS Stop: 11/22/17 17:02 Amlodipine Besylate (Norvasc) 10 mg PO DAILY [facility] Stop: 11/23/17 08:59 Last Admin: 09/25/17 09:18 Dose: Not Given Clonidine HCl (Lcpsfvpy-Tps-7) 1 patch TD QSAT [facility] Stop: 11/22/17 17:14 Divalproex Sodium (Depakote Sprinkle) 125 mg PO Q12HR [facility] PRN Reason: Protocol Stop: 11/22/17 20:59 Last Admin: 09/25/17 09:19 Dose: Not Given Docusate Sodium (Colace) 100 mg PO BID [facility] Stop: 11/23/17 08:59 Last Admin: 09/25/17 09:19 Dose: Not Given Ferrous Sulfate (Iron) 325 mg PO DAILY [facility] Stop: 11/23/17 08:59 Last Admin: 09/25/17 09:19 Dose: Not Given Finasteride (Proscar) 5 mg PO DAILY [facility] PRN Reason: Protocol Stop: 11/23/17 08:59 Last Admin: 09/25/17 09:19 Dose: Not Given Guaifenesin (Robitussin) 200 mg PO Q4HR PRN PRN Reason: Cough or Congestion Stop: 11/22/17 17:05 Haloperidol (Haldol) 5 mg PO BID [facility] PRN Reason: Protocol Stop: 11/23/17 08:59 Last Admin: 09/25/17 09:19 Dose: Not Given Haloperidol Decanoate (Haldol Dec) 50 mg IM QMONTH [facility] PRN Reason: Protocol Stop: 11/22/17 17:14 Hydralazine HCl (Apresoline) 20 mg PO TID [facility] Stop: 11/22/17 20:59 Last Admin: 09/25/17 13:49 Dose: Not Given Ipratropium [place] (Atrovent Neb 0.5mg/2.5ml) 0.5 mg HHN QIDRT [facility] Stop: 11/22/17 18:59 Isosorbide Dinitrate (Isordil) 10 mg PO TID [facility] Stop: 11/22/17 20:59 Last Admin: 09/25/17 13:50 Dose: Not Given Lorazepam (Ativan) 0.5 mg PO Q4HR PRN; Protocol PRN Reason: Anxiety Stop: 10/23/17 17:02 Magnesium Hydroxide (Milk Of Magnesia) 30 ml PO HS PRN PRN Reason: Constipation Magnesium Hydroxide (Milk Of Magnesia) 30 ml PO DAILY PRN PRN Reason: Constipation Stop: 11/22/17 17:05 Pantoprazole Sodium (Protonix) 40 mg PO BID [facility] Stop: 11/23/17 08:59 Last Admin: 09/25/17 09:20 Dose: Not Given Risperidone (Risperdal) 1 mg PO BID [facility] PRN Reason: Protocol Stop: 11/23/17 08:59 Last Admin: 09/25/17 09:21 Dose: Not Given Tamsulosin HCl (Flomax) 0.4 mg PO DAILY [facility] Stop: 11/23/17 08:59 Last Admin: 09/25/17 09:21 Dose: Not Given Zolpidem Tartrate (Ambien) 5 mg PO HSMR1 PRN PRN Reason: Insomnia Stop: 11/22/17 17:02 General: alert HEENT: NC/AT, PERRLA Neck: Supple Lungs: CTAB Cardiovascular: RRR, Normal S1, Normal S2, without murmur Neurological: alert Internal Medicine Assmt/Plan - Assessment Assessment: chronic kidney disease anemia hyponatremia mild protein calorie malnutrition non-compliant htn dyslipidemia dementia - Plan Plan: encourage fluids monitor BP continue current orders
--- NOTE | 2017-09-26 00:02 | Progress Notes ---
DATE: 09/25/2017 SUBJECTIVE: The patient was seen, still anxious, guarded, still paranoid, suspicious at times. The patient continues to have some episodes where he is refusing care medications. The patient is oriented to person being in the hospital. He knows his age. ASSESSMENT: The patient in psychotic phase. PLAN: Continue hospitalization. Continue stabilization. The patient is conserved. We will try to get the authorization to treat from the conservator. Discussed with case management. JOB# [id number]
[2017-09-26] MEDS: Multivitamin w/ Minerals Tab PO SCH (09:03)
[2017-09-26] MEDS: Ferrous Sulfate 325 MG TAB PO SCH (09:03)
[2017-09-26] MEDS: Pantoprazole 40 mg EC Tab PO SCH ×2 (09:06→17:35)
--- NOTE | 2017-09-26 13:56 | Internal Medicine Prog Note ---
Internal Medicine Subjective - Subjective Service Date: 09/26/17 Patient is:: awake, verbal, talking Per staff patient has:: tolerating meds Internal Medicine Objective - Physical Exam Vitals and I&O: Vital Signs Temp 97.4 F 09/25/17 20:00 Pulse 83 09/25/17 20:00 Resp 19 09/25/17 20:00 BP 139/89 09/25/17 20:00 Pulse Ox 83 09/25/17 20:00 Intake & Output 09/25/17 09/26/17 09/26/17 18:59 06:59 18:59 Intake Total 500 250 Balance 500 250 Intake: Oral 500 250 Other: # Voids 2 3 # Bowel Movements 0 0 Active Medications: Current Medications Acetaminophen (Tylenol) 650 mg PO Q4H PRN PRN Reason: Pain Or Fever above 101 Stop: 11/22/17 17:05 Al Hydrox/Mg Hydrox/Simethicone (Maalox) 30 ml PO Q4HR PRN PRN Reason: GI DISTRESS Stop: 11/22/17 17:02 Amlodipine Besylate (Norvasc) 10 mg PO DAILY [facility] Stop: 11/23/17 08:59 Last Admin: 09/26/17 09:03 Dose: Not Given Clonidine HCl (Dtcgfzha-Qdk-4) 1 patch TD QSAT [facility] Stop: 11/22/17 17:14 Divalproex Sodium (Depakote Sprinkle) 125 mg PO Q12HR [facility] PRN Reason: Protocol Stop: 11/22/17 20:59 Last Admin: 09/26/17 09:05 Dose: Not Given Docusate Sodium (Colace) 100 mg PO BID [facility] Stop: 11/23/17 08:59 Last Admin: 09/26/17 09:05 Dose: Not Given Ferrous Sulfate (Iron) 325 mg PO DAILY [facility] Stop: 11/23/17 08:59 Last Admin: 09/26/17 09:03 Dose: 325 mg Finasteride (Proscar) 5 mg PO DAILY [facility] PRN Reason: Protocol Stop: 11/23/17 08:59 Last Admin: 09/26/17 09:05 Dose: Not Given Guaifenesin (Robitussin) 200 mg PO Q4HR PRN PRN Reason: Cough or Congestion Stop: 11/22/17 17:05 Haloperidol (Haldol) 5 mg PO BID [facility] PRN Reason: Protocol Stop: 11/23/17 08:59 Last Admin: 09/26/17 09:05 Dose: Not Given Haloperidol Decanoate (Haldol Dec) 50 mg IM QMONTH [facility] PRN Reason: Protocol Stop: 11/22/17 17:14 Hydralazine HCl (Apresoline) 20 mg PO TID [facility] Stop: 11/22/17 20:59 Last Admin: 09/26/17 09:05 Dose: Not Given Ipratropium [place] (Atrovent Neb 0.5mg/2.5ml) 0.5 mg HHN QIDRT [facility] Stop: 11/22/17 18:59 Isosorbide Dinitrate (Isordil) 10 mg PO TID [facility] Stop: 11/22/17 20:59 Last Admin: 09/26/17 09:05 Dose: Not Given Lorazepam (Ativan) 0.5 mg PO Q4HR PRN; Protocol PRN Reason: Anxiety Stop: 10/23/17 17:02 Magnesium Hydroxide (Milk Of Magnesia) 30 ml PO HS PRN PRN Reason: Constipation Magnesium Hydroxide (Milk Of Magnesia) 30 ml PO DAILY PRN PRN Reason: Constipation Stop: 11/22/17 17:05 Pantoprazole Sodium (Protonix) 40 mg PO BID [facility] Stop: 11/23/17 08:59 Last Admin: 09/26/17 09:06 Dose: Not Given Risperidone (Risperdal) 1 mg PO BID [facility] PRN Reason: Protocol Stop: 11/23/17 08:59 Last Admin: 09/26/17 09:06 Dose: Not Given Tamsulosin HCl (Flomax) 0.4 mg PO DAILY [facility] Stop: 11/23/17 08:59 Last Admin: 09/26/17 09:06 Dose: Not Given Zolpidem Tartrate (Ambien) 5 mg PO HSMR1 PRN PRN Reason: Insomnia Stop: 11/22/17 17:02 General: alert HEENT: NC/AT, PERRLA Neck: Supple Lungs: CTAB Cardiovascular: RRR, Normal S1, Normal S2, without murmur Neurological: alert Internal Medicine Assmt/Plan - Assessment Assessment: chronic kidney disease anemia hyponatremia mild protein calorie malnutrition non-compliant htn dyslipidemia dementia - Plan Plan: encourage fluids monitor BP continue current orders Nutritional Asmnt/Malnutr-PDOC - Dietary Evaluation Malnutrition Findings (Please click <Entered> for more info): Nutritional Asmnt/Malnutrition Start: 09/24/17 08: 05 Text: Status: Complete Freq: Document 09/26/17 12:55 [email or web address] (Rec: 09/26/17 13:03 [id number]) Nutritional Asmnt/Malnutrition Patient General Information Nutritional Screening Moderate Risk Diagnosis psychosis NOS Pertinent Medical Hx/Surgical Hx schizophrenia, CKD, BPH Subjective Information Pt A&O x 2, delusional, not appropriate for interview. No meal intake recorded in EMR at this time, but per RN notes pt ate 100% of a breakfast. 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 Problem Problem no nutrition dx at this time Malnutrition Alert Is there a minimum of two criteria No selected? Query Text:Check all the applicable criteria. A minimum of two criteria are recommended for diagnosis of either severe or non-severe malnutrition. Malnutrition Related to Morbid Obesity Malnutrition related to morbid obesity No Intervention/Recommendation Comments 1. Continue renal diet as ordered 2. Please record PO intake Expected Outcomes/Goals Expected Outcomes/Goals PO intake >50%, stable wt monitor wt, labs, skin, PO intake
--- NOTE | 2017-09-26 18:51 | Progress Notes ---
DATE: 09/26/2017 SUBJECTIVE: The patient was seen, chart reviewed, discussed with staff. Still paranoid, anxious, still guarded, continues to have some anger outburst. The patient still grandiose. The patient at times refusing medications. His insight is limited, judgment is impaired. ASSESSMENT: The patient in psychotic phase. PLAN: Continue medication management. Continue supportive measure. Encourage the patient to comply with treatment. Consider increasing risperidone over the next 1-2 days. [facility]# [id number]
[2017-09-27] MEDS: Ferrous Sulfate 325 MG TAB PO SCH (09:06)
[2017-09-27] MEDS: Multivitamin w/ Minerals Tab PO SCH (09:07)
[2017-09-27] MEDS: Pantoprazole 40 mg EC Tab PO SCH ×2 (09:09→16:44)
--- NOTE | 2017-09-27 15:23 | Internal Medicine Prog Note ---
Internal Medicine Subjective - Subjective Service Date: 09/27/17 Patient is:: awake, verbal, talking Per staff patient has:: tolerating meds Internal Medicine Objective - Physical Exam Vitals and I&O: Vital Signs Temp 97.4 F 09/25/17 20:00 Pulse 83 09/25/17 20:00 Resp 19 09/25/17 20:00 BP 139/89 09/25/17 20:00 Pulse Ox 83 09/25/17 20:00 Intake & Output 09/26/17 09/27/17 09/27/17 18:59 06:59 18:59 Intake Total 1450 120 Balance 1450 120 Intake: Oral 1450 120 Other: # Voids 3 3 # Bowel Movements 0 Active Medications: Current Medications Acetaminophen (Tylenol) 650 mg PO Q4H PRN PRN Reason: Pain Or Fever above 101 Stop: 11/22/17 17:05 Al Hydrox/Mg Hydrox/Simethicone (Maalox) 30 ml PO Q4HR PRN PRN Reason: GI DISTRESS Stop: 11/22/17 17:02 Amlodipine Besylate (Norvasc) 10 mg PO DAILY [facility] Stop: 11/23/17 08:59 Last Admin: 09/27/17 09:08 Dose: Not Given Clonidine HCl (Ryttxlfc-Bkv-8) 1 patch TD QSAT [facility] Stop: 11/22/17 17:14 Divalproex Sodium (Depakote Sprinkle) 125 mg PO Q12HR [facility] PRN Reason: Protocol Stop: 11/22/17 20:59 Last Admin: 09/27/17 09:08 Dose: Not Given Docusate Sodium (Colace) 100 mg PO BID [facility] Stop: 11/23/17 08:59 Last Admin: 09/27/17 09:08 Dose: Not Given Ferrous Sulfate (Iron) 325 mg PO DAILY [facility] Stop: 11/23/17 08:59 Last Admin: 09/27/17 09:06 Dose: 325 mg Finasteride (Proscar) 5 mg PO DAILY [facility] PRN Reason: Protocol Stop: 11/23/17 08:59 Last Admin: 09/27/17 09:08 Dose: Not Given Guaifenesin (Robitussin) 200 mg PO Q4HR PRN PRN Reason: Cough or Congestion Stop: 11/22/17 17:05 Haloperidol (Haldol) 5 mg PO BID [facility] PRN Reason: Protocol Stop: 11/23/17 08:59 Last Admin: 09/27/17 09:08 Dose: Not Given Haloperidol Decanoate (Haldol Dec) 50 mg IM QMONTH [facility] PRN Reason: Protocol Stop: 11/26/17 14:59 Last Admin: 09/27/17 14:16 Dose: 50 mg Hydralazine HCl (Apresoline) 20 mg PO TID [facility] Stop: 11/22/17 20:59 Last Admin: 09/27/17 13:47 Dose: Not Given Ipratropium [place] (Atrovent Neb 0.5mg/2.5ml) 0.5 mg HHN QIDRT [facility] Stop: 11/22/17 18:59 Isosorbide Dinitrate (Isordil) 10 mg PO TID [facility] Stop: 11/22/17 20:59 Last Admin: 09/27/17 13:48 Dose: Not Given Lorazepam (Ativan) 0.5 mg PO Q4HR PRN; Protocol PRN Reason: Anxiety Stop: 10/23/17 17:02 Magnesium Hydroxide (Milk Of Magnesia) 30 ml PO HS PRN PRN Reason: Constipation Magnesium Hydroxide (Milk Of Magnesia) 30 ml PO DAILY PRN PRN Reason: Constipation Stop: 11/22/17 17:05 Pantoprazole Sodium (Protonix) 40 mg PO BID [facility] Stop: 11/23/17 08:59 Last Admin: 09/27/17 09:09 Dose: Not Given Risperidone (Risperdal) 1 mg PO BID [facility] PRN Reason: Protocol Stop: 11/23/17 08:59 Last Admin: 09/27/17 09:09 Dose: Not Given Tamsulosin HCl (Flomax) 0.4 mg PO DAILY [facility] Stop: 11/23/17 08:59 Last Admin: 09/27/17 09:16 Dose: Not Given Zolpidem Tartrate (Ambien) 5 mg PO HSMR1 PRN PRN Reason: Insomnia Stop: 11/22/17 17:02 General: alert HEENT: NC/AT, PERRLA Neck: Supple Lungs: CTAB Cardiovascular: RRR, Normal S1, Normal S2, without murmur Neurological: alert Internal Medicine Assmt/Plan - Assessment Assessment: chronic kidney disease anemia hyponatremia mild protein calorie malnutrition non-compliant htn dyslipidemia dementia - Plan Plan: encourage fluids monitor BP continue current orders Nutritional Asmnt/Malnutr-PDOC - Dietary Evaluation Malnutrition Findings (Please click <Entered> for more info): Nutritional Asmnt/Malnutrition Start: 09/24/17 08: 05 Text: Status: Complete Freq: Document 09/26/17 12:55 [email or web address] (Rec: 09/26/17 13:03 [id number]) Nutritional Asmnt/Malnutrition Patient General Information Nutritional Screening Moderate Risk Diagnosis psychosis NOS Pertinent Medical Hx/Surgical Hx schizophrenia, CKD, BPH Subjective Information Pt A&O x 2, delusional, not appropriate for interview. No meal intake recorded in EMR at this time, but per RN notes pt ate 100% of a breakfast. 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 Problem Problem no nutrition dx at this time Malnutrition Alert Is there a minimum of two criteria No selected? Query Text:Check all the applicable criteria. A minimum of two criteria are recommended for diagnosis of either severe or non-severe malnutrition. Malnutrition Related to Morbid Obesity Malnutrition related to morbid obesity No Intervention/Recommendation Comments 1. Continue renal diet as ordered 2. Please record PO intake Expected Outcomes/Goals Expected Outcomes/Goals PO intake >50%, stable wt monitor wt, labs, skin, PO intake
--- NOTE | 2017-09-27 22:22 | Progress Notes ---
DATE: 09/27/2017 CHIEF COMPLAINT: "I am fine." SUBJECTIVE: The patient was seen, still anxious, irritable, keeping to himself, isolative, at times refusing care. MENTAL STATUS EXAM: The patient is still paranoid, grandiose, delusional. Insight is poor. Judgment is impaired. He is oriented to person, being in the hospital. He knows his age. ASSESSMENT: The patient has schizophrenia, paranoid type, acute exacerbation. PLAN: Continue stabilization and encourage the patient to remain compliant with medications. JOB# [id number]
[2017-09-28] MEDS: Ferrous Sulfate 325 MG TAB PO SCH (09:07)
[2017-09-28] MEDS: Multivitamin w/ Minerals Tab PO SCH (09:07)
[2017-09-28] MEDS: Pantoprazole 40 mg EC Tab PO SCH ×2 (09:09→17:29)
--- NOTE | 2017-09-28 13:25 | Internal Medicine Prog Note ---
Internal Medicine Subjective - Subjective Service Date: 09/28/17 Patient is:: awake, verbal, talking Per staff patient has:: tolerating meds Internal Medicine Objective - Physical Exam Vitals and I&O: Vital Signs Temp 97.4 F 09/25/17 20:00 Pulse 83 09/25/17 20:00 Resp 19 09/25/17 20:00 BP 139/89 09/25/17 20:00 Pulse Ox 83 09/25/17 20:00 Intake & Output 09/27/17 09/28/17 09/28/17 18:59 06:59 18:59 Intake Total 1200 500 Balance 1200 500 Intake: Oral 1200 500 Other: # Voids 3 2 # Bowel Movements 0 Active Medications: Current Medications Acetaminophen (Tylenol) 650 mg PO Q4H PRN PRN Reason: Pain Or Fever above 101 Stop: 11/22/17 17:05 Al Hydrox/Mg Hydrox/Simethicone (Maalox) 30 ml PO Q4HR PRN PRN Reason: GI DISTRESS Stop: 11/22/17 17:02 Amlodipine Besylate (Norvasc) 10 mg PO DAILY [facility] Stop: 11/23/17 08:59 Last Admin: 09/28/17 09:08 Dose: Not Given Clonidine HCl (Uqzdromv-Niv-4) 1 patch TD QSAT [facility] Stop: 11/22/17 17:14 Divalproex Sodium (Depakote Sprinkle) 125 mg PO Q12HR [facility] PRN Reason: Protocol Stop: 11/22/17 20:59 Last Admin: 09/28/17 09:08 Dose: Not Given Docusate Sodium (Colace) 100 mg PO BID [facility] Stop: 11/23/17 08:59 Last Admin: 09/28/17 09:08 Dose: Not Given Ferrous Sulfate (Iron) 325 mg PO DAILY [facility] Stop: 11/23/17 08:59 Last Admin: 09/28/17 09:07 Dose: 325 mg Finasteride (Proscar) 5 mg PO DAILY [facility] PRN Reason: Protocol Stop: 11/23/17 08:59 Last Admin: 09/28/17 09:09 Dose: Not Given Guaifenesin (Robitussin) 200 mg PO Q4HR PRN PRN Reason: Cough or Congestion Stop: 11/22/17 17:05 Haloperidol (Haldol) 5 mg PO BID [facility] PRN Reason: Protocol Stop: 11/23/17 08:59 Last Admin: 09/28/17 09:09 Dose: Not Given Haloperidol Decanoate (Haldol Dec) 50 mg IM QMONTH [facility] PRN Reason: Protocol Stop: 11/26/17 14:59 Last Admin: 09/27/17 14:16 Dose: 50 mg Hydralazine HCl (Apresoline) 20 mg PO TID [facility] Stop: 11/22/17 20:59 Last Admin: 09/28/17 09:09 Dose: Not Given Ipratropium [place] (Atrovent Neb 0.5mg/2.5ml) 0.5 mg HHN QIDRT [facility] Stop: 11/22/17 18:59 Isosorbide Dinitrate (Isordil) 10 mg PO TID [facility] Stop: 11/22/17 20:59 Last Admin: 09/28/17 09:09 Dose: Not Given Lorazepam (Ativan) 0.5 mg PO Q4HR PRN; Protocol PRN Reason: Anxiety Stop: 10/23/17 17:02 Magnesium Hydroxide (Milk Of Magnesia) 30 ml PO HS PRN PRN Reason: Constipation Magnesium Hydroxide (Milk Of Magnesia) 30 ml PO DAILY PRN PRN Reason: Constipation Stop: 11/22/17 17:05 Pantoprazole Sodium (Protonix) 40 mg PO BID [facility] Stop: 11/23/17 08:59 Last Admin: 09/28/17 09:09 Dose: Not Given Risperidone (Risperdal) 1 mg PO BID [facility] PRN Reason: Protocol Stop: 11/23/17 08:59 Last Admin: 09/28/17 09:09 Dose: Not Given Tamsulosin HCl (Flomax) 0.4 mg PO DAILY [facility] Stop: 11/23/17 08:59 Last Admin: 09/28/17 09:09 Dose: Not Given Zolpidem Tartrate (Ambien) 5 mg PO HSMR1 PRN PRN Reason: Insomnia Stop: 11/22/17 17:02 General: alert HEENT: NC/AT, PERRLA Neck: Supple Lungs: CTAB Cardiovascular: RRR, Normal S1, Normal S2, without murmur Neurological: alert Internal Medicine Assmt/Plan - Assessment Assessment: chronic kidney disease anemia hyponatremia mild protein calorie malnutrition non-compliant htn dyslipidemia dementia - Plan Plan: encourage fluids monitor BP continue current orders Nutritional Asmnt/Malnutr-PDOC - Dietary Evaluation Malnutrition Findings (Please click <Entered> for more info): Nutritional Asmnt/Malnutrition Start: 09/24/17 08: 05 Text: Status: Complete Freq: Document 09/26/17 12:55 [email or web address] (Rec: 09/26/17 13:03 [email or web address] [id number]) Nutritional Asmnt/Malnutrition Patient General Information Nutritional Screening Moderate Risk Diagnosis psychosis NOS Pertinent Medical Hx/Surgical Hx schizophrenia, CKD, BPH Subjective Information Pt A&O x 2, delusional, not appropriate for interview. No meal intake recorded in EMR at this time, but per RN notes pt ate 100% of a breakfast. 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 Problem Problem no nutrition dx at this time Malnutrition Alert Is there a minimum of two criteria No selected? Query Text:Check all the applicable criteria. A minimum of two criteria are recommended for diagnosis of either severe or non-severe malnutrition. Malnutrition Related to Morbid Obesity Malnutrition related to morbid obesity No Intervention/Recommendation Comments 1. Continue renal diet as ordered 2. Please record PO intake Expected Outcomes/Goals Expected Outcomes/Goals PO intake >50%, stable wt monitor wt, labs, skin, PO intake
--- NOTE | 2017-09-29 06:10 | Progress Notes ---
DATE: 09/28/2017 SUBJECTIVE: The patient was seen, chart reviewed, discussed with staff. Still having some anger outburst, remains paranoid, suspicious towards his surroundings. His insight is limited, judgment is impaired. The patient received Haldol Decanoate yesterday after his snf retreat was received from public guardian office. ASSESSMENT: Schizophrenia, paranoid-type. PLAN: Continue medication management. Continue supportive measures. Monitor closely. JOB# [id number]
[2017-09-29] MEDS: Ferrous Sulfate 325 MG TAB PO SCH (08:58)
[2017-09-29] MEDS: Multivitamin w/ Minerals Tab PO SCH (09:00)
[2017-09-29] MEDS: Pantoprazole 40 mg EC Tab PO SCH ×2 (09:00→16:58)
--- NOTE | 2017-09-29 15:26 | Progress Notes ---
DATE: 09/29/2017 SUBJECTIVE: The patient is still disorganized, guarded, still paranoid, irritable, grandiose. The patient at time is having episodes of refusing care. ASSESSMENT: Schizophrenia, paranoid type. PLAN: Continue medication management. Continue stabilization. The patient received Haldol Decanoate to help improve compliance. Monitor closely. JOB# [id number]
--- NOTE | 2017-09-29 15:30 | Internal Medicine Prog Note ---
Internal Medicine Subjective - Subjective Patient seen and examined:: with staff, chart reviewed Patient is:: awake, verbal, interactive, talking, agitated, confused Per staff patient has:: no adverse event, noncompliant, confused, tolerating meds Internal Medicine Objective - Physical Exam Vitals and I&O: Vital Signs Temp 97.4 F 09/25/17 20:00 Pulse 83 09/25/17 20:00 Resp 19 09/25/17 20:00 BP 139/89 09/25/17 20:00 Pulse Ox 83 09/25/17 20:00 Intake & Output 09/28/17 09/29/17 09/29/17 18:59 06:59 18:59 Intake Total 1200 Balance 1200 Intake: Oral 1200 Other: # Voids 3 Active Medications: Current Medications Acetaminophen (Tylenol) 650 mg PO Q4H PRN PRN Reason: Pain Or Fever above 101 Stop: 11/22/17 17:05 Al Hydrox/Mg Hydrox/Simethicone (Maalox) 30 ml PO Q4HR PRN PRN Reason: GI DISTRESS Stop: 11/22/17 17:02 Amlodipine Besylate (Norvasc) 10 mg PO DAILY [facility] Stop: 11/23/17 08:59 Last Admin: 09/29/17 08:57 Dose: Not Given Clonidine HCl (Inrtktfh-Hnc-7) 1 patch TD QSAT [facility] Stop: 11/22/17 17:14 Divalproex Sodium (Depakote Sprinkle) 125 mg PO Q12HR [facility] PRN Reason: Protocol Stop: 11/22/17 20:59 Last Admin: 09/29/17 08:58 Dose: Not Given Docusate Sodium (Colace) 100 mg PO BID [facility] Stop: 11/23/17 08:59 Last Admin: 09/29/17 08:58 Dose: Not Given Ferrous Sulfate (Iron) 325 mg PO DAILY [facility] Stop: 11/23/17 08:59 Last Admin: 09/29/17 08:58 Dose: Not Given Finasteride (Proscar) 5 mg PO DAILY [facility] PRN Reason: Protocol Stop: 11/23/17 08:59 Last Admin: 09/29/17 08:58 Dose: Not Given Guaifenesin (Robitussin) 200 mg PO Q4HR PRN PRN Reason: Cough or Congestion Stop: 11/22/17 17:05 Haloperidol (Haldol) 5 mg PO BID [facility] PRN Reason: Protocol Stop: 11/23/17 08:59 Last Admin: 09/29/17 08:58 Dose: Not Given Haloperidol Decanoate (Haldol Dec) 50 mg IM QMONTH [facility] PRN Reason: Protocol Stop: 11/26/17 14:59 Last Admin: 09/27/17 14:16 Dose: 50 mg Hydralazine HCl (Apresoline) 20 mg PO TID [facility] Stop: 11/22/17 20:59 Last Admin: 09/29/17 14:22 Dose: Not Given Ipratropium [place] (Atrovent Neb 0.5mg/2.5ml) 0.5 mg HHN QIDRT [facility] Stop: 11/22/17 18:59 Isosorbide Dinitrate (Isordil) 10 mg PO TID [facility] Stop: 11/22/17 20:59 Last Admin: 09/29/17 14:23 Dose: Not Given Lorazepam (Ativan) 0.5 mg PO Q4HR PRN; Protocol PRN Reason: Anxiety Stop: 10/23/17 17:02 Magnesium Hydroxide (Milk Of Magnesia) 30 ml PO HS PRN PRN Reason: Constipation Magnesium Hydroxide (Milk Of Magnesia) 30 ml PO DAILY PRN PRN Reason: Constipation Stop: 11/22/17 17:05 Pantoprazole Sodium (Protonix) 40 mg PO BID [facility] Stop: 11/23/17 08:59 Last Admin: 09/29/17 09:00 Dose: Not Given Risperidone (Risperdal) 1 mg PO BID [facility] PRN Reason: Protocol Stop: 11/23/17 08:59 Last Admin: 09/29/17 09:00 Dose: Not Given Tamsulosin HCl (Flomax) 0.4 mg PO DAILY [facility] Stop: 11/23/17 08:59 Last Admin: 09/29/17 09:00 Dose: Not Given Zolpidem Tartrate (Ambien) 5 mg PO HSMR1 PRN PRN Reason: Insomnia Stop: 11/22/17 17:02 General: demented, appears older HEENT: NC/AT, PERRLA Neck: Supple Lungs: CTAB Cardiovascular: RRR, Normal S1, Normal S2, without murmur Abdomen: soft, globular, non-distended, positive bowel sound Extremities: excoriation Neurological: no change, disorganized Internal Medicine Assmt/Plan - Assessment Assessment: - Assessment Assessment: chronic kidney disease anemia hyponatremia mild protein calorie malnutrition non-compliant htn dyslipidemia dementia - Plan Plan: encourage fluids monitor BP continue current orders - Plan Plan: will check labs routinely dw rn Nutritional Asmnt/Malnutr-PDOC - Dietary Evaluation Malnutrition Findings (Please click <Entered> for more info): Nutritional Asmnt/Malnutrition Start: 09/24/17 08: 05 Text: Status: Complete Freq: Document 09/26/17 12:55 [email or web address] (Rec: 09/26/17 13:03 [id number]) Nutritional Asmnt/Malnutrition Patient General Information Nutritional Screening Moderate Risk Diagnosis psychosis NOS Pertinent Medical Hx/Surgical Hx schizophrenia, CKD, BPH Subjective Information Pt A&O x 2, delusional, not appropriate for interview. No meal intake recorded in EMR at this time, but per RN notes pt ate 100% of a breakfast. 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 Problem Problem no nutrition dx at this time Malnutrition Alert Is there a minimum of two criteria No selected? Query Text:Check all the applicable criteria. A minimum of two criteria are recommended for diagnosis of either severe or non-severe malnutrition. Malnutrition Related to Morbid Obesity Malnutrition related to morbid obesity No Intervention/Recommendation Comments 1. Continue renal diet as ordered 2. Please record PO intake Expected Outcomes/Goals Expected Outcomes/Goals PO intake >50%, stable wt monitor wt, labs, skin, PO intake
[2017-09-30] MEDS: Pantoprazole 40 mg EC Tab PO SCH (10:30)
[2017-09-30] MEDS: Ferrous Sulfate 325 MG TAB PO SCH (10:30)
[2017-09-30] MEDS: Multivitamin w/ Minerals Tab PO SCH (10:30)
--- NOTE | 2017-09-30 15:02 | Progress Notes ---
DATE: 09/30/2017 SUBJECTIVE: The patient was seen, discussed with staff. Remains isolative, keeping to himself in his room most of the time, but his compliance with medication started to improve. The patient is denying feeling depressed. His speech is monotonous. Affect constricted. The patient is still suspicious, still without hallucinations. He is oriented x3. ASSESSMENT: Schizophrenia, paranoid type. PLAN: Continue stabilization. Continue medication management. Continue to monitor closely. JOB# [id number]
--- NOTE | 2017-09-30 15:05 | Internal Medicine Prog Note ---
Internal Medicine Subjective - Subjective Patient seen and examined:: with staff, chart reviewed Patient is:: awake, verbal, interactive, talking, agitated, confused Per staff patient has:: no adverse event, noncompliant, confused, tolerating meds Internal Medicine Objective - Physical Exam Vitals and I&O: Vital Signs Temp 97.4 F 09/25/17 20:00 Pulse 83 09/25/17 20:00 Resp 20 09/29/17 20:00 BP 139/89 09/25/17 20:00 Pulse Ox 83 09/25/17 20:00 Intake & Output 09/29/17 09/30/17 09/30/17 18:59 06:59 18:59 Intake Total 1200 Balance 1200 Intake: Oral 1200 Other: # Voids 3 Active Medications: Current Medications Acetaminophen (Tylenol) 650 mg PO Q4H PRN PRN Reason: Pain Or Fever above 101 Stop: 11/22/17 17:05 Al Hydrox/Mg Hydrox/Simethicone (Maalox) 30 ml PO Q4HR PRN PRN Reason: GI DISTRESS Stop: 11/22/17 17:02 Amlodipine Besylate (Norvasc) 10 mg PO DAILY [facility] Stop: 11/23/17 08:59 Last Admin: 09/30/17 10:29 Dose: Not Given Clonidine HCl (Dcplbsfh-Bta-4) 1 patch TD QSAT [facility] Stop: 11/22/17 17:14 Divalproex Sodium (Depakote Sprinkle) 125 mg PO Q12HR [facility] PRN Reason: Protocol Stop: 11/22/17 20:59 Last Admin: 09/30/17 10:29 Dose: Not Given Docusate Sodium (Colace) 100 mg PO BID [facility] Stop: 11/23/17 08:59 Last Admin: 09/30/17 10:29 Dose: Not Given Ferrous Sulfate (Iron) 325 mg PO DAILY [facility] Stop: 11/23/17 08:59 Last Admin: 09/30/17 10:30 Dose: Not Given Finasteride (Proscar) 5 mg PO DAILY [facility] PRN Reason: Protocol Stop: 11/23/17 08:59 Last Admin: 09/30/17 10:30 Dose: Not Given Guaifenesin (Robitussin) 200 mg PO Q4HR PRN PRN Reason: Cough or Congestion Stop: 11/22/17 17:05 Haloperidol (Haldol) 5 mg PO BID [facility] PRN Reason: Protocol Stop: 11/23/17 08:59 Last Admin: 09/30/17 10:30 Dose: Not Given Haloperidol Decanoate (Haldol Dec) 50 mg IM QMONTH [facility] PRN Reason: Protocol Stop: 11/26/17 14:59 Last Admin: 09/27/17 14:16 Dose: 50 mg Hydralazine HCl (Apresoline) 20 mg PO TID [facility] Stop: 11/22/17 20:59 Last Admin: 09/30/17 14:28 Dose: Not Given Ipratropium [place] (Atrovent Neb 0.5mg/2.5ml) 0.5 mg HHN QIDRT [facility] Stop: 11/22/17 18:59 Isosorbide Dinitrate (Isordil) 10 mg PO TID [facility] Stop: 11/22/17 20:59 Last Admin: 09/30/17 14:28 Dose: Not Given Lorazepam (Ativan) 0.5 mg PO Q4HR PRN; Protocol PRN Reason: Anxiety Stop: 10/23/17 17:02 Magnesium Hydroxide (Milk Of Magnesia) 30 ml PO HS PRN PRN Reason: Constipation Magnesium Hydroxide (Milk Of Magnesia) 30 ml PO DAILY PRN PRN Reason: Constipation Stop: 11/22/17 17:05 Pantoprazole Sodium (Protonix) 40 mg PO BID [facility] Stop: 11/23/17 08:59 Last Admin: 09/30/17 10:30 Dose: Not Given Risperidone (Risperdal) 1 mg PO BID [facility] PRN Reason: Protocol Stop: 11/23/17 08:59 Last Admin: 09/30/17 10:30 Dose: Not Given Tamsulosin HCl (Flomax) 0.4 mg PO DAILY [facility] Stop: 11/23/17 08:59 Last Admin: 09/30/17 10:30 Dose: Not Given Zolpidem Tartrate (Ambien) 5 mg PO HSMR1 PRN PRN Reason: Insomnia Stop: 11/22/17 17:02 General: demented, appears older HEENT: NC/AT, PERRLA Neck: Supple Lungs: CTAB Cardiovascular: RRR, Normal S1, Normal S2, without murmur Abdomen: soft, globular, non-distended, positive bowel sound Extremities: excoriation Neurological: no change, disorganized Internal Medicine Assmt/Plan - Assessment Assessment: - Assessment Assessment: chronic kidney disease anemia hyponatremia mild protein calorie malnutrition non-compliant htn dyslipidemia dementia - Plan Plan: encourage fluids monitor BP continue current orders - Plan Plan: will check labs routinely dw rn Nutritional Asmnt/Malnutr-PDOC - Dietary Evaluation Malnutrition Findings (Please click <Entered> for more info): Nutritional Asmnt/Malnutrition Start: 09/24/17 08: 05 Text: Status: Complete Freq: Document 09/26/17 12:55 [email or web address] (Rec: 09/26/17 13:03 [id number]) Nutritional Asmnt/Malnutrition Patient General Information Nutritional Screening Moderate Risk Diagnosis psychosis NOS Pertinent Medical Hx/Surgical Hx schizophrenia, CKD, BPH Subjective Information Pt A&O x 2, delusional, not appropriate for interview. No meal intake recorded in EMR at this time, but per RN notes pt ate 100% of a breakfast. Current Diet Order/ Nutrition Support renal Patient / S.O Not Indicated Pertinent Medications colace, iron, MOM, protonix Pertinent Labs no labs available Nutritional Hx/Data Height 1.75 m Height (Calculated Centimeters) 175.3 Current Weight (lbs) 76.204 kg Weight (Calculated Kilograms) 76.2 Weight (Calculated Grams) 58834.5 [place] Body Weight 160 % [place] Body Weight 105 Body Mass Index (BMI) 24.7 Weight Status Approriate GI Symptoms GI Symptoms None Last BM [employer] Difficult in: None Skin Integrity/Comment: intact, no edema noted Current %PO Good (75-100%) Estimated Nutritional Goals BEE in Kcals: Using Current wt Calories/Kcals/Kg 25-30 Kcals Calculated 5995-1839 Protein: Using Current wt Protein g/k-1.2 Protein Calculated 76-91 g Fluid: ml 5392-1906 mL Nutritional Problem 1. Problem Problem no nutrition dx at this time Malnutrition Alert Is there a minimum of two criteria No selected? Query Text:Check all the applicable criteria. A minimum of two criteria are recommended for diagnosis of either severe or non-severe malnutrition. Malnutrition Related to Morbid Obesity Malnutrition related to morbid obesity No Intervention/Recommendation Comments 1. Continue renal diet as ordered 2. Please record PO intake Expected Outcomes/Goals Expected Outcomes/Goals PO intake >50%, stable wt monitor wt, labs, skin, PO intake
[2017-10-01] MEDS: Pantoprazole 40 mg EC Tab PO SCH ×2 (08:54→17:43)
[2017-10-01] MEDS: Multivitamin w/ Minerals Tab PO SCH (08:55)
[2017-10-01] MEDS: Ferrous Sulfate 325 MG TAB PO SCH (08:55)
--- NOTE | 2017-10-01 12:44 | Internal Medicine Prog Note ---
Internal Medicine Subjective - Subjective Service Date: 10/01/17 Patient is:: awake, verbal, interactive, talking, agitated, confused Per staff patient has:: no adverse event, noncompliant, confused, tolerating meds Internal Medicine Objective - Physical Exam Vitals and I&O: Vital Signs Temp 97.4 F 09/25/17 20:00 Pulse 83 09/25/17 20:00 Resp 20 09/29/17 20:00 BP 139/89 09/25/17 20:00 Pulse Ox 83 09/25/17 20:00 Intake & Output 09/30/17 10/01/17 10/01/17 18:59 06:59 18:59 Intake Total 1500 Balance 1500 Intake: Oral 1500 Other: # Voids 3 Active Medications: Current Medications Acetaminophen (Tylenol) 650 mg PO Q4H PRN PRN Reason: Pain Or Fever above 101 Stop: 11/22/17 17:05 Al Hydrox/Mg Hydrox/Simethicone (Maalox) 30 ml PO Q4HR PRN PRN Reason: GI DISTRESS Stop: 11/22/17 17:02 Amlodipine Besylate (Norvasc) 10 mg PO DAILY [facility] Stop: 11/23/17 08:59 Last Admin: 10/01/17 08:55 Dose: Not Given Clonidine HCl (Eltdzvjq-Opo-0) 1 patch TD QSAT [facility] Stop: 11/22/17 17:14 Divalproex Sodium (Depakote Sprinkle) 250 mg PO Q12HR [facility] PRN Reason: Protocol Stop: 11/30/17 10:16 Docusate Sodium (Colace) 100 mg PO BID [facility] Stop: 11/23/17 08:59 Last Admin: 10/01/17 08:54 Dose: Not Given Ferrous Sulfate (Iron) 325 mg PO DAILY [facility] Stop: 11/23/17 08:59 Last Admin: 10/01/17 08:55 Dose: Not Given Finasteride (Proscar) 5 mg PO DAILY [facility] PRN Reason: Protocol Stop: 11/23/17 08:59 Last Admin: 10/01/17 08:55 Dose: Not Given Guaifenesin (Robitussin) 200 mg PO Q4HR PRN PRN Reason: Cough or Congestion Stop: 11/22/17 17:05 Haloperidol (Haldol) 5 mg PO BID [facility] PRN Reason: Protocol Stop: 11/23/17 08:59 Last Admin: 10/01/17 08:54 Dose: Not Given Haloperidol Decanoate (Haldol Dec) 50 mg IM QMONTH [facility] PRN Reason: Protocol Stop: 11/26/17 14:59 Last Admin: 09/27/17 14:16 Dose: 50 mg Hydralazine HCl (Apresoline) 20 mg PO TID [facility] Stop: 11/22/17 20:59 Last Admin: 10/01/17 08:55 Dose: Not Given Ipratropium [place] (Atrovent Neb 0.5mg/2.5ml) 0.5 mg HHN QIDRT [facility] Stop: 11/22/17 18:59 Isosorbide Dinitrate (Isordil) 10 mg PO TID [facility] Stop: 11/22/17 20:59 Last Admin: 10/01/17 08:55 Dose: Not Given Lorazepam (Ativan) 0.5 mg PO Q4HR PRN; Protocol PRN Reason: Anxiety Stop: 10/23/17 17:02 Magnesium Hydroxide (Milk Of Magnesia) 30 ml PO HS PRN PRN Reason: Constipation Magnesium Hydroxide (Milk Of Magnesia) 30 ml PO DAILY PRN PRN Reason: Constipation Stop: 11/22/17 17:05 Pantoprazole Sodium (Protonix) 40 mg PO BID [facility] Stop: 11/23/17 08:59 Last Admin: 10/01/17 08:54 Dose: Not Given Risperidone (Risperdal) 1 mg PO BID [facility] PRN Reason: Protocol Stop: 11/23/17 08:59 Last Admin: 10/01/17 08:55 Dose: Not Given Tamsulosin HCl (Flomax) 0.4 mg PO DAILY [facility] Stop: 11/23/17 08:59 Last Admin: 10/01/17 08:56 Dose: Not Given Zolpidem Tartrate (Ambien) 5 mg PO HSMR1 PRN PRN Reason: Insomnia Stop: 11/22/17 17:02 General: demented, appears older HEENT: NC/AT, PERRLA Neck: Supple Lungs: CTAB Cardiovascular: RRR, Normal S1, Normal S2, without murmur Abdomen: soft, globular, non-distended, positive bowel sound Extremities: excoriation Neurological: no change, disorganized Internal Medicine Assmt/Plan - Assessment Assessment: chronic kidney disease anemia hyponatremia mild protein calorie malnutrition non-compliant htn dyslipidemia dementia - Plan Plan: encourage fluids monitor BP continue current orders Nutritional Asmnt/Malnutr-PDOC - Dietary Evaluation Malnutrition Findings (Please click <Entered> for more info): Nutritional Asmnt/Malnutrition Start: 09/24/17 08: 05 Text: Status: Complete Freq: Document 09/26/17 12:55 [email or web address] (Rec: 09/26/17 13:03 [email or web address] [id number]) Nutritional Asmnt/Malnutrition Patient General Information Nutritional Screening Moderate Risk Diagnosis psychosis NOS Pertinent Medical Hx/Surgical Hx schizophrenia, CKD, BPH Subjective Information Pt A&O x 2, delusional, not appropriate for interview. No meal intake recorded in EMR at this time, but per RN notes pt ate 100% of a breakfast. Current Diet Order/ Nutrition Support renal Patient / S.O Not Indicated Pertinent Medications colace, iron, MOM, protonix Pertinent Labs no labs available Nutritional Hx/Data Height 5 ft 9 in Height (Calculated Centimeters) 175.3 Current Weight (lbs) 168 lb Weight (Calculated Kilograms) 76.2 Weight (Calculated Grams) 69017.5 [place] Body Weight 160 % [place] Body Weight 105 Body Mass Index (BMI) 24.7 Weight Status Approriate GI Symptoms GI Symptoms None Last BM [employer]LY[employer] Difficult in: None Skin Integrity/Comment: intact, no edema noted Current %PO Good (75-100%) Estimated Nutritional Goals BEE in Kcals: Using Current wt Calories/Kcals/Kg 25-30 Kcals Calculated 2547-7719 Protein: Using Current wt Protein g/k-1.2 Protein Calculated 76-91 g Fluid: ml 6787-6711 mL Nutritional Problem 1. Problem Problem no nutrition dx at this time Malnutrition Alert Is there a minimum of two criteria No selected? Query Text:Check all the applicable criteria. A minimum of two criteria are recommended for diagnosis of either severe or non-severe malnutrition. Malnutrition Related to Morbid Obesity Malnutrition related to morbid obesity No Intervention/Recommendation Comments 1. Continue renal diet as ordered 2. Please record PO intake Expected Outcomes/Goals Expected Outcomes/Goals PO intake >50%, stable wt monitor wt, labs, skin, PO intake
--- NOTE | 2017-10-01 22:31 | Progress Notes ---
DATE: 10/01/2017 PSYCHIATRIC PROGRESS NOTE SUBJECTIVE: Staff was spoken to. The patient is interviewed. Mood is noted to be irritable. Affect is constricted. The patient is still having mood swings. The patient is on 1 mg twice a day with risperidone and has been able to tolerate the medications. The patient is on 125 mg twice a day of Depakote, which is going to be gradually increased to 250 mg twice a day and the patient is going to be closely monitored. No major side effects to medications are noted. PLAN: To continue the patient with supportive therapy and encouraged the patient to verbalize the concerns rather than to act out. JOB# [id number]
[2017-10-02] MEDS: Ferrous Sulfate 325 MG TAB PO SCH (09:22)
[2017-10-02] MEDS: Multivitamin w/ Minerals Tab PO SCH (09:24)
[2017-10-02] MEDS: Pantoprazole 40 mg EC Tab PO SCH ×2 (09:24→18:39)
--- NOTE | 2017-10-02 15:09 | Internal Medicine Prog Note ---
Internal Medicine Subjective - Subjective Service Date: 10/02/17 Patient is:: awake, verbal, interactive, talking, agitated, confused Per staff patient has:: no adverse event, noncompliant, confused, tolerating meds Internal Medicine Objective - Physical Exam Vitals and I&O: Vital Signs Temp 0 F 10/02/17 06:53 Pulse 83 09/25/17 20:00 Resp 20 09/29/17 20:00 BP 139/89 09/25/17 20:00 Pulse Ox 83 09/25/17 20:00 Intake & Output 10/01/17 10/02/17 10/02/17 18:59 06:59 18:59 Intake Total 1000 240 Balance 1000 240 Intake: Oral 1000 240 Other: # Voids 4 3 # Bowel Movements 1 0 Active Medications: Current Medications Acetaminophen (Tylenol) 650 mg PO Q4H PRN PRN Reason: Pain Or Fever above 101 Stop: 11/22/17 17:05 Al Hydrox/Mg Hydrox/Simethicone (Maalox) 30 ml PO Q4HR PRN PRN Reason: GI DISTRESS Stop: 11/22/17 17:02 Amlodipine Besylate (Norvasc) 10 mg PO DAILY [facility] Stop: 11/23/17 08:59 Last Admin: 10/02/17 09:21 Dose: Not Given Clonidine HCl (Ltbyaixh-Udh-9) 1 patch TD QSAT [facility] Stop: 11/22/17 17:14 Divalproex Sodium (Depakote Sprinkle) 250 mg PO Q12HR [facility] PRN Reason: Protocol Stop: 11/30/17 10:16 Last Admin: 10/02/17 09:21 Dose: Not Given Docusate Sodium (Colace) 100 mg PO BID [facility] Stop: 11/23/17 08:59 Last Admin: 10/02/17 09:21 Dose: Not Given Ferrous Sulfate (Iron) 325 mg PO DAILY [facility] Stop: 11/23/17 08:59 Last Admin: 10/02/17 09:22 Dose: Not Given Finasteride (Proscar) 5 mg PO DAILY [facility] PRN Reason: Protocol Stop: 11/23/17 08:59 Last Admin: 10/02/17 09:22 Dose: Not Given Guaifenesin (Robitussin) 200 mg PO Q4HR PRN PRN Reason: Cough or Congestion Stop: 11/22/17 17:05 Haloperidol (Haldol) 5 mg PO BID [facility] PRN Reason: Protocol Stop: 11/23/17 08:59 Last Admin: 10/02/17 09:22 Dose: Not Given Haloperidol Decanoate (Haldol Dec) 50 mg IM QMONTH [facility] PRN Reason: Protocol Stop: 11/26/17 14:59 Last Admin: 09/27/17 14:16 Dose: 50 mg Hydralazine HCl (Apresoline) 20 mg PO TID [facility] Stop: 11/22/17 20:59 Last Admin: 10/02/17 09:22 Dose: Not Given Ipratropium [place] (Atrovent Neb 0.5mg/2.5ml) 0.5 mg HHN QIDRT [facility] Stop: 11/22/17 18:59 Isosorbide Dinitrate (Isordil) 10 mg PO TID [facility] Stop: 11/22/17 20:59 Last Admin: 10/02/17 09:24 Dose: Not Given Lorazepam (Ativan) 0.5 mg PO Q4HR PRN; Protocol PRN Reason: Anxiety Stop: 10/23/17 17:02 Magnesium Hydroxide (Milk Of Magnesia) 30 ml PO HS PRN PRN Reason: Constipation Magnesium Hydroxide (Milk Of Magnesia) 30 ml PO DAILY PRN PRN Reason: Constipation Stop: 11/22/17 17:05 Pantoprazole Sodium (Protonix) 40 mg PO BID [facility] Stop: 11/23/17 08:59 Last Admin: 10/02/17 09:24 Dose: Not Given Risperidone (Risperdal) 1 mg PO BID [facility] PRN Reason: Protocol Stop: 11/23/17 08:59 Last Admin: 10/02/17 09:24 Dose: Not Given Tamsulosin HCl (Flomax) 0.4 mg PO DAILY [facility] Stop: 11/23/17 08:59 Last Admin: 10/02/17 09:24 Dose: Not Given Zolpidem Tartrate (Ambien) 5 mg PO HSMR1 PRN PRN Reason: Insomnia Stop: 11/22/17 17:02 General: demented, appears older HEENT: NC/AT, PERRLA Neck: Supple Lungs: CTAB Cardiovascular: RRR, Normal S1, Normal S2, without murmur Abdomen: soft, globular, non-distended, positive bowel sound Extremities: excoriation Neurological: no change, disorganized Internal Medicine Assmt/Plan - Assessment Assessment: chronic kidney disease anemia hyponatremia mild protein calorie malnutrition non-compliant htn dyslipidemia dementia - Plan Plan: encourage fluids monitor BP continue current orders Nutritional Asmnt/Malnutr-PDOC - Dietary Evaluation Malnutrition Findings (Please click <Entered> for more info): Nutritional Asmnt/Malnutrition Start: 09/24/17 08: 05 Text: Status: Complete Freq: Document 09/26/17 12:55 [email or web address] (Rec: 09/26/17 13:03 [id number]) Nutritional Asmnt/Malnutrition Patient General Information Nutritional Screening Moderate Risk Diagnosis psychosis NOS Pertinent Medical Hx/Surgical Hx schizophrenia, CKD, BPH Subjective Information Pt A&O x 2, delusional, not appropriate for interview. No meal intake recorded in EMR at this time, but per RN notes pt ate 100% of a breakfast. 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 Problem Problem no nutrition dx at this time Malnutrition Alert Is there a minimum of two criteria No selected? Query Text:Check all the applicable criteria. A minimum of two criteria are recommended for diagnosis of either severe or non-severe malnutrition. Malnutrition Related to Morbid Obesity Malnutrition related to morbid obesity No Intervention/Recommendation Comments 1. Continue renal diet as ordered 2. Please record PO intake Expected Outcomes/Goals Expected Outcomes/Goals PO intake >50%, stable wt monitor wt, labs, skin, PO intake
--- NOTE | 2017-10-02 20:24 | Progress Notes ---
DATE: 10/02/2017 SUBJECTIVE: The patient was seen, remains anxious, guarded, still paranoid, but less irritable, less angry. The patient has been more consistent with his medications in the past couple of days. His insight; however, still limited. Judgment remains impaired. ASSESSMENT: Schizophrenia, paranoid type. PLAN: Continue medication management. Continue stabilization. Continue to monitor closely. Encourage the patient to comply with treatment. [facility]# [id number]
[2017-10-03] MEDS: Ipratropium Neb 0.5 mg/2.5 mL UD HHN SCH ×4 (08:49→21:52)
[2017-10-03] MEDS: Multivitamin w/ Minerals Tab PO SCH (09:15)
[2017-10-03] MEDS: Pantoprazole 40 mg EC Tab PO SCH ×2 (09:17→16:25)
[2017-10-03] MEDS: Ferrous Sulfate 325 MG TAB PO SCH (10:15)
--- NOTE | 2017-10-03 13:57 | Internal Medicine Prog Note ---
Internal Medicine Subjective - Subjective Service Date: 10/03/17 Patient is:: awake, verbal, interactive, talking, agitated, confused Per staff patient has:: no adverse event, noncompliant, confused, tolerating meds Internal Medicine Objective - Physical Exam Vitals and I&O: Vital Signs Temp 0 F 10/02/17 06:53 Pulse 83 09/25/17 20:00 Resp 20 09/29/17 20:00 BP 139/89 09/25/17 20:00 Pulse Ox 83 09/25/17 20:00 Intake & Output 10/02/17 10/03/17 10/03/17 18:59 06:59 18:59 Intake Total 900 240 Balance 900 240 Intake: Oral 900 240 Other: # Voids 3 1 # Bowel Movements 1 Active Medications: Current Medications Acetaminophen (Tylenol) 650 mg PO Q4H PRN PRN Reason: Pain Or Fever above 101 Stop: 11/22/17 17:05 Al Hydrox/Mg Hydrox/Simethicone (Maalox) 30 ml PO Q4HR PRN PRN Reason: GI DISTRESS Stop: 11/22/17 17:02 Amlodipine Besylate (Norvasc) 10 mg PO DAILY [facility] Stop: 11/23/17 08:59 Last Admin: 10/03/17 09:14 Dose: Not Given Clonidine HCl (Ypufzqju-Jfq-0) 1 patch TD QSAT [facility] Stop: 11/22/17 17:14 Divalproex Sodium (Depakote Sprinkle) 250 mg PO Q12HR [facility] PRN Reason: Protocol Stop: 11/30/17 10:16 Last Admin: 10/03/17 09:15 Dose: Not Given Docusate Sodium (Colace) 100 mg PO BID [facility] Stop: 11/23/17 08:59 Last Admin: 10/03/17 09:15 Dose: Not Given Ferrous Sulfate (Iron) 325 mg PO DAILY [facility] Stop: 11/23/17 08:59 Last Admin: 10/03/17 10:15 Dose: Not Given Finasteride (Proscar) 5 mg PO DAILY [facility] PRN Reason: Protocol Stop: 11/23/17 08:59 Last Admin: 10/03/17 09:15 Dose: Not Given Guaifenesin (Robitussin) 200 mg PO Q4HR PRN PRN Reason: Cough or Congestion Stop: 11/22/17 17:05 Haloperidol (Haldol) 5 mg PO BID [facility] PRN Reason: Protocol Stop: 11/23/17 08:59 Last Admin: 10/03/17 09:15 Dose: Not Given Haloperidol Decanoate (Haldol Dec) 50 mg IM QMONTH [facility] PRN Reason: Protocol Stop: 11/26/17 14:59 Last Admin: 09/27/17 14:16 Dose: 50 mg Hydralazine HCl (Apresoline) 20 mg PO TID [facility] Stop: 11/22/17 20:59 Last Admin: 10/03/17 13:49 Dose: Not Given Ipratropium [place] (Atrovent Neb 0.5mg/2.5ml) 0.5 mg HHN QIDRT [facility] Stop: 11/22/17 18:59 Last Admin: 10/03/17 11:49 Dose: Not Given Isosorbide Dinitrate (Isordil) 10 mg PO TID [facility] Stop: 11/22/17 20:59 Last Admin: 10/03/17 13:50 Dose: Not Given Lorazepam (Ativan) 0.5 mg PO Q4HR PRN; Protocol PRN Reason: Anxiety Stop: 10/23/17 17:02 Magnesium Hydroxide (Milk Of Magnesia) 30 ml PO HS PRN PRN Reason: Constipation Magnesium Hydroxide (Milk Of Magnesia) 30 ml PO DAILY PRN PRN Reason: Constipation Stop: 11/22/17 17:05 Pantoprazole Sodium (Protonix) 40 mg PO BID [facility] Stop: 11/23/17 08:59 Last Admin: 10/03/17 09:17 Dose: Not Given Risperidone (Risperdal) 1 mg PO BID [facility] PRN Reason: Protocol Stop: 11/23/17 08:59 Last Admin: 10/03/17 09:17 Dose: Not Given Tamsulosin HCl (Flomax) 0.4 mg PO DAILY [facility] Stop: 11/23/17 08:59 Last Admin: 10/03/17 09:17 Dose: Not Given Zolpidem Tartrate (Ambien) 5 mg PO HSMR1 PRN PRN Reason: Insomnia Stop: 11/22/17 17:02 General: demented, appears older HEENT: NC/AT, PERRLA Neck: Supple Lungs: CTAB Cardiovascular: RRR, Normal S1, Normal S2, without murmur Abdomen: soft, globular, non-distended, positive bowel sound Extremities: excoriation Neurological: no change, disorganized Internal Medicine Assmt/Plan - Assessment Assessment: chronic kidney disease anemia hyponatremia mild protein calorie malnutrition non-compliant htn dyslipidemia dementia - Plan Plan: encourage fluids monitor BP continue current orders Nutritional Asmnt/Malnutr-PDOC - Dietary Evaluation Malnutrition Findings (Please click <Entered> for more info): Nutritional Asmnt/Malnutrition Start: 09/24/17 08: 05 Text: Status: Complete Freq: Document 09/26/17 12:55 [email or web address] (Rec: 09/26/17 13:03 [email or web address] [id number]) Nutritional Asmnt/Malnutrition Patient General Information Nutritional Screening Moderate Risk Diagnosis psychosis NOS Pertinent Medical Hx/Surgical Hx schizophrenia, CKD, BPH Subjective Information Pt A&O x 2, delusional, not appropriate for interview. No meal intake recorded in EMR at this time, but per RN notes pt ate 100% of a breakfast. 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 Problem Problem no nutrition dx at this time Malnutrition Alert Is there a minimum of two criteria No selected? Query Text:Check all the applicable criteria. A minimum of two criteria are recommended for diagnosis of either severe or non-severe malnutrition. Malnutrition Related to Morbid Obesity Malnutrition related to morbid obesity No Intervention/Recommendation Comments 1. Continue renal diet as ordered 2. Please record PO intake Expected Outcomes/Goals Expected Outcomes/Goals PO intake >50%, stable wt monitor wt, labs, skin, PO intake
--- NOTE | 2017-10-03 19:31 | Progress Notes ---
DATE: 10/03/2017 SUBJECTIVE: The patient was seen, discussed with staff. Still superficially but at times becomes angry. The patient is taking his medication. The patient's insight still limited. The patient still with some paranoia. The patient is oriented to time, place and person. ASSESSMENT: Schizophrenia, paranoid type. PLAN: Continue hospitalization, monitor closely and continue stabilization. JOB# [id number]
[2017-10-04] MEDS: Multivitamin w/ Minerals Tab PO SCH (10:36)
[2017-10-04] MEDS: Ferrous Sulfate 325 MG TAB PO SCH (10:36)
[2017-10-04] MEDS: Pantoprazole 40 mg EC Tab PO SCH ×2 (10:38→18:04)
--- NOTE | 2017-10-04 13:29 | Internal Medicine Prog Note ---
Internal Medicine Subjective - Subjective Service Date: 10/04/17 Patient is:: awake, verbal, interactive, talking, agitated, confused Per staff patient has:: no adverse event, noncompliant, confused, tolerating meds, refusing care Internal Medicine Objective - Physical Exam Vitals and I&O: Vital Signs Temp 0 F 10/02/17 06:53 Pulse 83 09/25/17 20:00 Resp 20 09/29/17 20:00 BP 139/89 09/25/17 20:00 Pulse Ox 83 09/25/17 20:00 Intake & Output 10/03/17 10/04/17 10/04/17 18:59 06:59 18:59 Intake Total 1200 120 Balance 1200 120 Intake: Oral 1200 120 Other: # Voids 3 3 # Bowel Movements 0 Active Medications: Current Medications Acetaminophen (Tylenol) 650 mg PO Q4H PRN PRN Reason: Pain Or Fever above 101 Stop: 11/22/17 17:05 Al Hydrox/Mg Hydrox/Simethicone (Maalox) 30 ml PO Q4HR PRN PRN Reason: GI DISTRESS Stop: 11/22/17 17:02 Amlodipine Besylate (Norvasc) 10 mg PO DAILY [facility] Stop: 11/23/17 08:59 Last Admin: 10/04/17 10:38 Dose: Not Given Clonidine HCl (Uxzqroje-Zzr-9) 1 patch TD QSAT [facility] Stop: 11/22/17 17:14 Divalproex Sodium (Depakote Sprinkle) 250 mg PO Q12HR [facility] PRN Reason: Protocol Stop: 11/30/17 10:16 Last Admin: 10/04/17 10:38 Dose: Not Given Docusate Sodium (Colace) 100 mg PO BID [facility] Stop: 11/23/17 08:59 Last Admin: 10/04/17 10:38 Dose: Not Given Ferrous Sulfate (Iron) 325 mg PO DAILY [facility] Stop: 11/23/17 08:59 Last Admin: 10/04/17 10:36 Dose: 325 mg Finasteride (Proscar) 5 mg PO DAILY [facility] PRN Reason: Protocol Stop: 11/23/17 08:59 Last Admin: 10/04/17 10:38 Dose: Not Given Guaifenesin (Robitussin) 200 mg PO Q4HR PRN PRN Reason: Cough or Congestion Stop: 11/22/17 17:05 Haloperidol (Haldol) 5 mg PO BID [facility] PRN Reason: Protocol Stop: 11/23/17 08:59 Last Admin: 10/04/17 10:38 Dose: Not Given Haloperidol Decanoate (Haldol Dec) 50 mg IM QMONTH [facility] PRN Reason: Protocol Stop: 11/26/17 14:59 Last Admin: 09/27/17 14:16 Dose: 50 mg Hydralazine HCl (Apresoline) 20 mg PO TID [facility] Stop: 11/22/17 20:59 Last Admin: 10/04/17 10:38 Dose: Not Given Ipratropium [place] (Atrovent Neb 0.5mg/2.5ml) 0.5 mg HHN QIDRT [facility] Stop: 11/22/17 18:59 Last Admin: 10/03/17 21:52 Dose: Not Given Isosorbide Dinitrate (Isordil) 10 mg PO TID [facility] Stop: 11/22/17 20:59 Last Admin: 10/04/17 10:38 Dose: Not Given Lorazepam (Ativan) 0.5 mg PO Q4HR PRN; Protocol PRN Reason: Anxiety Stop: 10/23/17 17:02 Magnesium Hydroxide (Milk Of Magnesia) 30 ml PO HS PRN PRN Reason: Constipation Magnesium Hydroxide (Milk Of Magnesia) 30 ml PO DAILY PRN PRN Reason: Constipation Stop: 11/22/17 17:05 Pantoprazole Sodium (Protonix) 40 mg PO BID [facility] Stop: 11/23/17 08:59 Last Admin: 10/04/17 10:38 Dose: Not Given Risperidone (Risperdal) 1 mg PO BID [facility] PRN Reason: Protocol Stop: 11/23/17 08:59 Last Admin: 10/04/17 10:38 Dose: Not Given Tamsulosin HCl (Flomax) 0.4 mg PO DAILY [facility] Stop: 11/23/17 08:59 Last Admin: 10/04/17 10:38 Dose: Not Given Zolpidem Tartrate (Ambien) 5 mg PO HSMR1 PRN PRN Reason: Insomnia Stop: 11/22/17 17:02 General: demented, appears older HEENT: NC/AT, PERRLA Neck: Supple Lungs: CTAB Cardiovascular: RRR, Normal S1, Normal S2, without murmur Abdomen: soft, globular, non-distended, positive bowel sound Extremities: excoriation Neurological: no change, disorganized Internal Medicine Assmt/Plan - Assessment Assessment: chronic kidney disease anemia hyponatremia mild protein calorie malnutrition non-compliant htn dyslipidemia dementia - Plan Plan: encourage fluids monitor BP continue current orders Nutritional Asmnt/Malnutr-PDOC - Dietary Evaluation Malnutrition Findings (Please click <Entered> for more info): Nutritional Asmnt/Malnutrition Start: 09/24/17 08: 05 Text: Status: Complete Freq: Document 09/26/17 12:55 [email or web address] (Rec: 09/26/17 13:03 [email or web address] [id number]) Nutritional Asmnt/Malnutrition Patient General Information Nutritional Screening Moderate Risk Diagnosis psychosis NOS Pertinent Medical Hx/Surgical Hx schizophrenia, CKD, BPH Subjective Information Pt A&O x 2, delusional, not appropriate for interview. No meal intake recorded in EMR at this time, but per RN notes pt ate 100% of a breakfast. Current Diet Order/ Nutrition Support renal Patient / S.O Not Indicated Pertinent Medications colace, iron, MOM, protonix Pertinent Labs no labs available Nutritional Hx/Data Height 5 ft 9 in Height (Calculated Centimeters) 175.3 Current Weight (lbs) 168 lb Weight (Calculated Kilograms) 76.2 Weight (Calculated Grams) 16431.5 [place] Body Weight 160 % [place] Body Weight 105 Body Mass Index (BMI) 24.7 Weight Status Approriate GI Symptoms GI Symptoms None Last BM SAP PPM CONSULTANT Difficult in: None Skin Integrity/Comment: intact, no edema noted Current %PO Good (75-100%) Estimated Nutritional Goals BEE in Kcals: Using Current wt Calories/Kcals/Kg 25-30 Kcals Calculated 7619-5883 Protein: Using Current wt Protein g/k-1.2 Protein Calculated 76-91 g Fluid: ml 5364-3016 mL Nutritional Problem 1. Problem Problem no nutrition dx at this time Malnutrition Alert Is there a minimum of two criteria No selected? Query Text:Check all the applicable criteria. A minimum of two criteria are recommended for diagnosis of either severe or non-severe malnutrition. Malnutrition Related to Morbid Obesity Malnutrition related to morbid obesity No Intervention/Recommendation Comments 1. Continue renal diet as ordered 2. Please record PO intake Expected Outcomes/Goals Expected Outcomes/Goals PO intake >50%, stable wt monitor wt, labs, skin, PO intake
--- NOTE | 2017-10-04 23:54 | Progress Notes ---
DATE: 10/04/2017 SUBJECTIVE: The patient was seen today, still irritable at times, some agitation and anxiety. The patient still grandiose, at times refusing medications. The patient's insight poor. Judgment is impaired. ASSESSMENT: The patient has schizophrenia, paranoid type. PLAN: Continue stabilization. Continue to monitor closely. Use risperidone, liquid form to help improve compliance. The patient was encouraged to comply with treatment. The patient is conserved and received Haldol Decanoate. Monitor for the time being. JOB# [id number]
[2017-10-05] MEDS: Ferrous Sulfate 325 MG TAB PO SCH (08:55)
[2017-10-05] MEDS: Pantoprazole 40 mg EC Tab PO SCH ×2 (08:56→16:02)
[2017-10-05] MEDS: Multivitamin w/ Minerals Tab PO SCH (08:56)
--- NOTE | 2017-10-05 14:11 | Internal Medicine Prog Note ---
Internal Medicine Subjective - Subjective Service Date: 10/05/17 Patient is:: awake, verbal, interactive, talking, agitated, confused Per staff patient has:: no adverse event, noncompliant, confused, tolerating meds, refusing care Internal Medicine Objective - Physical Exam Vitals and I&O: Vital Signs Temp 0 F 10/02/17 06:53 Pulse 83 09/25/17 20:00 Resp 20 09/29/17 20:00 BP 139/89 09/25/17 20:00 Pulse Ox 83 09/25/17 20:00 Intake & Output 10/04/17 10/05/17 10/05/17 18:59 06:59 18:59 Intake Total 1200 120 Balance 1200 120 Intake: Oral 1200 120 Other: # Voids 3 3 Stool Characteristics Soft Active Medications: Current Medications Acetaminophen (Tylenol) 650 mg PO Q4H PRN PRN Reason: Pain Or Fever above 101 Stop: 11/22/17 17:05 Al Hydrox/Mg Hydrox/Simethicone (Maalox) 30 ml PO Q4HR PRN PRN Reason: GI DISTRESS Stop: 11/22/17 17:02 Amlodipine Besylate (Norvasc) 10 mg PO DAILY [facility] Stop: 11/23/17 08:59 Last Admin: 10/05/17 08:55 Dose: Not Given Clonidine HCl (Jiohxvea-Ial-1) 1 patch TD QSAT [facility] Stop: 11/22/17 17:14 Divalproex Sodium (Depakote Sprinkle) 250 mg PO Q12HR TERESITA PRN Reason: Protocol Stop: 11/30/17 10:16 Last Admin: 10/05/17 08:55 Dose: Not Given Docusate Sodium (Colace) 100 mg PO BID [facility] Stop: 11/23/17 08:59 Last Admin: 10/05/17 08:55 Dose: Not Given Ferrous Sulfate (Iron) 325 mg PO DAILY [facility] Stop: 11/23/17 08:59 Last Admin: 10/05/17 08:55 Dose: Not Given Finasteride (Proscar) 5 mg PO DAILY [facility] PRN Reason: Protocol Stop: 11/23/17 08:59 Last Admin: 10/05/17 08:55 Dose: Not Given Guaifenesin (Robitussin) 200 mg PO Q4HR PRN PRN Reason: Cough or Congestion Stop: 11/22/17 17:05 Haloperidol (Haldol) 5 mg PO BID TERESITA PRN Reason: Protocol Stop: 11/23/17 08:59 Last Admin: 10/05/17 08:55 Dose: Not Given Haloperidol Decanoate (Haldol Dec) 50 mg IM QMONTH TERESITA PRN Reason: Protocol Stop: 11/26/17 14:59 Last Admin: 09/27/17 14:16 Dose: 50 mg Hydralazine HCl (Apresoline) 20 mg PO TID [facility] Stop: 11/22/17 20:59 Last Admin: 10/05/17 13:04 Dose: Not Given Ipratropium Means (Atrovent Neb 0.5mg/2.5ml) 0.5 mg HHN QIDRT [facility] Stop: 11/22/17 18:59 Last Admin: 10/03/17 21:52 Dose: Not Given Isosorbide Dinitrate (Isordil) 10 mg PO TID [facility] Stop: 11/22/17 20:59 Last Admin: 10/05/17 13:04 Dose: Not Given Lorazepam (Ativan) 0.5 mg PO Q4HR PRN; Protocol PRN Reason: Anxiety Stop: 10/23/17 17:02 Magnesium Hydroxide (Milk Of Magnesia) 30 ml PO HS PRN PRN Reason: Constipation Magnesium Hydroxide (Milk Of Magnesia) 30 ml PO DAILY PRN PRN Reason: Constipation Stop: 11/22/17 17:05 Pantoprazole Sodium (Protonix) 40 mg PO BID [facility] Stop: 11/23/17 08:59 Last Admin: 10/05/17 08:56 Dose: Not Given Risperidone (Risperdal) 1 mg PO BID [facility] Stop: 12/04/17 19:29 Tamsulosin HCl (Flomax) 0.4 mg PO DAILY [facility] Stop: 11/23/17 08:59 Last Admin: 10/05/17 08:56 Dose: Not Given Zolpidem Tartrate (Ambien) 5 mg PO HSMR1 PRN PRN Reason: Insomnia Stop: 11/22/17 17:02 General: demented, appears older HEENT: NC/AT, PERRLA Neck: Supple Lungs: CTAB Cardiovascular: RRR, Normal S1, Normal S2, without murmur Abdomen: soft, globular, non-distended, positive bowel sound Extremities: excoriation Neurological: no change, disorganized Internal Medicine Assmt/Plan - Assessment Assessment: chronic kidney disease anemia hyponatremia mild protein calorie malnutrition non-compliant htn dyslipidemia dementia - Plan Plan: encourage fluids monitor BP continue current orders Nutritional Asmnt/Malnutr-PDOC - Dietary Evaluation Malnutrition Findings (Please click <Entered> for more info): Nutritional Asmnt/Malnutrition Start: 09/24/17 08: 05 Text: Status: Complete Freq: Document 09/26/17 12:55 [email or web address] (Rec: 09/26/17 13:03 [email or web address]) Nutritional Asmnt/Malnutrition Patient General Information Nutritional Screening Moderate Risk Diagnosis psychosis NOS Pertinent Medical Hx/Surgical Hx schizophrenia, CKD, BPH Subjective Information Pt A&O x 2, delusional, not appropriate for interview. No meal intake recorded in EMR at this time, but per RN notes pt ate 100% of a breakfast. Current Diet Order/ Nutrition Support renal Patient / S.O Not Indicated Pertinent Medications colace, iron, MOM, protonix Pertinent Labs no labs available Nutritional Hx/Data Height 5 ft 9 in Height (Calculated Centimeters) 175.3 Current Weight (lbs) 168 lb Weight (Calculated Kilograms) 76.2 Weight (Calculated Grams) 24853.5 [place] Body Weight 160 % [place] Body Weight 105 Body Mass Index (BMI) 24.7 Weight Status Approriate GI Symptoms GI Symptoms None Last BM GAMING [employer]IATE Difficult in: None Skin Integrity/Comment: intact, no edema noted Current %PO Good (75-100%) Estimated Nutritional Goals BEE in Kcals: Using Current wt Calories/Kcals/Kg 25-30 Kcals Calculated 6087-5867 Protein: Using Current wt Protein g/k-1.2 Protein Calculated 76-91 g Fluid: ml 3426-2540 mL Nutritional Problem 1. Problem Problem no nutrition dx at this time Malnutrition Alert Is there a minimum of two criteria No selected? Query Text:Check all the applicable criteria. A minimum of two criteria are recommended for diagnosis of either severe or non-severe malnutrition. Malnutrition Related to Morbid Obesity Malnutrition related to morbid obesity No Intervention/Recommendation Comments 1. Continue renal diet as ordered 2. Please record PO intake Expected Outcomes/Goals Expected Outcomes/Goals PO intake >50%, stable wt monitor wt, labs, skin, PO intake
--- NOTE | 2017-10-05 18:09 | Discharge Summary ---
DATE OF DISCHARGE: 10/05/2017 DATE OF DISCHARGE: 10/05/2017. REASON FOR HOSPITALIZATION: Schizophrenia, paranoid type. HISTORY OF PRESENT ILLNESS: The patient is a 61-year-old male, who was sent from his snf facility for increased paranoia, agitation, anger outbursts, refusing care, refusing medications. The patient initially was on medical floor, then transferred to Geropsych unit. HOSPITALIZATION COURSE: Medications were implemented. The patient at times is refusing care. The patient received Haldol Decanoate. His compliance started to improve. Risperidone was added. Agitation resolved. On 10/05/2017, the patient was pleasant, but superficial, did not have any suicidal or homicidal thoughts. He is oriented to person, knows he is in the hospital. The patient is not having thoughts of harming self or others. The patient was no longer aggressive. His appetite and sleep were fair. The patient was discharged back to his facility. FINAL DIAGNOSIS: Schizophrenia, paranoid type. MEDICAL: Chronic renal issues, chronic kidney problems, hypertension. DISPOSITION: The patient was discharged to [facility]. EXPECTED COURSE OF RECOVERY: The patient with chronic condition. JOB# [id number]
[2017-10-05] MEDS ORDERED: risperiDONE 1 mg/mL 30 mL Bottle PO SCH (19:30)
== END 2017-10-05 17:45 | DRG 885 ==
LOC: GERO 16:46
DX: F20.0 Paranoid schizophrenia (principal); N18.9 Chronic kidney disease, unspecified; E44.1 Mild protein-calorie malnutrition; F03.91 Unspecified dementia, unspecified severity, with behavioral disturbance; E87.1 Hypo-osmolality and hyponatremia; D64.9 Anemia, unspecified; I12.9 Hypertensive chronic kidney disease with stage 1 through stage 4 chronic kidney disease, or unspecified chronic kidney disease; E78.5 Hyperlipidemia, unspecified; Z88.0 Allergy status to penicillin; Z88.8 Allergy status to other drugs, medicaments and biological substances; Z91.14 Patient's other noncompliance with medication regimen; Z68.24 Body mass index [BMI] 24.0-24.9, adult
CPT/HCPCS: J1631; Z7610